=== PATIENT | female | born 1950 | race Caucasian/White ===

== ENCOUNTER 2023-01-21 13:47 | Outpatient (RCR) | payer MEDICARE, SELFPAY | END 2023-03-01 16:35 | disposition home or self-care (01) | LOC: PT 13:47 | PROVIDERS: PCP Family Medicine; Visit Provider Family Medicine | DX: M79.18 Myalgia, other site (principal); M25.611 Stiffness of right shoulder, not elsewhere classified | CPT/HCPCS: 97035; 97110; 97140; 97161; 97530 ==

== ENCOUNTER 2023-04-07 15:14 | Outpatient (OUT) | payer MEDICARE, SELFPAY ==
--- NOTE | 2023-04-07 15:29 | MR_ITS ---
The [address] [address] Patient Name: GUANACO HAGAN MRN: [facility]:[id number] date: 1950 Sex: F Assigned Patient Location: LAB Current Patient Location: LAB Accession/Order Number: [id number] Exam Date: 04/07/2023 15:42 Report Date: 04/07/2023 19:56 At the request of: NON-STAFF PHYSICIAN Procedure: MR head/brain wo/w con EXAM: MR head/brain wo/w con HISTORY: Multiple Sclerosis, chronic headache. COMPARISON: MRI brain 04/19/2022, 08/14/2020 TECHNIQUE: Multisequence MRI brain was performed with and without intravenous contrast. FINDINGS: There is no restricted diffusion to suggest acute infarct. There is no midline shift, mass effect, or abnormal extraaxial fluid collections. There are no abnormal parenchymal or leptomeningeal enhancement. The cortical sulci and ventricular system are within normal limits for age. There are a few nonspecific scattered foci of T2/FLAIR signal abnormality in the subcortical and periventricular white matter, some of which shows a perpendicular orientation to the ventricular surface, unchanged since 04/19/2022. The major intracranial flow voids are visualized. The cerebellar tonsils are normal in position. The orbits are unremarkable. The paranasal sinuses are essentially clear. The mastoid air cells are clear. MR/MR head/brain wo/w con IMPRESSION: No acute intracranial abnormality. A few small nonspecific T2/FLAIR bright foci in the supratentorial white matter, unchanged since 05/19/2022, consistent with demyelination and/or chronic microvascular ischemic changes. No associated restricted diffusion or enhancement to suggest acute demyelination. Electronically authenticated by: ANNE CASTRO Date: 04/07/2023 19:56
[2023-04-07 15:31] LABS: Estimated GFR (African America >60 (>=60); Estimated GFR (Non-African Ame 58 (>=60)
== END 2023-04-07 15:15 | disposition home or self-care (01) ==
LOC: LAB 15:14
PROVIDERS: PCP Family Medicine
DX: G35 Multiple sclerosis (principal)
CPT/HCPCS: 36415; 70553; 82565; 84520; A9575

== ENCOUNTER 2023-06-20 12:24 | Outpatient (OUT) | payer MEDICARE, SELFPAY ==
--- OUTSIDE RECORDS SUMMARY | 2023-06-20 12:29 | XMS_ITS | CCD ---
Author Name Unknown Address [address] [facility] [address] [place] [address] Organization [facility] Care Team Providers Care Children'S Librarian Name Role Phone OSCAR, ABDULAZIM Admitting Unavailable OSCAR ABDULAZIM Attending Unavailable DAMARIS MARINELLI Referring Unavailable DAMARIS MARINELLI Primary Care Unavailable NM Procedure Practitioner Unavailab le OSCAR, ABDULAZIM Surgeon Unavailable NM Procedure Practitioner Unavailab le ALTENHOF, MARVEL Surgeon Unavailable MD Damaris Marinelli Primary Care Provider DO Elder Simon Emergency Provider Unavai Damaris Gallego Unavailable Unavailable Unavailable Rey Taylor Unavailable Damaris Marinelli Primary Care Unavailable Elder Simon Attending Unavailable Elder Simon Admitting Unavailable Damaris Marinelli Unavailable DR DAMARIS MARINELLI Admitting Unavailable YVES, DR DAMARIS Encinas Attending Unavailable YVES, DR DAMARIS Encinas Primary Care Unavailable YVES, DR DAMARIS Encinas Consulting Unavailable MISC, DR SALTER Admitting Unavailable MISC, DR SALTER Attending Unavailable DR DAMARIS MARINELLI Primary Care Unavailable DALLAS, DR RAMAKRISHNA Sainz Consulting Unavailable MISC, DR SALTER Consulting Unavailable YVES, DR DAMARIS Encinas Admitting Unavailable YVES, DR DAMARIS Encinas Attending Unavailable YVES, DR DAMARIS Encinas Primary Care Unavailable YVES, DR DAMARIS Encinas Consulting Unavailable Yves, Dr. Damaris Macias Primary Care Unav ailable Iman, Dr. Marcia Monte Referring Mayela vailable Valerio, Dr. Marcia Monte Attending Mayela vailable Valerio, Dr. Marcia Monte Attending Mayela vailable Marinelli, Dr. Damaris Macias Primary Care Unav Dr. Marcia Morrow Referring Mayela Maikel Oswald Unavailable Allergies Allergy Classification Reported Allergen(s) Allergy Type Date of Onset Reaction(s) Facility (14 sources) Amoxicillin; Translations: [AMOXICILLIN] Drug Allergy rash [facility] Rep[facility] (9 sources) Ciprofloxacin; Translations: [CIPRO] Drug Allergy Myalgia [facility] (20 sources) Doxycycline; Translations: [DOXYCYCLINE] Drug Allergy Headache, Hives, Comment:heart burn [facility] (20 sources) Morphine; Translations: [MORPHINE] Drug Allergy Gastrointestinal Upset, Vomiting, stomach pain, Comment:stomach pains [facility] (2 sources) Sulfamethoxazole / Trimethoprim; Translations: [BACTRIM] Drug Allergy [facility] (17 sources) Ciprofloxacin; Translations: [ciprofloxacin] Drug Allergy Joint Pain, tendons/ache, Comment:tendons ache [facility] (12 sources) Sulfamethoxazole; Translations: [sulfamethoxazole] Drug Allergy Rash [facility] (12 sources) Trimethoprim; Translations: [trimethoprim] Drug Allergy [facility] (7 sources) Amoxicillin; Translations: [Amoxicillin TABS] Drug Allergy Hives [facility] 250 DO Work Phone: (17 sources) Sulfamethoxazole / Trimethoprim; Translations: [Bactrim TABS] Drug Allergy rash [facility] Other (10 sources) Amoxicillin Drug Allergy Rash [facility] Other (1 source) Glatiramer Drug Allergy [address] [facility]ository (5 sources) cefdinir Drug Allergy Unknown [facility] Other (5 sources) Clindamycin Drug Allergy Unknown [facility] Other (5 sources) House dust mite Drug allergy 019 Unknown [facility] Other (5 sources) Metoprolol Drug Allergy 014 Unknown [facility] Other (5 sources) Niacin Drug Allergy Unknown [facility] Other (5 sources) predniSONE Drug Allergy 015 Unknown [facility] Other (5 sources) Pseudoephedrine Drug Allergy Unknown [facility] Other (5 sources) Cat dander Drug allergy Unknown [facility] Other (5 sources) corticosteroid and/or corticosteroid derivative (FN) Drug allergy Unknown [facility] Other Medications Current Medications Medication Drug Class(es) Dates Sig (Normalized) Sig (Original) [id number] actuat albuterol 0.09 mg/actuat metered dose inhaler (9 sources) beta2-Adrenergic Agonist Start: 08-09-2022 take 2 puff(s) by inhalation every four hours as needed Albuterol Sulfate HFA 108 (90 Base) MCG/ACT 2 puff Inhalation every 4 hrs prn Aug, Active Start: 08-09-2022 take 2 puff(s) by in halation every four hours as needed Albuterol Sulfate HFA 108 (90 Base) MCG/ACT 2 puff Inhalation every 4 hrs prn Aug, Active Start: 08-09-2022 take 2 puff(s) by in halation every four hours as needed Albuterol Sulfate HFA 108 (90 Base) MCG/ACT 2 puff Inhalation every 4 hrs prn Aug, Active amLODIPine 10 mg oral tablet (18 sources) Dihydropyridine Calcium Channel Ananya Start: 08-04-2010 take 1 tablet by mouth once daily amLODIPine Besylate 10 MG take 1 tablet (5MG) by oral route every day Oral Aug, Active aspirin 81 mg chewable tablet (15 sources) Platelet Aggregation Inhibitor, Nonsteroidal Anti-inflammatory Drug Start: 07-28-2017 take 1 tablet by mouth once daily Aspirin Active 1 TAB PO Daily July 28, 2017 4:17pm Start: 06-03-2008 Baby Aspirin 8 1 MG take 1 by Oral route every day Oral *please review for potential _update for e-prescription and drug interaction check* May, Active take 6 tablets by mo [facility] every other day Aspirin EC 81 MG Oral Tablet Delayed Release once every other day Quantity: 0 Refills: 0 Ordered: 09-Sep-2021 DO Active azithromycin 250 mg oral tablet (10 sources) Macrolide Antimicrobial Start: 08-09-2022 Azithromycin 250 MG as directed Orally 2 tabs po today, then 1 tab daily x 4 more days for 5 May, Active carvedilol 6.25 mg oral tablet (18 sources) alpha-Adrenergic Ananya, beta-Adrenergic Ananya Start: 07-28-2017 take 1 tablet by mouth twice daily Carvedilol Active 1 TAB PO Twice daily July 28, 2017 4:12pm glipiZIDE 5 mg oral tablet (17 sources) Sulfonylurea take 1 tablet by mouth once daily 30 minutes before breakfast glipiZIDE 5 MG 1 tablet 30 minutes before breakfast Orally Once a day for 90 days Active take 1 tablet by mouth once bhakti y glipiZIDE ER 5 MG Oral Tablet Extended Release 24 Hour TAKE 1 TABLET DAILY. Quantity: 0 Refills: 0 Ordered: 09-Sep-2021 DO Active glipiZIDE Active methylPREDNISolone 4 mg oral tablet (9 sources) Corticosteroid Start: 08-09-2022 methylPREDNISolone 4 MG as directed Orally for 6 days Aug, Active omeprazole 10 mg delayed release oral capsule (5 sources) Proton Pump Inhibitor take 1 capsule by mouth once daily Omeprazole 10 MG 1 capsule 30 minutes before morning meal Orally Once a day Active take 1 capsule by [facility] every twenty-four hours Omeprazole 40 MG 1 capsule Orally Once a day Not-Taking pantoprazole 40 mg delayed release oral tablet (8 sources) Proton Pump Inhibitor take 1 tablet by mouth every twenty-four hours Pantoprazole Sodium 40 MG 1 tablet Orally Once a day Active take 1 tablet by dorene th every twelve hours Pantoprazole Sodium 40 MG 1 tablet Orall y twice a day Active microencapsulated potassium chloride 20 meq extended release oral tablet (16 sources) take 1 tablet by dorene th once daily Klor-Con M20 20 MEQ TAKE 1 TABLET BY MOUTH EVERY DAY Oral for 90 Active take 1 tablet by mouth once bhakti y Klor-Con M20 20 MEQ Oral Tablet Extended Release TAKE ONE TABLETS BY MOUTH EVERY DAY Quantity: 0 Refills: 0 Ordered: 09-Sep-2021 DO Active vitamin B12 (10 sources) Vitamin B12 Vitamin B12 Acti ve Vitamin D3 (10 sources) Vitamin D3 Activ e Completed/Discontinued Medications Medication Drug Class(es) Dates Sig (Normalized) Sig (Original) hyaluronate (20 sources) Start: 01-02-2019 Orthovisc 30 J ul2018 2 mL Start: 12-26-2018 Orthovisc 23 J ul2018 2 mL Start: 12-19-2018 Orthovisc 16 J ul2018 2 mL hydroCHLOROthiazide 25 mg oral tablet (17 sources) Thiazide Diuretic Start: 07-28-2017 take 1 tablet by mouth once daily hydroCHLOROthiazide 25 MG Oral Tablet take one tablet daily at noon Quantity: 45 Refills: 3 Ordered: 31-Jan-2023 Marcia Valerio MD Start : 31-Jan-2023 Active 120 actuat mometasone furoate 0.1 mg/actuat metered dose inhaler (11 sources) Corticosteroid Start: 07-28-2017 End: 08-26-2021 Mometasone (Asmanex Hfa) 100 mcg/actuation Hfa Aerosol Inhaler Discontinued July 28, 2017 4:17pm August 26, 2021 9:09pm take 2 puff(s) by mouth twice da cyndee Asmanex HFA 200 MCG/ACT INHALE 2 PUFFS BY MOUTH TWICE A DAY Inhalation for 30 Active valsartan 80 mg oral tablet (1 source) Angiotensin 2 Receptor Ananya Start: 11-11-2021 take 1 tablet by mouth once daily Valsartan 80 MG Oral Tablet TAKE 1 TABLET DAILY. Quantity: 90 Refills: 3 Ordered: 11-Nov-2021 Marcia Valerio MD Start : 11-Nov-2021 Active new start Vitamin B Complex CAPS (1 source) Vitamin B Comple x CAPS TAKE 1 CAPSULE EVERY OTHER DAY Quantity: 0 Refills: 0 Ordered: 19-May-2022 DO Active Vitamin B Complex Oral Capsule (1 source) take 1 capsule by mouth every other day Vitamin B Complex Oral Capsule TAKE 1 CAPSULE EVERY OTHER DAY Quantity: 0 Refills: 0 Ordered: 19-May-2022 DO Active Vitamin D3 CAPS (2 sources) Vitamin D3 CAPS TAKE 1 CAPSULE EVERY OTHER DAY Quantity: 0 Refills: 0 Ordered: 19-May-2022 DO Active Problems Active Problems Problem Classification Problem Date Documented Da te Episodic/Chronic Abdominal hernia (5 sources) Diaphragmatic hernia; Translations: [Diaphragmatic hernia without obstruction or gangrene] Episodic Abdominal pain (20 sources) Abdominal pain; Translations: [Unspecified abdominal pain] Onset: 5 Episodic Anxiety disorders (5 sources) Anxiety disorder; Translations: [Other specified anxiety disorders] Chronic Asthma (5 sources) Mild intermittent asthma; Translations: [Mild intermittent asthma, uncomplicated] Chronic Cardiac dysrhythmias (7 sources) Palpitations; Translations: [Palpitations] Episodic Chronic obstructive pulmonary disease and bronchiectasis (1 source) Bronchitis, not specified as acute or chronic Episodic Conduction disorders (12 sources) EKG: right bundle branch block; Translations: [Right bundle branch block] Chronic Diabetes mellitus without complication (7 sources) Diabetes mellitus; Translations: [Diabetes mellitus without mention of complication, type II or unspecified type, not stated as uncontrolled] Chronic Diabetes mellitus without complication (12 sources) Other abnormal glucose; Translations: [Hyperglycemia] Onset: 5 Episodic Disorders of lipid metabolism (11 sources) Hyperlipidemia; Translations: [Other and unspecified hyperlipidemia] Onset: 4 Chronic Diverticulosis and diverticulitis (10 sources) Diverticular disease; Translations: [Diverticulosis of intestine, part unspecified, without perforation or abscess without bleeding] Chronic Esophageal disorders (20 sources) Laryngopharyngeal reflux; Translations: [Gastro-esophageal reflux disease without esophagitis] Chronic Essential hypertension (20 sources) Essential hypertension; Translations: [Unspecified essential hypertension] Onset: 3 Chronic Genitourinary symptoms and ill-defined conditions (10 sources) Genitourinary symptoms; Translations: [Unspecified symptoms and signs involving the genitourinary system] Episodic Headache; including migraine (6 sources) Headache; Translations: [Headache] 08-26-2021 Episodic Headache; including migraine (1 source) Headache; including migraine; Translations: [HEADACHE UNSPECIFIED] Onset: 2 Immunizations and screening for infectious disease (11 sources) Patient encounter status; Translations: [Other specified vaccination] Onset: 2 Resolved: 2 Episodic Multiple sclerosis (9 sources) Multiple sclerosis; Translations: [Multiple sclerosis] Onset: 2 Chronic Nausea and vomiting (10 sources) Vomiting; Translations: [Vomiting, unspecified] Episodic Nephritis; nephrosis; renal sclerosis (5 sources) Nephrotic syndrome; Translations: [Nephrotic syndrome with unspecified morphologic changes] Onset: 6 Chronic Nonspecific chest pain (19 sources) Chest pain; Translations: [Chest pain, unspecified] Onset: 2 08-26-2021 Episodic Osteoarthritis (10 sources) Arthritis of first carpometacarpal joint of right hand; Translations: [Unilateral primary osteoarthritis of first carpometacarpal joint, right hand] Chronic Osteoporosis (10 sources) Senile osteoporosis; Translations: [Age-related osteoporosis without current pathological fracture] Chronic Other acquired deformities (10 sources) Lumbar spondylolisthesis; Translations: [Spondylolisthesis, lumbar region] Episodic Other circulatory disease (1 source) Elevated blood pressure; Translations: [Elevated blood-pressure reading, without diagnosis of hypertension] 08-26-2021 Episodic Other circulatory disease (5 sources) Elevated blood-pressure reading without diagnosis of hypertension; Translations: [Elevated blood-pressure reading, without diagnosis of hypertension] Episodic Other congenital anomalies (5 sources) Congenital anomaly of larynx; 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 Other connective tissue disease (1 source) Myalgia, other site Episodic Other diseases of kidney and ureters (7 sources) History of nephrotic syndrome; Translations: [Personal history, nephrotic syndrome] Episodic Other gastrointestinal disorders (1 source) Irritable bowel syndrome; Translations: [Irritable bowel syndrome] Chronic Other gastrointestinal disorders (15 sources) Diarrhea; Translations: [Diarrhea, unspecified] Onset: 6 Episodic Other gastrointestinal disorders (10 sources) Swollen abdomen; Translations: [Abdominal distension (gaseous)] Episodic Other injuries and conditions due to external causes (5 sources) History of fall; Translations: [History of falling] Episodic Other nervous system disorders (20 sources) Carpal tunnel syndrome; Translations: [Carpal tunnel syndrome, left upper limb] Chronic Other non-traumatic joint disorders (1 source) Stiffness of right shoulder, not elsewhere classified Episodic Other nutritional; endocrine; and metabolic disorders (7 sources) Overweight in adulthood with body mass index of 25 or more but less than 30; Translations: [Overweight] Episodic Other nutritional; endocrine; and metabolic disorders (10 sources) Body mass index 25-29 - overweight; Translations: [Body mass index (BMI) 28.0-28.9, adult] Onset: 6 Episodic Other screening for suspected conditions (not mental disorders or infectious disease) (7 sources) Electrocardiogram abnormal; Translations: [Nonspecific abnormal electrocardiogram [ECG] [EKG]] Episodic Other upper respiratory disease (5 sources) Vasomotor rhinitis; Translations: [Vasomotor rhinitis] Onset: 6 Chronic Other upper respiratory disease (5 sources) Allergic rhinitis due to animal hair and dander; Translations: [Allergic rhinitis due to animal (cat) (dog) hair and dander] Onset: 7 Chronic Other upper respiratory infections (7 sources) Postnasal drip; Translations: [Acute sinusitis] Onset: 5 Resolved: 2 Episodic Residual codes; unclassified (1 source) Swelling - edema - symptom; Translations: [Edema] Episodic Residual codes; unclassified (2 sources) Edema of lower extremity; Translations: [Edema] Episodic Screening and history of mental health and substance abuse codes (12 sources) Ex-smoker; Translations: [Personal history of tobacco use] Episodic Comment on above: Quit 06/1971; Spondylosis; intervertebral disc disorders; other back problems (20 sources) Solitary sacroiliitis; Translations: [Sacroiliitis, not elsewhere classified] Chronic Spondylosis; intervertebral disc disorders; other back problems (16 sources) Backache; Translations: [Dorsalgia, unspecified] 08-26-2021 Episodic Unclassified (1 source) R94.31 - Abnormal electrocardiogram [ECG] [EKG]; Translations: [R94.31 - Abnormal electrocardiogram [ECG] [EKG]] Onset: 2 Unclassified (5 sources) History of disease caused by Severe acute respiratory syndrome coronavirus 2 (situation); Translations: [Personal history of COVID-19] Urinary tract infections (5 sources) Urinary tract infectious disease; Translations: [Urinary tract infection, site not specified] Episodic Past or Other Problems Problem Classification Problem Date Documented Da te Episodic/Chronic Acute bronchitis (5 sources) Acute bronchitis; Translations: [Acute bronchitis, unspecified] Onset: 05-02-2015 Episodic Allergic reactions (5 sources) Urticaria, unspecified; Translations: [Urticaria] Onset: 01-23-2014 Episodic Fluid and electrolyte disorders (5 sources) Hypokalemia; Translations: [Hypokalemia] Onset: 09-22-2017 Episodic Other connective tissue disease (5 sources) Spasm; Translations: [Cramp and spasm] Onset: 08-04-2015 Episodic Other gastrointestinal disorders (6 sources) History of irritable bowel syndrome; Translations: [Personal history of other diseases of digestive system] Resolved: 09-10-2021 Episodic Other gastrointestinal disorders (5 sources) Flatulence, eructation and gas pain; Translations: [Abdominal distension (gaseous)] Onset: 12-25-2015 Episodic Other nutritional; endocrine; and metabolic disorders (6 sources) H/O: raised blood lipids; Translations: [Personal history of other endocrine, metabolic, and immunity disorders] Resolved: 09-10-2021 Episodic Other nutritional; endocrine; and metabolic disorders (5 sources) Overweight; Translations: [Overweight] Onset: 01-06-2016 Episodic Residual codes; unclassified (6 sources) History of clinical finding in subject; Translations: [Personal history of other specified diseases] Resolved: 09-10-2021 Episodic Residual codes; unclassified (3 sources) History of chest pain; Translations: [Personal history of other specified diseases] Resolved: 11-11-2021 Episodic Results Test Name Value Interpretation Reference Range Facility Office Visit (Cardiology)on 01-31-2023 Follow-up visit Diagnoses/Problems Assessed Essential hypertension (401.9) (I10) Right bundle branch block (RBBB) on electrocardiography (426.4) (I45.10) Diabetes mellitus (250.00) (E11.9) Overweight with body mass index (BMI) of 29 to 29.9 in adult (278.02,V85.25) (E66.3,Z68.29) Former smoker (V15.82) (Z87.891) Quit 06/1971 History of nephrotic syndrome (V13.03) (Z87.441) Orders Essential hypertension Start: hydroCHLOROthiazide 25 MG Oral Tablet; take one tablet daily at noon Overweight with body mass index (BMI) of 29 to 29.9 in adult Healthy Weight Tips; Status:Complete - Retrospective Authorization; Done: [id number] Some eating tips that can help you lose weight.; Status:Complete - Retrospective Authorization; Done: [id number] SocHx: Former smoker Tobacco Use Screening; Status:Complete; Done: [id number] Patient Instructions Please bring all medicines, vitamins, and herbal supplements with you when you come to the office. Prescriptions will not be filled unless you are compliant with your follow up appointments or have a follow up appointment scheduled as per instruction of your physician. Refills should be requested at the time of your visit. Retrieve lab work HCTZ 25 mg daily Follow up in 1 year. Chief Complaint GUANACO HAGAN is being seen for a 6 month follow-up of. Patient is in the office for follow-up for the problems noted below came with her . She is doing well without any major issues except for shoulder problem for which she is going through physical therapy. Recently she had episode of mild hypotension at home which was symptomatic with dizziness. She held the hydrochlorothiazide till today's office visit where she was found to have upper normal readings on her blood pressure. She is taking amlodipine and Coreg which have been well-tolerated. She has no palpitations orthopnea PND or chest pain. Apart from overweight her physical examination was unremarkable. Lab data from PCP done earlier this year were requested. She was reassured by her family physician about the results. Assessment/recommendat ions: 1?history of chest pain that is atypical in nature with normal nuclear stress test 2021,. No further cardiac work-up is needed reassurance is provided. She had normal cardiac catheterization 2009 2-Hypertension currently under control, she was advised to take the hydrochlorothiazide in the middle of the day to avoid sudden drop in blood pressure taken on medications at once 3-Diabetes currently under control managed by PCP, A1c below 7 4?history of nephrotic syndrome in remission, currently does not follow with nephrology 5?overweight, encouraged more weight loss with diet and exercise. 6? right bundle branch block. No clinical significance. Surgical History Problems History of Arthroscopy Knee History of Cataract surgery History of Cholecystectomy History of Complete colonoscopy Managed By: Josesito Cramer MD (Gastroenterology) History of Foot surgery Past Medical History Problems History of chest pain (V13.89) (Z87.898) Resolved Date: 11 Nov 2021 History of edema (V13.89) (Z87.898) Resolved Date: 10 Sep 2021 History of hyperlipidemia (V12.29) (Z86.39) Resolved Date: 10 Sep 2021 History of irritable bowel syndrome (V12.79) (Z87.19) Resolved Date: 10 Sep 2021 Current Meds Medication NameInstruction amLODIPine Besylate 10 MG Oral TabletTake 1 tablet daily Carvedilol 6.25 MG Oral TabletTake 1 tablet twice a day glipiZIDE ER 5 MG Oral Tablet Extended Release 24 HourTAKE 1 TABLET DAILY. Klor-Con M20 20 MEQ Oral Tablet Extended ReleaseTAKE 1 TABLET DAILY. Pantoprazole Sodium 40 MG Oral Tablet Delayed ReleaseTAKE 1 TABLET DAILY. Vitamin B Complex Oral CapsuleTAKE 1 CAPSULE EVERY OTHER DAY Vitamin D3 CAPSTAKE 1 CAPSULE EVERY OTHER DAY Allergies Medication Amoxicillin TABS Hives;; Recorded By: Uzma Solano; 09/08/2021 12:28:39 PM Bactrim TABS Hives;; Recorded By: Uzma Solano; 09/08/2021 12:28:39 PM doxycycline Hives;; Recorded By: Uzma Solano; 09/08/2021 12:28:39 PM Cipro Myalgia; Recorded By: Uzma Solano; 09/08/2021 12:28:39 PM morphine Vomiting; Recorded By: Uzma Solano; 09/08/2021 12:28:39 PM Social History Problems Caffeine use (V49.89) (Z78.9) 2 cups tea daily Consumes alcohol (V49.89) (Z78.9) rarely Former smoker (V15.82) (Z87.891) Quit 06/1971 No illicit drug use Review of Systems Constitutional: not feeling tired. Cardiovascular: no intermittent leg claudication and as noted in HPI. Respiratory: no cough and no shortness of breath. Gastrointestinal: no change in bowel habits and no blood in stools. Integumentary: no skin rashes. Neurological: dizziness, but no seizures and no frequent falls. All other systems have been reviewed and are negative for complaint. Vitals Vital Signs Printed in Appendix #1 below. Physical Exam Constitutional: alert and in no acute distress. Neck: neck is supple, (more content not included)... Normal [facility] Tobacco Screening.on 023 Adult depression screening assessment No [facility] 250 DO Work Phone: Fall risk assessment a) No falls within the last year [facility] 250 DO Work Phone: Tobacco use status [facility] b) No [facility] 250 DO Work Phone: CBC W MANUAL DIFFon 08-17-19 23 ATYPICAL LYMPH # Normal [facility] Comment on above: Performed By: #### C BCMAN #### [facility] [address] [place] [address] Dr. Kristen Jurado ATYPICAL LYMPH % Normal [facility] Comment on above: Performed By: #### C BCMAN #### [facility] [address] [place] [address] Dr. Kristen Jurado BAND # Normal 0.0-0.3 [facility] Comment on above: Performed By: #### C BCMAN #### [facility] [address] [place] [address] Dr. Kristen Jurado BAND % Normal 0-5 [facility] Comment on above: Performed By: #### C BCMAN #### [facility] [address] [place] [address] Dr. Kristen Jurado BASOM # 0.00 103/ul Normal 0.00-0.10 [facility] Comment on above: Performed By: #### C BCMAN #### [facility] [address] [place] [address] Dr. Kristen Jurado BASOM % 0.0 % Critically low 0.2-2.0 [facility] Comment on above: Performed By: #### C BCMAN #### [facility] [address] [place] [address] Dr. Kristen Jurado BLAST # Normal [facility] Comment on above: Performed By: #### C BCMAN #### [facility] [address] [place] [address] Dr. Kristen Jurado BLAST % Normal [facility] Comment on above: Performed By: #### C BCMAN #### [facility] [address] [place] [address] Dr. Kristen Jurado CORRECTED WBC Normal 4.0-11.0 [facility] Comment on above: Performed By: #### C BCUSMAN #### [facility] [address] [address] [address] Kristen Jurado EOS # 0.39 103/ul Normal 0.00-0.70 [facility] Comment on above: Performed By: #### C BCUSMAN #### [facility] [address] [address] [address] Kristen Jurado EOS% 3.0 % Normal 0.9-7.0 [facility] Comment on above: Performed By: #### C NILA #### [facility] [address] [place] [address] Dr. Kristen Jurado HCT 45.6 % Normal 36.0-48.0 [facility] Comment on above: Performed By: #### C NILA #### [facility] [address] [place] [address] Dr. Kristen Jurado HGB 15.0 g/dl Normal 12.0-16.0 [facility] Comment on above: Performed By: #### C NILA #### [facility] [address] [place] [address] Dr. Kristen Jurado LYMPHM # 6.55 103/ul Critically high 1.20-3.80 [facility] Comment on above: Performed By: #### C NILA #### [facility] [address] [place] [address] Dr. Kristen Jurado LYMPHM% 50.0 % Normal 20.5-60.0 [facility] Comment on above: Performed By: #### C BCUSMAN #### [facility] [address] [place] [address] Dr. Kristen Jurado MCH 29.1 pg Normal 26.7-34.0 [facility] Comment on above: Performed By: #### C NILA #### [facility] [address] [place] [address] Dr. Kristen Jurado MCHC 32.9 g/dl Normal 29.9-35.2 [facility] Comment on above: Performed By: #### C NILA #### [facility] [address] [place] [address] Dr. Kristen Jurado MCV 88.4 fL Normal 81.0-99.0 [facility] Comment on above: Performed By: #### C BCMAN #### [facility] [address] [place] [address] Dr. Kristen Jurado METAMYELOCYTE # Normal The [facility] Comment on above: Performed By: #### C BCMAN #### [facility] [address] [place] [address] Dr. Kristen Jurado METAMYELOCYTE % Normal [facility] Comment on above: Performed By: #### C BCMAN #### [facility] [address] [place] [address] Dr. Kristen Jurado MONOM# 0.92 103/ul Critically high 0.30-0.80 [facility] Comment on above: Performed By: #### C BCUSMAN #### [facility] [address] [place] [address] Dr. Kristen Jurado MONOM% 7.0 % Normal 1.7-12.0 [facility] Comment on above: Performed By: #### C NILA #### [facility] [address] [place] [address] Dr. Kristen Jurado MPV 11.1 fL Normal 9.5-13.5 [facility] Comment on above: Performed By: #### C NILA #### [facility] [address] [place] [address] Dr. Kristen Jurado MYELOCYTE # Normal [facility] Comment on above: Performed By: #### C BCUSMAN #### [facility] [address] [place] [address] Dr. Kristen Jurado MYELOCYTE % Normal [facility] Comment on above: Performed By: #### C BCMAN #### [facility] [address] [place] [address] Dr. Kristen Jurado NRBC Normal [facility] Comment on above: Performed By: #### C NILA #### [facility] [address] [place] [address] Dr. Kristen Jurado PLT 269 103/ul Normal 150-450 [facility] Comment on above: Performed By: #### C NILA #### [facility] [address] [address] [address] Kristen Jurado RBC 5.16 106/ul Normal 4.20-5.40 [facility] Comment on above: Performed By: #### C NILA #### [facility] [address] [address] [address] Kristen Jurado RDW 13.0 % Normal 11.0-15.0 [facility] Comment on above: Performed By: #### C NILA #### [facility] [address] [address] [address] Kristen Jurado SEG # 5.24 103/ul Normal 1.40-6.50 [facility] Comment on above: Performed By: #### C NILA #### [facility] [address] [place] [address] Dr. Kristen Jurado SEG % 40.0 % Critically low 43.0-75.0 [facility] Comment on above: Performed By: #### C NILA #### [facility] [address] [address] [address] Kristen Jurado WBC 13.1 103/ul Critically high 4.0-11.0 [facility] Comment on above: Performed By: #### C NILA #### [facility] [address] [address] [address] Kristen Jurado GLYCOHEMOGLOBIN A1Con 2022 ADA RECOMMENDATION SEE BELOW Normal [facility] [place] [facility] Comment on above: Result Comment: ADA RECOMMENDED LIMIT 4.0 - 6.0 ADA THERAPEUTIC TARGET < 7.0 ACTION SUGGESTED > 7.0 Performed By: #### A 1C #### [facility] [address] [address] [address] Kristen Jurado Glucose [Mass/Vol] 137 mg/dL Normal [facility] [place] [facility] Comment on above: Performed By: #### A 1C #### [facility] [address] [address] [address] Kristen Jurado HbA1c (Bld) [Mass fraction] 6.4 % Critically high 4.5-6.2 [facility] Comment on above: Performed By: #### A 1C #### [facility] [address] [address] [address] Kristen Jurado LIPID PROFILEon 08-16-2022 CHOL-HDL RATIO NORM SEE BELOW Normal [facility] Comment on above: Result Comment: 3.3 - 4.4 LOW RISK 4.4 - 7.1 AVERAGE RISK 7.1 - 11.0 MODERATE RISK >11.0 HIGH RISK Performed By: #### C MP, LIPID #### [facility] [address] [place], [place] [address] Dr. Kristen Jurado Cholesterol [Mass/Vol] 196 mg/dL Normal <=200 [facility] Comment on above: Performed By: #### C MP, LIPID #### [facility] [address] [address] [address] Kristen Jurado Cholesterol in HDL [Mass/Vol] 74 mg/dL Critically high 40-60 [facility] Comment on above: Performed By: #### C MP, LIPID #### [facility] [address] [address] [address] Kristen Jurado Cholesterol in LDL [Mass/Vol] 95.6 mg/dL Normal [facility] Comment on above: Performed By: #### C MP, LIPID #### [facility] [address] [place], [place] [address] Dr. Kristen Jurado Cholesterol.total/Cho lesterol in HDL [Mass ratio] 2.6 {ratio} Normal [facility] Comment on above: Performed By: #### C MP, LIPID #### [facility] [address] [address] Kristen Jurado HDL NORMAL > or = 60 mg/dl - LO W CARDIOVASCULAR RISK <40 mg/dl - HIGH CARDIOVASCULAR RISK Normal [facility] Comment on above: Performed By: #### C MP, LIPID #### [facility] [address] [address] [address] Kristen Jurado LDL CALC NORMAL SEE BELOW Normal The [facility] Comment on above: Result Comment: <100 mg/dl OPTIMAL 100 - 129 mg/dl NEAR OR ABOVE OPTIMAL 130 - 159 mg/dl BORDERLINE HIGH 160 - 189 mg/dl HIGH >190 mg/dl VERY HIGH Performed By: #### C MP, LIPID #### [facility] [address] [place] [address] Dr. Kristen Jurado Triglyceride [Mass/Vol] 132 mg/dL Normal <=150 [facility] Comment on above: Performed By: #### C MP, LIPID #### [facility] [address] [place] [address] Dr. Kristen Jurado VLDL CALC 26.4 mg/dL Normal [facility] Comment on above: Performed By: #### C MP, LIPID #### [facility] [address] [place] [address] Dr. Kristen Jurado MICROALBUMIN, RAND URon 08-04 mALB <1.3 Normal <=30.0 [facility] Comment on above: Performed By: #### M ALBR #### [facility] [address] [place] [address] Dr. Kristen Jurado PROF 14(COMP METB)on 023 Albumin [Mass/Vol] 3.7 g/dL Normal 3.4-5.0 [facility] [place] [facility] Comment on above: Performed By: #### C MP, LIPID #### [facility] [address] [place] [address] Dr. Kristen Jurado Albumin/Globulin [Mass ratio] 0.9 {ratio} Normal [facility] Comment on above: Performed By: #### C MP, LIPID #### [facility] [address] [place] [address] Dr. Kristen Jurado ALP [Catalytic activity/Vol] 85 U/L Normal 46-116 [facility] Comment on above: Performed By: #### C MP, LIPID #### [facility] [address] [place] [address] Dr. Kristen Jurado ALT [Catalytic activity/Vol] 21 U/L Normal 14-59 [facility] Comment on above: Performed By: #### C MP, LIPID #### [facility] [address] [place] [address] Dr. Kristen Jurado Anion gap [Moles/Vol] 11.3 mmol/L Normal [facility] Comment on above: Performed By: #### C MP, LIPID #### [facility] [address] [place] [address] Dr. Kristen Jurado AST [Catalytic activity/Vol] 23 U/L Normal 15-37 [facility] Comment on above: Performed By: #### C MP, LIPID #### [facility] [address] [place] [address] Dr. Kristen Jurado Bilirubin [Mass/Vol] 0.6 mg/dL Normal 0.2-1.0 [facility] Comment on above: Performed By: #### C MP, LIPID #### [facility] [address] [place] [address] Dr. Kristen Jurado Calcium [Mass/Vol] 9.6 mg/dL Normal 8.5-10.1 [facility] [place] [facility] Comment on above: Performed By: #### C MP, LIPID #### [facility] [address] [place] [address] Dr. Kristen Jurado Chloride [Moles/Vol] 101 mmol/L Normal 98-107 [facility] Comment on above: Performed By: #### C MP, LIPID #### [facility] [address] [place] [address] Dr. Kristen Jurado CO2 [Moles/Vol] 31.0 mmol/L Normal 21.0-32.0 [facility] Comment on above: Performed By: #### C MP, LIPID #### [facility] [address] [place] [address] Dr. Kristen Jurado Creatinine [Mass/Vol] 0.84 mg/dL Normal 0.55-1.02 [facility] Comment on above: Performed By: #### C MP, LIPID #### [facility] [address] [place] [address] Dr. Kristen Jurado EGFR-AF TURKISH >60 Normal >=60 [facility] Comment on above: Performed By: #### C MP, LIPID #### [facility] [address] [place] [address] Dr. Kristen Jurado EGFR-NON AF TURKISH >60 Normal >=60 [facility] Comment on above: Performed By: #### C MP, LIPID #### [facility] [address] [place] [address] Dr. Kristen Jurado Globulin (S) [Mass/Vol] 4.0 g/dL Normal [facility] Comment on above: Performed By: #### C MP, LIPID #### [facility] [address] [place] [address] Dr. Kristen Jurado Glucose [Mass/Vol] 129 mg/dL Critically high 74-106 [facility] Comment on above: Performed By: #### C MP, LIPID #### [facility] [address] [place] [address] Dr. Kristen Jurado Potassium [Moles/Vol] 3.3 mmol/L Critically low 3.5-5.1 [facility] Comment on above: Performed By: #### C MP, LIPID #### [facility] [address] [place] [address] Dr. Kristen Jurado Protein [Mass/Vol] 7.7 g/dL Normal 6.4-8.2 [facility] Comment on above: Performed By: #### C MP, LIPID #### [facility] [address] [place] [address] Dr. Kristen Jurado Sodium [Moles/Vol] 140 mmol/L Normal 136-145 [facility] [place] [facility] Comment on above: Performed By: #### C MP, LIPID #### [facility] [address] [place] [address] Dr. Kristen Jurado Urea nitrogen [Mass/Vol] 22.0 mg/dL Critically high 7.0-18.0 [facility] Comment on above: Performed By: #### C MP, LIPID #### [facility] [address] [place] [address] Dr. Kristen Jurado Urea nitrogen/Creatinine [Mass ratio] 26.2 mg/mg Normal [facility] Comment on above: Performed By: #### C MP, LIPID #### [facility] [address] [place] [address] Dr. Kristen Jurado Office Visit (Cardiology)on 05-19-2022 Follow-up visit Diagnoses/Problems Assessed Essential hypertension (401.9) (I10) Right bundle branch block (RBBB) on electrocardiography (426.4) (I45.10) Diabetes mellitus (250.00) (E11.9) Overweight with body mass index (BMI) of 29 to 29.9 in adult (278.02,V85.25) (E66.3,Z68.29) Former smoker (V15.82) (Z87.891) Quit 06/1971 Lower extremity edema (782.3) (R60.0) Palpitation (785.1) (R00.2) History of nephrotic syndrome (V13.03) (Z87.441) Orders Overweight with body mass index (BMI) of 29 to 29.9 in adult Healthy Weight Tips; Status:Complete - Retrospective Authorization; Done: [id number] Some eating tips that can help you lose weight.; Status:Complete - Retrospective Authorization; Done: [id number] SocHx: Former smoker Tobacco Use Screening; Status:Complete; Done: [id number] Patient Instructions Please bring all medicines, vitamins, and herbal supplements with you when you come to the office. Prescriptions will not be filled unless you are compliant with your follow up appointments or have a follow up appointment scheduled as per instruction of your physician. Refills should be requested at the time of your visit. Follow up in 6 months Chief Complaint GUANACO HAGAN is being seen for a 6 month follow-up of. Patient is in the office for follow-up for the problems noted below. She came with her . Last visit I suggested switching from hydrochlorothiazide to valsartan however she did not tolerate the medicine immediately and developed severe dizziness. She went back to the hydrochlorothiazide. In the interim she remained without any cardiac events. Physical examination is unremarkable for overweight. She does have 1+ edema related to amlodipine therapy located in her lower extremities. Cardiac and pulmonary examinations were normal Assessment/recommendat ions: 1?history of chest pain that is atypical in nature with normal nuclear stress test 2021,. No further cardiac work-up is needed reassurance is provided. She had normal cardiac catheterization 2009 2-Hypertension currently under control, follows with PCP as well 3-Diabetes currently under control managed by PCP 4?history of nephrotic syndrome in remission 5?overweight, encouraged more weight loss with diet and exercise. 6? right bundle branch block. No clinical significance. 7?lower extremity edema related to amlodipine therapy, benign and reassurance is provided, leg elevation was recommended Surgical History Problems History of Arthroscopy Knee History of Cataract surgery History of Cholecystectomy History of Complete colonoscopy Managed By: Josesito Cramer MD (Gastroenterology) History of Foot surgery Past Medical History Problems History of chest pain (V13.89) (Z87.898) Resolved Date: 11 Nov 2021 History of edema (V13.89) (Z87.898) Resolved Date: 10 Sep 2021 History of hyperlipidemia (V12.29) (Z86.39) Resolved Date: 10 Sep 2021 History of irritable bowel syndrome (V12.79) (Z87.19) Resolved Date: 10 Sep 2021 Current Meds Medication NameInstruction amLODIPine Besylate 10 MG Oral TabletTake 1 tablet daily Carvedilol 6.25 MG Oral TabletTake 1 tablet twice a day glipiZIDE ER 5 MG Oral Tablet Extended Release 24 HourTAKE 1 TABLET DAILY. hydroCHLOROthiazide 25 MG Oral TabletTAKE 1 TABLET DAILY. Klor-Con M20 20 MEQ Oral Tablet Extended ReleaseTAKE 1 TABLET DAILY. Vitamin B Complex CAPSTAKE 1 CAPSULE EVERY OTHER DAY Vitamin D3 CAPSTAKE 1 CAPSULE EVERY OTHER DAY Patient did not bring medication list or bottles. Updated verbally with patient Allergies Medication Amoxicillin TABS Hives;; Recorded By: Uzma Solano; 09/08/2021 12:28:39 PM Bactrim TABS Hives;; Recorded By: Uzma Solano; 09/08/2021 12:28:39 PM doxycycline Hives;; Recorded By: Uzma Solano; 09/08/2021 12:28:39 PM Cipro Myalgia; Recorded By: Uzma Solano; 09/08/2021 12:28:39 PM morphine Vomiting; Recorded By: Uzma Solano; 09/08/2021 12:28:39 PM Social History Problems Caffeine use (V49.89) (Z78.9) 2 cups tea daily Consumes alcohol (V49.89) (Z78.9) rarely Former smoker (V15.82) (Z87.891) Quit 06/1971 No illicit drug use Review of Systems Constitutional: not feeling tired. Cardiovascular: no intermittent leg claudication and as noted in HPI. Respiratory: no cough and no shortness of breath. Gastrointestinal: no change in bowel habits and no blood in stools. Integumentary: no skin rashes. Neurological: no seizures and no frequent falls. All other systems have been reviewed and are negative for complaint. Vitals Vital Signs Recorded: [id number] 10:34AM Heart Rate68, R Radial Evwqvdtc711, LUE, Sitting Fzkhoannx90, LUE, Sitting Height5 ft 5 in Hebvqz492 lb 4 oz BMI Zlkthvnfkf29.66 kg/m2 BSA Calculated1.88 Tobacco Useb) No Falls Screening (Age 18+)a) No falls within the last year Physical Exam Constitutional: alert and in no acute distress. Neck: neck is supple, symmetric, trachea midline, no mass (more content not included)... Normal [employer] Tobacco Screening.on Fall risk assessment a) No falls within the last year [facility] [place] 250 DO Work Phone: Tobacco use status CP b) No [facility] 250 DO Work Phone: [facility]ATION: [facility], 04[facility]19/2022 10:30 AM EST HISTORY: Multiple sclerosis COMPARISON: None. TECHNIQUE: MRI of the brain was performed without IV contrast. FINDINGS: CEREBRUM: Mild scattered white matter signal abnormality, nonspecific. No acute parenchymal hemorrhage or mass. No restricted diffusion to suggest an acute infarct. CEREBELLUM: No edema, hemorrhage, mass, acute infarction, or inappropriate atrophy. BRAINSTEM: No edema, hemorrhage, mass, acute infarction, or inappropriate atrophy. CSF SPACES: Ventricles, cisterns, and sulci are appropriate for age. No hydrocephalus, subarachnoid hemorrhage, or mass. SKULL: No mass or other significant visible lesion. SINUSES: Limited views demonstrate no significant mucosal thickening or fluid. ORBITS: Limited views are unremarkable. OTHER: No postcontrast enhancement. AICA extends into the right internal auditory canal approximately 50%. IMPRESSION: Mild white matter signal abnormality, nonspecific No restricted diffusion or postcontrast enhancement to suggest acute demyelination or infarct Electronically authenticated by: RAMAKRISHNA VILLALOBOS Date: 2022-04-20 08:12 Normal [facility] Tobacco Screening.on 022 Fall risk assessment a) No falls within the last year [facility] 250 DO Work Phone: Tobacco use status [facility] b) No [facility] 250 DO Work Phone: [facility] CARDIAC STRESS/REST INJE CTIONon 09-18-2021 [facility] CARDIAC STRESS/REST INJECTION Patient Name: GUANACO HAGAN STUDY: MYOCARDIAL PERFUSION STRESS TEST WITH LEXISCAN Performing facility: [facility], [address] [place] [address], [address], [address] Provider: Marcia Valerio MD, [facility] PCP: Dr. Sudhakar Marinelli Supervising provider: Danny Christopher MD INDICATION: Abnormal EKG; Chest Pain; DM HTN HISTORY: Gender: F; Age: 71 y/o ; Height: 0 cm; Weight: 78.0864852 kg. Abnormal EKG; Diabetes; Palpitations; HTN; Chest Pain; Denies smoking. Cardiac catheterization on 2009. COMPARISON: Previous nuclear testing completed [id number] at [place]. ACCESSION NUMBER(S): [id number]; [id number]; [id number] ORDERING CLINICIAN: MARCIA VALERIO TECHNIQUE: ONE DAY protocol. Stress injection: Date:09-18-21, 35.8 mCi of Myoview IV 20 seconds after rapid injection of Lexiscan. Rest injection: Date: 09-18-21, 11.3 mCi of Myoview IV at rest. The patient had a rapid injection of 0.4 mg of Lexiscan IV over 10 seconds. Imaging was performed by gated tomographic technique. Reason for Lexiscan: dizziness/unsteady/fal l risk STRESS TEST DATA: Resting heart rate was 58 BPM. Resting blood pressure was 166/74 mmHg. Peak blood pressure was 166/60 mmHg. Peak heart rate was 85 BPM. TEST TERMINATED DUE TO: Protocol completed FINDINGS: STRESS TEST RESULTS: Resting electrocardiogram revealed normal sinus rhythm without ST-T changes. There were no significant ischemic ECG changes or dysrhythmias. The patient did not have chest pains/symptoms during procedure. There was a normal recovery phase. IMAGING RESULTS: Image quality was good. Rest and stress tomographic images were reviewed and revealed normal perfusion without evidence of ischemia, myocardial infarction, or left ventricular dilatation with stress. Overall left ventricular systolic function appeared to be normal without regional wall motion abnormalities. Ejection fraction was 70%. TID is 1.1 and is normal. There were no evidence of attenuation artifact. IMPRESSION: Normal Lexiscan Myoview cardiac perfusion stress test. No evidence of ischemia or myocardial infarction by perfusion imaging. Normal left ventricular systolic function, ejection fraction 70%. No change when compared to prior study. Electronically signed by: DANNY CHRISTOPHER MD Normal [facility] No Panel Informationon 09-18 Normal [facility] 250 DO Work Phone: Tobacco Screening.on 022 Adult depression screening assessment No [facility] 250 DO Work Phone: Fall risk assessment a) No falls within the last year [facility] 250 DO Work Phone: Tobacco use status [facility] b) No [facility] 250 DO Work Phone: XR chest 1V portableon 08-27 XR chest 1V portable [facility] [place] [address] [place] [id number] XRay Report Signed Patient: Guanaco Hagan MR#: [id number] : 1950 Acct:[id number] Age/Sex: 71 / F ADM Date: 08/26/21 Loc: ER Room: Type: [facility] ER Attending Dr: Ordering Provider: Elder Simon DO Date of Service: 08/26/21 XR/XR chest 1V portable: Arrhythmia/Palpitation s Copies to: Elder Simon DO Plain film chestsingle view HISTORY:Intermittent headache for weeks COMPARISON:None FINDINGS: The cardiac, mediastinal and hilar silhouettes are within normal limits. No acute lung process, pleural effusion or pneumothorax identified. Bony structures are intact. XR/XR chest 1V portable IMPRESSION: No acute process. Impression dictated by: Harvey Bustillos M.D.08/27/2021 8:29 AM Dictation Location: [place] [address] Transcribed By: [facility] 08/27/21828 Dictated By: Harvey Bustillos DO 08/27/21828 Signed By: 08/27/21828 Normal [facility] Albumin [Mass/volume] in Ser um or PlasmaOrdered By: Elder Simon on 08-26-2021 Albumin [Mass/Vol] 4.0 g/dL 3.2-5.[address] [facility] Basophils Auto (Bld) [#/Vol] Ordered By: PROVIDER TEMP on 08-26-2021 Basophils (Bld) [#/Vol] 0.1 10*3/uL 0.0-0.2 [facility] Basophils/100 WBC Auto (Bld) Ordered By: PROVIDER TEMP on 08-26-2021 Basophils/100 WBC (Bld) 0.8 % [facility] Blood hemoglobin measurement (mass/volume)Ordered By: PROVIDER TEMP on 08-26-2021 Hemoglobin (Bld) [Mass/Vol] 14.6 g/dL 11.8-15.4 [facility] Blood leukocytes automated c ount (number/volume)Ordered By: PROVIDER TEMP on 08-26-2021 WBC (Bld) [#/Vol] 8.5 10*3/uL 4.5-11.[address] [facility] Complete Blood Count Auto Di ffon 08-26-2021 Basophils (Bld) [#/Vol] 0.1 10*3/uL Normal 0.0-0.2 [facility] Comment on above: Result Comment: PERF ORMED BY: [place] [address] PATHOLOGIST [employer] SERVICER SUPERVISOR ELOINA THURSTON M.D. Performed By: #### C BC, CMP, HS TROP #### [facility] [address] [place] [address] Basophils/100 WBC (Bld) 0.8 % Normal . [facility] Comment on above: Performed By: #### C BC, CMP, HS TROP #### [facility] [address] [place] [address] Eosinophils (Bld) [#/Vol] 0.2 10*3/uL Normal 0.0-0.45 [facility] Comment on above: Performed By: #### C BC, CMP, HS TROP #### [place] [address] [place] Eosinophils/100 WBC (Bld) 1.9 % Normal . [facility] Comment on above: Performed By: #### C BC, CMP, HS TROP #### [address] Erythrocyte distribution width (RBC) [Ratio] 13.1 % Normal 11.9-15.3 [facility] Comment on above: Performed By: #### C BC, CMP, HS TROP #### [address] Hematocrit (Bld) [Volume fraction] 43.4 % Normal 34.0-46.4 [facility] Comment on above: Performed By: #### C BC, CMP, HS TROP #### [address] Hemoglobin (Bld) [Mass/Vol] 14.6 g/dL Normal 11.8-15.4 [facility] Comment on above: Performed By: #### C BC, CMP, HS TROP #### [address] Lymphocytes (Bld) [#/Vol] 1.9 10*3/uL Normal 1.00-4.8 [facility] Comment on above: Performed By: #### C BC, CMP, HS TROP #### [place] [address] [place] Lymphocytes/100 WBC (Bld) 23.0 % Normal . [facility] Comment on above: Performed By: #### C BC, CMP, HS TROP #### [place] [address] [place] MCH (RBC) [Entitic mass] 30.2 pg Normal 24.7-34.3 [facility] Comment on above: Performed By: #### C BC, CMP, HS TROP #### [facility] [address] MCV (RBC) [Entitic vol] 90.1 fL Normal 80-100 [facility] Comment on above: Performed By: #### C BC, CMP, HS TROP #### [facility] [address] Mean Corpuscular HGB Conc 33.5 g/dL Normal 32.0-35.0 [facility] Comment on above: Performed By: #### C BC, CMP, HS TROP #### [facility] [address] [place] [address] [place] Monocytes (Bld) [#/Vol] 0.5 10*3/uL Normal 0.0-0.8 [facility] Comment on above: Performed By: #### C BC, CMP, HS TROP #### [facility] [address] [place] [address] [place] Monocytes/100 WBC (Bld) 6.3 % Normal . [facility] Comment on above: Performed By: #### C BC, CMP, HS TROP #### [facility] [address] [place] [address] [place] Neutrophils (Bld) [#/Vol] 5.8 10*3/uL Normal 1.8-7.7 [facility] Comment on above: Performed By: #### C BC, CMP, HS TROP #### [facility] [address] [place] [address] [place] Neutrophils/100 WBC (Bld) 68.0 % Normal . [facility] Comment on above: Performed By: #### C BC, CMP, HS TROP #### [facility] [address] [place] [address] [place] Nucleated RBC/100 WBC (Bld) [Ratio] 0.1 % Normal 0-0.5 [facility] Comment on above: Performed By: #### C BC, CMP, HS TROP #### [facility] [address] [place] [address] [place] Platelet mean volume (Bld) [Entitic vol] 10.0 fL Normal 6.3-10.7 [facility] Comment on above: Performed By: #### C BC, CMP, HS TROP #### [facility] [address] Platelets (Bld) [#/Vol] 247 10*3/uL Normal 150-450 [facility] Comment on above: Performed By: #### C BC, CMP, HS TROP #### [facility] [address] [place] [address] RBC (Bld) [#/Vol] 4.82 10*6/uL Normal 3.60-5.00 [facility] Comment on above: Performed By: #### C BC, CMP, HS TROP #### [facility] [address] [place] [address] WBC (Bld) [#/Vol] 8.5 10*3/uL Normal 4.5-11.[address] [facility] Comment on above: Performed By: #### C BC, CMP, HS TROP #### [address] Comprehensive Metabolic Pane romel 08-26-2021 Albumin [Mass/Vol] 4.0 g/dL Normal 3.2-5.[address] [facility] Comment on above: Performed By: #### C BC, CMP, HS TROP #### [address] Albumin/Globulin [Mass ratio] 1.2 {ratio} Normal [facility] Comment on above: Performed By: #### C BC, CMP, HS TROP #### [facility] [address] [place] [address] ALP [Catalytic activity/Vol] 68 U/L Normal 32-92 [facility] Comment on above: Performed By: #### C BC, CMP, HS TROP #### [address] ALT [Catalytic activity/Vol] 23 U/L Normal 10-60 [facility] Comment on above: Performed By: #### C BC, CMP, HS TROP #### [place] [address] [place] AST [Catalytic activity/Vol] 23 U/L Normal 10-42 [facility] Comment on above: Performed By: #### C BC, CMP, HS TROP #### [facility] [address] Bilirubin [Mass/Vol] 0.9 mg/dL Normal 0.3-1.2 [facility] Comment on above: Performed By: #### C BC, CMP, HS TROP #### [facility] [address] Calcium [Mass/Vol] 9.8 mg/dL Normal 8.2-10.[address] [facility] Comment on above: Performed By: #### C BC, CMP, HS TROP #### [facility] [address] Chloride [Moles/Vol] 101 mmol/L Normal 95-114 [facility] Comment on above: Performed By: #### C BC, CMP, HS TROP #### [facility] [address] CO2 [Moles/Vol] 22.7 mmol/L Normal 22.0-30.0 [facility] Comment on above: Performed By: #### C BC, CMP, HS TROP #### [facility] [address] [place] [address] [place] Creatinine [Mass/Vol] 1.02 mg/dL Normal 0.44-1.03 [facility] Comment on above: Performed By: #### C BC, CMP, HS TROP #### [facility] [address] [place] [address] [place] Creatinine Clr Calc Pharmacy 51.26 [facility] Comment on above: Result Comment: PERF ORMED BY: [place] [address] PATHOLOGIST INDUSTRIAL [employer] SERVICER SUPERVISOR ELOINA THURSTON M.D. Performed By: #### C BC, CMP, HS TROP #### [facility] [address] [place] [address] [place] Estimated GFR ( Clari > 60 Normal [facility] Comment on above: Result Comment: GFR estimated reference range: According to KDOQI guidelines, <60 ml/min/1.73m2 is sufficient to diagnose a patient with chronic kidney disease. Performed By: #### C BC, CMP, HS TROP #### [facility] [address] Estimated GFR (Non- Am 53 Normal [facility] Comment on above: Performed By: #### C BC, CMP, HS TROP #### [facility] [address] Globulin (S) [Mass/Vol] 3.4 g/dL [facility] Comment on above: Performed By: #### C BC, CMP, HS TROP #### [facility] [address] Glucose [Mass/Vol] 141 mg/dL High 70-[address] [facility] Comment on above: Result Comment: [place] Glucose Reference Range is dependent on time and content of last meal. Glucose of more than 200 mg/dL in a nonstressed, ambulatory subject supports the diagnosis of Diabetes Mellitus. ADA recommended reference range Performed By: #### C BC, CMP, HS TROP #### [facility] [address] Potassium [Moles/Vol] 3.6 mmol/L Normal 3.5-5.1 [facility] Comment on above: Performed By: #### C BC, CMP, HS TROP #### [facility] [address] Protein [Mass/Vol] 7.4 g/dL Normal 6.1-7.[address] [facility] Comment on above: Performed By: #### C BC, CMP, HS TROP #### [facility] [address] [place] [address] [place] Sodium [Moles/Vol] 137 mmol/L Normal 136-[address] [facility] Comment on above: Performed By: #### C BC, CMP, HS TROP #### [facility] [address] Urea nitrogen [Mass/Vol] 12 mg/dL Normal 9-23 [facility] Comment on above: Performed By: #### C BC, CMP, HS TROP #### [facility] [address] [place] [address] [place] Creatinine and Glomerular fi ltration rate.predicted panel (S/P/Bld)Ordered By: Elder Simon on 08-26-2021 Creatinine [Mass/Vol] 1.02 mg/dL 0.44-1.03 [facility] ECG 12 lead ECGon 08-26-2021 ECG 12 lead ECG [facility] [place] [address] [place] [address] Electrocardiograph Report Signed Patient: Guanaco Hagan MR#: [id number] 585 : 1950 Acct:[id number] Age/Sex: 71 / F ADM Date: 08/26/21 Loc: ER Room: Type: [facility] ER Attending Dr: Ordering Provider: Elder Simon DO Date of Service: 08/26/21 ECG/ECG 12 lead ECG: Arrhythmia/Palpitation s Copies to: Test Reason : Blood Pressure : 174/079 mmHG Vent. Rate : 082 BPM Atrial Rate : 082 BPM P-R Int : 148 ms QRS Dur : 094 ms QT Int : 386 ms P-R-T Axes : 062 045 050 degrees QTc Int : 450 ms Normal sinus rhythm Incomplete right bundle branch block Nonspecific ST abnormality Confirmed by Elder Simon DO ([id number]) on 08/27/2021 3:47:24 AM Referred By: Electronically Signed By:Elder Simon DO Transcribed By: MUS Signed By Elder Simon DO [id number] Normal [facility] Eosinophils Auto (Bld) [#/Vo l]Ordered By: PROVIDER TEMP on 08-26-2021 Eosinophils (Bld) [#/Vol] 0.2 10*3/uL 0.0-0.45 [facility] Eosinophils/100 WBC Auto (Bl d)Ordered By: PROVIDER TEMP on 08-26-2021 Eosinophils/100 WBC (Bld) 1.9 % [facility] Erythrocyte distribution wid th Auto (RBC) [Ratio]Ordered By: PROVIDER TEMP on 08-26-2021 Erythrocyte distribution width (RBC) [Ratio] 13.1 % 11.9-15.3 [facility] Estimated glomerular filtrat ion rate (GFR) non- AmericanOrdered By: Elder Simon on 08-26-2021 GFR/1.73 sq M.predicted among non-blacks MDRD (S/P/Bld) [Vol rate/Area] 53 mL/Min [facility] Globulin Calc (S) [Mass/Vol] Ordered By: Elder Simon on 08-26-2021 Globulin (S) [Mass/Vol] 3.4 g/dL [facility] Hematocrit Auto (Bld) [Volum e fraction]Ordered By: PROVIDER TEMP on 08-26-2021 Hematocrit (Bld) [Volume fraction] 43.4 % 34.0-46.4 [facility] Laboratory - Hematology and Cell countsOrdered By: PROVIDER TEMP on 08-26-2021 Nucleated RBC/100 WBC (Bld) [Ratio] 0.1 % 0-0.5 [facility] Lymphocytes Auto (Bld) [#/Vo l]Ordered By: PROVIDER TEMP on 08-26-2021 Lymphocytes (Bld) [#/Vol] 1.9 10*3/uL 1.00-4.8 [facility] Lymphocytes/100 WBC Auto (Bl d)Ordered By: PROVIDER TEMP on 08-26-2021 Lymphocytes/100 WBC (Bld) 23.0 % [facility] MCH Auto (RBC) [Entitic mass ]Ordered By: PROVIDER TEMP on 08-26-2021 MCH (RBC) [Entitic mass] 30.2 pg 24.7-34.3 [facility] MCHC Auto (RBC) [Mass/Vol]Or dered By: PROVIDER TEMP on 08-26-2021 MCHC (RBC) [Mass/Vol] 33.5 g/dL 32.0-35.0 [facility] MCV Auto (RBC) [Entitic vol] Ordered By: PROVIDER TEMP on 08-26-2021 MCV (RBC) [Entitic vol] 90.1 fL 80-100 [facility] Monocytes Auto (Bld) [#/Vol] Ordered By: PROVIDER TEMP on 08-26-2021 Monocytes (Bld) [#/Vol] 0.5 10*3/uL 0.0-0.8 [facility] Monocytes/100 WBC Auto (Bld) Ordered By: PROVIDER TEMP on 08-26-2021 Monocytes/100 WBC (Bld) 6.3 % [facility] Neutrophils Auto (Bld) [#/Vo l]Ordered By: PROVIDER TEMP on 08-26-2021 Neutrophils (Bld) [#/Vol] 5.8 10*3/uL 1.8-7.7 [facility] Neutrophils/100 WBC Auto (Bl d)Ordered By: PROVIDER TEMP on 08-26-2021 Neutrophils/100 WBC (Bld) 68.0 % [facility] No Panel InformationOrdered By: Elder Simon on 08-26-2021 Estimated GFR () > 60 mL/Min [facility] Comment on above: GFR estimated refere nce range: According to KDOQI guidelines, <60 ml/min/1.73m2 is sufficient to diagnose a patient with chronic kidney disease. Pharmacy Creatinine Clearance (Chem 51.26 [facility] Platelet mean volume Auto (B ld) [Entitic vol]Ordered By: PROVIDER TEMP on 08-26-2021 Platelet mean volume (Bld) [Entitic vol] 10.0 fL 6.3-10.7 [facility] Platelets Auto (Bld) [#/Vol] Ordered By: PROVIDER TEMP on 08-26-2021 Platelets (Bld) [#/Vol] 247 10*3/uL 150-450 [facility] Protein [Mass/volume] in Ser um or PlasmaOrdered By: Elder Simon on 08-26-2021 Protein [Mass/Vol] 7.4 g/dL 6.1-7.[address] [facility] RBC Auto (Bld) [#/Vol]Ordere d By: PROVIDER TEMP on 08-26-2021 RBC (Bld) [#/Vol] 4.82 10*6/uL 3.60-5.00 [facility] Serum or plasma alanine zamora otransferase measurement without P-5'-P (enzymatic activiOrdered By: Elder Simon on 08-26-2021 ALT No additional P-5'-P [Catalytic activity/Vol] 23 U/L 10-60 [facility] Serum or plasma albumin/glob ulin mass ratioOrdered By: Elder Simon on 08-26-2021 Albumin/Globulin [Mass ratio] 1.2 {ratio} [facility] Serum or plasma alkaline bandar sphatase measurement (enzymatic activity/volume)Ordered By: Elder Simon on 08-26-2021 ALP [Catalytic activity/Vol] 68 U/L 32-92 [facility] Serum or plasma aspartate am inotransferase measurement (enzymatic activity/volume)Ordered By: Elder Simon on 08-26-2021 AST [Catalytic activity/Vol] 23 U/L 10-42 [facility] Serum or plasma calcium enmanuel urement (mass/volume)Ordered By: Elder Simon on 08-26-2021 Calcium [Mass/Vol] 9.8 mg/dL 8.2-10.[address] [facility] Serum or plasma chloride nico surement (moles/volume)Ordered By: Elder Simon on 08-26-2021 Chloride [Moles/Vol] 101 mmol/L 95-114 [facility] Serum or plasma glucose enmanuel urement (mass/volume)Ordered By: Elder Simon on 08-26-2021 Glucose [Mass/Vol] 141 mg/dL 70-[address] [facility] Comment on above: ADA recommended refe rence rangeRandom Glucose Reference Range is dependent on time and content of last meal. Glucose of more than 200 mg/dL in a nonstressed, ambulatory subject supports the diagnosis of Diabetes Mellitus. Serum or plasma potassium me asurement (moles/volume)Ordered By: Elder Simon on 08-26-2021 Potassium [Moles/Vol] 3.6 mmol/L 3.5-5.1 [facility] Serum or plasma sodium measu rement (moles/volume)Ordered By: Elder Simon on 08-26-2021 Sodium [Moles/Vol] 137 mmol/L 136-[address] [facility] Serum or plasma total biliru bin measurement (mass/volume)Ordered By: Elder Simon on 03-23-2022 Bilirubin [Mass/Vol] 0.9 mg/dL 0.3-1.2 [facility] Serum or plasma total carbon dioxide measurement (moles/volume)Ordered By: Elder Simon on 08-26-2021 CO2 [Moles/Vol] 22.7 mmol/L 22.0-30.0 [facility] Serum or plasma urea nitroge n measurement (mass/volume)Ordered By: Elder Simon on 08-26-2021 Urea nitrogen [Mass/Vol] 12 mg/dL 02-26 [facility] Troponin I High Sensitivityo n 08-26-2021 Troponin I High Sensitivity 5 pg/mL Normal 0-15 [facility] Comment on above: Result Comment: PERF ORMED BY: [place] [address] PATHOLOGIST INDUSTRIAL G[employer] SERVICER SUPERVISOR ELOINA THURSTON M.D. Performed By: #### C BC, CMP, HS TROP #### [address] Troponin I.cardiac [Mass/vol ume] in Serum or Plasma by High sensitivity methodOrdered By: Elder Simon on 08-26-2021 Troponin I.cardiac High sensitivity method [Mass/Vol] 5 pg/mL 0- [facility] CBC AUTO DIFFon 08-25-2021 BASO # 0.1 103/ul Normal 0.0-0.1 [facility] Comment on above: Performed By: #### C BC #### [facility] [address] [address] [address] Kristen Jurado Basophils/100 WBC (Bld) 1.0 % Normal 0.2-2.0 [facility] Comment on above: Performed By: #### C BC #### [facility] [address] [address] [address] Kristen Jurado EO # 0.2 103/ul Normal 0.0-0.7 [facility] Comment on above: Performed By: #### C BC #### [facility] [address] [address] [address] Kristen Jurado Eosinophils/100 WBC (Bld) 2.1 % Normal 0.9-7.0 [facility] Comment on above: Performed By: #### C BC #### [facility] [address] [place] [address] Dr. Kristen Jurado Erythrocyte distribution width (RBC) [Ratio] 12.8 % Normal 11.0-15.0 [facility] Comment on above: Performed By: #### C BC #### [facility] [address] [place] [address] Dr. Kristen Jurado Hematocrit (Bld) [Volume fraction] 43.2 % Normal 36.0-48.0 [facility] Comment on above: Performed By: #### C BC #### [facility] [address] [place] [address] Dr. Kristen Jurado Hemoglobin (Bld) [Mass/Vol] 14.3 g/dL Normal 12.0-16.0 [facility] Comment on above: Performed By: #### C BC #### [facility] [address] [place] [address] Dr. Kristen Jurado IG # 0.02 10e3/ul Normal 0.00-0.03 [facility] Comment on above: Performed By: #### C BC #### [facility] [address] [place] [address] Dr. Kristen Jurado IG % 0.2 % Normal 0.0-0.5 [facility] Comment on above: Performed By: #### C BC #### [facility] [address] [place] [address] Dr. Kristen Jurado LYMPH # 1.7 103/ul Normal 1.2-3.8 [facility] Comment on above: Performed By: #### C BC #### [facility] [address] [place] [address] Dr. Kristen Jurado Lymphocytes/100 WBC (Bld) 20.5 % Normal 20.5-60.0 [facility] Comment on above: Performed By: #### C BC #### [facility] [address] [place] [address] Dr. Kristen Jurado MANUAL DIFF REQ NO Normal [facility] Comment on above: Performed By: #### C BC #### [facility] [address] [place] [address] Dr. Kristen Jurado MCH (RBC) [Entitic mass] 29.7 pg Normal 26.7-34.0 [facility] Comment on above: Performed By: #### C BC #### [facility] [address] [place] [address] Dr. Kristen Jurado MCHC (RBC) [Mass/Vol] 33.1 g/dL Normal 29.9-35.2 [facility] Comment on above: Performed By: #### C BC #### [facility] [address] [place] [address] Dr. Kristen Jurado MCV (RBC) [Entitic vol] 89.6 fL Normal 81.0-99.0 [facility] Comment on above: Performed By: #### C BC #### [facility] [address] [place] [address] Dr. Kristen Jurado MONO # 0.5 103/ul Normal 0.3-0.8 [facility] Comment on above: Performed By: #### C BC #### [facility] [address] [place] [address] Dr. Kristen Jurado Monocytes/100 WBC (Bld) 6.2 % Normal 1.7-12.0 [facility] Comment on above: Performed By: #### C BC #### [facility] [address] [place] [address] Dr. Kristen Jurado NEUT # 5.7 103/ul Normal 1.4-6.5 [facility] Comment on above: Performed By: #### C BC #### [facility] [address] [place] [address] Dr. Kristen Jurado Neutrophils/100 WBC (Bld) 70.0 % Normal 43.0-75.0 [facility] Comment on above: Performed By: #### C BC #### [facility] [address] [place] [address] Dr. Kristen Jurado Platelet mean volume (Bld) [Entitic vol] 11.0 fL Normal 9.5-13.5 [facility] Comment on above: Performed By: #### C BC #### [facility] [address] [address] [address] Kristen Jurado PLT 238 103/ul Normal 150-450 [facility] Comment on above: Performed By: #### C BC #### [facility] [address] [place] [address] Dr. Kristen Jurado RBC 4.82 106/ul Normal 4.20-5.40 [facility] Comment on above: Performed By: #### C BC #### [facility] [address] [place] [address] Dr. Kristen Jurado WBC 8.1 103/ul Normal 4.0-11.0 [facility] Comment on above: Performed By: #### C BC #### [facility] [address] [place] [address] Dr. Kristen Jurado PROF CHEM 8 (BAS METB)on Anion gap [Moles/Vol] 12.8 mmol/L Normal [facility] Comment on above: Performed By: #### B MP #### [facility] [address] [place] [address] Dr. Kristen Jurado Calcium [Mass/Vol] 9.6 mg/dL Normal 8.5-10.1 [facility] Comment on above: Performed By: #### B MP #### [facility] [address] [place] [address] Dr. Kristen Jurado Chloride [Moles/Vol] 103 mmol/L Normal 98-107 [facility] Comment on above: Performed By: #### B MP #### [facility] [address] [place] [address] Dr. Kristen Jurado CO2 [Moles/Vol] 30.0 mmol/L Normal 22.0-30.0 [facility] Comment on above: Performed By: #### B MP #### [facility] [address] [place] [address] Dr. Kristen Jurado Creatinine [Mass/Vol] 0.97 mg/dL Normal 0.52-1.04 [facility] Comment on above: Performed By: #### B MP #### [facility] [address] [address] [address] Kristen Jurado EGFR-AF TURKISH >60 Normal >=60 [facility] Comment on above: Performed By: #### B MP #### [facility] [address] [address] [address] Kristen Jurado EGFR-NON AF TURKISH 56 mL/min/1.73m2 Critically low >=60 [facility] Comment on above: Performed By: #### B MP #### [facility] [address] [address] [address] Kristen Jurado Glucose [Mass/Vol] 176 mg/dL Critically high 74-106 [facility] Comment on above: Performed By: #### B MP #### [facility] [address] [address] [address] Kristen Jruado Potassium [Moles/Vol] 3.8 mmol/L Normal 3.4-5.0 [facility] Comment on above: Performed By: #### B MP #### [facility] [address] [address] [address] Kristen Jurado Sodium [Moles/Vol] 142 mmol/L Normal 137-145 [facility] Comment on above: Performed By: #### B MP #### [facility] [address] [address] [address] Kristen Jurado Urea nitrogen [Mass/Vol] 16.0 mg/dL Normal 7.0-18.0 [facility] Comment on above: Performed By: #### B MP #### [facility] [address] [address] [address] Kristen Jurado Urea nitrogen/Creatinine [Mass ratio] 16.5 mg/mg Normal [facility] Comment on above: Performed By: #### B MP #### [facility] [address] [address] [address] Kristen Jurado [facility] SED [facility]ATE 7 mm/hr Normal <=30 [facility] Comment on above: Performed By: #### S EDR #### [facility] [address] [address] [address] Kristen MADRIGAL [employer] Testingon 2021 Result Negative [employer] Other Operative Reporton 0 Operative Report MR#: [id number] S [facility] Pt. Name: Guanaco Hagan Room #: 0C Discharge Date: Birthdate: 1950 OPERATIVE REPORT DATE OF SURGERY: 08/06/2019 SURGEON: Isma Fitzpatrick M.D. NIKE ATHLETE: Sarwat Mcqueen MD. PREAMBLE: A 69-year-old female, who has had a previous right carpal tunnel release performed at an outside institution. She had immediate increase in dense numbness to the median nerve distribution and has remained refractory to conservative treatment including a trial of a cortisone injections. Informed consent was obtained to proceed with revision right carpal tunnel decompression and possible vascularized fat pad graft. PREOPERATIVE DIAGNOSIS: Right carpal tunnel syndrome. POSTOPERATIVE DIAGNOSIS: Right carpal tunnel syndrome. OPERATIVE PROCEDURE: Revision right carpal tunnel release with vascularized fat pad graft application. Under [place] block regional anesthetic, the patient's right upper extremity was prepped and draped for the proposed procedure. The tourniquet had been inflated to 250 mmHg. The previous incision was made extending to the wrist crease and extended in a Jourdan like fashion proximally. Dissection performed under 3.5 times loupe magnification. Hemostasis was obtained with the use of bipolar cautery. The overlying scar tissue was incised sharply, thus entering the carpal tunnel. Intraoperative findings revealed that there was dense scar/fascia formation overlying the carpal tunnel. Further dissection revealed the presence of multiple adhesions to the median nerve to surrounding adventitia. There also appeared to be a slight superficial violation of the epineurium proximal to the wrist crease. The nerve grossly was intact and there were no signs of any neuroma formation. The nerve also did not appear to have any significant compression points. At this time, meticulous dissection was used to perform an external neurolysis. The overlying thickened fascial tissue was incised, thus releasing the overlying residual ligament. Because of the robust and inelasticity of the overlying fascia/scar, the radial and ulnar portions of it were excised. At the completion of the decompression, it was elected to proceed with a vascularized fat pad graft given the degree of adhesions that had formed. A sharp dissection was then used to dissect the fat pad from the hypothenar region. This allowed us to translate radially. At this time, the wound was then thoroughly irrigated with normal saline solution. The fat pad was then inserted deep to the residual radial limb of the ligament, secured with a 3-0 Vicryl. Overlying soft tissues were closed with a 4-0 Novafil in a simple suture fashion. A sterile bulky hand dressing was applied. There were no complications. The patient was sent to the recovery room in stable condition. Electronically Signed by: Isma Fitzpatrick M.D. 08/07/2019 07:57 A Isma Fitzpatrick M.D. Date Dict: 08/06/2019/02:07 P/Isma Fitzpatrick M.D. Date Trans: 08/07/2019 01:09 A/iram [id number] [facility] POC GLUCOSE LABon 08-06-2019 Glucose [Mass/Vol] 158 mg/dL High 70-100 [facility] Comment on above: Performed By: #### [id number] #### [address] Vital Signs Date Time Vital Sign Value Performing Clinician Facility 01-31-2023 14:54-0400 Diastolic blood pressure 80 mm[Hg] Damaris Marinelli Work Phone: [facility] 250 DO Work Phone: 01-31-2023 14:54-0400 Systolic blood pressure 138 mm[Hg] [facility] Work Phone: 01-31-2023 14:38-0400 Diastolic blood pressure 80 mm[Hg] Damaris Marinelli Work Phone: [facility] 250 DO Work Phone: 01-31-2023 14:38-0400 Diastolic blood pressure 78 mm[Hg] Damaris Marinelli Work Phone: [facility] 250 DO Work Phone: 01-31-2023 14:38-0400 Systolic blood pressure 152 mm[Hg] Damaris Marinelli Work Phone: [facility] 250 DO Work Phone: 01-31-2023 14:38-0400 Systolic blood pressure 138 mm[Hg] Damaris Marinelli Work Phone: [facility] 250 DO Work Phone: 01-31-2023 14:32-0400 Body height 165.1 cm Damaris Marinelli Work Phone: [facility] 250 DO Work Phone: 01-31-2023 14:32-0400 Body mass index (BMI) [Ratio] 29.62 kg/m2 Damaris Marinelli Work Phone: [facility] 250 DO Work Phone: 01-31-2023 14:32-0400 Body surface area Derived from formula 1.88 m2 Damaris Marinelli Work Phone: [facility] 250 DO Work Phone: 01-31-2023 14:32-0400 Body weight 80.74 kg Damaris Marinelli Work Phone: [facility] 250 DO Work Phone: 01-31-2023 14:32-0400 Diastolic blood pressure 80 mm[Hg] Damaris Marinelli Work Phone: [facility] 250 DO Work Phone: 01-31-2023 14:32-0400 Heart rate 72 /min Damaris Marinelli Work Phone: [facility] 250 DO Work Phone: 01-31-2023 14:32-0400 Systolic blood pressure 152 mm[Hg] Damaris Marinelli Work Phone: [facility] [place] 250 DO Work Phone: 01-20-2023 09:30-0400 Body height 165.1 cm Damaris Marinelli Other [facility] [employer] Other 01-20-2023 09:30-0400 Body mass index (BMI) [Ratio] 29.45 kg/m2 Damaris Marinelli Other [facility] Other 01-20-2023 09:30-0400 Body weight 80.29 kg Damaris Marinelli Other [facility] Other 01-20-2023 09:30-0400 Diastolic blood pressure 75 mm[Hg] Damaris Marinelli Other [employer] Other 01-20-2023 09:30-0400 Systolic blood pressure 126 mm[Hg] Damaris Marinelli Other [facility] Other 09-28-2022 12:30-0400 Body height 165.1 cm Damaris Marinelli Other [facility] Other 09-28-2022 12:30-0400 Body mass index (BMI) [Ratio] 30.28 kg/m2 Damaris Marinelli Other [facility] Other 09-28-2022 12:30-0400 Body weight 82.56 kg Damaris Marinelli Other [employer] Other 09-28-2022 12:30-0400 Diastolic blood pressure 90 mm[Hg] Damaris Marinelli Other [facility] Other 09-28-2022 12:30-0400 SaO2% (BldA) [Mass fraction] 93 % Damaris Marinelli Other [facility] Other 09-28-2022 12:30-0400 Systolic blood pressure 142 mm[Hg] Damaris Marinelli Other [facility] Other 08-09-2022 13:45-0500 Body height 165.1 cm Damaris Marinelli Other [facility] Other 08-09-2022 13:45-0500 Body mass index (BMI) [Ratio] 30.12 kg/m2 Damaris Marinelli Other [facility] Other 08-09-2022 13:45-0500 Body weight 82.1 kg Damaris Marinelli Other [facility] Other 08-09-2022 13:45-0500 Diastolic blood pressure 82 mm[Hg] Damaris Marinelli Other [facility] Other 08-09-2022 13:45-0500 SaO2% (BldA) [Mass fraction] 97 % Damaris Marinelli Other [facility] Other 08-09-2022 13:45-0500 Systolic blood pressure 138 mm[Hg] Damaris Marinelli Other [facility] Other 05-19-2022 10:34-0500 Body height 165.1 cm [facility] Work Phone: 05-19-2022 10:34-0500 Body mass index (BMI) [Ratio] 29.66 kg/m2 Damaris Marinelli Work Phone: [facility] 250 DO Work Phone: 05-19-2022 10:34-0500 Body surface area Derived from formula 1.88 m2 Damaris Marinelli Work Phone: [facility] 250 DO Work Phone: 05-19-2022 10:34-0500 Body weight 80.85 kg Damaris Marinelli Work Phone: [facility] 250 DO Work Phone: 05-19-2022 10:34-0500 Diastolic blood pressure 76 mm[Hg] Damaris Marinelli Work Phone: [facility] 250 DO Work Phone: 05-19-2022 10:34-0500 Heart rate 68 /min Damaris Marinelli Work Phone: [facility] 250 DO Work Phone: 05-19-2022 10:34-0500 Systolic blood pressure 128 mm[Hg] Damaris Marinelli Work Phone: [facility] 250 DO Work Phone: 11-11-2021 09:54-0400 Diastolic blood pressure 70 mm[Hg] Damaris Marinelli Work Phone: [facility] 250 DO Work Phone: 11-11-2021 09:54-0400 Systolic blood pressure 137 mm[Hg] Damaris Marinelli Work Phone: [facility] 250 DO Work Phone: 11-11-2021 09:28-0400 Body height 165.1 cm Damaris Marinelli Work Phone: [facility] 250 DO Work Phone: 11-11-2021 09:28-0400 Body mass index (BMI) [Ratio] 29.12 kg/m2 Damaris Marinelli Work Phone: [facility] 250 DO Work Phone: 11-11-2021 09:28-0400 Body surface area Derived from formula 1.87 m2 Damaris Marinelli Work Phone: [facility] 250 DO Work Phone: 11-11-2021 09:28-0400 Body weight 79.38 kg Damaris Marinelli Work Phone: [facility] 250 DO Work Phone: 11-11-2021 09:28-0400 Diastolic blood pressure 70 mm[Hg] Damaris Marinelli Work Phone: [facility] 250 DO Work Phone: 11-11-2021 09:28-0400 Heart rate 69 /min Damaris Marinelli Work Phone: [facility] 250 DO Work Phone: 11-11-2021 09:28-0400 Systolic blood pressure 168 mm[Hg] Damaris Marinelli Work Phone: [facility] 250 DO Work Phone: 09-18-2021 08:00-0400 70 1 Damaris Marinelli Work Phone: [facility] Work Phone: Comment on above: [id number] 09-09-2021 08:59-0400 Diastolic blood pressure 68 mm[Hg] Damaris Marinelli Work Phone: [facility] 250 DO Work Phone: 09-09-2021 08:59-0400 Systolic blood pressure 138 mm[Hg] Damaris Marinelli Work Phone: [facility] 250 DO Work Phone: 09-09-2021 08:55-0400 Body height 165.1 cm Damaris Marinelli Work Phone: [facility] 250 DO Work Phone: 09-09-2021 08:55-0400 Body mass index (BMI) [Ratio] 28.62 kg/m2 Damaris Marinelli Work Phone: [facility] 250 DO Work Phone: 09-09-2021 08:55-0400 Body surface area Derived from formula 1.86 m2 Damaris Marinelli Work Phone: [facility] 250 DO Work Phone: 09-09-2021 08:55-0400 Body weight 78.02 kg Damaris Marinelli Work Phone: [facility] 250 DO Work Phone: 09-09-2021 08:55-0400 Diastolic blood pressure 78 mm[Hg] Damaris Marinelli Work Phone: [facility] 250 DO Work Phone: 09-09-2021 08:55-0400 Heart rate 72 /min Damaris Marinelli Work Phone: [facility] 250 DO Work Phone: 09-09-2021 08:55-0400 Systolic blood pressure 148 mm[Hg] Damaris Marinelli Work Phone: [facility] 250 DO Work Phone: 08-26-2021 21:56-0400 Diastolic blood pressure 75 mm[Hg] MD Damaris Marinelli Work Phone: [facility] 08-26-2021 21:56-0400 Heart rate 74 /min MD Damaris Marinelli Work Phone: [facility] 08-26-2021 21:56-0400 Respiratory rate 20 /min MD Damaris Marinelli Work Phone: [facility] 08-26-2021 21:56-0400 SaO2% (BldA) [Mass fraction] 97 % MD Damaris Marinelli Work Phone: [facility] 08-26-2021 21:56-0400 Systolic blood pressure 166 mm[Hg] MD Damaris Marinelli Work Phone: [facility] 08-26-2021 18:37-0400 Body height 165.1 cm MD Damaris Marinelli Work Phone: [facility] 08-26-2021 18:37-0400 Body mass index (BMI) [Ratio] 29.2 kg/m2 MD Damaris Marinelli Work Phone: [facility] 08-26-2021 18:37-0400 Body temperature 98.1 [degF] MD Damaris Marinelli Work Phone: [facility] 08-26-2021 18:37-0400 Body weight 79.75 kg MD Damaris Marinelli Work Phone: [facility] 06-25-2021 11:15-0500 Body height 165.1 cm Rey Taylor Other [employer] Other 06-25-2021 11:15-0500 Body mass index (BMI) [Ratio] 29.12 kg/m2 Rey Taylor Other [employer] Other 06-25-2021 11:15-0500 Body temperature 97.9 [degF] Rey Taylor Other [employer] Other 06-25-2021 11:15-0500 Body weight 79.38 kg Rey Taylor Other [employer] Other 06-25-2021 11:15-0500 Respiratory rate 18 /min Rey Taylor Other [employer] Other 06-25-2021 11:[id number] SaO2% (BldA) [Mass fraction] 95 % Rey Taylor Other [employer] Other Encounters Encounter Date Encounter Type Care Provider Facility Start: 05-31-2023 End: 05-31-2023 ambulatory Damaris Marinelli Other [employer] Other Start: 05-31-2023 Office outpatient visit 15 minutes Damaris Marinelli [facility] Start: 05-03-2023 End: 05-03-2023 ambulatory Damaris Marinelli Other [employer] Other Start: 05-03-2023 Telephone encounter Damaris Marinelli [facility] Start: 03-22-2023 End: 03-22-2023 ambulatory Damaris Marinelli Other [employer] Other Start: 03-22-2023 Telephone encounter Damaris Marinelli [facility] Start: 03-09-2023 End: 03-09-2023 ambulatory Maikel Taylor Other [employer] Other Start: 03-09-2023 Nursing evaluation o f patient and report Maikel Taylor [facility] Start: 01-31-2023 Office outpatient visit 25 minutes Damaris Marinelli Work Phone: [facility] 250 DO Work Phone: Start: 01-31-[address] Marcia Valerio Facility: Start: 01-20-2023 End: 01-20-2023 ambulatory Damaris Marinelli Other [employer] Other Start: 01-20-2023 Office outpatient visit 15 minutes Damaris Marinelli [facility] Start: 10-01-2022 End: 10-01-2022 ambulatory Damaris Marinelli Other [employer] Other Start: 10-01-2022 Telephone encounter Damaris Marinelli [facility] Start: 09-28-2022 End: 09-28-2022 ambulatory Damaris Marinelli Other [employer] Other Start: 09-28-2022 Office outpatient visit 15 minutes Damaris Marinelli [facility] Start: 08-17-2022 End: 08-17-2022 ambulatory Damaris Marinelli Other [employer] Other Start: 08-17-2022 Telephone encounter Damaris Marinelli [facility] Start: 08-16-2022 End: 08-17-[address] DAMARIS MARINELLI Facility:[facility] Start: 08-09-2022 End: 08-09-2022 ambulatory Damaris Marinelli Other [employer] Other Start: 08-09-2022 Office outpatient visit 15 minutes Damaris Marinelli [facility] Start: 05-19-2022 Office outpatient visit 25 minutes Damaris Marinelli Work Phone: [facility] 250 DO Work Phone: Start: 05-19-[address] Damaris Marinelli Facility: Start: 04-19-2022 End: 04-20-[address] DOCTOR NOONAN Facility:[facility] Start: 11-11-2021 Office outpatient visit 25 minutes Damaris Marinelli Work Phone: [facility] 250 DO Work Phone: Start: 09-18-2021 Chart Update Damaris Marinelli Work Phone: [facility] 250 DO Work Phone: Start: 09-18-2021 Patient encounter procedure Damaris Marinelli Work Phone: [facility] Work Phone: Start: 09-10-2021 EVENT CAROLEE, Provider : EDGAR RODRIGUEZ FLAT BED KNITTER 1,[id number], Status: Pen, Time: 9:30 AM Damaris Marinelli Work Phone: [facility] 250 DO Work Phone: Start: 09-10-2021 Patient encounter procedure [facility] Work Phone: Start: 09-09-2021 Patient encounter procedure Damaris Marinelli Work Phone: [facility] 250 DO Work Phone: Start: 08-26-2021 End: 08-27-2021 Emergency department patient visit Damaris Marinelli Facility:[facility] Start: 08-26-2021 End: 08-26-2021 Emergency department patient visit MD Damaris Marinelli Work Phone: [facility] Start: 08-25-2021 End: 08-26-[address] DAMARIS MARINELLI Facility: Start: 06-25-2021 End: 06-25-2021 ambulatory Rey Taylor Other [facility] Other Start: 06-25-2021 Office outpatient visit 15 minutes Rey Taylor [facility] Start: 08-06-2019 End: 08-07-2019 Patient encounter procedure ABDULAZIM OSCAR Facility:[facility] Procedures Date Procedure Procedure Detail Performing Clinician Start: 08-06-2019 ANESTH LOWER ARM SURGERY MARVEL ALTENHOF Start: 08-06-2019 Neuroplasty &/transp os median nrv carpal tunne ABDULAZIM OSCAR Start: 06-06-2018 Total colonoscopy Kavita Marinelli Work Phone: Arthroscopy Damaris Marinelli Work Phone: Comment on above: Knee; Cataract surgery Damaris calderon Work Phone: Cholecystectomy Damaris villalpando Work Phone: Depression screening Damaris Marinelli Other Operative procedure on foot Damaris Marinelli Work Phone: Plan of Treatment Date Care Activity Detail Author Start: 01-31-2024 FUV, Provider: Marcia Valerio, Status: Pen, Time: 11:40 AM FUV, Provider: Marcia Valerio, Status: Pen, Time: 11:40 AM [facility] 250 DO Work Phone: Start: 11-24-2022 FUV, Provider: Marcia Valerio, Status: Pen, Time: 11:10 AM FUV, Provider: Marcia Valerio, Status: Pen, Time: 11:10 AM [facility] 250 DO Work Phone: Start: 05-19-2022 FUV, Provider: Marcia Valerio, Status: Pen, Time: 10:30 AM FUV, Provider: Marcia Valerio, Status: Pen, Time: 10:30 AM [facility] 250 DO Work Phone: Start: 11-11-2021 FUV, Provider: Marcia Valerio, Status: Pen, Time: 9:20 AM FUV, Provider: Marcia Valerio, Status: Pen, Time: 9:20 AM [facility] 250 DO Work Phone: Start: 09-18-2021 STRESS NUC, Provider : DERICK HHVI NUCLEAR 01,[id number], Status: Pen, Time: 8:00 AM STRESS NUC, Provider: DERICK HHVI NUCLEAR 01,[id number], Status: Pen, Time: 8:00 AM [facility] 250 DO Work Phone: Start: 08-26-2021 Plain chest X-ray XR chest 1V portab le [facility] Patient Education Chest Pain (DC) [facility] Work Phone: Patient referral [facility] Work Phone: Immunizations Immunization Date Immunization Notes Care Provider [place] 03-09-2023 influenza, high dose seasonal, preservative-free Maikel Taylor Other [employer] Other 03-17-2022 Fluad Quadrivalent 0 .5 ML Intramuscular Prefilled Syringe Damaris Ce Marinelli Work Phone: [facility] DO Work Phone: 03-17-2022 influenza virus vaccine, split virus (incl. purified surface antigen) Damaris Marinelli Other [employer] Other 03-12-2021 influenza virus vaccine, split virus (incl. purified surface antigen) Damaris Marinelli Other [employer] Other 02-04-2021 influenza, seasonal, injectable Damaris Marinelli Work Phone: [facility] DO Work Phone: Comment on above: Series: 08-11-2020 Jeny COVID-19 Vaccine 0.5 ML Intramuscular Suspension Damaris Marinelli Work Phone: [facility] DO Work Phone: 03-11-2020 influenza virus vaccine, split virus (incl. purified surface antigen) Damaris Marinelli Other [employer] Other 02-28-2019 influenza virus vaccine, split virus (incl. purified surface antigen) Damaris Marinelli Other [employer] Other 02-28-2019 influenza, injectabl e, quadrivalent, preservative free Damaris Marinelli Work Phone: [facility] DO Work Phone: 04-06-2014 pneumococcal polysaccharide vaccine, 23 valent Damaris Marinelli Work Phone: [facility] DO Work Phone: 03-28-2014 pneumococcal polysaccharide vaccine, 23 valent Damaris Marinelli Other [employer] Other influenza virus vaccine, unspecified formulation Damaris Encinas Yves Work Phone: [facility] [place] 250 DO Work Phone: Comment on above: 2011 Payers Date Payer Category Payer Self-pay [id number] 1961 Medicare [id number] 1961 Unknown [id number] 1950 Unknown [id number] 1948 Unknown [id number] [id number] [id number] 1948 Unknown [id number] [id number] [id number] 1948 Unknown [id number] 2.16.84 [id number] 1948 Unknown [id number] 2.16. [id number] 1948 Unknown [id number] 2.16. [id number] Unknown Unknown [id number] 2.16.8 [id number] Social History Date Type Detail Facility Start: 08-26-2021 Tobacco smoking status MNIS Never smoked tobacco (finding) [facility] Start: 1950 Sex Assigned At Female F [facility] Social alcohol use Social alcohol use [facility] 250 DO Work Phone: Comment on above: Rarely; 2 cups tea daily; Quit 06/1971; Sex Assigned At Sex Assigned At Bir th [facility] [employer] Other Evaluation note 05-31-2023 Note Date & Type Note Facility 05-31-2023 Evaluation note Encounter Date Diagnosis Assessment Notes May, Acute non-recurren t maxillary sinusitis (ICD-10 - J01.00) Sinus infections can be triggered by a secondary infection from a viral URI or even seasonal allergies. Take medications as directed. Use saline nasal spray prior to presciption nasal spray. Take medications as directed, and complete all doses of medication even if you start to feel better. Patient advised to follow up with PCP if symptoms persist or worsen. Patient verbalized understanding and agreement with treatment plan. [facility] Other Evaluation note 01-20-2023 Note Date & Type Note Facility 01-20-2023 Evaluation note Encounter Date Diagnosis Assessment Notes Jan, Rhomboid muscle pain (ICD-10 - M79.18) Order given to Pt for PT. Home exercises, tylenol and ice advised. Jan, Decreased right shoulder range of motion (ICD-10 - M25.611) as above. [facility] Other Evaluation note 09-28-2022 Note Date & Type Note Facility 09-28-2022 Evaluation note Encounter Date Diagnosis Assessment Notes Sep, Laryngopharyngeal reflux (LPR) (ICD-10 - K21.9) Sep, Other Pt requests referral to Dr. Martins as her daughter has seen in him in the past. [facility] Other Evaluation note 08-09-2022 Note Date & Type Note Facility 08-09-2022 Evaluation note Encounter Date Diagnosis Assessment Notes Aug, Bronchitis (ICD-10 - J40) Pt is to use inhaler as prescribed prn for cough and wheeze. Supportive care as directed. Push fluids and rest. Pt denied school or work note today. Pt is to take otc antipyretic prn for fever and aches. Pt is to take otc cough suppressant prn for cough. Pt is to be re-evaluated after tx if sx worsen or don't improve by pcp or UC. Discussed sx of resp distress - wheeze, sob, difficulty breathing and swallowing, chest tightness, or chest pain. Pt is to f/u immediately in ER if these sx present. Pt is to call the office with any questions or concerns regarding dx and tx. Pt understood and agreed to tx plan. 06 Mar, 2023 Elevated glucose (ICD-10 - R73.09) overdue for A1C to monitor. presently on glipizide Aug, Essential (primary) hypertension (ICD-10 - I10) due for labs harshad to recheck kidney function [facility] Other Evaluation note 06-25-2021 Note Date & Type Note Facility 06-25-2021 Evaluation note Encounter Date Diagnosis Assessment Notes Jun, Contact with and (suspected) exposure to other viral communicable diseases (ICD-10 - Z20.828) covid test neg, see above. Jun, Post-nasal drainage (ICD-10 - R09.82) Cont with daily flonase. Add daily claritin or zyrtec. cont with daily omeprazole otc. F/u with pcp or specialists for recurring or persistent sx. Pt understood and agreed to tx plan. Jun, Other Additional time spent conducting pre-visit phone call, screening for symptoms, instructions on social distancing, application and removal of PPE, and cleaning of examination room, equipment and supplies was preformed. Patient education given for testing methodology and results. Patient care instructions given in writting by [facility] Home document. [facility] Other Chief complaint Narrative - Reported Note Date & Type Note Facility Chief complaint Narrative - Reported GUANACO HAGAN is being seen for a consultation for an abnormal ECG, chest pain and hypertension. [facility] 250 DO Work Phone: Evaluation note Note Date & Type Note Facility Evaluation note No assessment information [facility] Work Phone: Evaluation note Note Date & Type Note Facility Evaluation note No Information [facility] [employer] Other History general Narrative - Reported Note Date & Type Note Facility History general Narrative - Reported Type Medical History Multiple Sclerosis Medical History Hypertension Surgical History gallbladder 2006 Surgical History Procedure:heart cath;Disease: Surgical History knee 2008 Surgical History Procedure:Cholecystectomy;Disea se: Surgical History LT FOOT Surgical History Procedure:Arthroscopy Knee;Dise ase: LT Surgical History plantar faciectomy Lt Surgical History SINUS Surgical History Bilat. MMA, r/o CB, ant. ethmoid, BITSMR, Septoplasty 09/2014 Surgical History CATARACT Surgical History LT cataract Surgical History gallbladder Surgical History RT [facility] Dr Pino 03/14/19 Hospitalization History [place] Hospitalization History See Sx Hx [facility] Other Hospital Discharge instructions Note Date & Type Note Facility Hospital Discharge instructions Additional Instructions Take your medications as prescribed. Return to the emergency department if you feel worse. Follow-up with [facility] listed below for outpatient stress test versus heart catheterization. [facility] Work Phone: Summary Purpose Family History Unknown Family Member Name Dates Details Family history of arterioscl erotic cardiovascular disease: Mother, Father(V17.49, Z82.49) Status:Active Unknown Family Member Name Dates Details Family history of arterioscl erotic cardiovascular disease: Mother, Father(V17.49, Z82.49) Status:Active Unknown Family Member Name Dates Details Family history of arterioscl erotic cardiovascular disease: Mother, Father(V17.49, Z82.49) Status:Active Unknown Family Member Name Dates Details Family history of arterioscl erotic cardiovascular disease: Mother, Father(V17.49, Z82.49) Status:Active Unknown Family Member Name Dates Details Family history of arterioscl erotic cardiovascular disease: Mother, Father(V17.49, Z82.49) Status:Active Unknown Family Member Name Dates Details Family history of arterioscl erotic cardiovascular disease: Mother, Father(V17.49, Z82.49) Status:Active Unknown Family Member Name Dates Details Family history of arterioscl erotic cardiovascular disease: Mother, Father(V17.49, Z82.49) Status:Active Advance Directives Advance Directive Response Recorded Date/ Time Advance Directives No July 5:33pm Chief Complaint and Reason for Visit Chief Complaint Abnormal EKG Chief Complaint * LOUISA / MPL results. * GUANACO HAGAN is being seen for a 2 month follow-up of. * Patient is in the office with her for follow-up. Recently had nuclear stress test which came back normal. Reassurances were provided. Patient was noted to be on aspirin which I do not find indication for and I advised her to stop taking it. Also for hypertension as she has been taking hydroc hlorothiazide and given her history of diabetes should be better off with something else like ARB. The rationale for that was explained to the patient. She is still concerned about right bundle branch block, reassurances were provided and the pathophysiology was discussed in detail with the patient * Assessment/recommendations: * 1 symptoms of chest pain that is atypical in nature with normal nuclear stress test. No further cardiac work-up is needed reassurance is provided. She had normal cardiac catheterization 2009 * 2-Hypertension currently under control, due to diabetes the patient will be taken off of the hydrochlorothiazide and start valsartan 80 mg daily. * 3-Diabetes currently under control * 4 history of nephrotic syndrome in remission * 5 overweight, encouraged more weight loss with diet and exercise. * 6 right bundle branch block. No clinical significance. * GUANACO HAGAN is being seen for a 6 month follow-up of. * Patient is in the office for follow-up for the problems noted below. She came with her . Last visit I suggested switching from hydrochlorothiazide to valsartan however she did not tolerate themedicine immediately and developed severe dizziness. She went back to the hydrochlorothiazide. In the interim she remained without any cardiac events. Physical examination is unremarkable for overweight. She does have 1+ edema related to amlodipine therapy located in her lower extremities. Cardiac and pulmonary examinations were normal * Assessment/recommendations: * 1 history of chest pain that is atypical in nature with normal nuclear stress test 2021,. No further cardiac work-up is needed reassurance is provided. She had normal cardiac catheterization 2009 * 2-Hypertension currently under control, follows with PCP as well * 3-Diabetes currently under control managed by PCP * 4 history of nephrotic syndrome in remission * 5 overweight, encouraged more weight loss with diet and exercise. * 6 right bundle branch block. No clinical significance. * 7 lower extremity edema related to amlodipine therapy, benign and reassurance is provided, leg elevation was recommended * GUANACO HAGAN is being seen for a 6 month follow-up of. * Patient is in the office for follow-up for the problems noted below came with her . She is doing well without any major issues except for shoulder problem for which she is going through physical therapy. Recently she had episode of mild hypotension at home which was symptomatic with dizziness. She held the hydrochlorothiazide till today's office visit where she was found to have upper normal readings on her blood pressure. She is taking amlodipine and Coreg which have been well-tolerated. She has no palpitations orthopnea PND or chest pain. Apart from overweight her physical examination was unremarkable. Lab data from PCP done earlier this year were requested. She was reassured by her family physician about the results. * Assessment/recommendations: * 1 history of chest pain that is atypical in nature with normal nuclear stress test 2021,. No further cardiac work-up is needed reassurance is provided. She had normal cardiac catheterization 2009 * 2-Hypertension currently under control, she was advised to take the hydrochlorothiazide in the middle of the day to avoid sudden drop in blood pressure taken on medications at once * 3-Diabetes currently under control managed by PCP, A1c below 7 * 4 history of nephrotic syndrome in remission, currently does not follow with nephrology * 5 overweight, encouraged more weight loss with diet and exercise. * 6 right bundle branch block. No clinical significance. Reason for Referral Reason *FU 10/07 CALL Diagnosis 1 Laryngopharyngeal re flux (K21.9) Referral Organization [facility] Referring Provider First Name Damaris Referring Provider Last Name Yves Referring Provider Specialty Family [facility] Referred Organization [facility] Referred Provider Jefry Martins Referred Address ,[place], [place],[address] Referred Provider Specialty Otolaryngolo gy Referral Priority Routine General Notes Trish Brower 11:10:34 AM >received today, attachments made, notes locked, referral faxed P2P Additional Source Comments INFORMATION SOURCE (unrecogn ized section and content) DATE CREATED AUTHOR 08/09/2019 [facility] DATE CREATED AUTHOR AUTHOR'S ORGANIZ ATION 09/28/2021 [facility] DATE CREATED AUTHOR AUTHOR'S ORGANIZ ATION 07/10/2022 [facility] DATE CREATED AUTHOR AUTHOR'S ORGANIZ ATION 08/23/2022 [facility] DATE CREATED AUTHOR AUTHOR'S ORGANIZ ATION 02/01/2023 [facility] DATE CREATED AUTHOR AUTHOR'S ORGANIZ ATION 02/01/2023 [facility] Care Teams (unrecognized sec tion and content) Team Status: Inactive Member Role Status Dates Damaris Marinelli MD Primary Care Provider Active Elder Simon DO Emergency Provider Active Team Status: Active Member Role Status Dates Damaris Marinelli MD Primary Care Provider Active Goals (unrecognized section and content) Goals may be documented in a n alternate sectionNo InformationNo InformationNo InformationNo InformationNo InformationNo InformationNo InformationNo InformationNo InformationNo Information Reason for Visit (unrecogniz ed section and content) Event Monitor:GUANACO is here for the application of a 30 day event monitor in office.Ordering Physician: Caron number [id number] applied.Holter monitor printed and placed on Dr. Marcia Valerio MD desk to dictate#6 CASTRO IMPALA, SORE THROAT, SINUS CONGESTIONwheezinglabsReferralreferralR SHOULDER PAINFLU SHOTrefillRefill-Mail OrderSORE THROAT, FEVER, CONGESTION, HEADACHE NO ENGERY FOR RECORDS PERTAINING TO PATIENTS WHO ARE OR HAVE BEEN ENROLLED IN A CHEMICAL DEPENDENCY/SUBSTANCEABUSE PROGRAM, SOME INFORMATION MAY BE OMITTED. This clinical summary was aggregated from multiple sources. Caution should be exercised in using it in the provision of clinical care. This summary normalizes information from multiple sources, and as a consequence, information in this document may materially change the coding, format and clinical context of patient data. In addition, data may be omitted in some cases. CLINICAL DECISIONS SHOULD BE BASED ON THE PRIMARY CLINICAL RECORDS. [facility]. provides no warranty or guarantee of the accuracy or completeness of information in this document.
--- NOTE | 2023-06-20 12:34 | XR_ITS ---
The [address] [address] Patient Name: GUANACO HAGAN MRN: [id number] date: 1950 Sex: F Assigned Patient Location: [facility] Current Patient Location: [facility] Accession/Order Number: [id number] Exam Date: 06/20/2023 12:40 Report Date: 06/20/2023 13:07 At the request of: STELLA MARINELLI Procedure: XR chest 2V EXAM: XR chest 2V HISTORY: other forms of dyspnea R06.09 COMPARISON: None. TECHNIQUE: PA and lateral views of the chest. FINDINGS: The cardiomediastinal silhouette is normal. No focal consolidation is identified. There is no pneumothorax. No pleural effusion is noted. The osseous structures are intact. XR/XR chest 2V IMPRESSION: No acute cardiopulmonary process. Electronically authenticated by: GABE GALEANA Date: 06/20/2023 13:07
== END 2023-06-20 12:25 | disposition home or self-care (01) ==
LOC: RAD 12:26
PROVIDERS: PCP Family Medicine; Visit Provider Family Medicine
DX: R06.09 Other forms of dyspnea (principal); N28.1 Cyst of kidney, acquired
CPT/HCPCS: 71046

== ENCOUNTER 2023-06-23 09:50 | Outpatient (OUT) | payer MEDICARE, SELFPAY ==
--- NOTE | 2023-06-23 09:52 | US_ITS ---
[address] [address] Patient Name: GUANACO HAGAN MRN: [id number] date: 1950 Sex: F Assigned Patient Location: Current Patient Location: Accession/Order Number: [id number] Exam Date: 06/23/2023 10:10 Report Date: 06/23/2023 11:21 At the request of: STELLA MARINELLI Procedure: US renal BI EXAMINATION: US renal BI HISTORY: Cyst Of Kidney N28.1 COMPARISON: 06/22/2021 TECHNIQUE: Ultrasound examination was performed of the bladder. FINDINGS: Right Kidney: Normal in size, contour and cortical echotexture. The cortex measures 1.0 cm. 8 mm anechoic area, upper pole cortex, simple cyst favored. No hydronephrosis, solid cortical mass or obstructing nephrolithiasis Height: 4.6 cm Length: 10.1 cm Width: 4.9 cm Left Kidney: Normal in size, contour and echotexture. The cortex measures 1.2 cm. No hydronephrosis, solid or obstructing nephrolithiasis Height: 4.9 cm Length: 9.6 cm Width: 4.5 cm Visualized urinary bladder is normal measuring 4.1 x 3.2 x 7.3 cm a volume of 67 mL US/US renal BI IMPRESSION: 8 mm right renal cortical cyst Electronically authenticated by: RAMAKRISHNA VILLALOBOS Date: 06/23/2023 11:21
--- OUTSIDE RECORDS SUMMARY | 2023-06-23 09:53 | XMS_ITS | CCD ---
Author Name Unknown Address [address] [place] [address] Organization [facility] Care Team Providers Care Lan/Wan Engineer Name Role Phone OSCAR ABDULAZIM Admitting Unavailable OSCAR ABDULAZIM Attending Unavailable DAMARIS MARINELLI Referring Unavailable DAMARIS MARINELLI Primary Care Unavailable [place] Procedure Practitioner Unavailab le OSCAR, ABDULAZIM Surgeon Unavailable IA Procedure Practitioner Unavailab le ALTENHOF, MARVEL Surgeon [...] Unavailable DR DAMARIS MARINELLI Primary Care Unavailable PATCHOGUE, DR RAMAKRISHNA Sain[employer] Consult[employer] Unavailable MISC, DR [...] Allergy Type Date of Onset Reaction(s) Facility (15 sources) Amoxicillin; Translations: [AMOXICILLIN] Drug Allergy rash [facility] (9 sources) Ciprofloxacin; Translations: [CIPRO] Drug Allergy Myalgia [facility] (20 sources) Doxycycline; Translations: [DOXYCYCLINE] Drug Allergy Headache, Hives, Comment:heart burn [facility] (20 sources) Morphine; Translations: [MORPHINE] Drug Allergy Gastrointestinal Upset, Vomiting, stomach pain, Comment:stomach pains [facility] (2 sources) Sulfamethoxazole / Trimethoprim; Translations: [BACTRIM] Drug Allergy [facility] (19 sources) Ciprofloxacin; Translations: [ciprofloxacin] Drug Allergy Joint Pain, tendons/ache, Comment:tendons ache [facility] (13 sources) Sulfamethoxazole; Translations: [sulfamethoxazole] Drug Allergy Rash [facility] (13 sources) Trimethoprim; Translations: [trimethoprim] Drug Allergy [facility] (7 sources) Amoxicillin; Translations: [Amoxicillin TABS] Drug Allergy Hives [facility] 250 DO Work Phone: (18 sources) Sulfamethoxazole / Trimethoprim; Translations: [Bactrim TABS] Drug Allergy rash [facility] Other (11 sources) Amoxicillin Drug Allergy Rash [place] [facility] Other (1 source) Glatiramer Drug Allergy 015 [facility] Repository (6 sources) cefdinir Drug Allergy Unknown [facility] Other (6 sources) Clindamycin Drug Allergy Unknown [place] [facility] Other (6 sources) House dust mite Drug allergy 019 Unknown [facility] Other (6 sources) Metoprolol Drug Allergy 014 Unknown [facility] Other (6 sources) Niacin Drug Allergy Unknown [facility] Other (6 sources) predniSONE Drug Allergy 015 Unknown [facility] Other (6 sources) Pseudoephedrine Drug Allergy Unknown [facility] Other (6 sources) Cat dander Drug allergy Unknown [facility] Other (6 sources) corticosteroid and/or corticosteroid derivative (FN) Drug allergy Unknown [facility] Other Medications Current Medications Medication Drug Class(es) Dates Sig (Normalized) Sig (Original) [id number] actuat albuterol 0.09 mg/actuat metered dose inhaler (10 sources) beta2-Adrenergic Agonist Start: 08-09-2022 take 2 [...] Aug, Active amLODIPine 10 mg oral tablet (19 sources) Dihydropyridine Calcium Channel Ananya Start: 08-04-2010 take 1 tablet by mouth once daily amLODIPine Besylate 10 MG take 1 tablet (5MG) by oral route every day Oral Aug, Active aspirin 81 mg chewable tablet (16 sources) Platelet Aggregation Inhibitor, Nonsteroidal Anti-inflammatory Drug Start: 07-28-2017 take 1 tablet by mouth once daily Aspirin Active 1 TAB PO Daily July 28, 2017 4:17pm Start: 06-03-2008 Baby Aspirin 8 1 MG take 1 by Oral route every day Oral *please review for potential _update for e-prescription and drug interaction check* May, Active take 6 tablets by mo [facility] every other day Aspirin EC 81 MG Oral Tablet Delayed Release once every other day Quantity: 0 Refills: 0 Ordered: 09-Sep-2021 DO Active azithromycin 250 mg oral tablet (10 sources) Macrolide Antimicrobial Start: 08-09-2022 Azithromycin 250 MG as directed Orally 2 tabs po today, then 1 tab daily x 4 more days for 5 May, Active carvedilol 6.25 mg oral tablet (19 sources) alpha-Adrenergic Ananya, beta-Adrenergic Ananya Start: 07-28-2017 take 1 tablet by mouth twice daily Carvedilol Active 1 TAB PO Twice daily July 28, 2017 4:12pm glipiZIDE 5 mg oral tablet (18 sources) Sulfonylurea take 1 tablet by mouth [...] a day Active take 1 capsule by [facility] every twenty-four hours Omeprazole 40 MG 1 capsule Orally Once a day Not-Taking pantoprazole 40 mg delayed release oral tablet (9 sources) Proton Pump Inhibitor take 1 tablet by mouth every twenty-four hours Pantoprazole Sodium 40 MG 1 tablet Orally Once a day Active take 1 tablet by dorene th every twelve hours Pantoprazole Sodium 40 MG 1 tablet Orall y twice a day Active microencapsulated potassium chloride 20 meq extended release oral tablet (17 sources) take 1 tablet by dorene th once daily Klor-Con M20 20 MEQ TAKE 1 TABLET BY MOUTH EVERY DAY Oral for 90 Active take 1 tablet by mouth once bhakti y Klor-Con M20 20 MEQ Oral Tablet Extended Release TAKE ONE TABLETS BY MOUTH EVERY DAY Quantity: 0 Refills: 0 Ordered: 09-Sep-2021 DO Active vitamin B12 (11 sources) Vitamin B12 Vitamin B12 Acti ve Vitamin D3 (11 sources) Vitamin D3 Activ e Completed/Discontinued Medications Medication Drug Class(es) Dates Sig (Normalized) Sig (Original) hyaluronate (20 sources) Start: 01-02-2019 Orthovisc 30 J ul2018 2 mL Start: 12-26-2018 Orthovisc 23 J ul2018 2 mL Start: 12-19-2018 Orthovisc 16 J ul2018 2 mL hydroCHLOROthiazide 25 mg oral tablet (18 sources) Thiazide Diuretic Start: 07-28-2017 take 1 tablet by mouth once daily hydroCHLOROthiazide 25 MG Oral Tablet take one tablet daily at noon Quantity: 45 Refills: 3 Ordered: 31-Jan-2023 Marcia Valerio MD Start : 31-Jan-2023 Active 120 actuat mometasone furoate 0.1 mg/actuat metered dose inhaler (12 sources) Corticosteroid Start: 07-28-2017 End: 08-26-2021 Mometasone [...] Date Documented Da te Episodic/Chronic Abdominal hernia (6 sources) Diaphragmatic hernia; Translations: [Diaphragmatic hernia without obstruction or gangrene] Episodic Abdominal pain (20 sources) Abdominal pain; Translations: [Unspecified abdominal pain] Onset: 5 Episodic Anxiety disorders (6 sources) Anxiety disorder; Translations: [Other specified anxiety disorders] Chronic Asthma (6 sources) Mild intermittent asthma; Translations: [Mild intermittent asthma, uncomplicated] Chronic Cardiac dysrhythmias (7 sources) Palpitations; Translations: [Palpitations] Episodic Chronic obstructive pulmonary disease and bronchiectasis (1 source) Bronchitis, not specified as acute or chronic Episodic Conduction disorders (13 sources) EKG: right bundle branch block; Translations: [Right bundle branch block] Chronic Diabetes mellitus without complication (7 sources) Diabetes mellitus; Translations: [Diabetes mellitus without mention of complication, type II or unspecified type, not stated as uncontrolled] Chronic Diabetes mellitus without complication (14 sources) Other abnormal glucose; Translations: [Hyperglycemia] Onset: 5 Episodic Disorders of lipid metabolism (13 sources) Hyperlipidemia; Translations: [Other and unspecified hyperlipidemia] Onset: 4 Chronic Diverticulosis and diverticulitis (11 sources) Diverticular disease; Translations: [Diverticulosis of intestine, part unspecified, without perforation or abscess without bleeding] Chronic Esophageal disorders (20 sources) Laryngopharyngeal reflux; Translations: [Gastro-esophageal reflux disease without esophagitis] Chronic Essential hypertension (20 sources) Essential hypertension; Translations: [Unspecified essential hypertension] Onset: 3 Chronic Genitourinary symptoms and ill-defined conditions (12 sources) Genitourinary symptoms; Translations: [Unspecified symptoms and signs involving the genitourinary system] Episodic Headache; including migraine (7 sources) Headache; Translations: [Headache] 08-26-2021 Episodic Headache; including migraine (1 source) Headache; including migraine; Translations: [HEADACHE UNSPECIFIED] Onset: 2 Immunizations and screening for infectious disease (12 sources) Patient encounter status; Translations: [Other specified vaccination] Onset: 2 Resolved: 2 Episodic Multiple sclerosis (10 sources) Multiple sclerosis; Translations: [Multiple sclerosis] Onset: 2 Chronic Nausea and vomiting (11 sources) Vomiting; Translations: [Vomiting, unspecified] Episodic Nephritis; nephrosis; renal sclerosis (6 sources) Nephrotic syndrome; Translations: [Nephrotic syndrome with unspecified morphologic changes] Onset: 6 Chronic Nonspecific chest pain (20 sources) Chest pain; Translations: [Chest pain, unspecified] Onset: 2 08-26-2021 Episodic Osteoarthritis (11 sources) Arthritis of first carpometacarpal joint of right hand; Translations: [Unilateral primary osteoarthritis of first carpometacarpal joint, right hand] Chronic Osteoporosis (11 sources) Senile osteoporosis; Translations: [Age-related osteoporosis without current pathological fracture] Chronic Other acquired deformities (11 sources) Lumbar spondylolisthesis; Translations: [Spondylolisthesis, lumbar region] Episodic Other circulatory disease (1 source) Elevated blood pressure; Translations: [Elevated blood-pressure reading, without diagnosis of hypertension] 08-26-2021 Episodic Other circulatory disease (6 sources) Elevated blood-pressure reading without diagnosis of hypertension; Translations: [Elevated blood-pressure reading, without diagnosis of hypertension] Episodic Other congenital anomalies (6 sources) Congenital anomaly of larynx; 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 Other connective tissue disease (1 source) Myalgia, other site Episodic Other diseases of kidney and ureters (7 sources) History of nephrotic syndrome; Translations: [Personal history, nephrotic syndrome] Episodic Other diseases of kidney and ureters (1 source) Cyst of kidney, acquired Episodic Other gastrointestinal disorders (1 source) Irritable bowel syndrome; Translations: [Irritable bowel syndrome] Chronic Other gastrointestinal disorders (17 sources) Diarrhea; Translations: [Diarrhea, unspecified] Onset: 6 Episodic Other gastrointestinal disorders (11 sources) Swollen abdomen; Translations: [Abdominal distension (gaseous)] Episodic Other injuries and conditions due to external causes (6 sources) History of fall; Translations: [History of falling] Episodic Other lower respiratory disease (1 source) Other forms of dyspnea Episodic Other nervous system disorders (20 sources) [...] Episodic Other nutritional; endocrine; and metabolic disorders (12 sources) Body mass index 25-29 - overweight; Translations: [Body mass index (BMI) 28.0-28.9, adult] Onset: 6 Episodic Other screening for suspected conditions (not mental disorders or infectious disease) (7 sources) Electrocardiogram abnormal; Translations: [Nonspecific abnormal electrocardiogram [ECG] [EKG]] Episodic Other upper respiratory disease (6 sources) Vasomotor rhinitis; Translations: [Vasomotor rhinitis] Onset: 6 Chronic Other upper respiratory disease (6 sources) Allergic rhinitis due to animal hair and dander; Translations: [Allergic rhinitis due to animal (cat) (dog) hair and dander] Onset: 7 Chronic Residual codes; unclassified (1 source) Swelling - edema - symptom; Translations: [Edema] Episodic Residual codes; unclassified (2 sources) Edema of lower extremity; Translations: [Edema] Episodic Screening and history of mental health and substance abuse codes (13 sources) Ex-smoker; Translations: [Personal history of tobacco use] Episodic Comment on above: Quit 06/1971; Spondylosis; intervertebral disc disorders; other back problems (20 sources) Solitary sacroiliitis; Translations: [Sacroiliitis, not elsewhere classified] Chronic Spondylosis; intervertebral disc disorders; other back problems (18 sources) Backache; Translations: [Dorsalgia, unspecified] 08-26-2021 Episodic Unclassified (1 source) R94.31 - Abnormal electrocardiogram [ECG] [EKG]; Translations: [R94.31 - Abnormal electrocardiogram [ECG] [EKG]] Onset: 2 Unclassified (6 sources) History of disease caused by Severe acute respiratory syndrome coronavirus 2 (situation); Translations: [Personal history of COVID-19] Urinary tract infections (6 sources) Urinary tract infectious disease; Translations: [Urinary tract infection, site not specified] Episodic Past or Other Problems Problem Classification Problem Date Documented Da te Episodic/Chronic Acute bronchitis (6 sources) Acute bronchitis; Translations: [Acute bronchitis, unspecified] Onset: 05-02-2015 Episodic Allergic reactions (6 sources) Urticaria, unspecified; Translations: [Urticaria] Onset: 01-23-2014 Episodic Fluid and electrolyte disorders (6 sources) Hypokalemia; Translations: [Hypokalemia] Onset: 09-22-2017 Episodic Other connective tissue disease (6 sources) Spasm; Translations: [Cramp and spasm] Onset: 08-04-2015 Episodic Other gastrointestinal disorders (6 sources) History of irritable bowel syndrome; Translations: [Personal history of other diseases of digestive system] Resolved: 09-10-2021 Episodic Other gastrointestinal disorders (6 sources) Flatulence, eructation and gas pain; Translations: [Abdominal distension (gaseous)] Onset: 12-25-2015 Episodic Other nutritional; endocrine; and metabolic disorders (6 sources) H/O: raised blood lipids; Translations: [Personal history of other endocrine, metabolic, and immunity disorders] Resolved: 09-10-2021 Episodic Other nutritional; endocrine; and metabolic disorders (6 sources) Overweight; Translations: [Overweight] Onset: 01-06-2016 Episodic Other upper respiratory infections (8 sources) Postnasal drip; Translations: [Acute sinusitis] Onset: 11-11-2014 Resolved: 06-25-2021 Episodic Residual codes; unclassified (6 sources) History [...] Weight Tips; Status:Complete - Retrospective Authorization; Done: [id number] Some eating tips that can help you lose weight.; Status:Complete - Retrospective Authorization; Done: [id number] SocHx: Former smoker Tobacco Use Screening; Status:Complete; Done: [id number] Patient Instructions Please bring all medicines, vitamins, [...] is supple, (more content not included)... Normal [employer] Tobacco Screening.on 023 Adult depression screening assessment No [facility] 250 DO Work Phone: Fall risk assessment a) No falls within the last year [facility] 250 DO Work Phone: Tobacco use status [facility] b) No [facility] 250 DO Work Phone: CBC W MANUAL DIFFon 08-17-19 23 ATYPICAL LYMPH # Normal [facility] Comment on above: Performed By: #### C BCMAN #### [facility] [address] [place] [address] Dr. Kristen Jurado ATYPICAL LYMPH % Normal [facility] Comment on above: Performed By: #### C BCMAN #### [facility] [address] [place] [address] Dr. Kristen Jurado BAND # Normal 0.0-0.3 [facility] Comment on above: Performed By: #### C BCUSMAN #### [facility] [address] [place] [address] Dr. Kristen Jurado BAND % Normal 0-5 [facility] Comment on above: Performed By: #### C BCUSMAN #### [facility] [address] [place] [address] Dr. Kristen Jurado BASOM # 0.00 103/ul Normal 0.00-0.10 [facility] Comment on above: Performed By: #### C NILA #### [facility] [address] [place] [address] Dr. Kristen Jurado BASOM % 0.0 % Critically low 0.2-2.0 [facility] Comment on above: Performed By: #### C BCUSMAN #### [facility] [address] [place] [address] Dr. Kristen Jurado BLAST # Normal [facility] Comment on above: Performed By: #### C BCUSMAN #### [facility] [address] [place] [address] Dr. Kristen Jurado BLAST % Normal [facility] Comment on above: Performed By: #### C BCMAN #### [facility] [address] [place] [address] Dr. Kristen uJrado CORRECTED WBC Normal 4.0-11.0 [facility] Comment on above: Performed By: #### C NILA #### [facility] [address] [place] [address] Dr. Kristen Jurado EOS # 0.39 103/ul Normal 0.00-0.70 [facility] Comment on above: Performed By: #### C NILA #### [facility] [address] [place] [address] Dr. Kristen Jurado EOS% 3.0 % Normal 0.9-7.0 [facility] Comment on above: Performed By: #### C NILA #### [facility] [address] [place] [address] Dr. Kristen Jurado HCT 45.6 % Normal 36.0-48.0 [facility] Comment on above: Performed By: #### C NILA #### [facility] [address] [place] [address] Dr. Kristen Jurado HGB 15.0 g/dl Normal 12.0-16.0 [facility] Comment on above: Performed By: #### C NILA #### [facility] [address] [place] [address] Dr. Kristen Jurado LYMPHM # 6.55 103/ul Critically high 1.20-3.80 [facility] Comment on above: Performed By: #### C NILA #### [facility] [address] [place] [address] Dr. Kristen Jurado LYMPHM% 50.0 % Normal 20.5-60.0 [facility] Comment on above: Performed By: #### C NILA #### [facility] [address] [place] [address] Dr. Kristen Jurado MCH 29.1 pg Normal 26.7-34.0 [facility] Comment on above: Performed By: #### C NILA #### [facility] [address] [place] [address] Dr. Kristen Jurado MCHC 32.9 g/dl Normal 29.9-35.2 [facility] Comment on above: Performed By: #### C NILA #### [facility] [address] [place] [address] Dr. Kristen Jurado MCV 88.4 fL Normal 81.0-99.0 [facility] Comment on above: Performed By: #### C NILA #### [facility] [address] [place] [address] Dr. Kristen Jurado METAMYELOCYTE # Normal [facility] Comment on above: Performed By: #### C NILA #### [facility] [address] [place] [address] Dr. Kristen Jurado METAMYELOCYTE % Normal [facility] Comment on above: Performed By: #### C NILA #### [facility] [address] [place] [address] Dr. Kristen Jurado MONOM# 0.92 103/ul Critically high 0.30-0.80 [facility] Comment on above: Performed By: #### C NILA #### [facility] [address] [place] [address] Dr. Kristen Jurado MONOM% 7.0 % Normal 1.7-12.0 [facility] Comment on above: Performed By: #### C NILA #### [facility] [address] [place] [address] Dr. Kristen Jurado MPV 11.1 fL Normal 9.5-13.5 [facility] Comment on above: Performed By: #### C NILA #### [facility] [address] [place] [address] Dr. Kristen Jurado MYELOCYTE # Normal [facility] Comment on above: Performed By: #### C NILA #### [facility] [address] [place] [address] Dr. Kristen Jurado MYELOCYTE % Normal [facility] Comment on above: Performed By: #### C NILA #### [facility] [address] [place] [address] Dr. Kristen Jurado NRBC Normal [facility] Comment on above: Performed By: #### C NILA #### [facility] [address] [address] [address] Kristen Jurado PLT 269 103/ul Normal 150-450 [facility] Comment on above: Performed By: #### C NILA #### [facility] [address] [address] [address] Kristen Jurado RBC 5.16 106/ul Normal 4.20-5.40 [facility] Comment on above: Performed By: #### C NILA #### [facility] [address] [address] [address] Kristne Jurado RDW 13.0 % Normal 11.0-15.0 [facility] Comment on above: Performed By: #### Alfredo DOTSON #### [facility] [address] [address] [address] Kristen Jurado SEG # 5.24 103/ul Normal 1.40-6.50 [facility] Comment on above: Performed By: #### Alfredo DOTSON #### [facility] [address] [address] [address] Kristen Jurado SEG % 40.0 % Critically low 43.0-75.0 [facility] Comment on above: Performed By: #### Alfredo DOTSON #### [facility] [address] [address] [address] Kristen Jurado WBC 13.1 103/ul Critically high 4.0-11.0 [facility] Comment on above: Performed By: #### Alfredo DOTSON #### [facility] [address] [address] [address] Kristen Jurado GLYCOHEMOGLOBIN A1Con 2022 ADA RECOMMENDATION SEE BELOW Normal [facility] Comment on above: Result Comment: ADA RECOMMENDED LIMIT 4.0 - 6.0 ADA THERAPEUTIC TARGET < 7.0 ACTION SUGGESTED > 7.0 Performed By: #### A 1C #### [facility] [address] [place] [address] Dr. Kristen Jurado Glucose [Mass/Vol] 137 mg/dL Normal [facility] Comment on above: Performed By: #### A 1C #### [facility] [address] [address] [address] Kristen Jurado HbA1c (Bld) [Mass fraction] 6.4 % Critically high 4.5-6.2 [facility] Comment on above: Performed By: #### A 1C #### [facility] [address] [address] [address] Kristen Jurado LIPID PROFILEon 08-16-2022 CHOL-HDL RATIO NORM SEE BELOW Normal [facility] Comment on above: Result Comment: 3.3 - 4.4 LOW RISK 4.4 - 7.1 AVERAGE RISK 7.1 - 11.0 MODERATE RISK >11.0 HIGH RISK Performed By: #### C MP, LIPID #### [facility] [address] [address] [address] Kristen Jurado Cholesterol [Mass/Vol] 196 mg/dL Normal <=200 [facility] Comment on above: Performed By: #### C MP, LIPID #### [facility] [address] [address] [address] Kristen Jurado Cholesterol in HDL [Mass/Vol] 74 mg/dL Critically high 40-60 [facility] Comment on above: Performed By: #### C MP, LIPID #### [facility] [address] [address] [address] Kristen Jurado Cholesterol in LDL [Mass/Vol] 95.6 mg/dL Normal [facility] Comment on above: Performed By: #### C MP, LIPID #### [facility] [address] [address] [address] Kristen Jurado Cholesterol.total/Cho lesterol in HDL [Mass ratio] 2.6 {ratio} Normal [facility] Comment on above: Performed By: #### C MP, LIPID #### [facility] [address] [address] [address] Kristen Jurado HDL NORMAL > or = 60 mg/dl - LO W CARDIOVASCULAR RISK <40 mg/dl - HIGH CARDIOVASCULAR RISK Normal [facility] Comment on above: Performed By: #### C MP, LIPID #### [facility] [facility] [address] [address] [address] Kristen Jurado LDL CALC NORMAL SEE BELOW Normal [facility] Comment on above: Result Comment: <100 mg/dl OPTIMAL 100 - 129 mg/dl NEAR OR ABOVE OPTIMAL 130 - 159 mg/dl BORDERLINE HIGH 160 - 189 mg/dl HIGH >190 mg/dl VERY HIGH Performed By: #### C MP, LIPID #### [facility] [address] [address] [address] Kristen Jurado Triglyceride [Mass/Vol] 132 mg/dL Normal <=150 [facility] Comment on above: Performed By: #### C MP, LIPID #### [facility] [address] [address] [address] Kristen Jurado VLDL CALC 26.4 mg/dL Normal [facility] Comment on above: Performed By: #### C MP, LIPID #### [facility] [address] [place] [address] Dr. Kristen Jurado MICROALBUMIN, RAND URon 08-04 mALB <1.3 Normal <=30.0 [facility] Comment on above: Performed By: #### M ALBR #### [facility] [address] [address] [address] Kristen Jurado PROF 14(COMP METB)on 023 Albumin [Mass/Vol] 3.7 g/dL Normal 3.4-5.0 [facility] Comment on above: Performed By: #### C MP, LIPID #### [facility] [address] [place] [address] Dr. Kristen Jurado Albumin/Globulin [Mass ratio] 0.9 {ratio} Normal [facility] Comment on above: Performed By: #### C MP, LIPID #### [facility] [address] [address] [address] Kristen Jurado ALP [Catalytic activity/Vol] 85 U/L Normal 46-116 [facility] Comment on above: Performed By: #### C MP, LIPID #### [facility] [address] [address] [address] Kristen Jurado ALT [Catalytic activity/Vol] 21 U/L Normal 14-59 [facility] Comment on above: Performed By: #### C MP, LIPID #### [facility] [address] [address] [address] Kristen Jurado Anion gap [Moles/Vol] 11.3 mmol/L Normal [facility] Comment on above: Performed By: #### C MP, LIPID #### [facility] [address] [address] [address] Kristen Jurado AST [Catalytic activity/Vol] 23 U/L Normal 15-37 [facility] Comment on above: Performed By: #### C MP, LIPID #### [facility] [address] [address] [address] Kristen Jurado Bilirubin [Mass/Vol] 0.6 mg/dL Normal 0.2-1.0 [facility] Comment on above: Performed By: #### C MP, LIPID #### [facility] [address] [place] [address] Dr. Kristen Jurado Calcium [Mass/Vol] 9.6 mg/dL Normal 8.5-10.1 [facility] Comment on above: Performed By: #### C MP, LIPID #### [facility] [address] [place] [address] Dr. Kristen Jurado Chloride [Moles/Vol] 101 mmol/L Normal 98-107 [facility] Comment on above: Performed By: #### C MP, LIPID #### [facility] [address] [place] [address] Dr. Kristen Jurado CO2 [Moles/Vol] 31.0 mmol/L Normal 21.0-32.0 [facility] Comment on above: Performed By: #### C MP, LIPID #### [facility] [address] [place] [address] Dr. Kristen Jurado Creatinine [Mass/Vol] 0.84 mg/dL Normal 0.55-1.02 [facility] Comment on above: Performed By: #### C MP, LIPID #### [facility] [address] [address] [address] Kristen Jurado EGFR-AF IVORIAN >60 Normal >=60 [facility] Comment on above: Performed By: #### C MP, LIPID #### [facility] [address] [address] [address] Kristen Jurado EGFR-NON AF IVORIAN >60 Normal >=60 [facility] Comment on above: Performed By: #### C MP, LIPID #### [facility] [address] [address] [address] Kristen Jurado Globulin (S) [Mass/Vol] 4.0 g/dL Normal [facility] Comment on above: Performed By: #### C MP, LIPID #### [facility] [address] [address] [address] Kristen Jurado Glucose [Mass/Vol] 129 mg/dL Critically high 74-106 [facility] Comment on above: Performed By: #### C MP, LIPID #### [facility] [address] [place] [address] Dr. Kristen Jurado Potassium [Moles/Vol] 3.3 mmol/L Critically low 3.5-5.1 [facility] Comment on above: Performed By: #### C MP, LIPID #### [facility] [address] [place] [address] Dr. Kristen Jurado Protein [Mass/Vol] 7.7 g/dL Normal 6.4-8.2 [facility] Comment on above: Performed By: #### C MP, LIPID #### [facility] [address] [place] [address] Dr. Kristen Jurado Sodium [Moles/Vol] 140 mmol/L Normal 136-145 [facility] Comment on above: Performed By: #### C MP, LIPID #### [facility] [address] [address] [address] Kristen Jurado Urea nitrogen [Mass/Vol] 22.0 mg/dL Critically high 7.0-18.0 [facility] Comment on above: Performed By: #### C MP, LIPID #### [facility] [address] [place] [address] Dr. Kristen Jurado Urea nitrogen/Creatinine [Mass ratio] 26.2 mg/mg Normal [facility] Comment on above: Performed By: #### C MP, LIPID #### [facility] [address] [address] [address] Kristen Jurado Office Visit (Cardiology)on 05-19-2022 [...] Weight Tips; Status:Complete - Retrospective Authorization; Done: [id number] Some eating tips that can help you lose weight.; Status:Complete - Retrospective Authorization; Done: [id number] SocHx: Former smoker Tobacco Use Screening; Status:Complete; Done: [id number] Patient Instructions Please bring all medicines, vitamins, [...] 12:28:39 PM Cipro Myalgia; Recorded By: Uzma oSlano; 09/08/2021 12:28:39 PM morphine Vomiting; Recorded By: [...] negative for complaint. Vitals Vital Signs Recorded: [id number] 10:34AM Heart Rate68, R Radial Niuobzrd846, LUE, Sitting Kqitxhqtj57, LUE, Sitting Height5 ft 5 in Dszdeb413 lb 4 oz BMI Qeraiercsg54.66 kg/m2 BSA Calculated1.88 Tobacco Useb) No Falls Screening (Age 18+)a) No falls within the last year Physical Exam Constitutional: alert and in no acute distress. Neck: neck is supple, symmetric, trachea midline, no mass (more content not included)... Normal [employer] Tobacco Screening.on 022 Fall risk assessment a) No falls within the last year [facility] 250 DO Work Phone: Tobacco use status CP b) No -[facility] [employer]LMN-1 250 DO Work Phone: [facility] EXAMINATION: [facility], 04/19/2022 10:30 AM EST HISTORY: Multiple [...] RAMAKRISHNA VILLALOBOS Date: 2022-04-20 08:12 Normal [facility] Tobacco Screening.on 022 Fall risk assessment a) No falls within the last year [facility] 250 DO Work Phone: Tobacco use status CPHS b) No -[facility] 250 DO Work Phone: [facility] CARDIAC STRESS/REST INJE CTIONon 09-18-2021 [facility] CARDIAC STRESS/REST INJECTION Patient Name: GUANACO HAGAN STUDY: MYOCARDIAL PERFUSION STRESS TEST WITH LEXISCAN Performing facility: [facility], [address] [place] [address], [id number] [facility] Provider: Marcia Valerio MD, FACC PCP: Dr. Sudhakar Marinelli Supervising provider: Danny Christopher MD INDICATION: Abnormal EKG; Chest Pain; DM HTN HISTORY: Gender: F; Age: 71 y/o ; Height: 0 cm; Weight: 78.1315997 kg. Abnormal EKG; Diabetes; Palpitations; HTN; Chest Pain; Denies smoking. Cardiac catheterization on 2009. COMPARISON: Previous nuclear testing completed 2008 at [place]. ACCESSION NUMBER(S): [id number]; [id number]; [id number] ORDERING CLINICIAN: MARCIA VALERIO TECHNIQUE: ONE DAY [...] signed by: DANNY CHRISTOPHER MD Normal [facility] No Panel Informationon 09-18 Normal [facility] 250 DO Work Phone: Tobacco Screening.on 022 Adult depression screening assessment No [facility] 250 DO Work Phone: Fall risk assessment a) No falls within the last year [facility] 250 DO Work Phone: Tobacco use status CPHS b) No [facility] 250 DO Work Phone: XR chest 1V portableon 08-27 XR chest 1V portable [facility] Main [address] [address] XRay Report Signed Patient: Guanaco Hagan MR#: [id number] 585 : 1950 Acct:[id number] Age/Sex: 71 / F ADM Date: 08/26/21 Loc: ER Room: Type: [facility] ER Attending Dr: Ordering Provider: Elder Simon [...] Harvey Bustillos M.D.08/27/2021 8:29 AM Dictation Location: [address] [address] Transcribed By: [facility] 08/27/21828 Dictated By: Harvey Bustillos DO 08/27/21828 Signed By: 08/27/21828 Normal [facility] Albumin [Mass/volume] in Ser um or PlasmaOrdered By: Elder Simon on 08-26-2021 Albumin [Mass/Vol] 4.0 g/dL 3.2-5.5 [facility] Basophils Auto (Bld) [#/Vol] Ordered By: PROVIDER TEMP on 08-26-2021 Basophils (Bld) [#/Vol] 0.1 10*3/uL 0.0-0.2 [facility] Basophils/100 WBC Auto (Bld) Ordered By: PROVIDER TEMP on 08-26-2021 Basophils/100 WBC (Bld) 0.8 % [facility] Blood hemoglobin measurement (mass/volume)Ordered By: PROVIDER TEMP on 08-26-2021 Hemoglobin (Bld) [Mass/Vol] 14.6 g/dL 11.8-15.4 [facility] Blood leukocytes automated c ount (number/volume)Ordered By: PROVIDER TEMP on 08-26-2021 WBC (Bld) [#/Vol] 8.5 10*3/uL 4.5-11.0 [facility] Complete Blood Count Auto Di ffon 08-26-2021 Basophils (Bld) [#/Vol] 0.1 10*3/uL Normal 0.0-0.2 [facility] Comment on above: Result Comment: PERF ORMED BY: [place] [address] PATHOLOGIST [employer]PL[employer] ELOINA THURSTON M.D. Performed By: #### C BC, CMP, HS TROP #### [address] Basophils/100 WBC (Bld) 0.8 % Normal . [facility] Comment on above: Performed By: #### C BC, CMP, HS TROP #### [facility] [address] Eosinophils (Bld) [#/Vol] 0.2 10*3/uL Normal 0.0-0.45 [facility] Comment on above: Performed By: #### C BC, CMP, HS TROP #### [facility] [address] Eosinophils/100 WBC (Bld) 1.9 % Normal . [facility] Comment on above: Performed By: #### C BC, CMP, HS TROP #### [address] Erythrocyte distribution width (RBC) [Ratio] 13.1 % Normal 11.9-15.3 [facility] Comment on above: Performed By: #### C BC, CMP, HS TROP #### [address] Hematocrit (Bld) [Volume fraction] 43.4 % Normal 34.0-46.4 [facility] Comment on above: Performed By: #### C BC, CMP, HS TROP #### [address] Hemoglobin (Bld) [Mass/Vol] 14.6 g/dL Normal 11.8-15.4 [facility] Comment on above: Performed By: #### C BC, CMP, HS TROP #### [place] [address] [place] Lymphocytes (Bld) [#/Vol] 1.9 10*3/uL Normal 1.00-4.8 [facility] Comment on above: Performed By: #### C BC, CMP, HS TROP #### [place] [address] [place] Lymphocytes/100 WBC (Bld) 23.0 % Normal . [facility] Comment on above: Performed By: #### C BC, CMP, HS TROP #### [address] MCH (RBC) [Entitic mass] 30.2 pg Normal 24.7-34.3 [facility] Comment on above: Performed By: #### C BC, CMP, HS TROP #### [facility] [address] [place] [address] MCV (RBC) [Entitic vol] 90.1 fL Normal 80-100 [facility] Comment on above: Performed By: #### C BC, CMP, HS TROP #### [facility] [address] [place] [address] Mean Corpuscular HGB Conc 33.5 g/dL Normal 32.0-35.0 [facility] Comment on above: Performed By: #### C BC, CMP, HS TROP #### [address] Monocytes (Bld) [#/Vol] 0.5 10*3/uL Normal 0.0-0.8 [facility] Comment on above: Performed By: #### C BC, CMP, HS TROP #### [address] Monocytes/100 WBC (Bld) 6.3 % Normal . [facility] Comment on above: Performed By: #### C BC, CMP, HS TROP #### [address] Neutrophils (Bld) [#/Vol] 5.8 10*3/uL Normal 1.8-7.7 [facility] Comment on above: Performed By: #### C BC, CMP, HS TROP #### [place] [address] [place] Neutrophils/100 WBC (Bld) 68.0 % Normal . [facility] Comment on above: Performed By: #### C BC, CMP, HS TROP #### [place] [address] [place] Nucleated RBC/100 WBC (Bld) [Ratio] 0.1 % Normal 0-0.5 [facility] Comment on above: Performed By: #### C BC, CMP, HS TROP #### [place] [address] [place] Platelet mean volume (Bld) [Entitic vol] 10.0 fL Normal 6.3-10.7 [facility] Comment on above: Performed By: #### C BC, CMP, HS TROP #### [facility] [address] Platelets (Bld) [#/Vol] 247 10*3/uL Normal 150-450 [facility] Comment on above: Performed By: #### C BC, CMP, HS TROP #### [facility] [address] RBC (Bld) [#/Vol] 4.82 10*6/uL Normal 3.60-5.00 [facility] Comment on above: Performed By: #### C BC, CMP, HS TROP #### [facility] [address] WBC (Bld) [#/Vol] 8.5 10*3/uL Normal 4.5-11.0 [facility] Comment on above: Performed By: #### C BC, CMP, HS TROP #### [facility] [address] Comprehensive Metabolic Pane romel 08-26-2021 Albumin [Mass/Vol] 4.0 g/dL Normal 3.2-5.5 [facility] Comment on above: Performed By: #### C BC, CMP, HS TROP #### [facility] [address] [place] [address] Albumin/Globulin [Mass ratio] 1.2 {ratio} Normal [facility] Comment on above: Performed By: #### C BC, CMP, HS TROP #### [facility] [address] ALP [Catalytic activity/Vol] 68 U/L Normal 32-92 [facility] Comment on above: Performed By: #### C BC, CMP, HS TROP #### [facility] [address] ALT [Catalytic activity/Vol] 23 U/L Normal 10-60 [facility] Comment on above: Performed By: #### C BC, CMP, HS TROP #### [facility] [address] [place] [address] [place] AST [Catalytic activity/Vol] 23 U/L Normal 10-42 [facility] Comment on above: Performed By: #### C BC, CMP, HS TROP #### [facility] [address] [id number] [place] Bilirubin [Mass/Vol] 0.9 mg/dL Normal 0.3-1.2 [facility] Comment on above: Performed By: #### C BC, CMP, HS TROP #### [facility] [address] [place] [address] [place] Calcium [Mass/Vol] 9.8 mg/dL Normal 8.2-10.2 [facility] Comment on above: Performed By: #### C BC, CMP, HS TROP #### [facility] [address] [place] [address] [place] Chloride [Moles/Vol] 101 mmol/L Normal 95-114 [facility] Comment on above: Performed By: #### C BC, CMP, HS TROP #### [facility] [address] [place] [address] [place] CO2 [Moles/Vol] 22.7 mmol/L Normal 22.0-30.0 [facility] Comment on above: Performed By: #### C BC, CMP, HS TROP #### [facility] [address] [place] [address] [place] Creatinine [Mass/Vol] 1.02 mg/dL Normal 0.44-1.03 [facility] Comment on above: Performed By: #### C BC, CMP, HS TROP #### [facility] [address] [place] [address] [place] Creatinine Clr Calc Pharmacy 51.26 Normal [facility] Comment on above: Result Comment: PERF ORMED BY: [place] [address] PATHOLOGIST [employer] ELOINA THURSTON M.D. Performed By: #### C BC, CMP, HS TROP #### [facility] [address] [place] [address] Estimated GFR ( Clari > 60 Normal [facility] Comment on above: Result Comment: GFR estimated reference range: According to KDOQI guidelines, <60 ml/min/1.73m2 is sufficient to diagnose a patient with chronic kidney disease. Performed By: #### C BC, CMP, HS TROP #### [address] Estimated GFR (Non- Am 53 Normal [facility] Comment on above: Performed By: #### C BC, CMP, HS TROP #### [address] Globulin (S) [Mass/Vol] 3.4 g/dL [facility] Comment on above: Performed By: #### C BC, CMP, HS TROP #### [address] Glucose [Mass/Vol] 141 mg/dL High 70-100 [facility] Comment on above: Result Comment: [place] Glucose Reference Range is dependent on time and content of last meal. Glucose of more than 200 mg/dL in a nonstressed, ambulatory subject supports the diagnosis of Diabetes Mellitus. ADA recommended reference range Performed By: #### C BC, CMP, HS TROP #### [address] Potassium [Moles/Vol] 3.6 mmol/L Normal 3.5-5.1 [facility] Comment on above: Performed By: #### C BC, CMP, HS TROP #### [address] Protein [Mass/Vol] 7.4 g/dL Normal 6.1-7.9 [facility] Comment on above: Performed By: #### C BC, CMP, HS TROP #### [address] Sodium [Moles/Vol] 137 mmol/L Normal 136-146 [facility] Comment on above: Performed By: #### C BC, CMP, HS TROP #### [address] [place] [address] [place] Urea nitrogen [Mass/Vol] 12 mg/dL Normal 02-26 [facility] Comment on above: Performed By: #### C BC, CMP, HS TROP #### [facility] [address] [place] [address] Creatinine and Glomerular fi ltration rate.predicted panel (S/P/Bld)Ordered By: Elder Simon on 08-26-2021 Creatinine [Mass/Vol] 1.02 mg/dL 0.44-1.03 [facility] ECG 12 lead ECGon 08-26-2021 ECG 12 lead ECG [facility] Main [place] [address] [place] [address] Electrocardiograph Report Signed Patient: Guanaco Hagan MR#: [id number] 585 : 1950 Acct:[id number] Age/Sex: 71 / F ADM Date: 08/26/21 Loc: ER Room: Type: [facility] ER Attending Dr: Ordering Provider: Elder Simon [...] ST abnormality Confirmed by Elder Simon DO ([id number]) on 08/27/2021 3:47:24 AM Referred By: Electronically Signed By:Elder Simon DO Transcribed By: MUS Signed By Elder Simon DO 0347 Normal [facility] Eosinophils Auto (Bld) [#/Vo l]Ordered By: PROVIDER TEMP on 08-26-2021 Eosinophils (Bld) [#/Vol] 0.2 10*3/uL 0.0-0.45 [facility] Eosinophils/100 WBC Auto (Bl d)Ordered By: PROVIDER TEMP on 08-26-2021 Eosinophils/100 WBC (Bld) 1.9 % [facility] Erythrocyte distribution wid th Auto (RBC) [Ratio]Ordered By: PROVIDER TEMP on 08-26-2021 Erythrocyte distribution width (RBC) [Ratio] 13.1 % 11.9-15.3 [facility] Estimated glomerular filtrat ion rate (GFR) non- AmericanOrdered By: Elder Simon on 08-26-2021 GFR/1.73 sq M.predicted among non-blacks MDRD (S/P/Bld) [Vol rate/Area] 53 mL/Min [facility] Globulin Calc (S) [Mass/Vol] Ordered By: Elder Simon on 08-26-2021 Globulin (S) [Mass/Vol] 3.4 g/dL [facility] Hematocrit Auto (Bld) [Volum e fraction]Ordered By: PROVIDER TEMP on 08-26-2021 Hematocrit (Bld) [Volume fraction] 43.4 % 34.0-46.4 [facility] - Hematology and Cell countsOrdered By: PROVIDER TEMP on 08-26-2021 Nucleated RBC/100 WBC (Bld) [Ratio] 0.1 % 0-0.5 [facility] Lymphocytes Auto (Bld) [#/Vo l]Ordered By: PROVIDER TEMP on 08-26-2021 Lymphocytes (Bld) [#/Vol] 1.9 10*3/uL 1.00-4.8 [facility] Lymphocytes/100 WBC Auto (Bl d)Ordered By: PROVIDER TEMP on 08-26-2021 Lymphocytes/100 WBC (Bld) 23.0 % [facility] MCH Auto (RBC) [Entitic mass ]Ordered By: PROVIDER TEMP on 08-26-2021 MCH (RBC) [Entitic mass] 30.2 pg 24.7-34.3 [facility] MCHC Auto (RBC) [Mass/Vol]Or dered By: PROVIDER TEMP on 08-26-2021 MCHC (RBC) [Mass/Vol] 33.5 g/dL 32.0-35.0 [facility] MCV Auto (RBC) [Entitic vol] Ordered By: PROVIDER TEMP on 08-26-2021 MCV (RBC) [Entitic vol] 90.1 fL 80-100 [facility] Monocytes Auto (Bld) [#/Vol] Ordered By: PROVIDER TEMP on 08-26-2021 Monocytes (Bld) [#/Vol] 0.5 10*3/uL 0.0-0.8 [facility] Monocytes/100 WBC Auto (Bld) Ordered By: PROVIDER TEMP on 08-26-2021 Monocytes/100 WBC (Bld) 6.3 % [facility] Neutrophils Auto (Bld) [#/Vo l]Ordered By: PROVIDER TEMP on 08-26-2021 Neutrophils (Bld) [#/Vol] 5.8 10*3/uL 1.8-7.7 [facility] Neutrophils/100 WBC Auto (Bl d)Ordered By: PROVIDER TEMP on 08-26-2021 Neutrophils/100 WBC (Bld) 68.0 % [facility] No Panel InformationOrdered By: Elder Simon on 08-26-2021 Estimated GFR () > 60 mL/Min [facility] Comment on above: GFR estimated refere nce range: According to KDOQI guidelines, <60 ml/min/1.73m2 is sufficient to diagnose a patient with chronic kidney disease. Pharmacy Creatinine Clearance (Chem 51.26 [facility] Platelet mean volume Auto (B ld) [Entitic vol]Ordered By: PROVIDER TEMP on 08-26-2021 Platelet mean volume (Bld) [Entitic vol] 10.0 fL 6.3-10.7 [facility] Platelets Auto (Bld) [#/Vol] Ordered By: PROVIDER TEMP on 08-26-2021 Platelets (Bld) [#/Vol] 247 10*3/uL 150-450 [facility] Protein [Mass/volume] in Ser um or PlasmaOrdered By: Elder Simon on 08-26-2021 Protein [Mass/Vol] 7.4 g/dL 6.1-7.9 [facility] RBC Auto (Bld) [#/Vol]Ordere d By: PROVIDER TEMP on 08-26-2021 RBC (Bld) [#/Vol] 4.82 10*6/uL 3.60-5.00 [facility] Serum or plasma alanine zamora otransferase measurement without P-5'-P (enzymatic activiOrdered By: Elder Simon on 08-26-2021 ALT No additional P-5'-P [Catalytic activity/Vol] 23 U/L 10-60 [facility] Serum or plasma albumin/glob ulin mass ratioOrdered By: Elder Simon on 08-26-2021 Albumin/Globulin [Mass ratio] 1.2 {ratio} [facility] Serum or plasma alkaline bandar sphatase measurement (enzymatic activity/volume)Ordered By: Elder Simon on 08-26-2021 ALP [Catalytic activity/Vol] 68 U/L 32-92 [facility] Serum or plasma aspartate am inotransferase measurement (enzymatic activity/volume)Ordered By: Elder Simon on 08-26-2021 AST [Catalytic activity/Vol] 23 U/L 10-42 [facility] Serum or plasma calcium enmanuel urement (mass/volume)Ordered By: Elder Simon on 08-26-2021 Calcium [Mass/Vol] 9.8 mg/dL 8.2-10.2 [facility] Serum or plasma chloride nico surement (moles/volume)Ordered By: Elder Simon on 08-26-2021 Chloride [Moles/Vol] 101 mmol/L 95-114 [facility] Serum or plasma glucose enmanuel urement (mass/volume)Ordered By: Elder Simon on 08-26-2021 Glucose [Mass/Vol] 141 mg/dL 70-100 [facility] Comment on above: ADA recommended refe rence rangeRandom Glucose Reference Range is dependent on time and content of last meal. Glucose of more than 200 mg/dL in a nonstressed, ambulatory subject supports the diagnosis of Diabetes Mellitus. Serum or plasma potassium me asurement (moles/volume)Ordered By: Elder Simon on 08-26-2021 Potassium [Moles/Vol] 3.6 mmol/L 3.5-5.1 [facility] Serum or plasma sodium measu rement (moles/volume)Ordered By: Elder Simon on 08-26-2021 Sodium [Moles/Vol] 137 mmol/L 136-146 [facility] Serum or plasma total biliru bin measurement (mass/volume)Ordered By: Elder Simon on 08-26-2021 Bilirubin [Mass/Vol] 0.9 mg/dL 0.3-1.2 [facility] Serum or plasma total carbon dioxide measurement (moles/volume)Ordered By: Elder Simon on 08-26-2021 CO2 [Moles/Vol] 22.7 mmol/L 22.0-30.0 [facility] Serum or plasma urea nitroge n measurement (mass/volume)Ordered By: Elder Simon on 08-26-2021 Urea nitrogen [Mass/Vol] 12 mg/dL 02-26 [facility] Troponin I High Sensitivityo n 08-26-2021 Troponin I High Sensitivity 5 pg/mL Normal 0- [facility] Comment on above: Result Comment: PERF ORMED BY: [place] [address] PATHOLOGIST [employer] ELOINA THURSTON M.D. Performed By: #### C BC, CMP, HS TROP #### [address] Troponin I.cardiac [Mass/vol ume] in Serum or Plasma by High sensitivity methodOrdered By: Elder Simon on 08-26-2021 Troponin I.cardiac High sensitivity method [Mass/Vol] 5 pg/mL 0- [facility] CBC AUTO DIFFon 08-25-2021 BASO # 0.1 103/ul Normal 0.0-0.1 [facility] Comment on above: Performed By: #### C BC #### [facility] [address] [place] [address] Dr. Kristen Jurado Basophils/100 WBC (Bld) 1.0 % Normal 0.2-2.0 [facility] Comment on above: Performed By: #### C BC #### [facility] [address] [address] [address] Kristen Jurado EO # 0.2 103/ul Normal 0.0-0.7 [facility] Comment on above: Performed By: #### C BC #### [facility] [address] [place] [address] Dr. Kristen Jurado Eosinophils/100 WBC (Bld) 2.1 % Normal 0.9-7.0 [facility] Comment on above: Performed By: #### C BC #### [facility] [address] [place] [address] Dr. Kristen Jurado Erythrocyte distribution width (RBC) [Ratio] 12.8 % Normal 11.0-15.0 [facility] Comment on above: Performed By: #### C BC #### [facility] [address] [place] [address] Dr. Kristen Jurado Hematocrit (Bld) [Volume fraction] 43.2 % Normal 36.0-48.0 [facility] Comment on above: Performed By: #### C BC #### [facility] [address] [place] [address] Dr. Kristen Jurado Hemoglobin (Bld) [Mass/Vol] 14.3 g/dL Normal 12.0-16.0 [facility] Comment on above: Performed By: #### C BC #### [facility] [address] [place] [address] Dr. Kristen Jurado IG # 0.02 10e3/ul Normal 0.00-0.03 [facility] Comment on above: Performed By: #### C BC #### [facility] [address] [place] [address] Dr. Krisetn Jurado IG % 0.2 % Normal 0.0-0.5 [facility] Comment on above: Performed By: #### C BC #### [facility] [address] [place] [address] Dr. Kristen Jurado LYMPH # 1.7 103/ul Normal 1.2-3.8 [facility] Comment on above: Performed By: #### C BC #### [facility] [address] [place] [address] Dr. Kristen Jurado Lymphocytes/100 WBC (Bld) 20.5 % Normal 20.5-60.0 [facility] Comment on above: Performed By: #### C BC #### [facility] [address] [place] [address] Dr. Kristen Jurado MANUAL DIFF REQ NO Normal [facility] Comment on above: Performed By: #### C BC #### [facility] [address] [place] [address] Dr. Kristen Jurado MCH (RBC) [Entitic mass] 29.7 pg Normal 26.7-34.0 [facility] Comment on above: Performed By: #### C BC #### [facility] [address] [place] [address] Dr. Kristen Jurado MCHC (RBC) [Mass/Vol] 33.1 g/dL Normal 29.9-35.2 [facility] Comment on above: Performed By: #### C BC #### [facility] [address] [place] [address] Dr. Kristen Jurado MCV (RBC) [Entitic vol] 89.6 fL Normal 81.0-99.0 [facility] Comment on above: Performed By: #### C BC #### [facility] [address] [place] [address] Dr. Kristen Jurado MONO # 0.5 103/ul Normal 0.3-0.8 [facility] Comment on above: Performed By: #### C BC #### [facility] [address] [place] [address] Dr. Kristen Jurado Monocytes/100 WBC (Bld) 6.2 % Normal 1.7-12.0 [facility] Comment on above: Performed By: #### C BC #### [facility] [address] [place] [address] Dr. Kristen Jurado NEUT # 5.7 103/ul Normal 1.4-6.5 [facility] Comment on above: Performed By: #### C BC #### [facility] [address] [place] [address] Dr. Kristen Jurado Neutrophils/100 WBC (Bld) 70.0 % Normal 43.0-75.0 [facility] Comment on above: Performed By: #### C BC #### [facility] [address] [place] [address] Dr. Kristen Jurado Platelet mean volume (Bld) [Entitic vol] 11.0 fL Normal 9.5-13.5 [facility] Comment on above: Performed By: #### C BC #### [facility] [address] [place] [address] Dr. Kristen Jurado PLT 238 103/ul Normal 150-450 [facility] Comment on above: Performed By: #### C BC #### [facility] [address] [place] [address] Dr. Kristen Jurado RBC 4.82 106/ul Normal 4.20-5.40 [facility] Comment on above: Performed By: #### C BC #### [facility] [address] [place] [address] Dr. Kristen Jurado WBC 8.1 103/ul Normal 4.0-11.0 [facility] Comment on above: Performed By: #### C BC #### [facility] [address] [place] [address] Dr. Kristen Jurado PROF CHEM 8 (BAS METB)on Anion gap [Moles/Vol] 12.8 mmol/L Normal [facility] Comment on above: Performed By: #### B MP #### [facility] [address] [place] [address] Dr. Kristen Jurado Calcium [Mass/Vol] 9.6 mg/dL Normal 8.5-10.1 [facility] Comment on above: Performed By: #### B MP #### [facility] [address] [place] [address] Dr. Kristen Jurado Chloride [Moles/Vol] 103 mmol/L Normal 98-107 [facility] Comment on above: Performed By: #### B MP #### [facility] [address] [place] [address] Dr. Kristen Jurado CO2 [Moles/Vol] 30.0 mmol/L Normal 22.0-30.0 [facility] Comment on above: Performed By: #### B MP #### [facility] [address] [place] [address] Dr. Kristen Jurado Creatinine [Mass/Vol] 0.97 mg/dL Normal 0.52-1.04 [facility] Comment on above: Performed By: #### B MP #### [facility] [address] [address] [address] Kristen Jurado EGFR-AF IVORIAN >60 Normal >=60 [facility] Comment on above: Performed By: #### B MP #### [facility] [address] [address] [address] Kristen Jurado EGFR-NON AF IVORIAN 56 mL/min/1.73m2 Critically low >=60 [facility] Comment on above: Performed By: #### B MP #### [facility] [address] [address] [address] Kristen Jurado Glucose [Mass/Vol] 176 mg/dL Critically high 74-106 T [facility] Comment on above: Performed By: #### B MP #### [facility] [address] [address] [address] Kristen Jurado Potassium [Moles/Vol] 3.8 mmol/L Normal 3.4-5.0 [facility] Comment on above: Performed By: #### B MP #### [facility] [address] [address] [address] Kristen Jurado Sodium [Moles/Vol] 142 mmol/L Normal 137-145 [facility] Comment on above: Performed By: #### B MP #### [facility] [address] [address] [address] Kristen Jurado Urea nitrogen [Mass/Vol] 16.0 mg/dL Normal 7.0-18.0 [facility] Comment on above: Performed By: #### B MP #### [facility] [address] [address] [address] Kristen Jurado Urea nitrogen/Creatinine [Mass ratio] 16.5 mg/mg Normal [facility] Comment on above: Performed By: #### B MP #### [facility] [address] [address] [address] Kristen Jurado SED RATE [facility] 2021 SED RATE 7 mm/hr Normal <=30 [facility] Comment on above: Performed By: #### S EDR #### [facility] [address] [address] [address] Kristen MADRIGAL [employer] 2021 Result Negative [facility] Other Operative Reporton 0 Operative Report MR#: [id number] S [facility] Pt. Name: Guanaco Hagan Room #: 0C Discharge Date: Birthdate: 1950 OPERATIVE REPORT DATE OF SURGERY: 08/06/2019 SURGEON: Isma Fitzpatrick M.D. GUN STOCKER: Sarwat Mcqueen MD. PREAMBLE: A 69-year-old female, [...] with vascularized fat pad graft application. Under [place] block regional anesthetic, the patient's right upper [...] A Isma Fitzpatrick M.D. Date Dict: 08/06/2019/02:07 Óscar Fitzpatrick M.D. Date Trans: 08/07/2019 01:09 A/iram [id number] Normal [facility] POC GLUCOSE LABon 08-06-2019 Glucose [Mass/Vol] 158 mg/dL High 70-100 [facility] Comment on above: Performed By: #### [id number] #### [address] Vital Signs Date Time Vital Sign Value Performing Clinician Facility 06-20-2023 10:45-0500 Body height 165.1 cm Damaris Marinelli Other [facility] Other 06-20-2023 10:45-0500 Body mass index (BMI) [Ratio] 29.25 kg/m2 Damaris Marinelli Other [facility] Other 06-20-2023 10:45-0500 Body weight 79.74 kg Damaris Marinelli Other [facility] [employer] Other 06-20-2023 10:45-0500 Diastolic blood pressure 78 mm[Hg] Damaris Marinelli Other [facility] [employer] Other 06-20-2023 10:45-0500 SaO2% (BldA) [Mass fraction] 95 % Damaris Marinelli Other [facility] [employer] Other 06-20-2023 10:45-0500 Systolic blood pressure 131 mm[Hg] Damaris Marinelli Other [facility] [employer] Other 01-31-2023 14:54-0400 Diastolic blood pressure 80 mm[Hg] Damaris Marinelli Work Phone: [facility] Work Phone: 01-31-2023 14:54-0400 Systolic blood pressure 138 mm[Hg] Damaris Marinelli Work Phone: [facility] DO Work Phone: 01-31-2023 14:38-0400 Diastolic blood pressure 80 mm[Hg] Damaris Marinelli Work Phone: [facility] [employer] 250 DO Work Phone: 01-31-2023 14:38-0400 Diastolic blood pressure 78 mm[Hg] Damaris Marinelli Work Phone: [facility] [employer] 250 DO Work Phone: 01-31-2023 14:38-0400 Systolic blood pressure 152 mm[Hg] Damaris Marinelli Work Phone: [facility] [employer] 250 DO Work Phone: 01-31-2023 14:38-0400 Systolic blood pressure 138 mm[Hg] Damaris Marinelli Work Phone: [facility] [employer] 250 DO Work Phone: 01-31-2023 14:32-0400 Body height 165.1 cm Damaris Marinelli Work Phone: [facility] 250 DO Work Phone: 01-31-2023 14:32-0400 Body mass index (BMI) [Ratio] 29.62 kg/m2 Damaris Marinelli Work Phone: [facility] 250 DO Work Phone: 01-31-2023 14:32-0400 Body surface area Derived from formula 1.88 m2 Damaris Marinelli Work Phone: [facility] 250 DO Work Phone: 01-31-2023 14:32-0400 Body weight 80.74 kg Damaris Marinelli Work Phone: [facility] 250 DO Work Phone: 01-31-2023 14:32-0400 Diastolic blood pressure 80 mm[Hg] Damaris Marinelli Work Phone: [facility] 250 DO Work Phone: 01-31-2023 14:32-0400 Heart rate 72 /min Damaris Marinelli Work Phone: [facility] 250 DO Work Phone: 01-31-2023 14:32-0400 Systolic blood pressure 152 mm[Hg] Damaris Marinelli Work Phone: [facility] 250 DO Work Phone: 01-20-2023 09:30-0400 Body height 165.1 cm Damaris Marinelli Other [facility] Other 01-20-2023 09:30-0400 Body mass index (BMI) [Ratio] 29.45 kg/m2 Damaris Marinelli Other [facility] Other 01-20-2023 09:30-0400 Body weight 80.29 kg Damaris Marinelli Other [facility] Other 01-20-2023 09:30-0400 Diastolic blood pressure 75 mm[Hg] Damaris Marinelli Other [facility] Other 01-20-2023 09:30-0400 Systolic blood pressure 126 mm[Hg] Damaris Marinelli Other [facility] Other 09-28-2022 12:30-0400 Body height 165.1 cm Damaris Marinelli Other [facility] Other 09-28-2022 12:30-0400 Body mass index (BMI) [Ratio] 30.28 kg/m2 Damaris Marinelli Other [facility] Other 09-28-2022 12:30-0400 Body weight 82.56 kg Damaris Marinelli Other [facility] Other 09-28-2022 12:30-0400 Diastolic blood pressure 90 mm[Hg] Damaris Marinelli Other [facility] Other 09-28-2022 12:30-0400 SaO2% (BldA) [Mass fraction] 93 % Damaris Marinelli Other [facility] Other 09-28-2022 12:30-0400 Systolic blood pressure 142 mm[Hg] Damaris Marinelli Other [facility] Other 08-09-2022 13:45-0500 Body height 165.1 cm Damaris Marinelli Other [facility] Other 08-09-2022 13:45-0500 Body mass index (BMI) [Ratio] 30.12 kg/m2 Damaris Marinelli Other [facility] Other 08-09-2022 13:45-0500 Body weight 82.1 kg Damaris Marinelli Other [facility] Other 08-09-2022 13:45-0500 Diastolic blood pressure 82 mm[Hg] Damaris Marinelli Other [facility] Other 08-09-2022 13:45-0500 SaO2% (BldA) [Mass fraction] 97 % Damaris Marinelli Other [facility] Other 08-09-2022 13:45-0500 Systolic blood pressure 138 mm[Hg] Damaris Marinelli Other [facility] Other 05-19-2022 10:34-0500 Body height 165.1 cm Damaris Marinelli Work Phone: [employer] 250 DO Work Phone: 05-19-2022 10:34-0500 Body mass index (BMI) [Ratio] 29.66 kg/m2 Damaris Marinelli Work Phone: [employer] 250 DO Work Phone: 05-19-2022 10:34-0500 Body surface area Derived from formula 1.88 m2 Damaris Marinelli Work Phone: [employer] 250 DO Work Phone: 05-19-2022 10:34-0500 Body weight 80.85 kg Damaris Marinelli Work Phone: [employer] 250 DO Work Phone: 05-19-2022 10:34-0500 Diastolic blood pressure 76 mm[Hg] Damaris Marinelli Work Phone: [facility] 250 DO Work Phone: 05-19-2022 10:34-0500 Heart rate 68 /min Damaris Marinelli Work Phone: [facility] 250 DO Work Phone: 05-19-2022 10:34-0500 Systolic blood pressure 128 mm[Hg] Damaris Marinelli Work Phone: [facility] 250 DO Work Phone: 11-11-2021 09:54-0400 Diastolic blood pressure 70 mm[Hg] Damaris Marinelli Work Phone: [facility] 250 DO Work Phone: 11-11-2021 09:54-0400 Systolic blood pressure 137 mm[Hg] Damaris Marinelli Work Phone: [facility] 250 DO Work Phone: 11-11-2021 09:28-0400 Body height 165.1 cm Damaris Marinelli Work Phone: [facility] 250 DO Work Phone: 11-11-2021 09:28-0400 Body mass index (BMI) [Ratio] 29.12 kg/m2 Damaris Marinelli Work Phone: [facility] 250 DO Work Phone: 11-11-2021 09:28-0400 Body surface area Derived from formula 1.87 m2 Damaris Marinelli Work Phone: [facility] 250 DO Work Phone: 11-11-2021 09:28-0400 Body weight 79.38 kg Damaris Marinelli Work Phone: [facility] 250 DO Work Phone: 11-11-2021 09:28-0400 Diastolic blood pressure 70 mm[Hg] Damaris Marinelli Work Phone: [facility] 250 DO Work Phone: 11-11-2021 09:28-0400 Heart rate 69 /min Damaris Marinelli Work Phone: [facility] 250 DO Work Phone: 11-11-2021 09:28-0400 Systolic blood pressure 168 mm[Hg] Damaris Marinelli Work Phone: [facility] 250 DO Work Phone: 09-18-2021 08:00-0400 70 1 Damaris Marinelli Work Phone: [facility] [place] Work Phone: Comment on above: [id number] 09-09-2021 08:59-0400 Diastolic blood pressure 68 mm[Hg] Damaris Marinelli Work Phone: [facility] 250 DO Work Phone: 09-09-2021 08:59-0400 Systolic blood pressure 138 mm[Hg] Damaris Marinelli Work Phone: [facility] 250 DO Work Phone: 09-09-2021 08:55-0400 Body height 165.1 cm Damaris Marinelli Work Phone: [facility] 250 DO Work Phone: 09-09-2021 08:55-0400 Body mass index (BMI) [Ratio] 28.62 kg/m2 Damaris Marinelli Work Phone: [facility] 250 DO Work Phone: 09-09-2021 08:55-0400 Body surface area Derived from formula 1.86 m2 Damaris Marinelli Work Phone: [facility] 250 DO Work Phone: 09-09-2021 08:55-0400 Body weight 78.02 kg Damaris Marinelli Work Phone: [facility] 250 DO Work Phone: 09-09-2021 08:55-0400 Diastolic blood pressure 78 mm[Hg] Damaris Marinelli Work Phone: [facility] 250 DO Work Phone: 09-09-2021 08:55-0400 Heart rate 72 /min Damaris Marinelli Work Phone: [facility] 250 DO Work Phone: 09-09-2021 08:55-0400 Systolic blood pressure 148 mm[Hg] Damaris Marinelli Work Phone: [facility] 250 DO Work Phone: 08-26-2021 21:56-0400 Diastolic blood pressure 75 mm[Hg] MD Damaris Marinelli Work Phone: [facility] 08-26-2021 21:56-0400 Heart rate 74 /min MD Damaris Marinelli Work Phone: [facility] 08-26-2021 21:56-0400 Respiratory rate 20 /min MD Damaris Marinelli Work Phone: [facility] 08-26-2021 21:56-0400 SaO2% (BldA) [Mass fraction] 97 % MD Damaris Marinelli Work Phone: [facility] 08-26-2021 21:56-0400 Systolic blood pressure 166 mm[Hg] MD Damaris Marinelli Work Phone: [facility] 08-26-2021 18:37-0400 Body height 165.1 cm MD Damaris Marinelli Work Phone: [facility] 08-26-2021 18:37-0400 Body mass index (BMI) [Ratio] 29.2 kg/m2 MD Damaris Marinelli Work Phone: [facility] 08-26-2021 18:37-0400 Body temperature 98.1 [degF] MD Damaris Marinelli Work Phone: [facility] 08-26-2021 18:37-0400 Body weight 79.75 kg MD Damaris Marinelli Work Phone: [facility] 06-25-2021 11:15-0500 Body height 165.1 cm Rey Taylor Other [facility] Other 06-25-2021 11:15-0500 Body mass index (BMI) [Ratio] 29.12 kg/m2 Rey Taylor Other [facility] Other 06-25-2021 11:15-0500 Body temperature 97.9 [degF] Rey Taylor Other [facility] Other 06-25-2021 11:15-0500 Body weight 79.38 kg Rey Taylor Other [facility] Other 06-25-2021 11:15-0500 Respiratory rate 18 /min Rey Taylor Other [facility] Other 06-25-2021 11:15-0500 SaO2% (BldA) [Mass fraction] 95 % Rey Taylor Other [facility] Other Encounters Encounter Date Encounter Type Care Provider Facility Start: 06-20-2023 End: 06-20-2023 ambulatory Damaris Marinelli Other [facility] Other Start: 06-20-2023 Office outpatient visit [address] [facility] Start: 05-31-2023 End: 05-31-2023 ambulatory Damaris Marinelli Other [facility] Other Start: 05-31-2023 Office outpatient visit [address] [facility] Start: 05-03-2023 End: 05-03-2023 ambulatory Damaris Marinelli Other [facility] Other Start: 05-03-2023 Telephone encounter Damaris Yves [facility] Start: 03-22-2023 End: 03-22-2023 ambulatory Damaris Marinelli Other [facility] Other Start: 03-22-2023 Telephone [address]maaris Yves [facility] Start: 03-09-2023 End: 03-09-2023 ambulatory Maikel Taylor Other [facility] Other Start: 03-09-2023 Nursing evaluation o f patient and report Maikel Taylor [facility] Start: 01-31-2023 Office outpatient visit 25 minutes Damaris Marinelli Work Phone: [facility] 250 DO Work Phone: Start: 01-31-[address] Marcia allen [facility] Facility: Start: 01-20-2023 End: 01-20-2023 ambulatory Damaris Marinelli Other [facility] Other Start: 01-20-2023 Office outpatient visit [address] [facility] Start: 10-01-2022 End: 10-01-2022 ambulatory Damaris Marinelli Other [facility] Other Start: 10-01-2022 Telephone encounter Damaris Marinelli [facility] Start: 09-28-2022 End: 09-28-2022 ambulatory Damaris Marinelli Other [facility] Other Start: 09-28-2022 Office outpatient visit [address] [facility] Start: 08-17-2022 End: 08-17-2022 ambulatory Damaris Marinelli Other [facility] Other Start: 08-17-2022 Telephone encounter Damaris Marinelli [facility] Start: 08-16-2022 End: 08-17-[address] DAMARIS MARINELLI Facility:[facility] Start: 08-09-2022 End: 08-09-2022 ambulatory Damaris Marinelli Other [facility] Other Start: 08-09-2022 Office outpatient visit [address] [facility] Start: 05-19-2022 Office outpatient visit 25 minutes Damaris Marinelli Work Phone: [facility] 250 DO Work Phone: Start: 05-19-[address] Damaris Marinelli Facility: Start: 04-19-2022 End: 04-20-[address] DOCTOR NOONAN Facility:[facility] Start: 11-11-2021 Office outpatient visit 25 minutes Damaris Marinelli Work Phone: [facility] 250 DO Work Phone: Start: 09-18-2021 Chart Update Damaris Marinelli Work Phone: [facility] 250 DO Work Phone: Start: 09-18-2021 Patient encounter procedure Damaris Marinelli Work Phone: [facility] [place] Work Phone: Start: 09-10-2021 EVENT CAROLEE, Provider : EDGAR RODRIGUEZ HAIRPIECE STYLIST 1,[id number], Status: Pen, Time: 9:30 AM Damaris Marinelli Work Phone: [facility] 250 DO Work Phone: Start: 09-10-2021 Patient encounter procedure Damaris Marinelli Work Phone: [facility] 250 DO Work Phone: Start: 09-09-2021 Patient encounter [facility] Work Phone: Start: 08-26-2021 End: 08-27-2021 Emergency department patient visit Damaris Marinelli Facility:[facility] Start: 08-26-2021 End: 08-26-2021 Emergency department patient visit MD Damaris Marinelli Work Phone: [facility] Start: 08-25-2021 End: 08-26-[address] DAMARIS MARINELLI Facility: Start: 06-25-2021 End: 06-25-2021 ambulatory Rey Taylor Other [facility] [employer] Other Start: 06-25-2021 Office outpatient visit 15 minutes Rey Taylor [facility] Start: 08-06-2019 End: 08-07-2019 Patient encounter procedure ABDULAZIM OSCAR Facility:[facility] Procedures Date Procedure Procedure Detail Performing Clinician [...] Marcia Valerio, Status: Pen, Time: 11:40 AM [facility]: Start: 11-24-2022 FUV, Provider: Marcia Valerio, Status: Pen, Time: 11:10 AM [facility], Provider: Marcia Valerio, Status: Pen, Time: 11:10 AM [facility] 250 DO Work Phone: Start: 05-19-2022 FUV, Provider: Marcia Valerio, Status: Pen, Time: 10:30 AM [facility], Provider: Marcia Valerio, Status: Pen, Time: 10:30 AM [facility] 250 DO Work Phone: Start: 11-11-2021 FUV, Provider: Marcia Valerio, Status: Pen, Time: 9:20 AM [facility], Provider: Marcia Valerio, Status: Pen, Time: 9:20 AM [facility] Work [facility]: Start: 09-18-2021 STRESS NUC, Provider : DERICK HHVI NUCLEAR 01,[id number], Status: Pen, Time: 8:00 AM STRESS NUC, Provider: DERICK HHVI NUCLEAR 01,[id number], Status: Pen, Time: 8:00 AM [facility] [facility] DO Work Phone: Start: 08-26-2021 Plain chest X-ray XR chest 1V portab [facility] Patient Education Chest Pain (DC) [facility] Work Phone: Patient referral [facility] Work Phone: Immunizations Immunization Date Immunization Notes Care Provider [place] 03-09-2023 influenza, high dose seasonal, preservative-free Maikel Taylor Other [facility] Other 03-17-2022 Fluad Quadrivalent 0 .5 ML Intramuscular Prefilled Syringe Damaris Marinelli Work Phone: [facility] [employer] DO Work Phone: 03-17-2022 influenza virus vaccine, split virus (incl. purified surface antigen) Damaris Marinelli Other [facility] Other 03-12-2021 influenza virus vaccine, split virus (incl. purified surface antigen) Damaris Yves Other [place] [employer] Other 02-04-2021 influenza, seasonal, injectable Damaris Encinas Yves Work Phone: [facility] [employer] [facility][note 3] DO Work Phone: Comment on above: Series: 08-11-2020 Jeny COVID-19 Vaccine 0.5 ML Intramuscular Suspension Damaris Encinas Yves Work Phone: [facility] [employer] [facility][note 3] DO Work Phone: 03-11-2020 influenza virus vaccine, split virus (incl. purified surface antigen) Damaris Yves Other [place] [employer] Other 02-28-2019 influenza virus vaccine, split virus (incl. purified surface antigen) Damaris Marinelli Other [facility] Other 02-28-2019 influenza, injectabl e, quadrivalent, preservative free Damaris Encinas Yves Work Phone: [facility] [place] [address] DO Work Phone: 04-06-2014 pneumococcal polysaccharide vaccine, 23 valent Damaris Marinelli Work Phone: [facility] [place] [address] DO Work Phone: 03-28-2014 pneumococcal polysaccharide vaccine, 23 valent Damaris Yves Other [place] [employer] Other influenza virus vaccine, unspecified formulation Damaris Ce Marinelli Work Phone: [facility] [place] [address] DO Work Phone: Comment on above: 2011 Payers Date Payer Category Payer Self-pay [id number] 1961 Medicare [id number] 1961 Unknown [id number] 1950 Unknown [id number] [id number] 1950 Unknown [id number] 2.16.84 [id number] 1950 Unknown [id number] 2.16.84 [id number] 1948 Unknown [id number] 2.16.84 [id number] 1948 Unknown [id number] 2.16. [id number] 1948 Unknown [id number] 2.16. [id number] Unknown Unknown [id number] 2.16.8 [id number] Social History Date Type Detail Facility Start: 08-26-2021 Tobacco smoking status NDIS Never smoked tobacco (finding) [facility] Start: 1950 Sex Assigned At Female F [facility] Social alcohol use Social alcohol use [place] [address] DO Work Phone: Comment on above: Rarely; 2 cups tea daily; Quit 06/1971; Sex Assigned At Sex Assigned At Bir th [facility] Other Clinical Notes 06-25-2021 to 06-20-2023 Note Date & Type Note Facility 06-20-2023 Evaluation note Encounter Date Diagnosis Assessment Notes Jun, Exertional dyspnea (ICD-10 - R06.09) Suggested CXR to start and echo +/- stress test. Will check w NO their preference location for these tests. Jun, Renal cyst (ICD-10 - N28.1) pt questions if her pain is due to renal cysts. Imaging in past reviewed. will recheck w US. [facility] Other 12-26-2023 Evaluation note* Encounter Date Diagnosis Assessment Notes Treatment Notes Treatment Clinical Notes May, Acute non-recurrent maxillary sinusitis (ICD-10 - J01.00) Sinus infections [...] verbalized understanding and agreement with treatment plan. [facility] Other 08-17-2023 Evaluation note* Encounter Date Diagnosis Assessment Notes Treatment Notes Treatment Clinical Notes Jan, Rhomboid muscle pain (ICD-10 - M79.18) Order given to Pt for PT. Home exercises, tylenol and ice advised. Jan, Decreased right shoulder range of motion (ICD-10 - M25.611) as above. [facility] Other 04-25-2023 Evaluation note* Encounter Date Diagnosis Assessment Notes Treatment Notes Treatment Clinical Notes Sep, Laryngopharyngeal reflux (LPR) (ICD-10 - K21.9) Sep, Other Pt requests referral to Dr. Martins as her daughter has seen in him in the past. [facility] Other 03-06-2023 Evaluation note* Encounter Date Diagnosis Assessment Notes Treatment Notes Treatment Clinical Notes Aug, Bronchitis (ICD-10 - J40) Pt [...] Pt understood and agreed to tx plan. Aug, Elevated glucose (ICD-10 - R73.09) overdue for A1C to monitor. presently on glipizide Aug, Essential (primary) hypertension (ICD-10 - I10) due for labs harshad to recheck kidney function [facility] Other 01-20-2022 Evaluation note* Encounter Date Diagnosis Assessment Notes Treatment Notes Treatment Clinical Notes Jun, Contact with and (suspected) exposure [...] Patient care instructions given in writting by [facility] Care At Home document. [facility] Other Chief complaint Narrative - ReportedGUANACO HAGAN is being seen for a consultation for an abnormal ECG, chest pain and hypertension. [facility] [address] DO Work Phone: Evaluation noteNo assessment information available [facility] Work Phone: Evaluation noteNo [employer] Other History general Narrative - Reported* Type Description Date Medical History Multiple Sclerosis Medical History Hypertension Surgical History gallbladder 2006 Surgical History Procedure:heart cath;Disease: Surgical History knee 2008 Surgical History Procedure:Cholecystectomy;Disea se: Surgical History LT FOOT Surgical History Procedure:Arthroscopy Knee;Dise ase: LT Surgical History plantar faciectomy Lt Surgical History SINUS Surgical History Bilat. MMA, r/o CB, ant. ethmoi d, BITSMR, Septoplasty 09/2014 Surgical History CATARACT Surgical History LT cataract Surgical History gallbladder Surgical History RT [facility] Dr Pino 03/14/19 Hospitalization History [place] Hospitalization History See Sx Hx [facility] Other Hospital Discharge instructions Additional Instructions Take your medications as prescribed. Return to the emergency department if you feel worse. Follow-up with welt cutter listed below for outpatient stress test versus heart catheterization.[facility] Work Phone: Summary Purpose Family History [...] Chief Complaint Abnormal EKG Chief Complaint * LOUSIA / MPL results. * GUANACO HAGAN is [...] 1 Laryngopharyngeal re flux (K21.9) Referral Organization [facility]ette Referring Provider First Name Damaris Referring Provider Last Name Yves Referring Provider Specialty Family [facility] Referred Organization [facility] Referred Provider Jefry Martins Referred Address ,[place], [place],[address] Referred Provider Specialty Otolaryngolo gy Referral Priority Routine General Notes Darrennick Trish 11:10:34 AM >received today, attachments made, notes locked, referral faxed P2P Additional Source Comments INFORMATION SOURCE (unrecogn ized section and content) DATE CREATED AUTHOR 08/09/2019 [facility] DATE CREATED AUTHOR AUTHOR'S ORGANIZ ATION 09/28/2021 [facility] DATE CREATED AUTHOR AUTHOR'S ORGANIZ ATION 07/10/2022 [facility] DATE CREATED AUTHOR AUTHOR'S ORGANIZ ATION 08/23/2022 [facility] DATE CREATED AUTHOR AUTHOR'S ORGANIZ ATION 02/01/2023 [facility] DATE CREATED AUTHOR AUTHOR'S ORGANIZ ATION 02/01/2023 [facility] Care Teams (unrecognized sec tion and [...] 30 day event monitor in office.Ordering Physician: [facility] number [id number] applied.Holter monitor printed and placed on Dr. Marcia Valerio MD desk to dictate#6 CASTRO IMPALA, SORE THROAT, SINUS CONGESTIONwheezinglabsReferralreferralR SHOULDER PAINFLU SHOTrefillRefill-Mail OrderSORE THROAT, FEVER, CONGESTION, HEADACHE NO ENGERYLower Rib Cage Pain FOR RECORDS PERTAINING TO PATIENTS WHO ARE [...] BE BASED ON THE PRIMARY CLINICAL RECORDS. [employer] [facility]. provides no warranty or guarantee of the accuracy or completeness of information in this document.
== END 2023-06-23 09:51 | disposition home or self-care (01) ==
LOC: US 09:50
PROVIDERS: PCP Family Medicine; Visit Provider Family Medicine
DX: R06.09 Other forms of dyspnea (principal); N28.1 Cyst of kidney, acquired
CPT/HCPCS: 76775

== ENCOUNTER 2023-10-26 08:24 | Outpatient (OUT) | payer MEDICARE, SELFPAY ==
--- OUTSIDE RECORDS SUMMARY | 2023-10-26 08:40 | XMS_ITS | CCD ---
Author Organization [facility] Care Team Providers Care 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 Name Role Phone OSCAR, ABDULAZIM Admitting Unavailable OSCAR, ABDULAZIM Attending Unavailable DAMARIS MARINELLI Referring Unavailable DAMARIS MARINELLI Primary Care Unavailable [place] Procedure Practitioner Unavailab le OSCAR, ABDULAZIM Surgeon Unavailable [place] Procedure Practitioner Unavailab MARVEL Buckley Surgeon Unavailable MD Damaris Marinelli Primary Care Provider [phone] DO Elder Simon Emergency Provider UnaDamaris Pena Unavailable Unavailable Unavailable Rey Taylor Unavailable Damaris Marinelli Primary Care Unavailable Elder Simon Attending Unavailable Elder Simon Admitting Unavailable Damaris Marinelli Unavailable DR DAMARIS MARINELLI Admitting Unavailable MARINELLI, DR DAMARIS Encinas Attending Unavailable MARINELLI, DR DAMARIS Encinas Primary Care Unavailable YVES, DR DAMARIS Encinas Consulting Unavailable MISC, DR SALTER Admitting Unavailable MISC, DR SALTER Attending Unavailable YVES, DR DAMARIS Encinas Primary Care Unavailable TROY, DR RAMAKRISHNA Sainz Consulting Unavailable MISC, DR SALTER Consulting Unavailable YVES, DR DAMARIS Encinas Admitting Unavailable MARINELLI, DR DAMARIS Encinas Attending Unavailable MARINELLI, DR DAMARIS Encinas Primary Care Unavailable MARINELLI, DR DAMARIS Encinas Consulting Unavailable Yves, Dr. Damaris Macias Primary Care Unav ailable Vaelrio, Dr. Marcia Monte Referring Mayela vailable Valerio, Dr. Marcia Monte Attending Mayela vailable Valerio, Dr. Marcia Monte Attending Mayela vailable Marinelli, Dr. Damaris Macias Primary Care Unav ailable Valerio, Dr. Marcia Monte Referring Mayela vailable Maikel Taylor Unavailable Damaris Marinelli MD Primary Care Provider MARCIA VALERIO Referring Unavailable DAMARIS MARINELLI Primary Care Unavailable HUGO FREEDMAN Attending Unavailable HUGO FREEDMAN Referring Unavailable DAMARIS MARINELLI Primary Care Unavailable Allergies Allergy Classification Reported Allergen(s) Allergy Type Date of Onset Reaction(s) Facility (17 sources) Amoxicillin; Translations: [AMOXICILLIN] Drug Allergy 015 rash [facility] Repository (9 sources) Ciprofloxacin; Translations: [CIPRO] Drug Allergy 015 Myalgia [facility] Repository (20 sources) Doxycycline; Translations: [DOXYCYCLINE] Drug Allergy 016 Headache, Hives, Comment:heart burn [facility] Repository (20 sources) Morphine; Translations: [MORPHINE] Drug Allergy 015 Gastrointestinal Upset, Vomiting, stomach pain, Comment:stomach pains [facility] Repository (2 sources) Sulfamethoxazole / Trimethoprim; Translations: [BACTRIM] Drug Allergy 015 [facility] (20 sources) Ciprofloxacin; Translations: [ciprofloxacin] Drug Allergy 017 Joint Pain, tendons/ache, Comment:tendons ache [facility] (15 sources) Sulfamethoxazole; Translations: [sulfamethoxazole] Drug Allergy 022 [facility] (15 sources) Trimethoprim; Translations: [trimethoprim] Drug Allergy 022 [facility] (7 sources) Amoxicillin; Translations: [Amoxicillin TABS] Drug Allergy Hives [facility] 250 DO Work Phone: (20 sources) Sulfamethoxazole / Trimethoprim; Translations: [Bactrim TABS] Drug Allergy rash [facility] [employer] Other (13 sources) Amoxicillin Drug Allergy Rash [facility] [employer] Other (1 source) Glatiramer Drug Allergy 015 [facility] Repository (8 sources) cefdinir Drug Allergy Unknown [facility] [employer] Other (8 sources) Clindamycin Drug Allergy Unknown [email or web address] Other (8 sources) House dust mite Drug allergy 019 Unknown [email or web address] Other (8 sources) Metoprolol Drug Allergy 014 Unknown [email or web address] Other (8 sources) Niacin Drug Allergy Unknown [email or web address] Other (8 sources) predniSONE Drug Allergy 015 Unknown [email or web address] Other (8 sources) Pseudoephedrine Drug Allergy Unknown [email or web address] Other (8 sources) Cat dander Drug allergy Unknown [email or web address] Other (8 sources) corticosteroid and/or corticosteroid derivative (FN) Drug allergy Unknown [email or web address] Other (1 source) ALLERGIES NOT ON FILE; Translations: [ALLERGIES NOT ON FILE] Propensity to adverse reactions (disorder) [facility] Repository (1 source) Penicillins; Translations: [PENICILLINS] Propensity to adverse reactions to drug (disorder) [facility] Repository (1 source) Sulfamethoxazole / Trimethoprim; Translations: [SULFAMETHOXAZOLE- TRIMETHOPRIM] Drug Allergy 017 [facility] Repository Medications Current Medications Medication Drug Class(es) Dates Sig (Normalized) Sig (Original) [id number] actuat albuterol 0.09 mg/actuat metered dose inhaler (12 sources) beta2-Adrenergic Agonist Start: 08-09-2022 take 2 [...] Aug, Active amLODIPine 10 mg oral tablet (20 sources) Dihydropyridine Calcium Channel Ananya Start: 08-04-2010 take 1 tablet by mouth once daily amLODIPine Besylate 10 MG take 1 tablet (5MG) by oral route every day Oral Aug, Active aspirin 81 mg chewable tablet (18 sources) Platelet Aggregation Inhibitor, Nonsteroidal Anti-inflammatory Drug Start: 07-28-2017 take 1 tablet by mouth once daily Aspirin Active 1 TAB PO Daily July 28, 2017 4:17pm Start: 06-03-2008 Baby Aspirin 8 1 MG take 1 by Oral route every day Oral *please review for potential _update for e-prescription and drug interaction check* May, Active take 6 tablets by [facility] every other day Aspirin EC 81 MG Oral Tablet Delayed Release once every other day Quantity: 0 Refills: 0 Ordered: 09-Sep-2021 DO Active azithromycin 250 mg oral tablet (10 sources) Macrolide Antimicrobial Start: 08-09-2022 Azithromycin 250 MG as directed Orally 2 tabs po today, then 1 tab daily x 4 more days for 5 May, Active carvedilol 6.25 mg oral tablet (20 sources) alpha-Adrenergic Ananya, beta-Adrenergic Ananya Start: 07-28-2017 take 1 tablet by mouth twice daily Carvedilol Active 1 TAB PO Twice daily July 28, 2017 4:12pm glipiZIDE 5 mg oral tablet (20 sources) Sulfonylurea take 1 tablet by mouth [...] a day Active take 1 capsule by [facility] every twenty-four hours Omeprazole 40 MG 1 capsule Orally Once a day Not-Taking pantoprazole 40 mg delayed release oral tablet (11 sources) Proton Pump Inhibitor take 1 tablet by mouth every twenty-four hours Pantoprazole Sodium 40 MG 1 tablet Orally Once a day Active take 1 tablet by dorene th every twelve hours Pantoprazole Sodium 40 MG 1 tablet Orall y twice a day Active microencapsulated potassium chloride 20 meq extended release oral tablet (19 sources) take 1 tablet by dorene th once daily Klor-Con M20 20 MEQ TAKE 1 TABLET BY MOUTH EVERY DAY Oral for 90 Active take 1 tablet by mouth once bhakti y Klor-Con M20 20 MEQ Oral Tablet Extended Release TAKE ONE TABLETS BY MOUTH EVERY DAY Quantity: 0 Refills: 0 Ordered: 09-Sep-2021 DO Active vitamin B12 (13 sources) Vitamin B12 Vitamin B12 Acti ve Vitamin D3 (13 sources) Vitamin D3 Activ e Completed/Discontinued Medications Medication Drug Class(es) Dates Sig (Normalized) Sig (Original) hyaluronate (20 sources) Start: 01-02-2019 Orthovisc 30 J ul2018 2 mL Start: 12-26-2018 Orthovisc 23 J ul2018 2 mL Start: 12-19-2018 Orthovisc 16 J ul2018 2 mL hydroCHLOROthiazide 25 mg oral tablet (20 sources) Thiazide Diuretic Start: 07-28-2017 take 1 tablet by mouth once daily hydroCHLOROthiazide 25 MG Oral Tablet take one tablet daily at noon Quantity: 45 Refills: 3 Ordered: 31-Jan-2023 Marcia Valerio MD Start : 31-Jan-2023 Active 120 actuat mometasone furoate 0.1 mg/actuat metered dose inhaler (14 sources) Corticosteroid Start: 07-28-2017 End: 08-26-2021 Mometasone [...] Date Documented Da te Episodic/Chronic Abdominal hernia (8 sources) Diaphragmatic hernia; Translations: [Diaphragmatic hernia without obstruction or gangrene] Episodic Abdominal pain (20 sources) Abdominal pain; Translations: [Unspecified abdominal pain] Onset: 5 Episodic Anxiety disorders (8 sources) Anxiety disorder; Translations: [Other specified anxiety disorders] Chronic Asthma (8 sources) Mild intermittent asthma; Translations: [Mild intermittent asthma, uncomplicated] Chronic Cardiac dysrhythmias (7 sources) Palpitations; Translations: [Palpitations] Episodic Chronic obstructive pulmonary disease and bronchiectasis (1 source) Bronchitis, not specified as acute or chronic Episodic Conduction disorders (15 sources) EKG: right bundle branch block; Translations: [Right bundle branch block] Chronic Diabetes mellitus without complication (7 sources) Diabetes mellitus; Translations: [Diabetes mellitus without mention of complication, type II or unspecified type, not stated as uncontrolled] Chronic Diabetes mellitus without complication (18 sources) Other abnormal glucose; Translations: [Hyperglycemia] Onset: 5 Episodic Disorders of lipid metabolism (17 sources) Hyperlipidemia; Translations: [Other and unspecified hyperlipidemia] Onset: 4 Chronic Diverticulosis and diverticulitis (13 sources) Diverticular disease; Translations: [Diverticulosis of intestine, part unspecified, without perforation or abscess without bleeding] Chronic Esophageal disorders (20 sources) Laryngopharyngeal reflux; Translations: [Gastro-esophageal reflux disease without esophagitis] Chronic Essential hypertension (20 sources) Essential hypertension; Translations: [Unspecified essential hypertension] Onset: 3 Chronic Genitourinary symptoms and ill-defined conditions (16 sources) Genitourinary symptoms; Translations: [Unspecified symptoms and signs involving the genitourinary system] Episodic Headache; including migraine (9 sources) Headache; Translations: [Headache] 08-26-2021 Episodic Headache; including migraine (1 source) Headache; including migraine; Translations: [HEADACHE UNSPECIFIED] Onset: 2 Immunizations and screening for infectious disease (14 sources) Patient encounter status; Translations: [Other specified vaccination] Onset: 2 Resolved: 2 Episodic Multiple sclerosis (12 sources) Multiple sclerosis; Translations: [Multiple sclerosis] Onset: 2 Chronic Nausea and vomiting (13 sources) Vomiting; Translations: [Vomiting, unspecified] Episodic Nephritis; nephrosis; renal sclerosis (8 sources) Nephrotic syndrome; Translations: [Nephrotic syndrome with unspecified morphologic changes] Onset: 6 Chronic Nonspecific chest pain (20 sources) Chest pain; Translations: [Chest pain, unspecified] Onset: 2 08-26-2021 Episodic Osteoarthritis (13 sources) Arthritis of first carpometacarpal joint of right hand; Translations: [Unilateral primary osteoarthritis of first carpometacarpal joint, right hand] Chronic Osteoporosis (13 sources) Senile osteoporosis; Translations: [Age-related osteoporosis without current pathological fracture] Chronic Other acquired deformities (13 sources) Lumbar spondylolisthesis; Translations: [Spondylolisthesis, lumbar region] Episodic Other circulatory disease (1 source) Elevated blood pressure; Translations: [Elevated blood-pressure reading, without diagnosis of hypertension] 08-26-2021 Episodic Other circulatory disease (8 sources) Elevated blood-pressure reading without diagnosis of hypertension; Translations: [Elevated blood-pressure reading, without diagnosis of hypertension] Episodic Other congenital anomalies (7 sources) Congenital anomaly of larynx; 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 Other congenital anomalies (1 source) Other congenital malformations of larynx; Translations: [Other congenital malformations of [...] [Irritable bowel syndrome] Chronic Other gastrointestinal disorders (20 sources) Diarrhea; Translations: [Diarrhea, unspecified] Onset: 6 Episodic Other gastrointestinal disorders (13 sources) Swollen abdomen; Translations: [Abdominal distension (gaseous)] Episodic Other injuries and conditions due to external causes (8 sources) History of fall; Translations: [History of falling] Episodic Other lower respiratory disease (2 sources) Other forms of dyspnea Episodic Other lower respiratory disease (3 sources) Dyspnea; Translations: [Shortness of breath] Onset: 4 07-02-2023 Episodic Other lower respiratory disease (1 source) Shortness of breath; Translations: [Shortness of breath] Onset: 4 Episodic Other nervous system disorders (20 sources) [...] Episodic Other nutritional; endocrine; and metabolic disorders (15 sources) Body mass index 25-29 - overweight; Translations: [Body mass index (BMI) 28.0-28.9, adult] Onset: 6 Episodic Other nutritional; endocrine; and metabolic disorders (1 source) Body mass index (BMI) 29.0-29.9, adult; Translations: [Body mass index (BMI) 29.0-29.9, adult] Episodic Other screening for suspected conditions (not mental disorders or infectious disease) (8 sources) Electrocardiogram abnormal; Translations: [Nonspecific abnormal electrocardiogram [ECG] [EKG]] Onset: 4 Episodic Other upper respiratory disease (7 sources) Vasomotor rhinitis; Translations: [Vasomotor rhinitis] Onset: 6 Chronic Other upper respiratory disease (7 sources) Allergic rhinitis due to animal hair and dander; Translations: [Allergic rhinitis due to animal (cat) (dog) hair and dander] Onset: 7 Chronic Other upper respiratory disease (1 source) Vasomotor rhinitis; Translations: [Vasomotor rhinitis] Onset: 6 Chronic Other upper respiratory disease (1 source) Allergic rhinitis due to animal (cat) (dog) hair and dander; Translations: [Allergic rhinitis due to animal (cat) (dog) hair and dander] Onset: 7 Chronic Residual codes; unclassified (1 source) Swelling - edema - symptom; Translations: [Edema] Episodic Residual codes; unclassified (2 sources) Edema of lower extremity; Translations: [Edema] Episodic Screening and history of mental health and substance abuse codes (15 sources) Ex-smoker; Translations: [Personal history of tobacco use] Episodic Comment on above: Quit 06/1971; Spondylosis; intervertebral disc disorders; other back problems (20 sources) Solitary sacroiliitis; Translations: [Sacroiliitis, not elsewhere classified] Chronic Spondylosis; intervertebral disc disorders; other back problems (20 sources) Backache; Translations: [Dorsalgia, unspecified] 08-26-2021 Episodic Unclassified (1 source) R94.31 - Abnormal electrocardiogram [ECG] [EKG]; Translations: [R94.31 - Abnormal electrocardiogram [ECG] [EKG]] Onset: Unclassified (8 sources) History of disease caused by Severe acute respiratory syndrome coronavirus 2 (situation); Translations: [Personal history of COVID-19] Urinary tract infections (8 sources) Urinary tract infectious disease; Translations: [Urinary tract infection, site not specified] Episodic Past or Other Problems Problem Classification Problem Date Documented Da te Episodic/Chronic Acute bronchitis (8 sources) Acute bronchitis; Translations: [Acute bronchitis, unspecified] Onset: 05-02-2015 Episodic Allergic reactions (8 sources) Urticaria, unspecified; Translations: [Urticaria] Onset: 01-23-2014 Episodic Fluid and electrolyte disorders (8 sources) Hypokalemia; Translations: [Hypokalemia] Onset: 09-22-2017 Episodic Other connective tissue disease (7 sources) Spasm; Translations: [Cramp and spasm] Onset: 08-04-2015 Episodic Other connective tissue disease (1 source) Cramp and spasm; Translations: [Cramp and spasm] Onset: 08-04-2015 Episodic Other gastrointestinal disorders (6 sources) History of irritable bowel syndrome; Translations: [Personal history of other diseases of digestive system] Resolved: 09-10-2021 Episodic Other gastrointestinal disorders (8 sources) Flatulence, eructation and gas pain; Translations: [Abdominal distension (gaseous)] Onset: 12-25-2015 Episodic Other nutritional; endocrine; and metabolic disorders (6 sources) H/O: raised blood lipids; Translations: [Personal history of other endocrine, metabolic, and immunity disorders] Resolved: 09-10-2021 Episodic Other nutritional; endocrine; and metabolic disorders (7 sources) Overweight; Translations: [Overweight] Onset: 01-06-2016 Episodic Other nutritional; endocrine; and metabolic disorders (1 source) Overweight; Translations: [Overweight] Onset: 01-06-2016 Episodic Other upper respiratory infections (10 sources) Postnasal drip; Translations: [Acute sinusitis] Onset: 11-11-2014 Resolved: 06-25-2021 Episodic Residual codes; unclassified (6 sources) History of clinical finding in subject; Translations: [Personal history of other specified diseases] Resolved: 09-10-2021 Episodic Residual codes; unclassified (3 sources) History of chest pain; Translations: [Personal history of other specified diseases] Resolved: 11-11-2021 Episodic Results Test Name Value Interpretation Reference Range Facility MAMM SCREENING BILATERAL W C computer trainer 08-09-2023 MAMM SCREENING BILATERAL W CAD MAMM SCREENING BILATERAL W CAD EXAM: MAMM SCREENING BILATERAL W CAD, 08/08/2023 2:25 PM CLINICAL INDICATIONS: Screening, Screening mammogram for breast cancer. COMPARISON: Mammograms dating back to 05/23/2019. TECHNIQUE: Bilateral digital tomosynthesis MLO and CC views of the breasts were obtained, with creation of synthetic 2D views. Computer aided detection was utilized. FINDINGS: There are scattered areas of fibroglandular density. There are no suspicious masses, calcifications, or areas of architectural distortions. IMPRESSION: No mammographic evidence of malignancy. BI-RADS: BI-RADS 1 - Negative Recommendation: Routine screening mammogram in 1 year. Finalized by Kiana Esquivel MD on 08/09/2023 12:06 PM 1 b MAMM 1 YR Normal [facility] TRANSTHORACIC ECHO (TTE) COM PLETEon 07-02-2023 TRANSTHORACIC ECHO (TTE) COMPLETE [address], [address] [facility], [place] [address] TRANSTHORACIC ECHOCARDIOGRAM REPORT Patient Name: GUANACO DANYA Reading Physician: [id number] Marcia Valerio MD, [facility] Study Date: 07/02/2023 Ordering Provider: [id number] MARCIA VALERIO MRN/PID: [id number] Fellow: Nurse: Date of /Age: 1 1950 / 73 years Inventory Analyst: Rosey Prince RDCS, RDMS, RVT Gender: F Additional Staff: Height: 165.10 cm Admit Date: Weight: 80.74 kg Admission Status: Outpatient BSA: 1.88 m2 Department Location: [facility] Blood Pressure: 150 /74 mmHg Study Type: TRANSTHORACIC ECHO (TTE) COMPLETE Diagnosis/ICD: Shortness of breath-R06.02 Indication: SOB, HTN, DM CPT Codes: Echo Complete w Full [id number] Study Detail: The following Echo studies were performed: 2D, M-Mode, Doppler and color flow. PHYSICIAN INTERPRETATION: Left Ventricle: Left ventricular systolic function is normal, with an estimated ejection fraction of 60%. There are no regional wall motion abnormalities. The left ventricular cavity size is normal. Spectral Doppler shows a normal pattern of left ventricular diastolic filling. Left Atrium: The left atrium is normal in size. Right Ventricle: The right ventricle is normal in size. There is normal right ventricular global systolic function. Right Atrium: The right atrium is normal in size. Aortic Valve: The aortic valve is trileaflet. There is trivial aortic valve regurgitation. The peak instantaneous gradient of the aortic valve is 10.2 mmHg. The mean gradient of the aortic valve is 6.0 mmHg. Mitral Valve: The mitral valve is normal in structure. There is no evidence of mitral valve regurgitation. Tricuspid Valve: The tricuspid valve is structurally normal. There is trace tricuspid regurgitation. Pulmonic Valve: The pulmonic valve is structurally normal. There is no indication of pulmonic valve regurgitation. Pericardium: There is no pericardial effusion noted. Aorta: The aortic root is normal. Systemic Veins: The inferior vena cava appears to be of normal size. CONCLUSIONS: 1. Left ventricular systolic function is normal with a 60% estimated ejection fraction. QUANTITATIVE DATA SUMMARY: 2D MEASUREMENTS: Normal Ranges: Ao Root d: 2.80 cm (2.0-3.7cm) LAs: 3.90 cm (2.7-4.0cm) RVIDd: 2.40 cm (0.9-3.6cm) IVSd: 1.10 cm (0.6-1.1cm) LVPWd: 1.30 cm (0.6-1.1cm) LVIDd: 4.80 cm (3.9-5.9cm) LVIDs: 2.40 cm LV Mass Index: 116.4 g/m2 LV % FS 50.0 % AORTA MEASUREMENTS: Normal Ranges: Asc Ao, d: 3.30 cm (2.1-3.4cm) LV SYSTOLIC FUNCTION BY 2D PLANIMETRY (MOD): Normal Ranges: EF-A4C View: 73.6 % (>=55%) LV DIASTOLIC FUNCTION: Normal Ranges: MV Peak E: 0.99 m/s (0.7-1.2 m/s) MV Peak A: 1.16 m/s (0.42-0.7 m/s) E/A Ratio: 0.86 (1.0-2.2) MV lateral e' 0.06 m/s MV medial e' 0.08 m/s E/e' Ratio: 15.60 (<8.0) MITRAL VALVE: Normal Ranges: MV Vmax: 1.11 m/s (<=1.3m/s) MV peak P.9 mmHg (<5mmHg) MV mean P.0 mmHg (<48mmHg) MV DT: 218 msec (150-240msec) AORTIC VALVE: Normal Ranges: AoV Vmax: 1.60 m/s (<=1.7m/s) AoV Peak P.2 mmHg (<20mmHg) AoV Mean P.0 mmHg (1.7-11.5mmHg) LVOT Max Butch: 0.87 m/s (<=1.1m/s) AoV VTI: 39.40 cm (18-25cm) LVOT VTI: 22.20 cm LVOT Diameter: 2.00 cm (1.8-2.4cm) AoV Area, VTI: 1.77 cm2 (2.5-5.5cm2) AoV Area,Vmax: 1.71 cm2 (2.5-4.5cm2) AoV Dimensionless Index: 0.56 TRICUSPID VALVE/RVSP: Normal Ranges: Peak TR Velocity: 2.29 m/s RV Syst Pressure: 24.0 mmHg (< 30mmHg) PULMONIC VALVE: Normal Ranges: PV Max Butch: 1.0 m/s (0.6-0.9m/s) PV Max P.0 mmHg [id number] Marcia Valerio MD, [facility] Electronically signed on 07/05/2023 at 5:58:05 PM Final [facility] Office Visit (Cardiology)on 01-31-2023 Follow-up visit Diagnoses/Problems [...] Weight Tips; Status:Complete - Retrospective Authorization; Done: [id number] Some eating tips that can help you lose weight.; Status:Complete - Retrospective Authorization; Done: [id number] SocHx: Former smoker Tobacco Use Screening; Status:Complete; Done: [id number] Patient Instructions Please bring all medicines, vitamins, [...] Cholecystectomy History of Complete colonoscopy Managed By: Bela MARS, Josesito Rojas (Gastroenterology) History of Foot surgery Past Medical [...] is supple, (more content not included)... Normal momondo Tobacco Screening.on 023 Adult depression screening assessment No [facility] [employer] 250 DO Work Phone: Fall risk assessment a) No falls within the last year [facility] [employer] 250 DO Work Phone: Tobacco use status CP b) No [facility] [employer] 250 DO Work Phone: CBC W MANUAL DIFFon 08-17-19 23 ATYPICAL LYMPH # Normal [facility] Comment on above: Performed By: #### C BCMAN #### [facility] [address] [place] [address] [address] Kristen Jurado ATYPICAL LYMPH % Normal [facility] Comment on above: Performed By: #### C BCMAN #### [facility] [address] [place] [address] [address] Kristen Jurado BAND # Normal 0.0-0.3 [facility] Comment on above: Performed By: #### C BCMAN #### [facility] [address] [place] [address] [address] Kristen Jurado BAND % Normal 0-5 [facility] Comment on above: Performed By: #### C BCUSMAN #### [facility] [address] [place] [address] Dr. Kristen Jurado BASOM # 0.00 103/ul Normal 0.00-0.10 [facility] Comment on above: Performed By: #### C BCUSMAN #### [facility] [address] [place] [address] Dr. Kristen Jurado BASOM % 0.0 % Critically low 0.2-2.0 [facility] Comment on above: Performed By: #### C NILA #### [facility] [address] [place] [address] Dr. Kristen Jurado BLAST # Normal [facility] Comment on above: Performed By: #### C NILA #### [facility] [address] [place] [address] Dr. Kristen Jurado BLAST % Normal [facility] Comment on above: Performed By: #### C NILA #### [facility] [address] [place] [address] Dr. Kristen Jurado CORRECTED WBC Normal 4.0-11.0 [facility] Comment on above: Performed By: #### C NILA #### [facility] [address] [place] [address] Dr. Kristen Jurado EOS # 0.39 103/ul Normal 0.00-0.70 [facility] Comment on above: Performed By: #### C NILA #### [facility] [address] [place] [address] Dr. Kristen Jurado EOS% 3.0 % Normal 0.9-7.0 [facility] Comment on above: Performed By: #### C NILA #### [facility] [address] [place] [address] Dr. Kristen Jurado HCT 45.6 % Normal 36.0-48.0 [facility] Comment on above: Performed By: #### C NILA #### [facility] [address] [address] [address] Kristen Jurado HGB 15.0 g/dl Normal 12.0-16.0 [facility] Comment on above: Performed By: #### C NILA #### [facility] [address] [address] [address] Kristen Jurado LYMPHM # 6.55 103/ul Critically high 1.20-3.80 [facility] Comment on above: Performed By: #### C NILA #### [facility] [address] [place] [address] Dr. Kristen Jurado LYMPHM% 50.0 % Normal 20.5-60.0 [facility] Comment on above: Performed By: #### C NILA #### [facility] [address] [place] [address] Dr. Kristen Jurado MCH 29.1 pg Normal 26.7-34.0 [facility] Comment on above: Performed By: #### C NILA #### [facility] [address] [place] [address] Dr. Kristen Jurado MCHC 32.9 g/dl Normal 29.9-35.2 [facility] Comment on above: Performed By: #### C NILA #### [facility] [address] [place] [address] Dr. Kristen Jurado MCV 88.4 fL Normal 81.0-99.0 [facility] Comment on above: Performed By: #### C NILA #### [facility] [address] [place] [address] Dr. Kristen Jurado METAMYELOCYTE # Normal [facility] Comment on above: Performed By: #### C NILA #### [facility] [address] [place] [address] Dr. Kristen Jurado METAMYELOCYTE % Normal [facility] Comment on above: Performed By: #### C NILA #### [facility] [address] [place] [address] Dr. Kristen Jurado MONOM# 0.92 103/ul Critically high 0.30-0.80 [facility] Comment on above: Performed By: #### C NILA #### [facility] [address] [address] [address] Kristen Jurado MONOM% 7.0 % Normal 1.7-12.0 [facility] Comment on above: Performed By: #### Alfredo DOTSON #### [facility] [address] [place] [address] Dr. Kristen Jurado MPV 11.1 fL Normal 9.5-13.5 [facility] Comment on above: Performed By: #### C NILA #### [facility] [address] [place] [address] Dr. Kristen Jurado MYELOCYTE # Normal [facility] Comment on above: Performed By: #### Alfredo DOTSON #### [facility] [address] [place] [address] Dr. Kristen Jurado MYELOCYTE % Normal [facility] Comment on above: Performed By: #### Alfredo DOTSON #### [facility] [address] [place] [address] Dr. Kristen Jurado NRBC Normal [facility] Comment on above: Performed By: #### Alfredo DOTSON #### [facility] [address] [place] [address] Dr. Kristen Jurado PLT 269 103/ul Normal 150-450 [facility] Comment on above: Performed By: #### Alfredo DOTSON #### [facility] [address] [place] [address] Dr. Kristen Jurado RBC 5.16 106/ul Normal 4.20-5.40 [facility] Comment on above: Performed By: #### Alfredo DOTSON #### [facility] [address] [place] [address] Dr. Kristen Jurado RDW 13.0 % Normal 11.0-15.0 [facility] Comment on above: Performed By: #### C NILA #### [facility] [address] [place] [address] Dr. Kristen Jurado SEG # 5.24 103/ul Normal 1.40-6.50 [facility] Comment on above: Performed By: #### C NILA #### [facility] [address] [address] [address] Kristen Jurado SEG % 40.0 % Critically low 43.0-75.[address] [facility] Comment on above: Performed By: #### C NILA #### [facility] [address] [address] [address] Kristen Jurado WBC 13.1 103/ul Critically high 4.0-11.0 [facility] Comment on above: Performed By: #### C NILA #### [facility] [address] [address] [address] Kristen Jurado GLYCOHEMOGLOBIN A1Con 2022 ADA RECOMMENDATION SEE BELOW Normal [facility] Comment on above: Result Comment: ADA RECOMMENDED LIMIT 4.0 - 6.0 ADA THERAPEUTIC TARGET < 7.0 ACTION SUGGESTED > 7.0 Performed By: #### A 1C #### [facility] [address] [place] [address] Dr. Kristen Jurado Glucose [Mass/Vol] 137 mg/dL Normal [facility] Comment on above: Performed By: #### A 1C #### [facility] [address] [place] [address] Dr. Kristen Jurado HbA1c (Bld) [Mass fraction] 6.4 % Critically high 4.5-6.2 [facility] Comment on above: Performed By: #### A 1C #### [facility] [address] [place] [address] Dr. Kristen Jurado LIPID PROFILEon 08-16-2022 CHOL-HDL RATIO NORM SEE BELOW Normal [facility] Comment on above: Result Comment: 3.3 - 4.4 LOW RISK 4.4 - 7.1 AVERAGE RISK 7.1 - 11.0 MODERATE RISK >11.0 HIGH RISK Performed By: #### C MP, LIPID #### [facility] [address] [place] [address] Dr. Kristen Jurado Cholesterol [Mass/Vol] 196 mg/dL Normal <=200 [facility] Comment on above: Performed By: #### C MP, LIPID #### [facility] [address] [address] [address] Kristen Jurado Cholesterol in HDL [Mass/Vol] 74 mg/dL Critically high 40-60 [facility] Comment on above: Performed By: #### C MP, LIPID #### [facility] [address] [address] [address] Kristen Jurado Cholesterol in LDL [Mass/Vol] 95.6 mg/dL Normal [facility] Comment on above: Performed By: #### C MP, LIPID #### [facility] [address] [address] [address] Kristen Jurado Cholesterol.total/Cho lesterol in HDL [Mass ratio] 2.6 {ratio} Normal [facility] Comment on above: Performed By: #### C MP, LIPID #### [facility] [address] [place] [address] Dr. Kristen Jurado HDL NORMAL > or = 60 mg/dl - LO W CARDIOVASCULAR RISK <40 mg/dl - HIGH CARDIOVASCULAR RISK Normal [facility] Comment on above: Performed By: #### C MP, LIPID #### [facility] [address] [place] [address] Dr. Kristen Jurado LDL CALC NORMAL SEE BELOW Normal [facility] Comment on above: Result Comment: <100 mg/dl OPTIMAL 100 - 129 mg/dl NEAR OR ABOVE OPTIMAL 130 - 159 mg/dl BORDERLINE HIGH 160 - 189 mg/dl HIGH >190 mg/dl VERY HIGH Performed By: #### C MP, LIPID #### [facility] [address] [address] [address] Kristen Jurado Triglyceride [Mass/Vol] 132 mg/dL Normal <=150 [facility] Comment on above: Performed By: #### C MP, LIPID #### [facility] [address] [address] [address] Kristen Jurado VLDL CALC 26.4 mg/dL Normal [facility] Comment on above: Performed By: #### C MP, LIPID #### [facility] [address] [place] [address] Dr. Kristen Jurado MICROALBUMIN, RAND URon 03- mALB <1.3 Normal <=30.0 [facility] Comment on above: Performed By: #### M ALBR #### [facility] [address] [address] [address] Kristen Jurado PROF 14(COMP METB)on 023 Albumin [Mass/Vol] 3.7 g/dL Normal 3.4-5.0 [facility] Comment on above: Performed By: #### C MP, LIPID #### [facility] [address] [place] [address] Dr. Kristen Jurado Albumin/Globulin [Mass ratio] 0.9 {ratio} Normal [facility] Comment on above: Performed By: #### C MP, LIPID #### [facility] [address] [place] [address] Dr. Kristen Jurado ALP [Catalytic activity/Vol] 85 U/L Normal 46-116 [facility] Comment on above: Performed By: #### C MP, LIPID #### [facility] [address] [place] [address] Dr. Kristen Jurado ALT [Catalytic activity/Vol] 21 U/L Normal 14-59 [facility] Comment on above: Performed By: #### C MP, LIPID #### [facility] [address] [place] [address] Dr. Kristen Jurado Anion gap [Moles/Vol] 11.3 mmol/L Normal [facility] Comment on above: Performed By: #### C MP, LIPID #### [facility] [address] [place] [address] Dr. Kristen Jurado AST [Catalytic activity/Vol] 23 U/L Normal 15-37 [facility] Comment on above: Performed By: #### C MP, LIPID #### [facility] [address] [place] [address] Dr. Kristen Jurado Bilirubin [Mass/Vol] 0.6 mg/dL Normal 0.2-1.0 [facility] Comment on above: Performed By: #### C MP, LIPID #### [facility] [address] [place] [address] Dr. Kristen Jurado Calcium [Mass/Vol] 9.6 mg/dL Normal 8.5-10.1 [facility] Comment on above: Performed By: #### C MP, LIPID #### [facility] [address] [place] [address] Dr. Kristen Jurado Chloride [Moles/Vol] 101 mmol/L Normal 98-107 [facility] Comment on above: Performed By: #### C MP, LIPID #### [facility] [address] [place] [address] Dr. Kristen Jurado CO2 [Moles/Vol] 31.0 mmol/L Normal 21.0-32.0 [facility] Comment on above: Performed By: #### C MP, LIPID #### [facility] [address] [place] [address] Dr. Kristen Jurado Creatinine [Mass/Vol] 0.84 mg/dL Normal 0.55-1.02 [facility] Comment on above: Performed By: #### C MP, LIPID #### [facility] [address] [place] [address] Dr. Kristen Jurado EGFR-AF BELIZEAN >60 Normal >=60 [facility] Comment on above: Performed By: #### C MP, LIPID #### [facility] [address] [place] [address] Dr. Kristen Jurado EGFR-NON AF BELIZEAN >60 Normal >=60 [facility] Comment on above: Performed By: #### C MP, LIPID #### [facility] [address] [place] [address] Dr. Kristen Jurado Globulin (S) [Mass/Vol] 4.0 g/dL Normal [facility] Comment on above: Performed By: #### C MP, LIPID #### [facility] [address] [address] [address] Kristen Jurado Glucose [Mass/Vol] 129 mg/dL Critically high 74-106 [facility] Comment on above: Performed By: #### C MP, LIPID #### [facility] [address] [place] [address] Dr. Kristen Jurado Potassium [Moles/Vol] 3.3 mmol/L Critically low 3.5-5.1 [facility] Comment on above: Performed By: #### C MP, LIPID #### [facility] [address] [address] [address] Kristen Jurado Protein [Mass/Vol] 7.7 g/dL Normal 6.4-8.2 [facility] Comment on above: Performed By: #### C MP, LIPID #### [facility] [address] [address] [address] Kristen Jurado Sodium [Moles/Vol] 140 mmol/L Normal 136-145 [facility] Comment on above: Performed By: #### C MP, LIPID #### [facility] [address] [place] [address] Dr. Kristen Jurado Urea nitrogen [Mass/Vol] 22.0 mg/dL Critically high 7.0-18.0 [facility] Comment on above: Performed By: #### C MP, LIPID #### [facility] [address] [place] [address] Dr. Kristen Jurado Urea nitrogen/Creatinine [Mass ratio] 26.2 mg/mg Normal [facility] Comment on above: Performed By: #### C MP, LIPID #### [facility] [address] [place] [address] Dr. Kristen Jurado Office Visit (Cardiology)on 05-19-2022 [...] Weight Tips; Status:Complete - Retrospective Authorization; Done: [id number] Some eating tips that can help you lose weight.; Status:Complete - Retrospective Authorization; Done: [id number] SocHx: Former smoker Tobacco Use Screening; Status:Complete; Done: [id number] Patient Instructions Please bring all medicines, vitamins, [...] negative for complaint. Vitals Vital Signs Recorded: [id number] 10:34AM Heart Rate68, R Radial Jusipmon154, LUE, Sitting Fpgowuvpf22, LUE, Sitting Height5 ft 5 in Sjohrj551 lb 4 oz BMI Kjlqxvmqnn48.66 kg/m2 BSA Calculated1.88 Tobacco Useb) No Falls Screening (Age 18+)a) No falls within the last year Physical Exam Constitutional: alert and in no acute distress. Neck: neck is supple, symmetric, trachea midline, no mass (more content not included)... Normal [facility] Tobacco Screening.on Fall risk assessment a) No falls within the last year [facility] 250 DO Work Phone: Tobacco use status [facility] b) No [facility] 250 DO Work Phone: MRI BRAIN WO CONon MRI BRAIN WO CON EXAMINATION: MRI BRA IN WO CON, 04/19/2022 10:30 AM EST HISTORY: Multiple sclerosis [...] by: RAMAKRISHNA VILLALOBOS Date: 2022-04-20 08:12 Normal [facility] Tobacco Screening.on Fall risk assessment a) No falls within the last year [facility] 250 DO Work Phone: Tobacco use status [facility] b) No [facility] 250 DO Work Phone: [facility] CARDIAC STRESS/REST INJE CTIONon 09-18-2021 [facility] CARDIAC STRESS/REST INJECTION Patient Name: GUANACO HAGAN STUDY: MYOCARDIAL PERFUSION STRESS TEST WITH LEXISCAN Performing facility: [facility], [address] [place] [address], [address], [place] [address] [facility] Provider: Marcia Valerio MD, FACC PCP: Dr. Sudhakar Marinelli Supervising provider: Danny Christopher MD INDICATION: Abnormal EKG; Chest Pain; DM HTN HISTORY: Gender: F; Age: 71 y/o ; Height: 0 cm; Weight: 78.8837852 kg. Abnormal EKG; Diabetes; Palpitations; HTN; Chest Pain; Denies smoking. Cardiac catheterization on 2009. COMPARISON: Previous nuclear testing completed 2008 at [place]. ACCESSION NUMBER(S): [id number]; [id number]; [id number] ORDERING CLINICIAN: MARCIA VALERIO TECHNIQUE: ONE DAY [...] Electronically signed by: DANNY CHRISTOPHER MD Normal [facility] No Panel Informationon 09-18 Normal [facility] 250 DO Work Phone: Tobacco Screening.on 022 Adult depression screening assessment No [facility] 250 DO Work Phone: Fall risk assessment a) No falls within the last year [facility] 250 DO Work Phone: Tobacco use status [facility] b) No [facility] 250 DO Work Phone: XR chest 1V portableon 08-27 XR chest 1V portable [facility] [place] [address] [place] [address] XRay Report Signed Patient: Guanaco Hagan MR#: [id number] : 1950 Acct:[id number] Age/Sex: 71 / F ADM Date: 08/26/21 Loc: ER Room: Type: [facility] ER Attending Dr: Ordering Provider: Elder Simon [...] Harvey Bustillos M.D.08/27/2021 8:29 AM Dictation Location: [address] [place] [address] Transcribed By: [facility] 08/27/21828 Dictated By: Harvey Bustillos DO 08/27/21828 Signed By: 08/27/21 0829 Normal [facility] Albumin [Mass/volume] in Ser um or PlasmaOrdered By: Elder Simon on 08-26-2021 Albumin [Mass/Vol] 4.0 g/dL 3.2-5.5 [facility] Basophils Auto (Bld) [#/Vol] Ordered By: PROVIDER TEMP on 08-26-2021 Basophils (Bld) [#/Vol] 0.1 10*3/uL 0.0-0.2 [facility] Basophils/100 WBC Auto (Bld) Ordered By: PROVIDER TEMP on 08-26-2021 Basophils/100 WBC (Bld) 0.8 % [facility] Blood hemoglobin measurement (mass/volume)Ordered By: PROVIDER TEMP on 08-26-2021 Hemoglobin (Bld) [Mass/Vol] 14.6 g/dL 11.8-15.4 [facility] Blood leukocytes automated c ount (number/volume)Ordered By: PROVIDER TEMP on 08-26-2021 WBC (Bld) [#/Vol] 8.5 10*3/uL 4.5-11.0 [facility] Complete Blood Count Auto Di ffon 08-26-2021 Basophils (Bld) [#/Vol] 0.1 10*3/uL Normal 0.0-0.2 [facility] Comment on above: Result Comment: PERF ORMED BY: [place] [address] PATHOLOGIST NEGATIVE DEVELOPER ELOINA THURSTON M.D. Performed By: #### C BC, CMP, HS TROP #### [address] Basophils/100 WBC (Bld) 0.8 % Normal . [facility] Comment on above: Performed By: #### C BC, CMP, HS TROP #### [facility] [address] [place] [address] Eosinophils (Bld) [#/Vol] 0.2 10*3/uL Normal 0.0-0.45 [facility] Comment on above: Performed By: #### C BC, CMP, HS TROP #### [place] [address] [place] Eosinophils/100 WBC (Bld) 1.9 % Normal . [facility] Comment on above: Performed By: #### C BC, CMP, HS TROP #### [facility] [address] [place] [address] Erythrocyte distribution width (RBC) [Ratio] 13.1 % Normal 11.9-15.3 [facility] Comment on above: Performed By: #### C BC, CMP, HS TROP #### [facility] [address] [place] [address] [place] Hematocrit (Bld) [Volume fraction] 43.4 % Normal 34.0-46.4 [facility] Comment on above: Performed By: #### C BC, CMP, HS TROP #### [facility] [address] Hemoglobin (Bld) [Mass/Vol] 14.6 g/dL Normal 11.8-15.4 [facility] Comment on above: Performed By: #### C BC, CMP, HS TROP #### [facility] [address] Lymphocytes (Bld) [#/Vol] 1.9 10*3/uL Normal 1.00-4.8 [facility] Comment on above: Performed By: #### C BC, CMP, HS TROP #### [address] Lymphocytes/100 WBC (Bld) 23.0 % Normal . [facility] Comment on above: Performed By: #### C BC, CMP, HS TROP #### [address] MCH (RBC) [Entitic mass] 30.2 pg Normal 24.7-34.3 [facility] Comment on above: Performed By: #### C BC, CMP, HS TROP #### [address] MCV (RBC) [Entitic vol] 90.1 fL Normal 80-100 [facility] Comment on above: Performed By: #### C BC, CMP, HS TROP #### [address] Mean Corpuscular HGB Conc 33.5 g/dL Normal 32.0-35.0 [facility] Comment on above: Performed By: #### C BC, CMP, HS TROP #### [place] [address] [place] Monocytes (Bld) [#/Vol] 0.5 10*3/uL Normal 0.0-0.8 [facility] Comment on above: Performed By: #### C BC, CMP, HS TROP #### [facility] [address] [place] [address] [place] Monocytes/100 WBC (Bld) 6.3 % Normal . [facility] Comment on above: Performed By: #### C BC, CMP, HS TROP #### [facility] [address] [place] [address] [place] Neutrophils (Bld) [#/Vol] 5.8 10*3/uL Normal 1.8-7.7 [facility] Comment on above: Performed By: #### C BC, CMP, HS TROP #### [facility] [address] [id number] [place] Neutrophils/100 WBC (Bld) 68.0 % Normal . [facility] Comment on above: Performed By: #### C BC, CMP, HS TROP #### [facility] [address] [id number] [place] Nucleated RBC/100 WBC (Bld) [Ratio] 0.1 % Normal 0-0.5 [facility] Comment on above: Performed By: #### C BC, CMP, HS TROP #### [facility] [address] [place] [address] [place] Platelet mean volume (Bld) [Entitic vol] 10.0 fL Normal 6.3-10.7 [facility] Comment on above: Performed By: #### C BC, CMP, HS TROP #### [facility] [address] [phone] [place] Platelets (Bld) [#/Vol] 247 10*3/uL Normal 150-450 [facility] Comment on above: Performed By: #### C BC, CMP, HS TROP #### [facility] [address] [phone] [place] RBC (Bld) [#/Vol] 4.82 10*6/uL Normal 3.60-5.00 [facility] Comment on above: Performed By: #### C BC, CMP, HS TROP #### [facility] [address] [phone] [place] WBC (Bld) [#/Vol] 8.5 10*3/uL Normal 4.5-11.0 [facility] Comment on above: Performed By: #### C BC, CMP, HS TROP #### [facility] [address] Comprehensive Metabolic Pane romel 08-26-2021 Albumin [Mass/Vol] 4.0 g/dL Normal 3.2-5.5 [facility] Comment on above: Performed By: #### C BC, CMP, HS TROP #### [facility] [address] [place] [address] Albumin/Globulin [Mass ratio] 1.2 {ratio} Normal [facility] Comment on above: Performed By: #### C BC, CMP, HS TROP #### [address] ALP [Catalytic activity/Vol] 68 U/L Normal 32-92 [facility] Comment on above: Performed By: #### C BC, CMP, HS TROP #### [facility] [address] [place] [address] ALT [Catalytic activity/Vol] 23 U/L Normal 10-60 [facility] Comment on above: Performed By: #### C BC, CMP, HS TROP #### [facility] [address] [place] [address] AST [Catalytic activity/Vol] 23 U/L Normal 10-42 [facility] Comment on above: Performed By: #### C BC, CMP, HS TROP #### [facility] [address] [place] [address] [place] Bilirubin [Mass/Vol] 0.9 mg/dL Normal 0.3-1.2 [facility] Comment on above: Performed By: #### C BC, CMP, HS TROP #### [facility] [address] [place] [address] [place] Calcium [Mass/Vol] 9.8 mg/dL Normal 8.2-10.2 [facility] Comment on above: Performed By: #### C BC, CMP, HS TROP #### [facility] [address] [place] [address] [place] Chloride [Moles/Vol] 101 mmol/L Normal 95-114 [facility] Comment on above: Performed By: #### C BC, CMP, HS TROP #### [facility] [address] [place] [address] CO2 [Moles/Vol] 22.7 mmol/L Normal 22.0-30.[address] [facility] Comment on above: Performed By: #### C BC, CMP, HS TROP #### [facility] [address] [place] [address] Creatinine [Mass/Vol] 1.02 mg/dL Normal 0.44-1.03 [facility] Comment on above: Performed By: #### C BC, CMP, HS TROP #### [address] Creatinine Clr Calc Pharmacy 51.26 [facility] Comment on above: Result Comment: PERF ORMED BY: [place] [address] PATHOLOGIST NEGATIVE DEVELOPER ELOINA THURSTON M.D. Performed By: #### C BC, CMP, HS TROP #### [address] Estimated GFR ( Clari > 60 [facility] Comment on above: Result Comment: GFR estimated reference range: According to KDOQI guidelines, <60 ml/min/1.73m2 is sufficient to diagnose a patient with chronic kidney disease. Performed By: #### C BC, CMP, HS TROP #### [facility] [address] [place] [address] Estimated GFR (Non- Am 53 [facility] Comment on above: Performed By: #### C BC, CMP, HS TROP #### [facility] [address] [place] [address] Globulin (S) [Mass/Vol] 3.4 g/dL [facility] Comment on above: Performed By: #### C BC, CMP, HS TROP #### [facility] [address] [place] [address] Glucose [Mass/Vol] 141 mg/dL High 70-100 [facility] Comment on above: Result Comment: [place] Glucose Reference Range is dependent on time and content of last meal. Glucose of more than 200 mg/dL in a nonstressed, ambulatory subject supports the diagnosis of Diabetes Mellitus. ADA recommended reference range Performed By: #### C BC, CMP, HS TROP #### [facility] [address] [place] [address] [place] Potassium [Moles/Vol] 3.6 mmol/L Normal 3.5-5.1 [facility] Comment on above: Performed By: #### C BC, CMP, HS TROP #### [facility] [address] [place] [address] [place] Protein [Mass/Vol] 7.4 g/dL Normal 6.1-7.9 [facility] Comment on above: Performed By: #### C BC, CMP, HS TROP #### [facility] [address] [place] [address] [place] Sodium [Moles/Vol] 137 mmol/L Normal 136-146 [facility] Comment on above: Performed By: #### C BC, CMP, HS TROP #### [facility] [address] [place] [address] [place] Urea nitrogen [Mass/Vol] 12 mg/dL Normal 9-23 [facility] Comment on above: Performed By: #### C BC, CMP, HS TROP #### [facility] [address] [place] [address] [place] Creatinine and Glomerular fi ltration rate.predicted panel (S/P/Bld)Ordered By: Elder Simon on 08-26-2021 Creatinine [Mass/Vol] 1.02 mg/dL 0.44-1.03 [facility] ECG 12 lead ECGon 08-26-2021 ECG 12 lead ECG [facility] [place] [address] [place] [id number] Electrocardiograph Report Signed Patient: Guanaco Hagan MR#: [id number] : 1950 Acct:[id number] Age/Sex: 71 / F ADM Date: 08/26/21 Loc: ER Room: Type: DEP ER Attending Dr: Ordering Provider: Elder Simon [...] ST abnormality Confirmed by Elder Simon DO ([id number]) on 08/27/2021 3:47:24 AM Referred By: Electronically Signed By:Elder Simon DO Transcribed By: MUS Signed By Elder Simon DO [id number] Normal [facility] Eosinophils Auto (Bld) [#/Vo l]Ordered By: PROVIDER TEMP on 08-26-2021 Eosinophils (Bld) [#/Vol] 0.2 10*3/uL 0.0-0.45 [facility] Eosinophils/100 WBC Auto (Bl d)Ordered By: PROVIDER TEMP on 08-26-2021 Eosinophils/100 WBC (Bld) 1.9 % [facility] Erythrocyte distribution wid th Auto (RBC) [Ratio]Ordered By: PROVIDER TEMP on 08-26-2021 Erythrocyte distribution width (RBC) [Ratio] 13.1 % 11.9-15.3 [facility] Estimated glomerular filtrat ion rate (GFR) non- AmericanOrdered By: Elder Simon on 08-26-2021 GFR/1.73 sq M.predicted among non-blacks MDRD (S/P/Bld) [Vol rate/Area] 53 mL/Min [facility] Globulin Calc (S) [Mass/Vol] Ordered By: Elder Simon on 08-26-2021 Globulin (S) [Mass/Vol] 3.4 g/dL [facility] Hematocrit Auto (Bld) [Volum e fraction]Ordered By: PROVIDER TEMP on 08-26-2021 Hematocrit (Bld) [Volume fraction] 43.4 % 34.0-46.4 [facility] Laboratory - Hematology and Cell countsOrdered By: PROVIDER TEMP on 08-26-2021 Nucleated RBC/100 WBC (Bld) [Ratio] 0.1 % 0-0.5 [facility] Lymphocytes Auto (Bld) [#/Vo l]Ordered By: PROVIDER TEMP on 08-26-2021 Lymphocytes (Bld) [#/Vol] 1.9 10*3/uL 1.00-4.8 [facility] Lymphocytes/100 WBC Auto (Bl d)Ordered By: PROVIDER TEMP on 08-26-2021 Lymphocytes/100 WBC (Bld) 23.0 % [facility] MCH Auto (RBC) [Entitic mass ]Ordered By: PROVIDER TEMP on 08-26-2021 MCH (RBC) [Entitic mass] 30.2 pg 24.7-34.3 [facility] MCHC Auto (RBC) [Mass/Vol]Or dered By: PROVIDER TEMP on 08-26-2021 MCHC (RBC) [Mass/Vol] 33.5 g/dL 32.0-35.0 [facility] MCV Auto (RBC) [Entitic vol] Ordered By: PROVIDER TEMP on 08-26-2021 MCV (RBC) [Entitic vol] 90.1 fL 80-100 [facility] Monocytes Auto (Bld) [#/Vol] Ordered By: PROVIDER TEMP on 08-26-2021 Monocytes (Bld) [#/Vol] 0.5 10*3/uL 0.0-0.8 [facility] Monocytes/100 WBC Auto (Bld) Ordered By: PROVIDER TEMP on 08-26-2021 Monocytes/100 WBC (Bld) 6.3 % [facility] Neutrophils Auto (Bld) [#/Vo l]Ordered By: PROVIDER TEMP on 08-26-2021 Neutrophils (Bld) [#/Vol] 5.8 10*3/uL 1.8-7.7 [facility] Neutrophils/100 WBC Auto (Bl d)Ordered By: PROVIDER TEMP on 08-26-2021 Neutrophils/100 WBC (Bld) 68.0 % [facility] No Panel InformationOrdered By: Elder Simon on 08-26-2021 Estimated GFR () > 60 mL/Min [facility] Comment on above: GFR estimated refere nce range: According to KDOQI guidelines, <60 ml/min/1.73m2 is sufficient to diagnose a patient with chronic kidney disease. Pharmacy Creatinine Clearance (Chem 51.26 [facility] Platelet mean volume Auto (B ld) [Entitic vol]Ordered By: PROVIDER TEMP on 08-26-2021 Platelet mean volume (Bld) [Entitic vol] 10.0 fL 6.3-10.7 [facility] Platelets Auto (Bld) [#/Vol] Ordered By: PROVIDER TEMP on 08-26-2021 Platelets (Bld) [#/Vol] 247 10*3/uL 150-450 [facility] Protein [Mass/volume] in Ser um or PlasmaOrdered By: Elder Simon on 08-26-2021 Protein [Mass/Vol] 7.4 g/dL 6.1-7.9 [facility] RBC Auto (Bld) [#/Vol]Ordere d By: PROVIDER TEMP on 08-26-2021 RBC (Bld) [#/Vol] 4.82 10*6/uL 3.60-5.00 [facility] Serum or plasma alanine zamora otransferase measurement without P-5'-P (enzymatic activiOrdered By: Elder Simon on 08-26-2021 ALT No additional P-5'-P [Catalytic activity/Vol] 23 U/L 10-60 [facility] Serum or plasma albumin/glob ulin mass ratioOrdered By: Elder Simon on 08-26-2021 Albumin/Globulin [Mass ratio] 1.2 {ratio} [facility] Serum or plasma alkaline bandar sphatase measurement (enzymatic activity/volume)Ordered By: Elder Simon on 08-26-2021 ALP [Catalytic activity/Vol] 68 U/L 32-92 [facility] Serum or plasma aspartate am inotransferase measurement (enzymatic activity/volume)Ordered By: Elder Simon on 08-26-2021 AST [Catalytic activity/Vol] 23 U/L 10-42 [facility] Serum or plasma calcium enmanuel urement (mass/volume)Ordered By: Elder Simon on 03-23-2022 Calcium [Mass/Vol] 9.8 mg/dL 8.2-10.2 [facility] Serum or plasma chloride nico surement (moles/volume)Ordered By: Elder Simon on 08-26-2021 Chloride [Moles/Vol] 101 mmol/L 95-114 [facility] Serum or plasma glucose enmanuel urement (mass/volume)Ordered By: Elder Simon on 08-26-2021 Glucose [Mass/Vol] 141 mg/dL 70-100 [facility] Comment on above: ADA recommended refe rence rangeRandom Glucose Reference Range is dependent on time and content of last meal. Glucose of more than 200 mg/dL in a nonstressed, ambulatory subject supports the diagnosis of Diabetes Mellitus. Serum or plasma potassium me asurement (moles/volume)Ordered By: Elder Simon on 08-26-2021 Potassium [Moles/Vol] 3.6 mmol/L 3.5-5.1 [facility] Serum or plasma sodium measu rement (moles/volume)Ordered By: Elder Simon on 08-26-2021 Sodium [Moles/Vol] 137 mmol/L 136-146 [facility] Serum or plasma total biliru bin measurement (mass/volume)Ordered By: Elder Simon on 08-26-2021 Bilirubin [Mass/Vol] 0.9 mg/dL 0.3-1.2 [facility] Serum or plasma total carbon dioxide measurement (moles/volume)Ordered By: Elder Simon on 08-26-2021 CO2 [Moles/Vol] 22.7 mmol/L 22.0-30.[address] [facility] Serum or plasma urea nitroge n measurement (mass/volume)Ordered By: Elder Simon on 08-26-2021 Urea nitrogen [Mass/Vol] 12 mg/dL 9-23 [facility] Troponin I High Sensitivityo n 08-26-2021 Troponin I High Sensitivity 5 pg/mL Normal 0-15 [facility] Comment on above: Result Comment: PERF ORMED BY: [place] [address] [place] [address] PATHOLOGIST NEGATIVE DEVELOPER ELOINA THURSTON M.D. Performed By: #### C BC, CMP, HS TROP #### [facility] [address] Troponin I.cardiac [Mass/vol ume] in Serum or Plasma by High sensitivity methodOrdered By: Elder Simon on 08-26-2021 Troponin I.cardiac High sensitivity method [Mass/Vol] 5 pg/mL 0-15 [facility] CBC AUTO DIFFon 08-25-2021 BASO # 0.1 103/ul Normal 0.0-0.1 [facility] Comment on above: Performed By: #### C BC #### [facility] [address] [address] [address] Kristen Jurado Basophils/100 WBC (Bld) 1.0 % Normal 0.2-2.0 [facility] Comment on above: Performed By: #### C BC #### [facility] [address] [address] [address] Kristen Jurado EO # 0.2 103/ul Normal 0.0-0.7 [facility] Comment on above: Performed By: #### C BC #### [facility] [address] [address] [address] Kristen Jurado Eosinophils/100 WBC (Bld) 2.1 % Normal 0.9-7.0 [facility] Comment on above: Performed By: #### C BC #### [facility] [address] [address] [address] Kristen Jurado Erythrocyte distribution width (RBC) [Ratio] 12.8 % Normal 11.0-15.0 [facility] Comment on above: Performed By: #### C BC #### [facility] [address] [address] [address] Kristen Jurado Hematocrit (Bld) [Volume fraction] 43.2 % Normal 36.0-48.0 [facility] Comment on above: Performed By: #### C BC #### [facility] [address] [address] [address] Kristen Jurado Hemoglobin (Bld) [Mass/Vol] 14.3 g/dL Normal 12.0-16.0 [facility] Comment on above: Performed By: #### C BC #### [facility] [address] [place] [address] Dr. Kristen Jurado IG # 0.02 10e3/ul Normal 0.00-0.03 [facility] Comment on above: Performed By: #### C BC #### [facility] [address] [place] [address] Dr. Kristen Jurado IG % 0.2 % Normal 0.0-0.5 [facility] Comment on above: Performed By: #### C BC #### [facility] [address] [place] [address] Dr. Kristen Jurado LYMPH # 1.7 103/ul Normal 1.2-3.8 [facility] Comment on above: Performed By: #### C BC #### [facility] [address] [place] [address] Dr. Kristen Jurado Lymphocytes/100 WBC (Bld) 20.5 % Normal 20.5-60.0 [facility] Comment on above: Performed By: #### C BC #### [facility] [address] [place] [address] Dr. Kristen Jurado MANUAL DIFF REQ NO Normal [facility] Comment on above: Performed By: #### C BC #### [facility] [address] [place] [address] Dr. Kristen Jurado MCH (RBC) [Entitic mass] 29.7 pg Normal 26.7-34.0 [facility] Comment on above: Performed By: #### C BC #### [facility] [address] [place] [address] Dr. Kristen Jurado MCHC (RBC) [Mass/Vol] 33.1 g/dL Normal 29.9-35.2 [facility] Comment on above: Performed By: #### C BC #### [facility] [address] [place] [address] Dr. Kristen Jurado MCV (RBC) [Entitic vol] 89.6 fL Normal 81.0-99.0 [facility] Comment on above: Performed By: #### C BC #### [facility] [address] [place] [address] Dr. Kristen Jurado MONO # 0.5 103/ul Normal 0.3-0.8 [facility] Comment on above: Performed By: #### C BC #### [facility] [address] [place] [address] Dr. Kristen Jurado Monocytes/100 WBC (Bld) 6.2 % Normal 1.7-12.0 [facility] Comment on above: Performed By: #### C BC #### [facility] [address] [place] [address] Dr. Kristen Jurado NEUT # 5.7 103/ul Normal 1.4-6.5 [facility] Comment on above: Performed By: #### C BC #### [facility] [address] [place] [address] Dr. Kristen Jurado Neutrophils/100 WBC (Bld) 70.0 % Normal 43.0-75.0 [facility] Comment on above: Performed By: #### C BC #### [facility] [address] [place] [address] Dr. Kristen Jurado Platelet mean volume (Bld) [Entitic vol] 11.0 fL Normal 9.5-13.5 [facility] Comment on above: Performed By: #### C BC #### [facility] [address] [place] [address] Dr. Kristen Jurado PLT 238 103/ul Normal 150-450 [facility] Comment on above: Performed By: #### C BC #### [facility] [address] [place] [address] Dr. Kristen Jurado RBC 4.82 106/ul Normal 4.20-5.40 [facility] Comment on above: Performed By: #### C BC #### [facility] [address] [place] [address] Dr. Kristen Jurado WBC 8.1 103/ul Normal 4.0-11.0 [facility] Comment on above: Performed By: #### C BC #### [facility] [address] [place] [address] Dr. Kristen Jurado PROF CHEM 8 (BAS METB)on Anion gap [Moles/Vol] 12.8 mmol/L Normal [facility] Comment on above: Performed By: #### B MP #### [facility] [address] [address] [address] Kristen Jurado Calcium [Mass/Vol] 9.6 mg/dL Normal 8.5-10.1 [facility] Comment on above: Performed By: #### B MP #### [facility] [address] [address] [address] Kristen Jurado Chloride [Moles/Vol] 103 mmol/L Normal 98-107 [facility] Comment on above: Performed By: #### B MP #### [facility] [address] [place] [address] Dr. Kristen Jurado CO2 [Moles/Vol] 30.0 mmol/L Normal 22.0-30.0 [facility] Comment on above: Performed By: #### B MP #### [facility] [address] [address] [address] Kristen Jurado Creatinine [Mass/Vol] 0.97 mg/dL Normal 0.52-1.04 [facility] Comment on above: Performed By: #### B MP #### [facility] [address] [place] [address] Dr. Kristen Jurado EGFR-AF BELIZEAN >60 Normal >=60 [facility] Comment on above: Performed By: #### B MP #### [facility] [address] [address] [address] Kristen Jurado EGFR-NON AF BELIZEAN 56 mL/min/1.73m2 Critically low >=60 [facility] Comment on above: Performed By: #### B MP #### [facility] [address] [address] [address] Kristen Jurado Glucose [Mass/Vol] 176 mg/dL Critically high 74-106 [facility] Comment on above: Performed By: #### B MP #### [facility] [address] [address] [address] Kristen Jurado Potassium [Moles/Vol] 3.8 mmol/L Normal 3.4-5.0 [facility] Comment on above: Performed By: #### B MP #### [facility] [address] [address] [address] Kristen Jurado Sodium [Moles/Vol] 142 mmol/L Normal 137-145 [facility] Comment on above: Performed By: #### B MP #### [facility] [address] [address] [address] Kristen Jurado Urea nitrogen [Mass/Vol] 16.0 mg/dL Normal 7.0-18.0 [facility] Comment on above: Performed By: #### B MP #### [facility] [address] [address] [address] Kristen Jurado Urea nitrogen/Creatinine [Mass ratio] 16.5 mg/mg Normal [facility] Comment on above: Performed By: #### B MP #### [facility] [address] [place] [address] Dr. Kristen Jurado SED [facility] 2021 SED RATE 7 mm/hr Normal <=30 [facility] Comment on above: Performed By: #### S EDR #### [facility] [address] [place] [address] Dr. Kristen Jurado COVID Quick Testingon 2021 Result [email or web address] Other Operative Reporton 0 Operative Report MR#: [id number] [facility] Pt. Name: Guanaco Hagan Room #: 0C Discharge Date: Birthdate: 1950 OPERATIVE REPORT DATE OF SURGERY: 08/06/2019 SURGEON: Isma Fitzpatrick M.D. AUTOMOTIVE GLASS MECHANIC: Sarwat Mcqueen MD. PREAMBLE: A 69-year-old female, [...] with vascularized fat pad graft application. Under Roland block regional anesthetic, the patient's right upper [...] Fitzpatrick M.D. Date Trans: 08/07/2019 01:09 A/iram [id number] Normal [facility] POC GLUCOSE LABon 08-06-2019 Glucose [Mass/Vol] 158 mg/dL High 70-100 [facility] Comment on above: Performed By: #### 8 [id number] #### [facility] [address] Vital Signs Date Time Vital Sign Value Performing Clinician Facility 06-20-2023 10:45-0500 Body height 165.1 cm Damaris Marinelli Other [email or web address] Other 06-20-2023 10:45-0500 Body mass index (BMI) [Ratio] 29.25 kg/m2 Damaris [email or web address] Other [email or web address] Other 06-20-2023 10:45-0500 Body weight 79.74 kg Damaris Marinelli [email or web address] Other 06-20-2023 10:45-0500 Diastolic blood pressure 78 mm[Hg] Damaris Marinelli Other [email or web address] Other 06-20-2023 10:45-0500 SaO2% (BldA) [Mass fraction] 95 % Damaris Marinelli [email or web address] Other 06-20-2023 10:45-0500 Systolic blood pressure 131 mm[Hg] Damaris Marinelli Other [email or web address] Other 01-31-2023 14:54-0400 Diastolic blood pressure 80 mm[Hg] Damaris Marinelli Work Phone: [facility] 250 DO Work Phone: 01-31-2023 14:54-0400 Systolic blood pressure 138 mm[Hg] Damaris Marinelli Work Phone: [facility] 250 DO Work Phone: 01-31-2023 14:38-0400 Diastolic blood pressure 80 mm[Hg] Damaris Marinelli Work Phone: [facility] 250 DO Work Phone: 01-31-2023 14:38-0400 Diastolic blood pressure 78 mm[Hg] Damaris Marinelli Work Phone: [facility] 250 DO Work Phone: 01-31-2023 14:38-0400 Systolic blood pressure 152 mm[Hg] Damaris Marinelli Work Phone: [facility] 250 DO Work Phone: 01-31-2023 14:38-0400 Systolic blood pressure 138 mm[Hg] Damaris Marinelli Work Phone: [facility] 250 DO Work Phone: 01-31-2023 14:32-0400 Body height 165.1 cm Damaris Marinelli Work Phone: [facility] 250 DO Work Phone: 01-31-2023 14:32-0400 Body mass index (BMI) [Ratio] 29.62 kg/m2 Damaris Marinelli Work Phone: [facility] 250 DO Work Phone: 01-31-2023 14:32-0400 Body surface area Derived from formula 1.88 m2 Damaris Marinelli Work Phone: [facility] 250 DO Work Phone: 01-31-2023 14:32-0400 Body weight 80.74 kg Damaris Marinelli Work Phone: [facility] 250 DO Work Phone: 01-31-2023 14:32-0400 Diastolic blood pressure 80 mm[Hg] Damaris Marinelli Work Phone: [facility] [employer] 250 DO Work Phone: 01-31-2023 14:32-0400 Heart rate 72 /min Damaris Marinelli Work Phone: [facility] [employer] 250 DO Work Phone: 01-31-2023 14:32-0400 Systolic blood pressure 152 mm[Hg] Damaris Marinelli Work Phone: [facility] [employer] 250 DO Work Phone: 01-20-2023 09:30-0400 Body height 165.1 cm Damaris Marinelli Other [facility] [employer] Other 01-20-2023 09:30-0400 Body mass index (BMI) [Ratio] 29.45 kg/m2 Damaris Marinelli Other [facility] [employer] Other 01-20-2023 09:30-0400 Body weight 80.29 kg Damaris Marinelli Other [email or web address] Other 01-20-2023 09:30-0400 Diastolic blood pressure 75 mm[Hg] Damaris Marinelli Other [place] [employer] Other 01-20-2023 09:30-0400 Systolic blood pressure 126 mm[Hg] Damaris Marinelli Other [email or web address] Other 09-28-2022 12:30-0400 Body height 165.1 cm Damaris Marinelli Other [email or web address] Other 09-28-2022 12:30-0400 Body mass index (BMI) [Ratio] 30.28 kg/m2 Damaris Marinelli [email or web address] Other 09-28-2022 12:30-0400 Body weight 82.56 kg Damaris Marinelli [email or web address] Other 09-28-2022 12:30-0400 Diastolic blood pressure 90 mm[Hg] Damaris Marinelli Other [email or web address] Other 09-28-2022 12:30-0400 SaO2% (BldA) [Mass fraction] 93 % Damaris Marinelli Other [email or web address] Other 09-28-2022 12:30-0400 Systolic blood pressure 142 mm[Hg] Damaris Marinelli Other [email or web address] Other 08-09-2022 13:45-0500 Body height 165.1 cm Damaris Marinelli Other [email or web address] Other 08-09-2022 13:45-0500 Body mass index (BMI) [Ratio] 30.12 kg/m2 Damaris Marinelli Other [email or web address] Other 08-09-2022 13:45-0500 Body weight 82.1 kg Damaris Marinelli Other [email or web address] Other 08-09-2022 13:45-0500 Diastolic blood pressure 82 mm[Hg] Damaris Marinelli Other [email or web address] Other 08-09-2022 13:45-0500 SaO2% (BldA) [Mass fraction] 97 % Damaris Marinelli Other [email or web address] Other 08-09-2022 13:45-0500 Systolic blood pressure 138 mm[Hg] Damaris Marinelli Other [email or web address] Other 05-19-2022 10:34-0500 Body height 165.1 cm Damaris Marinelli Work Phone: [facility] 250 DO Work Phone: 05-19-2022 10:34-0500 Body mass index (BMI) [Ratio] 29.66 kg/m2 Damaris Marinelli Work Phone: [facility] 250 DO Work Phone: 05-19-2022 10:34-0500 Body surface area Derived from formula 1.88 m2 Damaris Marinelli Work Phone: [facility] 250 DO Work Phone: 05-19-2022 10:34-0500 Body weight 80.85 kg Damaris Marinelli Work Phone: [facility] 250 DO Work Phone: 05-19-2022 10:34-0500 Diastolic blood pressure 76 mm[Hg] Damaris Marinelli Work Phone: [facility] 250 DO Work Phone: 05-19-2022 10:34-0500 Heart rate 68 /min Damaris Marinelli Work Phone: [facility] 250 DO Work Phone: 05-19-2022 10:34-0500 Systolic blood pressure 128 mm[Hg] Damaris Marinelli Work Phone: [facility] 250 DO Work Phone: 11-11-2021 09:54-0400 Diastolic blood pressure 70 mm[Hg] Damaris Marinelli Work Phone: [facility] 250 DO Work Phone: 11-11-2021 09:54-0400 Systolic blood pressure 137 mm[Hg] Damaris Marinelli Work Phone: [facility] 250 DO Work Phone: 11-11-2021 09:28-0400 Body height 165.1 cm Damaris Marinelli Work Phone: [facility] 250 DO Work Phone: 11-11-2021 09:28-0400 Body mass index (BMI) [Ratio] 29.12 kg/m2 Damaris Marinelli Work Phone: [facility] 250 DO Work Phone: 11-11-2021 09:28-0400 Body surface area Derived from formula 1.87 m2 Damaris Marinelli Work Phone: [facility] 250 DO Work Phone: 11-11-2021 09:28-0400 Body weight 79.38 kg Damaris Marinelli Work Phone: [facility] 250 DO Work Phone: 11-11-2021 09:28-0400 Diastolic blood pressure 70 mm[Hg] Damaris Marinelli Work Phone: [facility] 250 DO Work Phone: 11-11-2021 09:28-0400 Heart rate 69 /min Damaris Marinelli Work Phone: [facility] 250 DO Work Phone: 11-11-2021 09:28-0400 Systolic blood pressure 168 mm[Hg] Damaris Marinelli Work Phone: [facility] 250 DO Work Phone: 09-18-2021 08:00-0400 70 1 Damaris Marinelli Work Phone: [facility] Work Phone: Comment on above: [id number] 09-09-2021 08:59-0400 Diastolic blood pressure 68 mm[Hg] Damaris Marinelli Work Phone: [facility] 250 DO Work Phone: 09-09-2021 08:59-0400 Systolic blood pressure 138 mm[Hg] Damaris Marinelli Work Phone: [facility] 250 DO Work Phone: 09-09-2021 08:55-0400 Body height 165.1 cm Damaris Marinelli Work Phone: [facility] 250 DO Work Phone: 09-09-2021 08:55-0400 Body mass index (BMI) [Ratio] 28.62 kg/m2 Damaris Marinelli Work Phone: [facility] 250 DO Work Phone: 09-09-2021 08:55-0400 Body surface area Derived from formula 1.86 m2 Damaris Marinelli Work Phone: [facility] 250 DO Work Phone: 09-09-2021 08:55-0400 Body weight 78.02 kg Damaris Marinelli Work Phone: [facility] 250 DO Work Phone: 09-09-2021 08:55-0400 Diastolic blood pressure 78 mm[Hg] Damaris Marinelli Work Phone: [facility] 250 DO Work Phone: 09-09-2021 08:55-0400 Heart rate 72 /min Damaris Marinelli Work Phone: [facility] 250 DO Work Phone: 09-09-2021 08:55-0400 Systolic blood pressure 148 mm[Hg] Damaris Marinelli Work Phone: [facility] [facility] DO Work Phone: 08-26-2021 21:56-0400 Diastolic blood pressure 75 mm[Hg] MD Damaris Marinelli Work Phone: [facility] 08-26-2021 21:56-0400 Heart rate 74 /min MD Damaris Marinelli Work Phone: [facility] 08-26-2021 21:56-0400 Respiratory rate 20 /min MD Damaris Marinelli Work Phone: [facility] 08-26-2021 21:56-0400 SaO2% (BldA) [Mass fraction] 97 % MD Damaris Marinelli Work Phone: [facility] 08-26-2021 21:56-0400 Systolic blood pressure 166 mm[Hg] MD Damaris Marinelli Work Phone: [facility] 08-26-2021 18:37-0400 Body height 165.1 cm MD Damaris Marinelli Work Phone: [facility] 08-26-2021 18:37-0400 Body mass index (BMI) [Ratio] 29.2 kg/m2 MD Damaris Marinelli Work Phone: [facility] 08-26-2021 18:37-0400 Body temperature 98.1 [degF] MD Damaris Marinelli Work Phone: [facility] 08-26-2021 18:37-0400 Body weight 79.75 kg MD Damaris Marinelli Work Phone: [facility] 06-25-2021 11:15-0500 Body height 165.1 cm Rey Taylor Other [facility] [employer] Other 06-25-2021 11:15-0500 Body mass index (BMI) [Ratio] 29.12 kg/m2 Rey Taylor Other [email or web address] Other 06-25-2021 11:15-0500 Body temperature 97.9 [degF] Rey Taylor Other [email or web address] Other 06-25-2021 11:15-0500 Body weight 79.38 kg Rey Taylor Other [email or web address] Other 06-25-2021 11:15-0500 Respiratory rate 18 /min Rey Taylor Other [email or web address] Other 06-25-2021 11:15-0500 SaO2% (BldA) [Mass fraction] 95 % Rey Taylor Other [email or web address] Other Encounters Encounter Date Encounter Type Care Provider Facility Start: 08-08-2023 End: 08-09-2023 ambulatory [facility] Start: 07-06-2023 End: 07-06-2023 ambulatory Damaris Marinelli Other [email or web address] Other Start: 07-06-2023 Telephone encounter Damaris Marinelli [facility] Start: 07-02-2023 End: 07-03-2023 ambulatory [facility] Start: 07-02-2023 End: 07-02-2023 Subsequent hospital visit by physician Jessie Sepulveda [facility] Room 2 [facility] Comment on above: Shortness of breath Start: 06-20-2023 End: 06-20-2023 ambulatory Damaris Marinelli Other [email or web address] Other Start: 06-20-2023 Office outpatient visit 25 minutes Damaris Marinelli [facility] Start: 06-20-2023 Telephone encounter Damaris Marinelli [facility] Start: 05-31-2023 End: 05-31-2023 ambulatory Damaris Marinelli Other [email or web address] Other Start: 05-31-2023 Office outpatient visit 15 minutes Damaris Marinelli [facility] Start: 05-03-2023 End: 05-03-2023 ambulatory Damaris Marinelli Other [email or web address] Other Start: 05-03-2023 Telephone encounter Damaris Marinelli [facility] Start: 03-22-2023 End: 03-22-2023 ambulatory Damaris Marinelli Other [email or web address] Other Start: 03-22-2023 Telephone encounter Damaris Marinelli [facility] Start: 03-09-2023 End: 03-09-2023 ambulatory Maikel Taylor Other [email or web address] Other Start: 03-09-2023 Nursing evaluation o f patient and report Maikel Taylor [facility] Start: 01-31-2023 Office outpatient visit 25 minutes Damaris Marinelli Work Phone: [facility] 250 DO Work Phone: Start: 01-31-[address] Camacho [facility] Facility: Start: 01-20-2023 End: 01-20-2023 ambulatory Damaris Marinelli Other [email or web address] Other Start: 01-20-2023 Office outpatient visit 15 minutes Damaris Marinelli [facility] Start: 10-01-2022 End: 10-01-2022 ambulatory Damaris Marinelli Other [email or web address] Other Start: 10-01-2022 Telephone encounter Damaris Marinelli [facility] Start: 09-28-2022 End: 09-28-2022 ambulatory Damaris Marinelli Other [email or web address] Other Start: 09-28-2022 Office outpatient visit 15 minutes Damaris Marinelli [facility] Start: 08-17-2022 End: 08-17-2022 ambulatory Damaris Marinelli Other [email or web address] Other Start: 08-17-2022 Telephone encounter Damaris Marinelli [facility] Start: 08-16-2022 End: 08-17-[address] DAMARIS MARINELLI Facility:[facility] Start: 08-09-2022 End: 08-09-2022 ambulatory Damaris Marinelli Other [facility] [employer] Other Start: 08-09-2022 Office outpatient visit 15 minutes Damaris Marinelli [facility] Start: 05-19-2022 Office outpatient visit 25 minutes Damaris Marinelli Work Phone: [facility] 250 DO Work Phone: Start: 05-19-[address] Damaris Marinelli Facility: Start: 04-19-2022 End: 04-20-[address] DOCTOR NOONAN Facility:[facility] Start: 11-11-2021 Office outpatient visit 25 minutes Damaris Marinelli Work Phone: [facility] 250 DO Work Phone: Start: 09-18-2021 Chart Update Damaris Marinelli Work Phone: [facility] 250 DO Work Phone: Start: 09-18-2021 Patient encounter procedure Damaris Marinelli Work Phone: [facility] Work Phone: Start: 09-10-2021 EVENT CAROLEE, Provider : EDGAR RODRIGUEZ GRANT OFFICER 1,[id number], Status: Pen, Time: 9:30 AM Damaris Marinelli Work Phone: [facility] 250 DO Work Phone: Start: 09-10-2021 Patient encounter procedure Damaris Marinelli Work Phone: [facility] 250 DO Work Phone: Start: 09-09-2021 Patient encounter procedure Damaris Marinelli Work Phone: [facility] 250 DO Work Phone: Start: 08-26-2021 End: 08-27-2021 Emergency department patient visit Damaris Marinelli Facility:[facility] Start: 08-26-2021 End: 08-26-2021 Emergency department patient visit MD Damaris Marinelli Work Phone: [facility] Start: 08-25-2021 End: 08-26-[address] DAMARIS MARINELLI Facility: Start: 06-25-2021 End: 06-25-2021 ambulatory Rey Taylor Other [facility] [employer] Other Start: 06-25-2021 Office outpatient visit 15 minutes Rey Taylor [facility] Start: 08-06-2019 End: 08-07-2019 Patient encounter procedure ABDULAZIM OSCAR Facility:[facility] Procedures Date Procedure Procedure Detail Performing Clinician Start: 07-02-2023 TRANSTHORACIC ECHO ( TTE) COMPLETE MARCIA VALERIO Start: 08-06-2019 ANESTH LOWER ARM SURGERY MARVEL ALTMARY Start: 08-06-2019 Neuroplasty &/transp os median nrv [...] Marcia Valerio, Status: Pen, Time: 11:40 AM [facility] 250 DO Work Phone: Start: 01-31-2024 End: 01-31-2024 Patient encounter procedure 01/31/2024 11:40 AM EDT Office Visit [address] [id number] Marcia Valerio MD [address] [facility] [address] [place] [address] [facility] Start: 02-04-2023 COVID-19 Vaccine ( season) COVID-19 Vaccine ( season) [facility] Start: 11-24-2022 FUV, Provider: Marcia Valerio, Status: Pen, Time: 11:10 AM FUV, Provider: Marcia Valerio, Status: Pen, Time: 11:[address] [facility] Work Phone: Start: 05-19-2022 FUV, Provider: Marcia Valerio, Status: Pen, Time: 10:30 AM FUV, Provider: Marcia Valerio, Status: Pen, Time: 10:30 AM [facility] Work Phone: Start: 11-11-2021 FUV, Provider: Marcia Valerio, Status: Pen, Time: 9:20 AM FUV, Provider: Marcia Valerio, Status: Pen, Time: 9:20 AM [facility] 250 DO Work Phone: Start: 09-18-2021 STRESS NUC, Provider : DERICK HHVI NUCLEAR 01,[id number], Status: Pen, Time: 8:00 AM STRESS NUC, Provider: DERICK HHVI NUCLEAR 01,[id number], Status: Pen, Time: 8:00 AM [facility] DO Work Phone: Start: 08-26-2021 Plain chest X-ray XR chest 1V [facility] Start: 04-06-2015 Pneumococcal Vaccine : 65+ Years (3 - PCV) Pneumococcal Vaccine: 65+ Years (3 - PCV) [facility] Start: 1998 Zoster Vaccines (1 of 2) Zoste r Vaccines (1 of 2) [facility] Start: 1970 DTaP/Tdap/Td Vaccine s (1 - Tdap) DTaP/Tdap/Td Vaccines (1 - Tdap) [facility] Start: 1966 Hepatitis C screening Hepatitis C Sc isabelle [facility] Start: 1950 Lipid panel Lipid Panel [facility] Start: 1950 Medicare Annual Well ness Visit Medicare Annual Wellness Visit (AWV) [facility] Start: 1950 Screening for malign ant neoplasm of colon [facility] Start: 1950 Screening for osteoporosis Bone Density Scan [facility] Patient Education Chest Pain (DC) [facility] Work Phone: Patient referral [facility] Work Phone: End: 07-02-2023 [facility] Work Phone: Comment on above: Once for 1 Occurrenc es starting 07/02/2023 until 07/02/2023 Immunizations Immunization Date Immunization Notes Care Provider [place] 03-09-2023 influenza, high dose seasonal, preservative-free Maikel Taylor Other [email or web address] Other 03-17-2022 Fluad Quadrivalent 0 .5 ML Intramuscular Prefilled Syringe Damaris Marinelli Work Phone: [facility] 250 DO Work Phone: 03-17-2022 influenza virus vaccine, split virus (incl. purified surface antigen) Damaris Marinelli Other [email or web address] Other 03-12-2021 influenza virus vaccine, split virus (incl. purified surface antigen) Damaris Marinelli Other [email or web address] Other 02-04-2021 influenza, seasonal, injectable Damaris Marinelli Work Phone: [facility] 250 DO Work Phone: Comment on above: Series: 08-11-2020 Jeny COVID-19 Vaccine 0.5 ML Intramuscular Suspension Damaris Ce Marinelli Work Phone: [facility] [employer] DO Work Phone: 03-11-2020 influenza virus vaccine, split virus (incl. purified surface antigen) Damaris Yves Other [email or web address] Other 02-28-2019 influenza virus vaccine, split virus (incl. purified surface antigen) Damarisedwin Marinelli Other [email or web address] Other 02-28-2019 influenza, injectabl e, quadrivalent, preservative free Damaris Marinelli Work Phone: [facility] [employer] [facility] DO Work Phone: 04-06-2014 pneumococcal polysaccharide vaccine, 23 valent Damaris Marinelli Work Phone: [facility] [employer] DO Work Phone: 03-28-2014 pneumococcal polysaccharide vaccine, 23 valent Damaris Yves Other [email or web address] Other influenza virus vaccine, unspecified formulation Damaris Encinas Yves Work Phone: [facility] [employer] DO Work Phone: Comment on above: 2009 Payers Payer Category Payer Unknown 08-26-2021 Self-pay [id number] 06-06-2013 Medicare MEDICARE MEDICAR E RAILROAD [id number] 06/06/2013-Present [address] [place] [address] [id number] 06-06-1959 Medicare [id number] 06-06-1961 Unknown [id number] 1950 Unknown [id number] 1950 Unknown [id number] 1948 Unknown [id number] 1948 Unknown [id number] 1948 Unknown [id number] 1948 Unknown [id number] 1948 Unknown [id number] 1948 Unknown [id number] Unknown [id number] Social History Date Type Detail Facility Start: 08-26-2021 Tobacco smoking status [facility] Never smoked tobacco (finding) [facility] Start: 1950 Sex Assigned At Female [facility] Social alcohol use Social alcohol use - [facility] 250 DO Work Phone: Comment on above: Rarely; 2 cups tea daily; Quit 06/1971; Sex Assigned At [facility] [employer] Other Tobacco smoking status [facility] Tobacco smoking consumption unknown [facility] Work Phone: Start: 1950 Sex Assigned At Not on file [facility] Work Phone: Start: 06-22-2023 End: 07-02-2023 Exposure to SARS-CoV-2 (event) Not sure [facility] Clinical Notes 06-25-2021 to 06-20-2023 Note Date & Type Note Facility 06-20-2023 Evaluation note Encounter Date Diagnosis Assessment Notes Jun, Exertional dyspnea (ICD-10 - R06.09) Suggested CXR to start and echo +/- stress test. Will check w [facility] their preference location for these tests. Jun, Renal cyst (ICD-10 - N28.1) pt questions if her pain is due to renal cysts. Imaging in past reviewed. will recheck w US. [email or web address] Other 01-15-2024 Evaluation note* Encounter Date Diagnosis Assessment Notes Treatment Notes Treatment Clinical Notes Jun, Exertional dyspnea (ICD-10 - R06.09) [email or web address] Other 12-26-2023 Evaluation note* Encounter Date Diagnosis [...] verbalized understanding and agreement with treatment plan. [email or web address] Other 08-17-2023 Evaluation note* Encounter Date Diagnosis Assessment Notes Treatment Notes Treatment Clinical Notes Jan, Rhomboid muscle pain (ICD-10 - M79.18) Order given to Pt for PT. Home exercises, tylenol and ice advised. Jan, Decreased right shoulder range of motion (ICD-10 - M25.611) as above. [email or web address] Other 04-25-2023 Evaluation note* Encounter Date Diagnosis Assessment Notes Treatment Notes Treatment Clinical Notes Sep, Laryngopharyngeal reflux (LPR) (ICD-10 - K21.9) Sep, Other Pt requests referral to Dr. Martins as her daughter has seen in him in the past. [email or web address] Other 03-06-2023 Evaluation note* Encounter Date Diagnosis [...] for labs harshad to recheck kidney function [email or web address] Other 01-20-2022 Evaluation note* Encounter Date Diagnosis [...] writting by [facility] document. [email or web address] Other Chify complaint Narrative - ReportedJOSHASHI HAGAN is being seen for a consultation for an abnormal ECG, chest pain and hypertension. -[facility] 250 DO Work Phone: Evaluation noteNo assessment information available [facility] Work Phone: Evaluation noteNo InformationNort [employer] Other Evaluation note* Diagnosis Shortness of breath documented in this encounter [facility] Work Phone: History general Narrative - Reported* Type Description [...] History [place] Hospitalization History See Sx Hx [email or web address] Other Hospital Discharge instructions Additional Instructions Take your medications as prescribed. Return to the emergency department if you feel worse. 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 No clinical significance. Reason for Referral Specialty Diagnoses / Procedures Referred By Cahno mendoza Referred To Contact Cardiology Diagnoses Shortness of breath Procedures Transthoracic Echo (TTE) Complete [place] ECHO TTHRC R-T 2D W/WOM-MODE COMPL SPEC&COLR D Marcia Valerio MD [address] [facility] [address] [place] [address] Referral ID Status Reason Start Date Expiration Date Visits Requested Visits Authorized Authorized Perform Procedure 06/27/2023 06/26/2024 1 1 Reason *FU 10/07 CALL Diagnosis 1 Laryngopharyngeal re flux (K21.9) Referral Organization [facility] Referring Provider First Name Damaris Referring Provider Last Name Yves Referring Provider Specialty Family [facility] Referred Organization [facility] Referred Provider Jefry Martins Referred Address ,[place], [place],[address] Referred Provider Specialty Otolaryngolo gy Referral Priority Routine General Notes Trish Brower 11:10:34 AM >received today, attachments made, notes locked, referral faxed P2P Additional Source Comments INFORMATION SOURCE (unrecogn ized section and content) DATE CREATED AUTHOR 08/09/2019 [facility] DATE CREATED AUTHOR AUTHOR'S ORGANIZ ATION 09/28/2021 [facility] DATE CREATED AUTHOR AUTHOR'S ORGANIZ ATION 07/10/2022 [facility] DATE CREATED AUTHOR AUTHOR'S ORGANIZ ATION 08/23/2022 [facility] DATE CREATED AUTHOR AUTHOR'S ORGANIZ ATION 02/01/2023 [facility] DATE CREATED AUTHOR AUTHOR'S ORGANIZ ATION 02/01/2023 [employer] DATE CREATED AUTHOR AUTHOR'S ORGANIZ ATION 07/07/2023 [facility] DATE CREATED AUTHOR AUTHOR'S ORGANIZ ATION 08/10/2023 [facility] Care Teams (unrecognized sec tion and content) Team Status: Inactive Member Role Status Dates Damaris Marinelli MD Primary Care Provider Active Elder Simon DO Emergency Provider Active Team Status: Active Member Role Status Dates Damaris Marinelli MD Primary Care Provider Active 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 Relationship Specialty Start Date End Date Damaris Marinelli MD [address] [place] [address] [address] [place] [address] PCP - General Family Medicine 06/27/23 Goals (unrecognized section and content) Goals may be documented in a n alternate sectionNo InformationNo InformationNo InformationNo InformationNo InformationNo InformationNo InformationNo InformationNo InformationNo InformationNo InformationNo InformationNo Information Reason for Visit (unrecogniz ed section and content) Specialty Diagnoses / Procedures Referred By Contjuan francisco t Referred To Contact Cardiology Diagnoses Shortness of breath Procedures Transthoracic Echo (TTE) Complete [place] ECHO TTHRC R-T 2D W/WOM-MODE COMPL SPEC&COLR D Marcia Valerio MD [address] [place] [address] [address], [address] [address] Referral ID Status Reason Start Date Expiration Date Visits Requested Visits Authorized [id number] Authorized Perform Procedure 06/27/2023 06/26/2024 1 1 FOR RECORDS PERTAINING TO PATIENTS WHO ARE [...] BE BASED ON THE PRIMARY CLINICAL RECORDS. [facility] [facility]. provides no warranty or guarantee of the accuracy or completeness of information in this document.
[2023-10-26 08:59] LABS: Basophils Absolute Auto 0.1 10^3/uL (0.0-0.1); Basophils Percent Auto 1.3 % (0.2-2.0); Eosinophils Absolute Auto 0.5 10^3/uL (0.0-0.7); Hematocrit 43.8 % (36.0-48.0); Hemoglobin 14.4 g/dL (12.0-16.0); Immature Granulocytes Abs Auto 0.01 10^3/uL (0.00-0.03); Immature Granulocytes Pct Auto 0.1 % (0.0-0.5); Lymphocytes Absolute Auto 3.2 10^3/uL (1.2-3.8); Lymphocytes Percent Auto 37.3 % (20.5-60.0); Mean Corpuscular HGB Conc 32.9 g/dL (29.9-35.2); Mean Corpuscular Hemoglobin 29.3 pg (26.7-34.0); Mean Platelet Volume 11.6 fL (9.5-13.5); Monocytes Absolute Auto 0.8 10^3/uL (0.3-0.8); Monocytes Percent Auto 8.9 % (1.7-12.0); Neutrophils Percent Auto 46.4 % (43.0-75.0); Platelet Count 256 10^3/uL (150-450); Red Blood Count 4.92 10^6/uL (4.20-5.40); Red Cell Distribution Width 12.6 % (11.0-15.0); White Blood Count 8.6 10^3/uL (4.0-11.0)
[2023-10-26 09:11] LABS: Estimated Average Glucose 140 mg/dL; Glycohemoglobin A1C 6.5 % (4.5-6.2)
[2023-10-26 09:27] LABS: Microalbumin Urine Random <1.3 mg/dL (<=30.0)
[2023-10-26 09:51] LABS: Potassium 3.4 mmol/L (3.5-5.1); Sodium 142 mmol/L (136-145)
[2023-10-26 09:52] LABS: Alanine Aminotransferase 27 U/L (14-59); Albumin Globulin Ratio 0.7; Albumin Level 3.4 g/dL (3.4-5.0); Alkaline Phosphatase 84 U/L (46-116); Anion Gap 11.7; Aspartate Amino Transferase 19 U/L (15-37); BUN Creatinine Ratio 20.9; Bilirubin Total 0.8 mg/dL (0.2-1.0); Calcium 9.9 mg/dL (8.5-10.1); Carbon Dioxide 31.7 mmol/L (21.0-32.0); Chloride 102 mmol/L (98-107); Estimated GFR (African America >60 (>=60); Estimated GFR (Non-African Ame >60 (>=60); Globulin 4.7 g/dL; Glucose 121 mg/dL (74-106); Total Protein 8.1 g/dL (6.4-8.2)
[2023-10-26 09:53] LABS: Chol HDL Ratio 2.9; Cholesterol 188 mg/dL (<=200); HDL Cholesterol 65 mg/dL (40-60); Thyroid Stimulating Hormone 4.026 uIU/mL (0.358-3.740); Triglycerides 113 mg/dL (<=150); VLDL CHOLESTEROL 22.6 mg/dL
== END 2023-10-26 08:25 | disposition home or self-care (01) ==
LOC: LAB 08:25
PROVIDERS: PCP Family Medicine; Visit Provider Family Medicine
DX: R73.9 Hyperglycemia, unspecified (principal); I10 Essential (primary) hypertension; E78.5 Hyperlipidemia, unspecified
CPT/HCPCS: 36415; 80053; 80061; 82043; 83036; 84443; 85025

== ENCOUNTER 2023-12-14 14:48 | Outpatient (OUT) | payer MEDICARE, SELFPAY ==
[2023-12-14 15:51] LABS: Thyroid Stimulating Hormone 1.042 uIU/mL (0.358-3.740)
== END 2023-12-14 14:49 | disposition home or self-care (01) ==
LOC: LAB 14:54
PROVIDERS: PCP Family Medicine; Visit Provider Family Medicine
DX: R79.89 Other specified abnormal findings of blood chemistry (principal)
CPT/HCPCS: 36415; 84443

== ENCOUNTER 2024-05-26 23:25 | Emergency (ER) | payer MEDICARE, SELFPAY ==
[2024-05-26 23:30] VITALS: BP 167/88; PULSE 77; TEMP 36.8; O2SAT 96; BMI 27.5
--- NOTE | 2024-05-26 23:30 | ECG_ITS ---
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
--- OUTSIDE RECORDS SUMMARY | 2024-05-26 23:30 | XMS_ITS | CCD ---
Author Organization [facility] Care Team Providers Care Production Planner Name Role Phone OSCAR, ABDULAZIM Admitting Unavailable OSCAR, ABDULAZIM Attending Unavailable DAMARIS MARINELLI Referring Unavailable DAMARIS MARINELLI Primary Care Unavailable [place] Procedure Practitioner Unavailab le OSCAR, ABDULAZIM Surgeon Unavailable [place] Procedure Practitioner Unavailab MARVEL Buckley Surgeon Unavailable MD Damaris Marinelli Primary Care Provider [phone] DO Elder Simon Emergency Provider [facility] Damaris Gallego Unavailable Unavailable Unavailable Rey Taylor [...] YVES, DR DAMARIS Encinas Primary Care Unavailable PERRY, DR RAMAKRISHNA Sainz Consulting Unavailable MISC, DR SALTER Consulting Unavailable YVES, DR DAMARIS Encinas Admitting Unavailable MARINELLI, DR DAMARIS Encinas Attending Unavailable MARINELLI, DR DAMARIS Encinas Primary Care Unavailable YVES, DR DAMARIS Encinas Consulting Unavailable Yves, Dr. Damaris Macias Primary Care Unav ailable Valerio, Dr. Marcia Monte Referring Mayela vailable Valerio, Dr. Marcia Monte Attending Mayela vailable Valerio, Dr. Marcia Monte Attending Mayela vailable Marinelli, Dr. Damaris Macias Primary Care Unav ailable Valerio, Dr. Marcia Monte Referring Mayela vailable Maikel Taylor Unavailable Damaris Marinelli MD Primary Care Provider HUGO FREEDMAN Attending Unavailable HUGO FREEDMAN Referring Unavailable DAMARIS MARINELLI Primary Care Unavailable MARCIA VALERIO Attending Unavailable DAMARIS MARINELLI Primary Care Unavailable MARCIA VALERIO Referring Unavailable DAMARIS MARINELLI Primary Care Unavailable Damaris Marinelli MD Primary Care Provider [phone] Allergies Allergy Classification Reported Allergen(s) Allergy Type Date of Onset Reaction(s) Facility (20 sources) Amoxicillin; Translations: [AMOXICILLIN] Drug Allergy 09-04-19 15 rash [facility] Repository (9 sources) Ciprofloxacin; Translations: [CIPRO] Drug Allergy 09-04-19 15 Myalgia [facility] Repository (20 sources) Doxycycline; Translations: [DOXYCYCLINE] Drug Allergy 09-05-19 16 Hives, Rash, Headache [facility] Repository (20 sources) Morphine; Translations: [MORPHINE] Drug Allergy 09-04-19 15 Nausea/vomitin g [facility] Repository (2 sources) Sulfamethoxazole / Trimethoprim; Translations: [BACTRIM] Drug Allergy 09-04-19 15 [facility] (20 sources) Ciprofloxacin; Translations: [ciprofloxacin] Drug Allergy 12-01-19 17 Myalgia [facility] (20 sources) Sulfamethoxazole; Translations: [sulfamethoxazole] Drug Allergy 08-27-19 22 [facility] (20 sources) Trimethoprim; Translations: [trimethoprim] Drug Allergy 08-27-19 22 [facility] (7 sources) Amoxicillin; Translations: [Amoxicillin TABS] Drug Allergy H[place] [id number] DO Work Phone: (20 sources) Sulfamethoxazole / Trimethoprim; Translations: [Bactrim TABS] Drug Allergy rash [facility] [employer] Other (13 sources) Amoxicillin Drug Allergy Rash [facility] [employer] Other (1 source) Glatiramer Drug Allergy 09-04-19 15 [facility] Repository (13 sources) cefdinir Drug Allergy 10-25-19 24 Unknown, [facility] (13 sources) Clindamycin Drug Allergy 10-25-19 24 Unknown, [facility] (8 sources) House dust mite Drug allergy 09-05-19 19 Unknown [employer] Other (13 sources) Metoprolol Drug Allergy 01-24-20 14 Unknown, [facility] (13 sources) Niacin Drug Allergy 10-25-19 24 Unknown, [facility] (8 sources) predniSONE Drug Allergy 01-22-20 15 Unknown [employer] Other (8 sources) Pseudoephedrine Drug Allergy Unknown [employer] Other (8 sources) Cat dander Drug allergy Unknown [employer] Other (8 sources) corticosteroid and/or corticosteroid derivative (FN) Drug allergy Unknown [facility] [employer] Other (4 sources) Penicillins; Translations: [PENICILLINS] Propensity to adverse reactions to drug (disorder) 12-01-19 17 Hives, Rash [facility] Repository (1 source) Sulfamethoxazole / Trimethoprim; Translations: [SULFAMETHOXAZOLE-T RIMETHOPRIM] Drug Allergy 12-01-19 17 [facility] Repository (5 sources) Corticosteroids Allergy to substance 10-25-19 24 [facility] (5 sources) 12 Hour Decongestant Allergy to substance 10-25-19 24 [facility] Medications Current Medications Medication Drug Class(es) Dates Sig (Normalized) Sig (Original) Albuterol (20 sources) beta2-Adrenergic Agonist Start: 12-05-2023 take 1 puff(s) by inhalation every four hours Albuterol Sulfate Active 2 PUFF INHALATION Every 4 hours 6.7 December 05, 2023 2:00pm Start: 12-05-2023 take 1 puff(s) by in halation every four hours Albuterol Sulfate Active 2 PUFF INHALATION Every 4 hours 6.7 December 05, 2023 3:00pm Start: 10-24-2023 End: 12-05-2023 take 1 puff(s) by inhalation every four hours Albuterol Sulfate Discontinued 2 PUFF INHALATION Every 4 hours October 23, 2023 11:00pm December 05, 2023 2:01pm Start: 08-09-2022 take 2 puff(s) by in [...] 1 tablet by mouth once daily amLODIPine (Norvasc) 10 mg tablet Take 1 tablet (10 mg) by mouth once daily. 11/25/2016 Active B complex-vitamin C tablet (1 source) take 1 tablet by mouth every other day B complex-vitamin C tablet Take 1 tablet by mouth every other day. Active carvedilol 6.25 mg oral tablet (20 sources) alpha-Adrenergic Ananya, beta-Adrenergic Ananya Start: 11-25-2016 take 1 tablet by mouth twice daily Carvedilol Active 1 TAB PO Twice daily July 28, 2017 12:00am cholecalciferol 0.01 mg oral tablet (1 source) Vitamin D take 1 tablet by mouth every other day cholecalciferol (Vitamin D-3) 10 MCG (400 UNIT) tablet Take 1 tablet (10 mcg) by mouth every other day. Active 14 actuat fluticasone furoate 0.1 mg/actuat / umeclidinium 0.0625 mg/actuat / vilanterol 0.025 mg/actuat dry powder inhaler (1 source) Anticholinergic, Corticosteroid, beta2-Adrenergic Agonist Start: 04-10-2024 Fluticasone-Umeclid in-Vilanter (Trelegy Ellipta) 100-62.5-25 mcg blister with device Active 1 INH INHALATION Daily April 10, 2024 12:00am 2 samples given glipiZIDE 5 mg oral tablet (20 sources) Sulfonylurea Start: 10-24-2023 take 5 mg by mouth once daily Glipizide Active 5 MG PO Daily October 23, 2023 11:00pm take 1 tablet by mouth once bhakti y glipiZIDE XL (Glucotrol XL) 5 mg 24 hr tablet Take 1 tablet (5 mg) by mouth once daily. Active take 1 tablet by dorene once daily 30 minutes before breakfast glipiZIDE 5 MG 1 tablet 30 minutes befor e breakfast Orally Once a day for 90 days Active glipiZIDE Active hydroCHLOROthiazide 25 mg oral tablet (20 sources) Thiazide Diuretic Start: 01-24-2024 Hydrochlorothiazide Active 0 .ROUTE .COMPLEX January 24, 2024 10:11am TAKE 1 TABLET DAILY Start: 07-28-2017 End: 01-24-2024 take 1 tablet by mouth once daily Hydrochlorothiazide Discontinued 1 TAB PO Daily July 28, 2017 12:00am January 24, 2024 10:11am levothyroxine sodium 0.075 mg oral tablet (11 sources) l-Thyroxine Start: 11-02-2023 End: 12-26-2023 levothyroxine (Synthroid, Levoxyl) 75 mcg tablet 1 tablet (75 mcg) once daily in the morning. Take before meals. 11/02/2023 Active methylPREDNISolone 4 mg oral tablet (13 sources) Corticosteroid Start: 03-09-2024 End: 04-10-2024 take 1 tablet by mouth once Methylprednisolone (Medrol (Lv)) 4 mg tablets,dose pack Active 0 PO per package directions April 10, 2024 11:34am PO PER PKG DIR Start: 08-09-2022 methylPREDNISo lone 4 MG as directed Orally for 6 days Aug, Active omeprazole 10 mg delayed release oral capsule (5 sources) Proton Pump Inhibitor take 1 capsule by mouth once daily Omeprazole 10 MG 1 capsule 30 minutes before morning meal Orally Once a day Active take 1 capsule by [facility] every twenty-four hours Omeprazole 40 MG 1 capsule Orally Once a day Not-Taking microencapsulated potassium chloride 20 meq extended release oral tablet (20 sources) Start: 08-12-2020 End: 01-24-2024 take 20 mEq by mouth once daily Potassium Chloride Active 20 MEQ PO Daily January 24, 2024 9:07am take 1 tablet by mouth once bhakti y Rojas-Con M20 20 MEQ Oral Tablet Extended Release TAKE ONE TABLETS BY MOUTH EVERY DAY Quantity: 0 Refills: 0 Ordered: 09-Sep-2021 DO Active vitamin B12 (13 sources) Vitamin B12 Vitamin B12 Acti ve Vitamin D3 (13 sources) Vitamin D3 Activ e Completed/Discontinued Medications Medication Drug Class(es) Dates Sig (Normalized) Sig (Original) aspirin 81 mg chewable tablet (20 sources) Platelet Aggregation Inhibitor, Nonsteroidal Anti-inflammatory Drug Start: 07-28-2017 End: 10-25-2023 take 1 tablet by mouth once daily Aspirin Discontinued 1 TAB PO Daily July 28, 2017 12:00am October 25, 2023 12:29pm Start: 06-03-2008 Baby Aspirin 8 1 MG take 1 by Oral route every day Oral *please review for potential _update for e-prescription and drug interaction check* May, Active take 6 tablets by mo uth every other day Aspirin EC 81 MG Oral Tablet Delayed Release once every other day Quantity: 0 Refills: 0 Ordered: 09-Sep-2021 DO Active Azithromycin (17 sources) Macrolide Antimicrobial Start: 03-09-2024 End: 04-10-2024 Azithromycin Discontinued 0 PO daily 6 March 08, 2024 11:00pm April 10, 2024 11:22am Take 2 on day 1 and then take 1 for the next 4 days (days 2-5) Start: 03-09-2024 Azithromycin A ctive 0 PO daily 6 March 09, 2024 12:00am Take 2 on day 1 and then take 1 for the next 4 days (days 2-5) Start: 12-05-2023 End: 03-09-2024 Azithromycin Discontinued 0 PO .COMPLEX December 04, 2023 11:00pm March 09, 2024 9:51am For 250 mg dose pack: take 500 mg today (day 1), then 250 mg for 4 days (days 2-5) PO Start: 12-05-2023 End: 03-09-2024 Azithromycin Discontinued 0 PO .COMPLEX December 05, 2023 12:00am March 09, 2024 10:51am For 250 mg dose pack: take 500 mg today (day 1), then 250 mg for 4 days (days 2-5) PO Start: 12-05-2023 Azithromycin A ctive 0 PO .COMPLEX 6 December 05, 2023 12:00am For 250 mg dose pack: take 500 mg today (day 1), then 250 mg for 4 days (days 2-5) PO Start: 08-09-2022 Azithromycin 2 50 MG as directed Orally 2 tabs po today, then 1 tab daily x 4 more days for 5 May, Active hyaluronate (20 sources) Start: 01-02-2019 Orthovisc 30 J ul, 2018 2 mL Start: 12-26-2018 Orthovisc 23 J ul, 2018 2 mL Start: 12-19-2018 Orthovisc 16 J ul2018 2 mL 120 actuat mometasone furoate 0.1 mg/actuat metered dose inhaler (19 sources) Corticosteroid Start: 07-28-2017 End: 08-26-2021 Mometasone (Asmanex Hfa) 100 mcg/actuation Hfa Aerosol Inhaler Discontinued July 28, 2017 12:00am August 26, 2021 8:09pm take 2 puff(s) by mouth twice da cyndee Asmanex HFA 200 MCG/ACT INHALE 2 PUFFS BY MOUTH TWICE A DAY Inhalation for 30 Active Mometasone (Asmanex Hfa) 200 mcg/actuation HFA aerosol inhaler (5 sources) Start: 10-24-2023 End: 10-25-2023 take 1 puff(s) by inhalation twice daily Mometasone (Asmanex Hfa) 200 mcg/actuation HFA aerosol inhaler Discontinued 2 PUFF INHALATION Twice daily October 23, 2023 11:00pm October 25, 2023 12:30pm Start: 10-24-2023 End: 10-25-2023 take 1 puff(s) by inhalation twice daily Mometasone (Asmanex Hfa) 200 mcg/actuation HFA aerosol inhaler Discontinued 2 PUFF INHALATION Twice daily October 24, 2023 12:00am October 25, 2023 1:30pm pantoprazole 40 mg delayed release oral tablet (17 sources) Proton Pump Inhibitor Start: 09-08-2022 End: 01-31-2024 take 40 mg by mouth once daily Pantoprazole Discontinued 40 MG PO Daily October 23, 2023 11:00pm October 25, 2023 12:30pm take 1 tablet by dorene th every twelve hours Pantoprazole Sodium 40 MG 1 tablet Orall y twice a day Active predniSONE 20 mg oral tablet (4 sources) Start: 12-05-2023 End: 03-09-2024 take 20 mg by mouth twice daily Prednisone Discontinued 20 MG PO Twice daily December 04, 2023 11:00pm March 09, 2024 9:52am valsartan 80 mg oral tablet (1 source) [...] asthma; Translations: [Mild intermittent asthma, uncomplicated] Chronic Chronic obstructive pulmonary disease and bronchiectasis (7 sources) Bronchitis, not specified as acute or chronic; Translations: [Bronchitis] Episodic Conduction disorders (19 sources) EKG: right bundle branch block; Translations: [Right bundle branch block] Onset: 4 Chronic Diabetes mellitus with complications (2 sources) Other specified diabetes mellitus with other specified complication; Translations: [Other specified diabetes mellitus with other specified complication (Multi)] Onset: 4 Chronic Diabetes mellitus without complication (9 sources) Diabetes mellitus; Translations: [Diabetes mellitus without mention of complication, type II or unspecified type, not stated as uncontrolled] Onset: 4 08-19-2023 Chronic Disorders of lipid metabolism (20 sources) Hyperlipidemia; Translations: [Other and unspecified hyperlipidemia] Onset: 4 10-25-2023 Chronic Diverticulosis and diverticulitis (13 sources) Diverticular [...] the genitourinary system] Episodic Headache; including migraine (14 sources) Headache; Translations: [Headache] 08-26-2021 Episodic Headache; including migraine (1 source) Headache; including migraine; Translations: [HEADACHE UNSPECIFIED] Onset: 2 Immunizations and screening for infectious disease (16 sources) Patient encounter status; Translations: [Other specified [...] [Spondylolisthesis, lumbar region] Episodic Other circulatory disease (6 sources) Elevated blood pressure; Translations: [Elevated blood-pressure reading, [...] source) Cyst of kidney, acquired Episodic Other diseases of kidney and ureters (2 sources) Personal history of nephrotic syndrome; Translations: [Personal history of nephrotic syndrome] Onset: 4 Episodic Other gastrointestinal disorders (1 source) Irritable [...] sources) Other forms of dyspnea Episodic Other nervous [...] mass index (BMI) 29.0-29.9, adult] Episodic Other nutritional; endocrine; and metabolic disorders (2 sources) Body mass index (BMI) 27.0-27.9, adult; Translations: [Body mass index (BMI) 27.0-27.9, adult] Onset: 4 Episodic Other upper respiratory disease [...] [Edema] Episodic Residual codes; unclassified (2 sources) Localized edema; Translations: [Localized edema] Onset: 4 Episodic Screening and history of mental health and substance abuse codes (19 sources) Ex-smoker; Translations: [Personal history of tobacco use] Onset: 4 Episodic Comment on above: Quit 06/1971; Spondylosis; intervertebral disc disorders; other back problems (20 sources) Solitary sacroiliitis; Translations: [Sacroiliitis, not elsewhere classified] Chronic Spondylosis; intervertebral disc disorders; other back problems (20 sources) Backache; Translations: [Dorsalgia, unspecified] 08-26-2021 Episodic Thyroid disorders (1 source) Hypothyroidism; Translations: [Hypothyroidism, unspecified] 01-31-2024 Chronic Unclassified (1 source) R94.31 - Abnormal electrocardiogram [ECG] [EKG]; Translations: [R94.31 - Abnormal electrocardiogram [ECG] [EKG]] Onset: 2 Unclassified (8 sources) History of disease caused by Severe acute respiratory syndrome coronavirus 2 (situation); Translations: [Personal history of COVID-19] Urinary tract infections (8 sources) Urinary tract infectious disease; Translations: [Urinary tract infection, site not specified] Episodic Past or Other Problems Problem Classification Problem Date Documented Da te Episodic/Chronic Acute bronchitis (8 sources) Acute bronchitis; Translations: [Acute bronchitis, unspecified] Onset: 5 Episodic Allergic reactions (8 sources) Urticaria, unspecified; Translations: [Urticaria] Onset: 4 Episodic Cardiac dysrhythmias (8 sources) Palpitations; Translations: [Palpitations] Onset: 4 08-19-2023 Episodic Diabetes mellitus without complication (20 sources) Other abnormal glucose; Translations: [Hyperglycemia] Onset: 5 Episodic Fluid and electrolyte disorders (8 sources) Hypokalemia; Translations: [Hypokalemia] Onset: 8 Episodic Other connective tissue disease (7 sources) Spasm; Translations: [Cramp and spasm] Onset: 6 Episodic Other connective tissue disease (1 source) Cramp and spasm; Translations: [Cramp and spasm] Onset: 6 Episodic Other diseases of kidney and ureters (9 sources) History of nephrotic syndrome; Translations: [Personal history, nephrotic syndrome] Onset: 4 01-31-2024 Episodic Other gastrointestinal disorders (6 sources) History of irritable bowel syndrome; Translations: [Personal history of other diseases of digestive system] Resolved: 2 Episodic Other gastrointestinal disorders (8 sources) Flatulence, eructation and gas pain; Translations: [Abdominal distension (gaseous)] Onset: 6 Episodic Other lower respiratory disease (3 sources) Dyspnea; Translations: [Shortness of breath] Onset: 4 07-02-2023 Episodic Other lower respiratory disease (1 source) Shortness of breath; Translations: [Shortness of breath] Onset: 4 Episodic Other nutritional; endocrine; and metabolic disorders (9 sources) Overweight in adulthood with body mass index of 25 or more but less than 30; Translations: [Overweight] Onset: 4 01-31-2024 Episodic Other nutritional; endocrine; and metabolic disorders (6 sources) H/O: raised blood lipids; Translations: [Personal history of other endocrine, metabolic, and immunity disorders] Resolved: 2 Episodic Other nutritional; endocrine; and metabolic disorders (8 sources) Overweight; Translations: [Overweight] Onset: 6 01-31-2024 Episodic Other nutritional; endocrine; and metabolic disorders (1 source) Overweight; Translations: [Overweight] Onset: 6 Episodic Other screening for suspected conditions (not mental disorders or infectious disease) (9 sources) Electrocardiogram abnormal; Translations: [Nonspecific abnormal electrocardiogram [ECG] [EKG]] Onset: 4 08-19-2023 Episodic Other upper respiratory infections (10 sources) Postnasal drip; Translations: [Acute sinusitis] Onset: 5 Resolved: 2 Episodic Residual codes; unclassified (6 sources) History of clinical finding in subject; Translations: [Personal history of other specified diseases] Resolved: 2 Episodic Residual codes; unclassified (3 sources) History of chest pain; Translations: [Personal history of other specified diseases] Resolved: 2 Episodic Residual codes; unclassified (4 sources) Edema of lower extremity; Translations: [Edema] Onset: 4 01-31-2024 Episodic Unclassified (1 source) Onset: 4 01-31-2024 Results Test Name Value Interpretation Reference Range Facility Laboratory - Chemistry and C hemistry - challengeon 12-14-2023 TSH Qn 1.042 m[IU]/L 0.358-3.740 [facility] Basophils Auto (Bld) [#/Vol] on 10-26-2023 Basophils (Bld) [#/Vol] 0.1 10 3/uL 0.0-0.1 [facility] Basophils/100 WBC Auto (Bld) on 10-26-2023 Basophils/100 WBC (Bld) 1.3 % 0.2-2.0 [facility] Cholesterol in LDL Calc [Mas s/Vol]on 10-26-2023 Cholesterol in LDL [Mass/Vol] 101.0 mg/dL [facility] Comment on above: <100 mg/dl [id number] 0-129 mg/dl NEAR OR ABOVE [id number] mg/dl BORDERLINE [id number] mg/dl HIGH>190 mg/dl VERY HIGH Cholesterol in VLDL Calc [Ma ss/Vol]on 10-26-2023 Cholesterol in VLDL [Mass/Vol] 22.6 mg/dL [facility] Eosinophils/100 WBC Auto (Bl d)on 10-26-2023 Eosinophils/100 WBC (Bld) 6.0 % 0.9-7.0 [facility] Erythrocyte distribution wid th Auto (RBC) [Ratio]on 10-26-2023 Erythrocyte distribution width (RBC) [Ratio] 12.6 % 11.0-15.0 [facility] Estimated glomerular filtrat ion rate (GFR) non- Americanon 10-26-2023 GFR/1.73 sq M.predicted among non-blacks MDRD (S/P/Bld) [Vol rate/Area] mL/min/{1.73_m2} >=60 [facility] Globulin Calc (S) [Mass/Vol] on 10-26-2023 Globulin (S) [Mass/Vol] 4.7 g/dL [facility] Glucose mean value [Mass/vol ume] in Blood Estimated from glycated hemoglobinon 10-26-2023 Average glucose Estimated from glycated hemoglobin (Bld) [Mass/Vol] 140 mg/dL [facility] Hematocrit Auto (Bld) [Volum e fraction]on 10-26-2023 Hematocrit (Bld) [Volume fraction] 43.8 % 36.0-48.0 [facility] Hemoglobin [Mass/volume] in Bloodon 10-26-2023 Hemoglobin (Bld) [Mass/Vol] 14.4 g/dL 12.0-16.0 [facility] Laboratory - Chemistry and C hemistry - challengeon 10-26-2023 Albumin [Mass/Vol] 3.4 g/dL 3.4-5.0 [facility] ALP [Catalytic activity/Vol] 84 U/L 46-116 [facility] ALT [Catalytic activity/Vol] 27 U/L 14-59 [facility] AST [Catalytic activity/Vol] 19 U/L 15-37 [facility] Bilirubin [Mass/Vol] 0.8 mg/dL 0.2-1.0 [facility] Calcium [Mass/Vol] 9.9 mg/dL 8.5-10.1 [facility] Chloride [Moles/Vol] 102 mmol/L 98-107 [facility] Cholesterol [Mass/Vol] 188 mg/dL <=200 [facility] Cholesterol in HDL [Mass/Vol] 65 mg/dL High 40-60 [facility] Comment on above: > or =60 mg/dl - LOW CARDIOVASCULAR RISK<40 mg/dl - HIGH CARDIOVASCULAR RISK CO2 [Moles/Vol] 31.7 mmol/L 21.0-32.0 [facility] Creatinine [Mass/Vol] 0.86 mg/dL 0.55-1.02 [facility] GFR/1.73 sq M.predicted MDRD (S/P/Bld) [Vol rate/Area] mL/min/{1.73_m2} >=60 [facility] Glucose [Mass/Vol] 121 mg/dL High 74-106 [facility] Potassium [Moles/Vol] 3.4 mmol/L Low 3.5-5.1 [facility] Protein [Mass/Vol] 8.1 g/dL 6.4-8.2 [facility] Sodium [Moles/Vol] 142 mmol/L 136-145 [facility] Triglyceride [Mass/Vol] 113 mg/dL <=150 [facility] TSH Qn 4.026 m[IU]/L High 0.358-3.740 [facility] Urea nitrogen [Mass/Vol] 18.0 mg/dL 7.0-18.0 [facility] Urea nitrogen/Creatinine [Mass ratio] 20.9 mg/mg [facility] Laboratory - Hematology and Cell countson 10-26-2023 HbA1c (Bld) [Mass fraction] 6.5 % High 4.5-6.2 [facility] Comment on above: ADA RECOMMENDED LIMI T 4.0 - 6.0ADA THERAPEUTIC TARGET < 7.0ACTION SUGGESTED> 7.0 Immature granulocytes/100 WBC (Bld) 0.1 % 0.0-0.5 [facility] Leukocytes [#/volume] correc jaime for nucleated erythrocytes in Blood by Automated counon 10-26-2023 WBC corrected for nucl RBC Auto (Bld) [#/Vol] 8.6 10 3/uL 4.0-11.0 [facility] Lymphocytes Auto (Bld) [#/Vo l]on 10-26-2023 Lymphocytes (Bld) [#/Vol] 3.2 10 3/uL 1.2-3.8 [facility] Lymphocytes/100 WBC Auto (Bl d)on 10-26-2023 Lymphocytes/100 WBC (Bld) 37.3 % 20.5-60.0 [facility] MCH Auto (RBC) [Entitic mass ]on 10-26-2023 MCH (RBC) [Entitic mass] 29.3 pg 26.7-34.0 [facility] MCHC Auto (RBC) [Mass/Vol]on 10-26-2023 MCHC (RBC) [Mass/Vol] 32.9 g/dL 29.9-35.2 [facility] MCV Auto (RBC) [Entitic vol] on 10-26-2023 MCV (RBC) [Entitic vol] 89.0 fL 81.0-99.0 [facility] Microalbumin [Mass/volume] i n Urineon 10-26-2023 Albumin DL <= 20 mg/L (U) [Mass/Vol] mg/dL <=30.0 [facility] Monocytes Auto (Bld) [#/Vol] on 10-26-2023 Monocytes (Bld) [#/Vol] 0.8 10 3/uL 0.3-0.8 [facility] Monocytes/100 WBC Auto (Bld) on 10-26-2023 Monocytes/100 WBC (Bld) 8.9 % 1.7-12.0 [facility] Neutrophils Auto (Bld) [#/Vo l]on 10-26-2023 Neutrophils (Bld) [#/Vol] 4.0 10 3/uL 1.4-6.5 [facility] Neutrophils/100 WBC Auto (Bl d)on 10-26-2023 Neutrophils/100 WBC (Bld) 46.4 % 43.0-75.0 [facility] No Panel Informationon 10-25 Eosinophils # (Auto) 0.5 10 3/uL 0.0-0.7 [facility] Immature Granulocyte # (Auto) 0.01 10 3/uL 0.00-0.03 [facility] Platelet mean volume Auto (B ld) [Entitic vol]on 10-26-2023 Platelet mean volume (Bld) [Entitic vol] 11.6 fL 9.5-13.5 [facility] Platelets Auto (Bld) [#/Vol] on 10-26-2023 Platelets (Bld) [#/Vol] 256 10 3/uL 150-450 [facility] RBC Auto (Bld) [#/Vol]on RBC (Bld) [#/Vol] 4.92 10 6/uL 4.20-5.40 [facility] Serum or plasma albumin/glob ulin mass ratioon 10-26-2023 Albumin/Globulin [Mass ratio] 0.7 {ratio} [facility] Serum or plasma anion gap de terminationon 10-26-2023 Anion gap [Moles/Vol] 11.7 mmol/L [facility] Serum or plasma total choles terol/high density lipoprotein (HDL) cholesterol mass mauricio 10-26-2023 Cholesterol.total/Cho lesterol in HDL [Mass ratio] 2.9 {ratio} [facility] Comment on above: 3.3 - 4.4 LOW RISK4. 4 - 7.1 AVERAGE RISK7.1 - 11.0 MODERATE RISK>11.0 HIGH RISK MAMM SCREENING BILATERAL W C eye care professional 08-09-2023 MAMM SCREENING BILATERAL W CAD MAMM [...] PM 1 b MAMM 1 YR Normal [facility] TRANSTHORACIC ECHO (TTE) COM PLETEon 07-02-2023 TRANSTHORACIC ECHO (TTE) COMPLETE [address], [address], [place] [address] TRANSTHORACIC ECHOCARDIOGRAM REPORT Patient Name: GUANACO DANYA Reading Physician: [id number] Marcia Valerio MD, [facility] Study Date: 07/02/2023 Ordering Provider: [id number] MARCIA العليIM MRN/PID: [id number] Fellow: Nurse: Date of /Age: 1 1950 / 73 years Expanded Function Dental Assistant: Rosey Prince RDCS, RDMS, RVT Gender: F Additional Staff: Height: 165.10 cm Admit Date: Weight: 80.74 kg Admission Status: Outpatient BSA: 1.88 m2 Department Location: [facility] Blood Pressure: 150 /74 mmHg Study Type: TRANSTHORACIC ECHO (TTE) COMPLETE Diagnosis/ICD: Shortness of breath-R06.02 Indication: SOB, HTN, DM CPT Codes: Echo Complete w Full Doppler-83305 Study Detail: The following Echo studies were [...] 1.0 m/s (0.6-0.9m/s) PV Max P.0 mmHg [id number] Marcia Valerio MD, [facility] Electronically signed on 07/05/2023 at 5:58:05 PM Final [facility] Office Visit (Cardiology)on 01-31-2023 Follow-up visit [...] Weight Tips; Status:Complete - Retrospective Authorization; Done: [id number] Some eating tips that can help you lose weight.; Status:Complete - Retrospective Authorization; Done: [id number] SocHx: Former smoker Tobacco Use Screening; Status:Complete; Done: [id number] Patient Instructions Please bring all medicines, vitamins, [...] Cholecystectomy History of Complete colonoscopy Managed By: Joseisto Cramer MD (Gastroenterology) History of Foot surgery [...] is supple, (more content not included)... Normal [employer] Tobacco Screening.on 023 Adult depression screening assessment No [facility] [employer] [facility] 250 DO Work Phone: Fall risk assessment a) No falls within the last year [facility] 250 DO Work Phone: Tobacco use status [facility] b) No [facility] [employer] 250 DO Work Phone: CBC W MANUAL DIFFon 08-17-19 23 ATYPICAL LYMPH # Normal [facility] Comment on above: Performed By: #### C NILA #### [facility] [address] [place] [address] [address] Kristen Jurado ATYPICAL LYMPH % Normal [facility] Comment on above: Performed By: #### C NILA #### [facility] [address] [place] [address] [address] Kristen Jurado BAND # Normal 0.0-0.3 [facility] Comment on above: Performed By: #### C NILA #### [facility] [address] [place] [address] [address] Kristen Jurado BAND % Normal 0-5 [facility] Comment on above: Performed By: #### C BCUSMAN #### [facility] [address] [place] [address] Dr. Kristen Jurado BASOM # 0.00 103/ul Normal 0.00-0.10 [facility] Comment on above: Performed By: #### C BCUSMAN #### [facility] [address] [place] [address] Dr. Kristen Jurado BASOM % 0.0 % Critically low 0.2-2.0 [facility] Comment on above: Performed By: #### C BCUSMAN #### [facility] [address] [place] [address] Dr. Kristen Jurado BLAST # Normal [facility] Comment on above: Performed By: #### C NILA #### [facility] [address] [place] [address] Dr. Kristen Jurado BLAST % Normal [facility] Comment on above: Performed By: #### C NILA #### [facility] [address] [place] [address] Dr. Kristen Jurado CORRECTED WBC Normal 4.0-11.0 [facility] Comment on above: Performed By: #### C BCUSMAN #### [facility] [address] [place] [address] Dr. Kristen Jurado EOS # 0.39 103/ul Normal 0.00-0.70 [facility] Comment on above: Performed By: #### C BCUSMAN #### [facility] [address] [place] [address] Dr. Kristen Jurado EOS% 3.0 % Normal 0.9-7.0 [facility] Comment on above: Performed By: #### C BCUSMAN #### [facility] [address] [place] [address] Dr. Kristen Jurado HCT 45.6 % Normal 36.0-48.0 [facility] Comment on above: Performed By: #### C NILA #### [facility] [address] [place] [address] Dr. Kristen Jurado HGB 15.0 g/dl Normal 12.0-16.0 [facility] Comment on above: Performed By: #### C NILA #### [facility] [address] [place] [address] Dr. Kristen Jurado LYMPHM # 6.55 103/ul Critically high 1.20-3.80 [facility] Comment on above: Performed By: #### C NILA #### [facility] [address] [place] [address] Dr. Kristen Jurado LYMPHM% 50.0 % Normal 20.5-60.0 [facility] Comment on above: Performed By: #### C NILA #### [facility] [address] [place] [address] Dr. Kristen Jurado MCH 29.1 pg Normal 26.7-34.0 [facility] Comment on above: Performed By: #### Alfredo DOTSON #### [facility] [address] [place] [address] Dr. Kristen Jurado MCHC 32.9 g/dl Normal 29.9-35.2 [facility] Comment on above: Performed By: #### C NILA #### [facility] [address] [place] [address] Dr. Kristen Jurado MCV 88.4 fL Normal 81.0-99.0 [facility] Comment on above: Performed By: #### Alfredo DOTSON #### [facility] [address] [place] [address] Dr. Kristen Jurado METAMYELOCYTE # Normal [facility] Comment on above: Performed By: #### C NILA #### [facility] [address] [place] [address] Dr. Kristen Jurado METAMYELOCYTE % Normal [facility] Comment on above: Performed By: #### C NILA #### [facility] [address] [place] [address] Dr. Kristen Jurado MONOM# 0.92 103/ul Critically high 0.30-0.80 [facility] Comment on above: Performed By: #### C NILA #### [facility] [address] [place] [address] Dr. Kristen Jurado MONOM% 7.0 % Normal 1.7-12.0 [facility] Comment on above: Performed By: #### C NILA #### [facility] [address] [place] [address] Dr. Kristen Jurado MPV 11.1 fL Normal 9.5-13.5 [facility] Comment on above: Performed By: #### C NILA #### [facility] [address] [place] [address] Dr. Kristen Jurado MYELOCYTE # Normal [facility] Comment on above: Performed By: #### C NILA #### [facility] [address] [place] [address] Dr. Kristen Jurado MYELOCYTE % Normal [facility] Comment on above: Performed By: #### Alfredo DOTSON #### [facility] [address] [place] [address] Dr. Kristen Jurado NRBC Normal [facility] Comment on above: Performed By: #### Alfredo DOTSON #### [facility] [address] [place] [address] Dr. Kristen Jurado PLT 269 103/ul Normal 150-450 [facility] Comment on above: Performed By: #### C NILA #### [facility] [address] [place] [address] Dr. Kristen Jurado RBC 5.16 106/ul Normal 4.20-5.40 [facility] Comment on above: Performed By: #### C NILA #### [facility] [address] [place] [address] Dr. Kristen Jurado RDW 13.0 % Normal 11.0-15.0 [facility] Comment on above: Performed By: #### C NILA #### [facility] [address] [place] [address] Dr. Kristen Jurado SEG # 5.24 103/ul Normal 1.40-6.50 [facility] Comment on above: Performed By: #### C NILA #### [facility] [address] [place] [address] [address] Kristen Jurado SEG % 40.0 % Critically low 43.0-75.0 [facility] Comment on above: Performed By: #### C NILA #### [facility] [address] [place] [address] Dr. Kristen Jurado WBC 13.1 103/ul Critically high 4.0-11.0 [facility] Comment on above: Performed By: #### C NILA #### [facility] [address] [place] [address] Dr. Kristen Jurado GLYCOHEMOGLOBIN A1Con 2022 ADA RECOMMENDATION SEE BELOW Normal [facility] Comment on above: Result Comment: ADA RECOMMENDED LIMIT 4.0 - 6.0 ADA THERAPEUTIC TARGET < 7.0 ACTION SUGGESTED > 7.0 Performed By: #### A 1C #### [facility] [address] [place] [address] Dr. Kristen Jurado Glucose [Mass/Vol] 137 mg/dL Normal [facility] Comment on above: Performed By: #### A 1C #### [facility] [address] [place] [address] Dr. Kristen Jurado HbA1c (Bld) [Mass fraction] 6.4 % Critically high 4.5-6.2 [facility] Comment on above: Performed By: #### A 1C #### [facility] [address] [place] [address] Dr. Kristen Jurado LIPID PROFILEon 08-16-2022 CHOL-HDL RATIO NORM SEE BELOW Normal [facility] Comment on above: Result Comment: 3.3 - 4.4 LOW RISK 4.4 - 7.1 AVERAGE RISK 7.1 - 11.0 MODERATE RISK >11.0 HIGH RISK Performed By: #### C MP, LIPID #### [facility] [address] [place] [address] Dr. Kristen Jurado Cholesterol [Mass/Vol] 196 mg/dL Normal <=200 [facility] Comment on above: Performed By: #### C MP, LIPID #### [facility] [address] [place] [address] Dr. Kristen Jurado Cholesterol in HDL [Mass/Vol] 74 mg/dL Critically high 40-60 [facility] Comment on above: Performed By: #### C MP, LIPID #### [facility] [address] [place] [address] [address] Kristen Jurado Cholesterol in LDL [Mass/Vol] 95.6 mg/dL Normal [facility] Comment on above: Performed By: #### C MP, LIPID #### [facility] [address] [place] [address] [address] Kristen Jurado Cholesterol.total/Cho lesterol in HDL [Mass ratio] 2.6 {ratio} Normal [facility] Comment on above: Performed By: #### C MP, LIPID #### [facility] [address] [place] [address] Dr. Kristen Jurado HDL NORMAL > or = 60 mg/dl - LO W CARDIOVASCULAR RISK <40 mg/dl - HIGH CARDIOVASCULAR RISK Normal [facility] Comment on above: Performed By: #### C MP, LIPID #### [facility] [address] [place] [address] Dr. Kristen Jurado LDL CALC NORMAL SEE BELOW Normal [facility] Comment on above: Result Comment: <100 mg/dl OPTIMAL 100 - 129 mg/dl NEAR OR ABOVE OPTIMAL 130 - 159 mg/dl BORDERLINE HIGH 160 - 189 mg/dl HIGH >190 mg/dl VERY HIGH Performed By: #### C MP, LIPID #### [facility] [address] [place] [address] [address] Kristen Jurado Triglyceride [Mass/Vol] 132 mg/dL Normal <=150 [facility] Comment on above: Performed By: #### C MP, LIPID #### [facility] [address] [place] [address] [address] Kristen Jurado VLDL CALC 26.4 mg/dL Normal [facility] Comment on above: Performed By: #### C MP, LIPID #### [facility] [address] [place] [address] Dr. Kristen Jurado MICROALBUMIN, RAND URon 03- mALB <1.3 Normal <=30.0 [facility] Comment on above: Performed By: #### M ALBR #### [facility] [address] [place] [address] [address] Kristen Jurado PROF 14(COMP METB)on 023 Albumin [Mass/Vol] 3.7 g/dL Normal 3.4-5.0 [facility] Comment on above: Performed By: #### C MP, LIPID #### [facility] [address] [place] [address] [address] Kristen Jurado Albumin/Globulin [Mass ratio] 0.9 {ratio} Normal [facility] Comment on above: Performed By: #### C MP, LIPID #### [facility] [address] [place] [address] Dr. Kristen Jurado ALP [Catalytic activity/Vol] 85 U/L Normal 46-116 [facility] Comment on above: Performed By: #### C MP, LIPID #### [facility] [address] [place] [address] Dr. Kristen Jurado ALT [Catalytic activity/Vol] 21 U/L Normal 14-59 [facility] Comment on above: Performed By: #### C MP, LIPID #### [facility] [address] [place] [address] Dr. Kristen Jurado Anion gap [Moles/Vol] 11.3 mmol/L Normal [facility] Comment on above: Performed By: #### C MP, LIPID #### [facility] [address] [place] [address] [address] Kristen Jurado AST [Catalytic activity/Vol] 23 U/L Normal 15-37 [facility] Comment on above: Performed By: #### C MP, LIPID #### [facility] [address] [place] [address] Dr. Kristen Jurado Bilirubin [Mass/Vol] 0.6 mg/dL Normal 0.2-1.0 [facility] Comment on above: Performed By: #### C MP, LIPID #### [facility] [address] [place] [address] Dr. Kristen Jurado Calcium [Mass/Vol] 9.6 mg/dL Normal 8.5-10.1 [facility] Comment on above: Performed By: #### C MP, LIPID #### [facility] [address] [place] [address] [address] Kristen Jurado Chloride [Moles/Vol] 101 mmol/L Normal 98-107 [facility] Comment on above: Performed By: #### C MP, LIPID #### [facility] [address] [place] [address] [address] Kristen Jurado CO2 [Moles/Vol] 31.0 mmol/L Normal 21.0-32.0 [facility] Comment on above: Performed By: #### C MP, LIPID #### [facility] [address] [place] [address] [address] Kristen Jurado Creatinine [Mass/Vol] 0.84 mg/dL Normal 0.55-1.02 [facility] Comment on above: Performed By: #### C MP, LIPID #### [facility] [address] [place] [address] [address] Kristen Jurado EGFR-AF NEW ZEALANDER >60 Normal >=60 [facility] Comment on above: Performed By: #### C MP, LIPID #### [facility] [address] [place] [address] [address] Kristen Jurado EGFR-NON AF NEW ZEALANDER >60 Normal >=60 [facility] Comment on above: Performed By: #### C MP, LIPID #### [facility] [address] [place] [address] [address] Kristen Jurado Globulin (S) [Mass/Vol] 4.0 g/dL Normal [facility] Comment on above: Performed By: #### C MP, LIPID #### [facility] [address] [place] [address] [address] Kristen Jurado Glucose [Mass/Vol] 129 mg/dL Critically high 74-106 [facility] Comment on above: Performed By: #### C MP, LIPID #### [facility] [address] [place] [address] [address] Kristen Jurado Potassium [Moles/Vol] 3.3 mmol/L Critically low 3.5-5.1 [facility] Comment on above: Performed By: #### C MP, LIPID #### [facility] [address] [place], [place] [address] Dr. Kristen Jurado Protein [Mass/Vol] 7.7 g/dL Normal 6.4-8.2 [facility] Comment on above: Performed By: #### C MP, LIPID #### [facility] [address] [place], [place] [address] Dr. Kristen Jurado Sodium [Moles/Vol] 140 mmol/L Normal 136-145 [facility] Comment on above: Performed By: #### C MP, LIPID #### [facility] [address] [place], [place] [address] Dr. Kristen Jurado Urea nitrogen [Mass/Vol] 22.0 mg/dL Critically high 7.0-18.0 [facility] Comment on above: Performed By: #### C MP, LIPID #### [facility] [address] [place] [address] [address] Kristen Jurado Urea nitrogen/Creatinine [Mass ratio] 26.2 mg/mg Normal [facility] Comment on above: Performed By: #### C MP, LIPID #### [facility] [address] [place], [place] [address] Dr. Kristen Jurado Office Visit (Cardiology)on 05-19-2022 [...] Weight Tips; Status:Complete - Retrospective Authorization; Done: [id number] Some eating tips that can help you lose weight.; Status:Complete - Retrospective Authorization; Done: [id number] SocHx: Former smoker Tobacco Use Screening; Status:Complete; Done: [id number] Patient Instructions Please bring all medicines, vitamins, [...] negative for complaint. Vitals Vital Signs Recorded: 19May2022 10:34AM Heart Rate68, R Radial Rpcmvbwc784, LUE, Sitting Pymvczywi94, LUE, Sitting Height5 ft 5 in Mlyzms727 lb 4 oz BMI Ztmjhllhio98.66 kg/m2 BSA Calculated1.88 Tobacco Useb) No Falls Screening (Age 18+)a) No falls within the last year Physical Exam Constitutional: alert and in no acute distress. Neck: neck is supple, symmetric, trachea midline, no mass (more content not included)... Normal [facility] Tobacco Screening.on 12-14-2 022 Fall risk assessment a) No falls within the last year [facility] 250 DO Work Phone: Tobacco use status [facility] b) No [facility] 250 DO Work Phone: MRI BRAIN WO CONon 2 MRI BRAIN CON EXAMINATION: MRI BRA IN WO CON, [...] by: RAMAKRISHNA VILLALOBOS Date: 2022-04-20 08:12 Normal [facility] Tobacco Screening.on 022 Fall risk assessment a) No falls within the last year [facility] 250 DO Work Phone: Tobacco use status [facility] b) No [facility] 250 DO Work Phone: [facility] CARDIAC STRESS/REST INJE CTIONon 09-18-2021 [facility] CARDIAC STRESS/REST INJECTION Patient Name: GUANACO HAGAN STUDY: MYOCARDIAL PERFUSION STRESS TEST WITH LEXISCAN Performing facility: [facility], [address] [place] [address], [address], [place] [address] [facility] Provider: Marcia Valerio MD, FACC PCP: Dr. Sudhakar Marinelli Supervising provider: Danny Christopher MD INDICATION: Abnormal EKG; Chest Pain; DM HTN HISTORY: Gender: F; Age: 71 y/o ; Height: 0 cm; Weight: 78.7910392 kg. Abnormal EKG; Diabetes; Palpitations; HTN; Chest Pain; Denies smoking. Cardiac catheterization on 2009. COMPARISON: Previous nuclear testing completed 2008 at [employer] ACCESSION NUMBER(S): [id number]; [id number]; [id number] ORDERING CLINICIAN: MARCIA VALERIO TECHNIQUE: ONE DAY [...] signed by: DANNY CHRISTOPHER MD Normal [facility] No Panel Informationon 09-18 Normal [facility] 250 DO Work Phone: Tobacco Screening.on 022 Adult depression screening assessment No [facility] 250 DO Work Phone: Fall risk assessment a) No falls within the last year [facility] 250 DO Work Phone: Tobacco use status [facility] b) No -[facility] 250 DO Work Phone: XR chest 1V portableon 08-27 XR chest 1V portable [facility] Main [address] [address] XRay Report Signed Patient: Guanaco Hagan MR#: [id number] : [id number] Acct:[id number] Age/Sex: 71 / F ADM Date: 08/26/21 Loc: ER Room: Type: [facility] ER Attending Dr: Ordering Provider: [...] Harvey Bustillos M.D.08/27/2021 8:29 AM Dictation Location: [place] [address] Transcribed By: [facility] 08/27/21828 Dictated By: Harvey Bustillos DO 08/27/2129 Signed By: 08/27/2129 Normal [facility] Albumin [Mass/volume] in Ser um or PlasmaOrdered By: Elder Simon on 08-26-2021 Albumin [Mass/Vol] 4.0 g/dL 3.2-5.5 [facility] Basophils Auto (Bld) [#/Vol] Ordered By: PROVIDER TEMP on 08-26-2021 Basophils (Bld) [#/Vol] 0.1 10*3/uL 0.0-0.2 [facility] Basophils/100 WBC Auto (Bld) Ordered By: PROVIDER TEMP on 08-26-2021 Basophils/100 WBC (Bld) 0.8 % [facility] Blood hemoglobin measurement (mass/volume)Ordered By: PROVIDER TEMP on 08-26-2021 Hemoglobin (Bld) [Mass/Vol] 14.6 g/dL 11.8-15.4 [facility] Blood leukocytes automated c ount (number/volume)Ordered By: PROVIDER TEMP on 08-26-2021 WBC (Bld) [#/Vol] 8.5 10*3/uL 4.5-11.0 [facility] Complete Blood Count Auto Di ffon 08-26-2021 Basophils (Bld) [#/Vol] 0.1 10*3/uL Normal 0.0-0.2 [facility] Comment on above: Result Comment: PERF ORMED BY: [place] [address] PATHOLOGIST TOWN CLERK ELOINA THURSTON M.D. Performed By: #### C BC, CMP, HS TROP #### [facility] [address] [place] [address] Basophils/100 WBC (Bld) 0.8 % Normal . [facility] Comment on above: Performed By: #### C BC, CMP, HS TROP #### [facility] [address] [place] [address] [place] Eosinophils (Bld) [#/Vol] 0.2 10*3/uL Normal 0.0-0.45 [facility] Comment on above: Performed By: #### C BC, CMP, HS TROP #### [facility] [address] [place] [address] [place] Eosinophils/100 WBC (Bld) 1.9 % Normal . [facility] Comment on above: Performed By: #### C BC, CMP, HS TROP #### [facility] [address] Erythrocyte distribution width (RBC) [Ratio] 13.1 % Normal 11.9-15.3 [facility] Comment on above: Performed By: #### C BC, CMP, HS TROP #### [facility] [address] [place] [address] Hematocrit (Bld) [Volume fraction] 43.4 % Normal 34.0-46.4 [facility] Comment on above: Performed By: #### C BC, CMP, HS TROP #### [address] Hemoglobin (Bld) [Mass/Vol] 14.6 g/dL Normal 11.8-15.4 [facility] Comment on above: Performed By: #### C BC, CMP, HS TROP #### [address] Lymphocytes (Bld) [#/Vol] 1.9 10*3/uL Normal 1.00-4.8 [facility] Comment on above: Performed By: #### C BC, CMP, HS TROP #### [address] Lymphocytes/100 WBC (Bld) 23.0 % Normal . [facility] Comment on above: Performed By: #### C BC, CMP, HS TROP #### [address] MCH (RBC) [Entitic mass] 30.2 pg Normal 24.7-34.3 [facility] Comment on above: Performed By: #### C BC, CMP, HS TROP #### [address] MCV (RBC) [Entitic vol] 90.1 fL Normal 80-100 [facility] Comment on above: Performed By: #### C BC, CMP, HS TROP #### [address] Mean Corpuscular HGB Conc 33.5 g/dL Normal 32.0-35.0 [facility] Comment on above: Performed By: #### C BC, CMP, HS TROP #### [address] Monocytes (Bld) [#/Vol] 0.5 10*3/uL Normal 0.0-0.8 [facility] Comment on above: Performed By: #### C BC, CMP, HS TROP #### [address] [place] [address] [place] Monocytes/100 WBC (Bld) 6.3 % Normal . [facility] Comment on above: Performed By: #### C BC, CMP, HS TROP #### [facility] [address] [place] [id number] [place] Neutrophils (Bld) [#/Vol] 5.8 10*3/uL Normal 1.8-7.7 [facility] Comment on above: Performed By: #### C BC, CMP, HS TROP #### [facility] [address] [place] [address] [place] Neutrophils/100 WBC (Bld) 68.0 % Normal . [facility] Comment on above: Performed By: #### C BC, CMP, HS TROP #### [facility] [address] [place] [address] [place] Nucleated RBC/100 WBC (Bld) [Ratio] 0.1 % Normal 0-0.5 [facility] Comment on above: Performed By: #### C BC, CMP, HS TROP #### [facility] [address] [place] [address] [place] Platelet mean volume (Bld) [Entitic vol] 10.0 fL Normal 6.3-10.7 [facility] Comment on above: Performed By: #### C BC, CMP, HS TROP #### [facility] [address] [place] [id number] [place] Platelets (Bld) [#/Vol] 247 10*3/uL Normal 150-450 [facility] Comment on above: Performed By: #### C BC, CMP, HS TROP #### [facility] [address] [place] [address] [place] RBC (Bld) [#/Vol] 4.82 10*6/uL Normal 3.60-5.00 [facility] Comment on above: Performed By: #### C BC, CMP, HS TROP #### [facility] [address] [place] [id number] [place] WBC (Bld) [#/Vol] 8.5 10*3/uL Normal 4.5-11.0 [facility] Comment on above: Performed By: #### C BC, CMP, HS TROP #### [facility] [address] Comprehensive Metabolic Pane romel 08-26-2021 Albumin [Mass/Vol] 4.0 g/dL Normal 3.2-5.5 [facility] Comment on above: Performed By: #### C BC, CMP, HS TROP #### [facility] [address] Albumin/Globulin [Mass ratio] 1.2 {ratio} Normal [facility] Comment on above: Performed By: #### C BC, CMP, HS TROP #### [facility] [address] ALP [Catalytic activity/Vol] 68 U/L Normal 32-92 [facility] Comment on above: Performed By: #### C BC, CMP, HS TROP #### [facility] [address] ALT [Catalytic activity/Vol] 23 U/L Normal 10-60 [facility] Comment on above: Performed By: #### C BC, CMP, HS TROP #### [facility] [address] [place] [id number] [place] AST [Catalytic activity/Vol] 23 U/L Normal 10-42 [facility] Comment on above: Performed By: #### C BC, CMP, HS TROP #### [facility] [address] [place] [id number] [place] Bilirubin [Mass/Vol] 0.9 mg/dL Normal 0.3-1.2 [facility] Comment on above: Performed By: #### C BC, CMP, HS TROP #### [facility] [address] [place] [phone] [place] Calcium [Mass/Vol] 9.8 mg/dL Normal 8.2-10.2 [facility] Comment on above: Performed By: #### C BC, CMP, HS TROP #### [facility] [address] [place] [phone] [place] Chloride [Moles/Vol] 101 mmol/L Normal 95-114 [facility] Comment on above: Performed By: #### C BC, CMP, HS TROP #### [facility] [address] CO2 [Moles/Vol] 22.7 mmol/L Normal 22.0-30.0 [facility] Comment on above: Performed By: #### C BC, CMP, HS TROP #### [facility] [address] Creatinine [Mass/Vol] 1.02 mg/dL Normal 0.44-1.03 [facility] Comment on above: Performed By: #### C BC, CMP, HS TROP #### [facility] [address] [place] [address] [place] Creatinine Clr Calc Pharmacy 51.26 [facility] Comment on above: Result Comment: PERF ORMED BY: [place] [address] PATHOLOGIST TOWN CLERK ELOINA THURSTON M.D. Performed By: #### C BC, CMP, HS TROP #### [facility] [address] Estimated GFR ( Clari > 60 [facility] Comment on above: Result Comment: GFR estimated reference range: According to KDOQI guidelines, <60 ml/min/1.73m2 is sufficient to diagnose a patient with chronic kidney disease. Performed By: #### C BC, CMP, HS TROP #### [facility] [address] Estimated GFR (Non- Am 53 [facility] Comment on above: Performed By: #### C BC, CMP, HS TROP #### [facility] [address] [place] [address] [place] Globulin (S) [Mass/Vol] 3.4 g/dL [facility] Comment on above: Performed By: #### C BC, CMP, HS TROP #### [facility] [address] [place] [address] [place] Glucose [Mass/Vol] 141 mg/dL High 70-100 [facility] Comment on above: Result Comment: [place] Glucose Reference Range is dependent on time and content of last meal. Glucose of more than 200 mg/dL in a nonstressed, ambulatory subject supports the diagnosis of Diabetes Mellitus. ADA recommended reference range Performed By: #### C BC, CMP, HS TROP #### [facility] [address] [place] [phone] [place] Potassium [Moles/Vol] 3.6 mmol/L Normal 3.5-5.1 [facility] Comment on above: Performed By: #### C BC, CMP, HS TROP #### [facility] [address] [place] [address] [place] Protein [Mass/Vol] 7.4 g/dL Normal 6.1-7.9 [facility] Comment on above: Performed By: #### C BC, CMP, HS TROP #### [facility] [address] [place] [phone] [place] Sodium [Moles/Vol] 137 mmol/L Normal 136-146 [facility] Comment on above: Performed By: #### C BC, CMP, HS TROP #### [facility] [address] [place] [phone] [place] Urea nitrogen [Mass/Vol] 12 mg/dL Normal 9-23 [facility] Comment on above: Performed By: #### C BC, CMP, HS TROP #### [facility] [address] [place] [phone] [place] Creatinine and Glomerular fi ltration rate.predicted panel (S/P/Bld)Ordered By: Elder Simon on 08-26-2021 Creatinine [Mass/Vol] 1.02 mg/dL 0.44-1.03 [facility] ECG 12 lead ECGon 08-26-2021 ECG 12 lead ECG [facility] [address] [place] [address] [place] [address] Electrocardiograph Report Signed Patient: Guanaco Hagan MR#: [id number] : 1950 Acct:[id number] Age/Sex: 71 / F ADM Date: 08/26/21 Loc: ER Room: Type: [facility] ER Attending Dr: Ordering Provider: Elder Simon, Date of Service: 08/26/21 ECG/ECG 12 lead [...] ST abnormality Confirmed by Elder Simon DO ([id number]) on 08/27/2021 3:47:24 AM Referred By: Electronically Signed By:Elder Simon DO Transcribed By: MUS Signed By Elder Simon DO [id number] Normal [facility] Eosinophils Auto (Bld) [#/Vo l]Ordered By: PROVIDER TEMP on 08-26-2021 Eosinophils (Bld) [#/Vol] 0.2 10*3/uL 0.0-0.45 [facility] Eosinophils/100 WBC Auto (Bl d)Ordered By: PROVIDER TEMP on 08-26-2021 Eosinophils/100 WBC (Bld) 1.9 % [facility] Erythrocyte distribution wid th Auto (RBC) [Ratio]Ordered By: PROVIDER TEMP on 08-26-2021 Erythrocyte distribution width (RBC) [Ratio] 13.1 % 11.9-15.3 [facility] Estimated glomerular filtrat ion rate (GFR) non- AmericanOrdered By: Elder Simon on 08-26-2021 GFR/1.73 sq M.predicted among non-blacks MDRD (S/P/Bld) [Vol rate/Area] 53 mL/Min [facility] Globulin Calc (S) [Mass/Vol] Ordered By: Elder Simon on 08-26-2021 Globulin (S) [Mass/Vol] 3.4 g/dL [facility] Hematocrit Auto (Bld) [Volum e fraction]Ordered By: PROVIDER TEMP on 08-26-2021 Hematocrit (Bld) [Volume fraction] 43.4 % 34.0-46.4 [facility] Laboratory - Hematology and Cell countsOrdered By: PROVIDER TEMP on 08-26-2021 Nucleated RBC/100 WBC (Bld) [Ratio] 0.1 % 0-0.5 [facility] Lymphocytes Auto (Bld) [#/Vo l]Ordered By: PROVIDER TEMP on 08-26-2021 Lymphocytes (Bld) [#/Vol] 1.9 10*3/uL 1.00-4.8 [facility] Lymphocytes/100 WBC Auto (Bl d)Ordered By: PROVIDER TEMP on 08-26-2021 Lymphocytes/100 WBC (Bld) 23.0 % [facility] MCH Auto (RBC) [Entitic mass ]Ordered By: PROVIDER TEMP on 08-26-2021 MCH (RBC) [Entitic mass] 30.2 pg 24.7-34.3 [facility] MCHC Auto (RBC) [Mass/Vol]Or dered By: PROVIDER TEMP on 08-26-2021 MCHC (RBC) [Mass/Vol] 33.5 g/dL 32.0-35.0 [facility] MCV Auto (RBC) [Entitic vol] Ordered By: PROVIDER TEMP on 08-26-2021 MCV (RBC) [Entitic vol] 90.1 fL 80-100 [facility] Monocytes Auto (Bld) [#/Vol] Ordered By: PROVIDER TEMP on 08-26-2021 Monocytes (Bld) [#/Vol] 0.5 10*3/uL 0.0-0.8 [facility] Monocytes/100 WBC Auto (Bld) Ordered By: PROVIDER TEMP on 08-26-2021 Monocytes/100 WBC (Bld) 6.3 % [facility] Neutrophils Auto (Bld) [#/Vo l]Ordered By: PROVIDER TEMP on 08-26-2021 Neutrophils (Bld) [#/Vol] 5.8 10*3/uL 1.8-7.7 [facility] Neutrophils/100 WBC Auto (Bl d)Ordered By: PROVIDER TEMP on 08-26-2021 Neutrophils/100 WBC (Bld) 68.0 % [facility] No Panel InformationOrdered By: Elder Simon on 08-26-2021 Estimated GFR () > 60 mL/Min [facility] Comment on above: GFR estimated refere nce range: According to KDOQI guidelines, <60 ml/min/1.73m2 is sufficient to diagnose a patient with chronic kidney disease. Pharmacy Creatinine Clearance (Chem 51.26 [facility] Platelet mean volume Auto (B ld) [Entitic vol]Ordered By: PROVIDER TEMP on 08-26-2021 Platelet mean volume (Bld) [Entitic vol] 10.0 fL 6.3-10.7 [facility] Platelets Auto (Bld) [#/Vol] Ordered By: PROVIDER TEMP on 08-26-2021 Platelets (Bld) [#/Vol] 247 10*3/uL 150-450 [facility] Protein [Mass/volume] in Ser um or PlasmaOrdered By: Elder Simon on 08-26-2021 Protein [Mass/Vol] 7.4 g/dL 6.1-7.9 [facility] RBC Auto (Bld) [#/Vol]Ordere d By: PROVIDER TEMP on 08-26-2021 RBC (Bld) [#/Vol] 4.82 10*6/uL 3.60-5.00 [facility] Serum or plasma alanine zamora otransferase measurement without P-5'-P (enzymatic activiOrdered By: Elder Simon on 08-26-2021 ALT No additional P-5'-P [Catalytic activity/Vol] 23 U/L 10-60 [facility] Serum or plasma albumin/glob ulin mass ratioOrdered By: Elder Simon on 08-26-2021 Albumin/Globulin [Mass ratio] 1.2 {ratio} [facility] Serum or plasma alkaline bandar sphatase measurement (enzymatic activity/volume)Ordered By: Elder Simon on 08-26-2021 ALP [Catalytic activity/Vol] 68 U/L 32-92 [facility] Serum or plasma aspartate am inotransferase measurement (enzymatic activity/volume)Ordered By: Elder Simon on 08-26-2021 AST [Catalytic activity/Vol] 23 U/L 10-42 [facility] Serum or plasma calcium enmanuel urement (mass/volume)Ordered By: Elder Simon on 08-26-2021 Calcium [Mass/Vol] 9.8 mg/dL 8.2-10.2 [facility] Serum or plasma chloride nico surement (moles/volume)Ordered By: Elder Simon on 08-26-2021 Chloride [Moles/Vol] 101 mmol/L 95-114 [facility] Serum or plasma glucose enmanuel urement (mass/volume)Ordered By: Elder Simon on 08-26-2021 Glucose [Mass/Vol] 141 mg/dL 70-100 [facility] Comment on above: ADA recommended refe rence rangeRandom Glucose Reference Range is dependent on time and content of last meal. Glucose of more than 200 mg/dL in a nonstressed, ambulatory subject supports the diagnosis of Diabetes Mellitus. Serum or plasma potassium me asurement (moles/volume)Ordered By: Elder Simon on 08-26-2021 Potassium [Moles/Vol] 3.6 mmol/L 3.5-5.1 [facility] Serum or plasma sodium measu rement (moles/volume)Ordered By: Elder Simon on 08-26-2021 Sodium [Moles/Vol] 137 mmol/L 136-146 [facility] Serum or plasma total biliru bin measurement (mass/volume)Ordered By: Elder Simon on 08-26-2021 Bilirubin [Mass/Vol] 0.9 mg/dL 0.3-1.2 [facility] Serum or plasma total carbon dioxide measurement (moles/volume)Ordered By: Elder Simon on 08-26-2021 CO2 [Moles/Vol] 22.7 mmol/L 22.0-30.0 [facility] Serum or plasma urea nitroge n measurement (mass/volume)Ordered By: Elder Simon on 08-26-2021 Urea nitrogen [Mass/Vol] 12 mg/dL 9-23 [facility] Troponin I High Sensitivityo n 08-26-2021 Troponin I High Sensitivity 5 pg/mL Normal 0-15 [facility] Comment on above: Result Comment: PERF ORMED BY: [facility] [address] [place] [address] PATHOLOGIST TOWN CLERK ELOINA THURSTON M.D. Performed By: #### C BC, CMP, HS TROP #### [facility] [address] Troponin I.cardiac [Mass/vol ume] in Serum or Plasma by High sensitivity methodOrdered By: Elder Simon on 08-26-2021 Troponin I.cardiac High sensitivity method [Mass/Vol] 5 pg/mL 0-15 [facility] CBC AUTO DIFFon 08-25-2021 BASO # 0.1 103/ul Normal 0.0-0.1 [facility] Comment on above: Performed By: #### C BC #### [facility] [address] [place] [address] [address] Kristen Jurado Basophils/100 WBC (Bld) 1.0 % Normal 0.2-2.0 [facility] Comment on above: Performed By: #### C BC #### [facility] [address] [place] [address] Dr. Kristen Jurado EO # 0.2 103/ul Normal 0.0-0.7 [facility] Comment on above: Performed By: #### C BC #### [facility] [address] [place] [address] [address] Kristen Jurado Eosinophils/100 WBC (Bld) 2.1 % Normal 0.9-7.0 [facility] Comment on above: Performed By: #### C BC #### [facility] [address] [place] [address] Dr. Kristen Jurado Erythrocyte distribution width (RBC) [Ratio] 12.8 % Normal 11.0-15.0 [facility] Comment on above: Performed By: #### C BC #### [facility] [address] [address] [address] Kristen Jurado Hematocrit (Bld) [Volume fraction] 43.2 % Normal 36.0-48.0 [facility] Comment on above: Performed By: #### C BC #### [facility] [address] [place] [address] Dr. Kristen Jurado Hemoglobin (Bld) [Mass/Vol] 14.3 g/dL Normal 12.0-16.0 [facility] Comment on above: Performed By: #### C BC #### [facility] [address] [place] [address] Dr. Kristen Jurado IG # 0.02 10e3/ul Normal 0.00-0.03 [facility] Comment on above: Performed By: #### C BC #### [facility] [address] [place] [address] Dr. Kristen Jurado IG % 0.2 % Normal 0.0-0.5 [facility] Comment on above: Performed By: #### C BC #### [facility] [address] [place] [address] Dr. Kristen Jurado LYMPH # 1.7 103/ul Normal 1.2-3.8 [facility] Comment on above: Performed By: #### C BC #### [facility] [address] [place] [address] Dr. Kristen Jurado Lymphocytes/100 WBC (Bld) 20.5 % Normal 20.5-60.0 [facility] Comment on above: Performed By: #### C BC #### [facility] [address] [place] [address] Dr. Kristen Jurado MANUAL DIFF REQ NO Normal [facility] Comment on above: Performed By: #### C BC #### [facility] [address] [place] [address] Dr. Kristen Jurado MCH (RBC) [Entitic mass] 29.7 pg Normal 26.7-34.0 [facility] Comment on above: Performed By: #### C BC #### [facility] [address] [place] [address] Dr. Kristen Jurado MCHC (RBC) [Mass/Vol] 33.1 g/dL Normal 29.9-35.2 [facility] Comment on above: Performed By: #### C BC #### [facility] [address] [place] [address] Dr. Kristen Jurado MCV (RBC) [Entitic vol] 89.6 fL Normal 81.0-99.0 [facility] Comment on above: Performed By: #### C BC #### [facility] [address] [place] [address] Dr. Kristen Jurado MONO # 0.5 103/ul Normal 0.3-0.8 [facility] Comment on above: Performed By: #### C BC #### [facility] [address] [place] [address] Dr. Kristen Jurado Monocytes/100 WBC (Bld) 6.2 % Normal 1.7-12.0 [facility] Comment on above: Performed By: #### C BC #### [facility] [address] [place] [address] Dr. Kristen Jurado NEUT # 5.7 103/ul Normal 1.4-6.5 [facility] Comment on above: Performed By: #### C BC #### [facility] [address] [place] [address] Dr. Kristen Jurado Neutrophils/100 WBC (Bld) 70.0 % Normal 43.0-75.0 [facility] Comment on above: Performed By: #### C BC #### [facility] [address] [place] [address] Dr. Kristen Jurado Platelet mean volume (Bld) [Entitic vol] 11.0 fL Normal 9.5-13.5 [facility] Comment on above: Performed By: #### C BC #### [facility] [address] [place] [address] Dr. Kristen Jurado PLT 238 103/ul Normal 150-450 [facility] Comment on above: Performed By: #### C BC #### [facility] [address] [place] [address] Dr. Kristen Jurado RBC 4.82 106/ul Normal 4.20-5.40 [facility] Comment on above: Performed By: #### C BC #### [facility] [address] [place] [address] Dr. Kristen Jurado WBC 8.1 103/ul Normal 4.0-11.0 [facility] Comment on above: Performed By: #### C BC #### [facility] [address] [place] [address] Dr. Kristen Jurado PROF CHEM 8 (BAS METB)on Anion gap [Moles/Vol] 12.8 mmol/L Normal [facility] Comment on above: Performed By: #### B MP #### [facility] [address] [address] [address] Kristen Jurado Calcium [Mass/Vol] 9.6 mg/dL Normal 8.5-10.1 [facility] Comment on above: Performed By: #### B MP #### [facility] [address] [place] [address] [address] Kristen Jurado Chloride [Moles/Vol] 103 mmol/L Normal 98-107 [facility] Comment on above: Performed By: #### B MP #### [facility] [address] [place] [address] Dr. Kristen Jurado CO2 [Moles/Vol] 30.0 mmol/L Normal 22.0-30.0 [facility] Comment on above: Performed By: #### B MP #### [facility] [address] [place] [address] Dr. Kristen Jurado Creatinine [Mass/Vol] 0.97 mg/dL Normal 0.52-1.04 [facility] Comment on above: Performed By: #### B MP #### [facility] [address] [place] [address] Dr. Kristen Jurado EGFR-AF NEW ZEALANDER >60 Normal >=60 [facility] Comment on above: Performed By: #### B MP #### [facility] [address] [address] [address] Kristen Jurado EGFR-NON AF NEW ZEALANDER 56 mL/min/1.73m2 Critically low >=60 [facility] Comment on above: Performed By: #### B MP #### [facility] [address] [place] [address] Dr. Kristen Jurado Glucose [Mass/Vol] 176 mg/dL Critically high 74-106 [facility] Comment on above: Performed By: #### B MP #### [facility] [address] [address] [address] Kristen Jurado Potassium [Moles/Vol] 3.8 mmol/L Normal 3.4-5.0 [facility] Comment on above: Performed By: #### B MP #### [facility] [address] [place] [address] Dr. Kristen Jurado Sodium [Moles/Vol] 142 mmol/L Normal 137-145 [facility] Comment on above: Performed By: #### B MP #### [facility] [address] [address] [address] Kristen Jurado Urea nitrogen [Mass/Vol] 16.0 mg/dL Normal 7.0-18.0 [facility] Comment on above: Performed By: #### B MP #### [facility] [address] [place] [address] Dr. Kristen Jurado Urea nitrogen/Creatinine [Mass ratio] 16.5 mg/mg Normal [facility] Comment on above: Performed By: #### B MP #### [facility] [address] [place] [address] Dr. Kristen Jurado [facility] 7 mm/hr Normal <=30 [facility] Comment on above: Performed By: #### S EDR #### [facility] [address] [place] [address] Dr. Kristen Jurado COVID Quick Testingon 2021 Result Negative [employer] Other Operative Reporton 0 Operative Report MR#: [id number] [facility] Pt. Name: Guanaco Hagan Room #: 0C Discharge Date: Birthdate: 1950 OPERATIVE REPORT DATE OF SURGERY: 08/06/2019 SURGEON: Isma Fitzpatrick M.D. BARBECUE COOK: Sarwat Mcqueen MD. PREAMBLE: A 69-year-old female, [...] Fitzpatrick M.D. Date Trans: 08/07/2019 01:09 A/iram [id number] Normal [facility] POC GLUCOSE LABon 08-06-2019 Glucose [Mass/Vol] 158 mg/dL High 70-100 [facility] Comment on above: Performed By: #### [id number] #### [facility] [address] Vital Signs Date Time Vital Sign Value Performing Clinician Facility 04-10-2024 11:07-0500 Body height 165.1 cm [facility] 04-10-2024 11:07-0500 Body mass index (BMI) [Ratio] 27.3 kg/m2 [facility] 04-10-2024 11:07-0500 Body weight 74.38 kg [facility] 04-10-2024 11:07-0500 Diastolic blood pressure 76 mm[Hg] [facility] [facility] 04-10-2024 11:07-0500 Heart rate 66 /min [facility] 04-10-2024 11:07-0500 SaO2% (BldA) [Mass fraction] 95 % [facility] 04-10-2024 11:07-0500 Systolic blood pressure 132 mm[Hg] [facility] 03-09-2024 10:36-0400 Body height 165.1 cm [facility] 03-09-2024 10:36-0400 Body mass index (BMI) [Ratio] 27.3 kg/m2 [facility] 03-09-2024 10:36-0400 Body temperature 96.6 [degF] [facility] 03-09-2024 10:36-0400 Body weight 74.44 kg [facility] 03-09-2024 10:36-0400 Diastolic blood pressure 80 mm[Hg] [facility] 03-09-2024 10:36-0400 Heart rate 72 /min [facility] 03-09-2024 10:36-0400 SaO2% (BldA) [Mass fraction] 96 % [facility] 03-09-2024 10:36-0400 Systolic blood pressure 124 mm[Hg] [facility] 01-31-2024 10:51-0400 Body height 165.1 cm Marcia Valerio MD Work Phone: [facility] 01-31-2024 10:51-0400 Body mass index (BMI) [Ratio] 27.29 kg/m2 Marcia Valerio MD Work Phone: [facility] 01-31-2024 10:51-0400 Body weight 74.39 kg Marcia Valerio MD Work Phone: [facility] 01-31-2024 10:51-0400 Diastolic blood pressure 68 mm[Hg] Marcia Valerio MD Work Phone: [facility] 01-31-2024 10:51-0400 Heart rate 68 /min Marcia Valerio MD Work Phone: [facility] 01-31-2024 10:51-0400 Systolic blood pressure 114 mm[Hg] Marcia Valerio MD Work Phone: [facility] 12-05-2023 14:42-0400 Body height 165.1 cm [facility] 12-05-2023 14:42-0400 Body mass index (BMI) [Ratio] 27.9 kg/m2 [facility] 12-05-2023 14:42-0400 Body weight 76.2 kg [facility] 12-05-2023 14:42-0400 Diastolic blood pressure 77 mm[Hg] [facility] 12-05-2023 14:42-0400 Heart rate 78 /min [facility] 12-05-2023 14:42-0400 SaO2% (BldA) [Mass fraction] 95 % [facility] 12-05-2023 14:42-0400 Systolic blood pressure 136 mm[Hg] [facility] 10-25-2023 13:20-0400 Body height 165.1 cm [facility] 10-25-2023 13:20-0400 Body mass index (BMI) [Ratio] 28.1 kg/m2 [facility] 10-25-2023 13:20-0400 Body weight 76.65 kg [facility] 10-25-2023 13:20-0400 Diastolic blood pressure 75 mm[Hg] [facility] 10-25-2023 13:20-0400 Heart rate 76 /min [facility] 10-25-2023 13:20-0400 Systolic blood pressure 137 mm[Hg] [facility] 06-20-2023 10:45-0500 Body height 165.1 cm Damaris Marinelli Other [facility] [employer] Other 06-20-2023 10:45-0500 Body mass index (BMI) [Ratio] 29.25 kg/m2 Damaris Marinelli Other [facility] [employer] Other 06-20-2023 10:45-0500 Body weight 79.74 kg Damaris Marinelli Other [employer] [facility] [employer] Other 06-20-2023 10:45-0500 Diastolic blood pressure 78 mm[Hg] Damaris Marinelli Other [employer] Other 06-20-2023 10:45-0500 SaO2% (BldA) [Mass fraction] 95 % Damaris Marinelli Other [facility] [employer] Other 06-20-2023 10:45-0500 Systolic blood pressure 131 mm[Hg] Damaris Marinelli Other [facility] [employer] Other 01-31-2023 14:54-0400 Diastolic blood pressure 80 mm[Hg] Damaris Marinelli Work Phone: [facility] 250 DO Work Phone: 01-31-2023 14:54-0400 Systolic blood pressure 138 mm[Hg] Damaris Marinelli Work Phone: [facility] DO Work Phone: 01-31-2023 14:38-0400 Diastolic blood pressure 80 mm[Hg] Damaris Marinelli Work Phone: [facility] DO Work Phone: 01-31-2023 14:38-0400 Diastolic blood pressure 78 mm[Hg] Damaris Marinelli Work Phone: [facility] 250 DO Work Phone: 01-31-2023 14:38-0400 Systolic blood pressure 152 mm[Hg] Damaris Marinelli Work Phone: [facility] 250 DO Work Phone: 01-31-2023 14:38-0400 Systolic blood pressure 138 mm[Hg] Damaris Marinelli Work Phone: [facility] 250 DO Work Phone: 01-31-2023 14:32-0400 Body height 165.1 cm Damaris Marinelli Work Phone: [facility] DO Work Phone: 01-31-2023 14:32-0400 Body mass index (BMI) [Ratio] 29.62 kg/m2 Damaris Marinelli Work Phone: [facility] 250 DO Work Phone: 01-31-2023 14:32-0400 Body surface area Derived from formula 1.88 m2 Damaris Marinelli Work Phone: [facility] DO Work Phone: 01-31-2023 14:32-0400 Body weight 80.74 kg Damaris Marinelli Work Phone: [facility] DO Work Phone: 01-31-2023 14:32-0400 Diastolic blood pressure 80 mm[Hg] Damaris Marinelli Work Phone: [facility] [employer] 250 DO Work Phone: 01-31-2023 14:32-0400 Heart rate 72 /min Damaris Marinelli Work Phone: [facility] [employer] 250 DO Work Phone: 01-31-2023 14:32-0400 Systolic blood pressure 152 mm[Hg] Damaris Marinelli Work Phone: [facility] 250 DO Work Phone: 01-20-2023 09:30-0400 Body height 165.1 cm Damaris Marinelli Other [employer] Other 01-20-2023 09:30-0400 Body mass index (BMI) [Ratio] 29.45 kg/m2 Damaris Marinelli Other [employer] Other 01-20-2023 09:30-0400 Body weight 80.29 kg Damaris Marinelli Other [employer] Other 01-20-2023 09:30-0400 Diastolic blood pressure 75 mm[Hg] Damaris Marinelli Other [employer] Other 01-20-2023 09:30-0400 Systolic blood pressure 126 mm[Hg] Damaris Marinelli Other [employer] Other 09-28-2022 12:30-0400 Body height 165.1 cm Damaris Marinelli Other [employer] Other 09-28-2022 12:30-0400 Body mass index (BMI) [Ratio] 30.28 kg/m2 Damaris Marinelli Other [employer] Other 09-28-2022 12:30-0400 Body weight 82.56 kg Damaris Marinelli Other [employer] Other 09-28-2022 12:30-0400 Diastolic blood pressure 90 mm[Hg] Damaris Marinelli Other [employer] Other 09-28-2022 12:30-0400 SaO2% (BldA) [Mass fraction] 93 % Damaris Marinelli Other [employer] Other 09-28-2022 12:30-0400 Systolic blood pressure 142 mm[Hg] Damaris Marinelli Other [employer] Other 08-09-2022 13:45-0500 Body height 165.1 cm Damaris Marinelli Other [employer] Other 08-09-2022 13:45-0500 Body mass index (BMI) [Ratio] 30.12 kg/m2 Damaris Marinelli Other [employer] Other 08-09-2022 13:45-0500 Body weight 82.1 kg Damaris Marinelli Other [employer] Other 08-09-2022 13:45-0500 Diastolic blood pressure 82 mm[Hg] Damaris Marinelli Other [employer] Other 08-09-2022 13:45-0500 SaO2% (BldA) [Mass fraction] 97 % Damaris Marinelli Other [employer] Other 08-09-2022 13:45-0500 Systolic blood pressure 138 mm[Hg] Damaris Marinelli Other [employer] Other 05-19-2022 10:34-0500 Body height 165.1 cm Damaris Marinelli Work Phone: [facility] DO Work Phone: 05-19-2022 10:34-0500 Body mass index (BMI) [Ratio] 29.66 kg/m2 Damaris Marinelli Work Phone: [facility] DO Work Phone: 05-19-2022 10:34-0500 Body surface area Derived from formula 1.88 m2 Damaris Marinelli Work Phone: [facility] DO Work Phone: 05-19-2022 10:34-0500 Body weight 80.85 kg Damaris Marinelli Work Phone: [facility] DO Work Phone: 05-19-2022 10:34-0500 Diastolic blood pressure 76 mm[Hg] Damaris Marinelli Work Phone: [facility] DO Work Phone: 05-19-2022 10:34-0500 Heart rate 68 /min Damaris Marinelli Work Phone: [facility] DO Work Phone: 05-19-2022 10:34-0500 Systolic blood pressure 128 mm[Hg] Damaris Marinelli Work Phone: [facility] DO Work Phone: 11-11-2021 09:54-0400 Diastolic blood pressure 70 mm[Hg] Damaris Marinelli Work Phone: [facility] DO Work Phone: 11-11-2021 09:54-0400 Systolic blood pressure 137 mm[Hg] Damaris Marinelli Work Phone: [facility] DO Work Phone: 11-11-2021 09:28-0400 Body height 165.1 cm Damaris Marinelli Work Phone: [facility] DO Work Phone: 11-11-2021 09:28-0400 Body mass index (BMI) [Ratio] 29.12 kg/m2 Damaris Marinelli Work Phone: [facility] DO Work Phone: 11-11-2021 09:28-0400 Body surface area Derived from formula 1.87 m2 Damaris Marinelli Work Phone: [facility] DO Work Phone: 11-11-2021 09:28-0400 Body weight 79.38 kg Damaris Marinelli Work Phone: [facility] DO Work Phone: 11-11-2021 09:28-0400 Diastolic blood pressure 70 mm[Hg] Damaris Marinelli Work Phone: [facility] DO Work Phone: 11-11-2021 09:28-0400 Heart rate 69 /min Damaris Marinelli Work Phone: [facility] DO Work Phone: 11-11-2021 09:28-0400 Systolic blood pressure 168 mm[Hg] Damaris Marinelli Work Phone: [facility] DO Work Phone: 09-18-2021 08:00-0400 70 1 Damaris Marinelli Work Phone: [facility] [place] Work Phone: Comment on above: [id number] 09-09-2021 08:59-0400 Diastolic blood pressure 68 mm[Hg] Damaris Marinelli Work Phone: [facility] DO Work Phone: 09-09-2021 08:59-0400 Systolic blood pressure 138 mm[Hg] Damaris Marinelli Work Phone: [facility] DO Work Phone: 09-09-2021 08:55-0400 Body height 165.1 cm Damaris Marinelli Work Phone: [facility] DO Work Phone: 09-09-2021 08:55-0400 Body mass index (BMI) [Ratio] 28.62 kg/m2 Damaris Marinelli Work Phone: [facility] DO Work Phone: 09-09-2021 08:55-0400 Body surface area Derived from formula 1.86 m2 Damaris Marinelli Work Phone: [facility] DO Work Phone: 09-09-2021 08:55-0400 Body weight 78.02 kg Damaris Marinelli Work Phone: [facility] DO Work Phone: 09-09-2021 08:55-0400 Diastolic blood pressure 78 mm[Hg] Damaris Marinelli Work Phone: [facility] DO Work Phone: 09-09-2021 08:55-0400 Heart rate 72 /min Damaris Marinelli Work Phone: [facility] DO Work Phone: 09-09-2021 08:55-0400 Systolic blood pressure 148 mm[Hg] Damaris Marinelli Work Phone: [facility] DO Work Phone: 08-26-2021 21:56-0400 Diastolic blood pressure 75 mm[Hg] MD Damaris Marinelli Work Phone: [facility] 08-26-2021 21:56-0400 Heart rate 74 /min MD Damaris Marinelli Work Phone: [facility] 08-26-2021 21:56-0400 Respiratory rate 20 /min MD Damaris Marinelli Work Phone: [facility] 08-26-2021 21:56-0400 SaO2% (BldA) [Mass fraction] 97 % MD Damaris Marinelli Work Phone: [facility] 08-26-2021 21:56-0400 Systolic blood pressure 166 mm[Hg] MD Damaris Marinelli Work Phone: [facility] 08-26-2021 18:37-0400 Body height 165.1 cm MD Damaris Marinelli Work Phone: [facility] 08-26-2021 18:37-0400 Body mass index (BMI) [Ratio] 29.2 kg/m2 MD Damaris Marinelli Work Phone: [facility] 08-26-2021 18:37-0400 Body temperature 98.1 [degF] MD Damaris Marinelli Work Phone: [facility] 08-26-2021 18:37-0400 Body weight 79.75 kg MD Damaris Marinelli Work Phone: [facility] 06-25-2021 11:15-0500 Body height 165.1 cm Rey Taylor Other [employer] [facility] [employer] Other 06-25-2021 11:15-0500 Body mass index (BMI) [Ratio] 29.12 kg/m2 Rey Taylor Other [employer] Other 06-25-2021 11:15-0500 Body temperature 97.9 [degF] Rey Taylor Other [employer] Other 06-25-2021 11:15-0500 Body weight 79.38 kg Rey Taylor Other [employer] Other 06-25-2021 11:15-0500 Respiratory rate 18 /min Rey Taylor Other [employer] Other 06-25-2021 11:15-0500 SaO2% (BldA) [Mass fraction] 95 % Rey Taylor Other [employer] Other Encounters Encounter Date Encounter Type Care Provider Facility Start: 04-10-2024 End: 04-10-2024 [facility] Work Phone: Start: 04-10-2024 End: 04-10-2024 Patient encounter procedure [facility] Work Phone: Start: 03-19-2024 End: 03-19-2024 [facility] Work Phone: Start: 03-19-2024 End: 03-19-2024 Patient encounter procedure [facility] Work Phone: Start: 03-09-2024 End: 03-09-2024 [facility] Work Phone: Start: 03-09-2024 End: 03-09-2024 Patient encounter procedure [facility] Work Phone: Start: 01-31-2024 End: 01-31-2024 Office outpatient visit 25 minutes Marcia Valerio MD Work Phone: [facility] Comment on above: Essential hypertensi on (Primary Dx); Other specified diabetes mellitus with other specified complication, without long-term current use of insulin (Multi); History of nephrotic syndrome; Lower extremity edema; Former smoker; Right bundle branch block (RBBB) on electrocardiography; BMI 27.0-27.9,adult; Hypothyroidism, unspecified type; Overweight Start: 01-31-2024 End: 01-31-2024 ambulatory MARCIA [facility] Start: 12-14-2023 Non-patient / Non-visit [facility] Work Phone: Start: 12-05-2023 End: 12-05-2023 ambulatory [facility] Work Phone: Start: 12-05-2023 End: 12-05-2023 Patient encounter procedure [facility] Work Phone: Start: 10-26-2023 Non-patient / Non-visit [facility] Work Phone: Start: 10-25-2023 End: 10-25-2023 ambulatory [facility] Work Phone: Start: 10-25-2023 End: 10-25-2023 Patient encounter procedure [facility] Work Phone: Start: 08-08-2023 End: 08-09-2023 ambulatory [facility] Start: 07-06-2023 End: 07-06-2023 ambulatory Damaris Marinelli Other [employer] Other Start: 07-06-2023 Telephone encounter Damaris Marinelli [facility] Start: 07-02-2023 End: 07-02-2023 Subsequent hospital visit by physician Jessie Sepulveda Echo/Vas Room 2 [facility] Comment on above: Shortness of breath Start: 07-02-2023 End: 07-02-2023 ambulatory MARCIA [facility] Start: 06-20-2023 End: 06-20-2023 ambulatory Damaris Marinelli Other [employer] Other Start: 06-20-2023 Office outpatient vi sit 25 minutes Damaris Marinelli [facility] Start: 06-20-2023 Telephone encounter Damaris Marinelli [facility] Start: 05-31-2023 End: 05-31-2023 ambulatory Damaris Marinelli Other [employer] Other Start: 05-31-2023 Office outpatient vi sit 15 minutes Damaris Marinelli [facility] Start: 05-03-2023 End: 05-03-2023 ambulatory Damaris Marinelli Other [employer] Other Start: 05-03-2023 Telephone encounter Damaris Marinelli [facility] Start: 03-22-2023 End: 03-22-2023 ambulatory Damaris Marinelli Other [employer] Other Start: 03-22-2023 Telephone encounter Damaris Marinelli [facility] Start: 03-09-2023 End: 03-09-2023 ambulatory Maikel Taylor Other [employer] Other Start: 03-09-2023 Nursing evaluation o f patient and report Maikel [facility] Start: 01-31-2023 Office outpatient vi sit 25 minutes Damaris Marinelli Work Phone: [facility] DO Work Phone: Start: 01-31-[address] Marcia Valerio Facility: Start: 01-20-2023 End: 01-20-2023 ambulatory Damaris Marinelli Other [employer] Other Start: 01-20-2023 Office outpatient vi sit 15 minutes Damaris Marinelli [facility] Start: 10-01-2022 End: 10-01-2022 ambulatory Damaris Marinelli Other [employer] Other Start: 10-01-2022 Telephone encounter Damaris Marinelli [facility] Start: 09-28-2022 End: 09-28-2022 ambulatory Damaris Marinelli Other [employer] Other Start: 09-28-2022 Office outpatient vi sit 15 minutes Damaris Marinelli [facility] Start: 08-17-2022 End: 08-17-2022 ambulatory Damaris Marinelli Other [facility] [employer] Other Start: 08-17-2022 Telephone encounter Damaris Marinelli [facility] Start: 08-16-2022 End: 08-17-[address] ADMARIS MARINELLI Facility:[facility] Start: 08-09-2022 End: 08-09-2022 ambulatory Damaris Marinelli Other [facility] [employer] Other Start: 08-09-2022 Office outpatient vi sit 15 minutes Damaris Marinelli [facility] Start: 05-19-2022 Office outpatient vi sit 25 minutes Damaris Marinelli Work Phone: [facility] DO Work Phone: Start: 05-19-[address] Damaris Marinelli Facility: Start: 04-19-2022 End: 04-20-[address] DOCTOR NOONAN Facility:[facility] Start: 11-11-2021 Office outpatient vi sit 25 minutes Damaris Marinelli Work Phone: [facility] DO Work Phone: Start: 09-18-2021 Chart Update Damaris Marinelli Work Phone: [facility] DO Work Phone: Start: 09-18-2021 Patient encounter procedure Damaris Marinelli Work Phone: [facility] [place] Work Phone: Start: 09-10-2021 EVENT CAROLEE, Provider : EDGAR RODRIGUEZ [employer] OPERATOR [id number], Status: Pen, Time: 9:30 AM Damaris Marinelli Work Phone: [facility] 250 DO Work Phone: Start: 09-10-2021 Patient encounter procedure Damaris Marinelli Work Phone: [facility] DO Work Phone: Start: 09-09-2021 Patient encounter procedure Damaris Marinelli Work Phone: [facility] DO Work Phone: Start: 08-26-2021 End: 08-27-2021 Emergency department patient visit Damaris Marinelli Facility:[facility] Start: 08-26-2021 End: 08-26-2021 Emergency department patient visit MD Damaris Marinelli Work Phone: [facility] Start: 08-25-2021 End: 08-26-[address] DAMARIS MARINELLI Facility: Start: 06-25-2021 End: 06-25-2021 ambulatory Rey Taylor Other [facility] [employer] Other Start: 06-25-2021 Office outpatient vi sit 15 minutes Rey Taylor [facility] Start: 08-06-2019 End: 08-07-2019 Patient encounter procedure ABDULAZIM OSCAR Facility:[facility] Procedures Date Procedure Procedure Detail [...] Treatment Date Care Activity Detail Author Start: 02-01-2025 End: 02-01-2025 Patient encounter procedure 02/01/2025 1:00 PM EDT Office Visit [place] [id number] [facility] [address] [place] [address] Marcia Valerio MD [address] [facility] [address], [address] [address] [facility] Start: 02-05-2024 Influenza vaccination Influenza Vacc ine (#1) [facility] Start: 01-31-2024 FUV, Provider: Marcia Valerio, Status: Pen, Time: 11:40 AM FUV, Provider: Marcia Valerio, Status: Pen, Time: 11:40 AM [facility] 250 DO Work Phone: Start: 01-31-2024 End: 01-31-2024 Patient encounter procedure 01/31/2024 11:40 AM EDT Office Visit [facility] [address] [id number] Marcia Valerio MD [address] [facility] [address], [address] [address] [facility] Start: 02-04-2023 COVID-19 Vaccine ( season) COVID-19 Vaccine ( season) [facility] Start: 11-24-2022 FUV, Provider: Marcia Valerio, Status: Pen, Time: 11:10 AM FUV, Provider: Marcia Valerio, Status: Pen, Time: 11:10 AM [facility] 250 DO Work Phone: Start: 09-11-2022 Glaucoma screening Diabetes: R etinopathy Screening [facility] Start: 05-19-2022 FUV, Provider: Marcia Valerio, Status: Pen, Time: 10:30 AM FUV, Provider: Marcia Valerio, Status: Pen, Time: 10:30 AM [facility] 250 DO Work Phone: Start: 11-11-2021 FUV, Provider: Marcia Valerio, Status: Pen, Time: 9:20 AM FUV, Provider: Marcia Valerio, Status: Pen, Time: 9:20 AM [facility] DO Work Phone: Start: 09-18-2021 STRESS NUC, Provider : DERICK TAYLORI NUCLEAR [id number], Status: Pen, Time: 8:00 AM STRESS NUC, Provider: DERICK HHVI NUCLEAR [id number], Status: Pen, Time: 8:00 AM [facility] DO Work Phone: Start: 08-26-2021 Plain chest X-ray XR chest 1V [facility] Start: 04-06-2015 Pneumococcal Vaccine : 65+ Years (2 of 2 - PCV) Pneumococcal Vaccine: 65+ Years (2 of 2 - PCV) [facility] Start: 04-06-2015 Pneumococcal Vaccine : 65+ Years (3 - PCV) Pneumococcal Vaccine: 65+ Years (3 - PCV) [facility] Start: 2008 RSV patient s and/or patients aged 60+ years (1 - 1-dose 60+ series) RSV patients and/or patients aged 60+ years (1 - 1-dose 60+ series) [facility] Start: 1998 Zoster Vaccines (1 of 2) Zoste r Vaccines (1 of 2) [facility] Start: 1970 DTaP/Tdap/Td Vaccine s (1 - Tdap) DTaP/Tdap/Td Vaccines (1 - Tdap) [facility] Start: 1967 Urine screening for protein Diabetes: Urine Protein Screening [facility] Start: 1966 Hepatitis C screening Hepatitis C Sc reening [facility] Start: 1948 Hemoglobin A1c measurement Diabetes: Hemoglobin A1C [facility] Start: 1948 Lipid panel Lipid Panel [facility] Start: 1948 Medicare Annual Well ness Visit Medicare Annual Wellness Visit (AWV) [facility] Start: 1948 Screening for malign ant neoplasm of colon [facility] Start: 1948 Screening for osteoporosis Bone Density Scan [facility] Start: 1948 Thyroid stimulating hormone measurement TSH Level [facility] Comprehensive metabo lic 1999 panel - Serum or Plasma [facility] Microalbumin [Mass/volume] in Urine [facility] Patient Education Chest Pain (DC) [facility] Work Phone: Patient referral [facility] Work Phone: End: 07-02-2023 [facility] Heart [facility] Service Area Work Phone: Comment on above: Once for 1 Occurrenc es starting 07/02/2023 until 07/02/2023 [facility] Immunizations Immunization Date Immunization Notes Care Provider Fa vivian 03-19-2024 influenza, high dose seasonal, preservative-free [facility] 03-09-2023 influenza, high dose seasonal, preservative-free Maikel Taylor Other [employer] Other 03-09-2023 influenza virus vaccine, unspecified formulation [facility] 03-17-2022 Fluad Quadrivalent 0 .5 ML Intramuscular Prefilled Syringe Damaris Marinelli Work Phone: [facility] DO Work Phone: 03-17-2022 influenza virus vaccine, split virus (incl. purified surface antigen) Damaris Marinelli Other [employer] [employer] Other 03-17-2022 influenza virus vaccine, unspecified formulation [facility] 03-12-2021 influenza virus vaccine, split virus (incl. purified surface antigen) Damaris Marinelli Other [employer] Other 03-12-2021 influenza virus vaccine, unspecified formulation [facility] 02-04-2021 influenza, seasonal, injectable Damaris Marinelli Work Phone: [employer] DO Work Phone: Comment on above: Series: 08-11-2020 Jeny COVID-19 Vaccine 0.5 ML Intramuscular Suspension Damaris Marinelli Work Phone: [facility] [employer] DO Work Phone: 03-11-2020 influenza virus vaccine, split virus (incl. purified surface antigen) Damaris Marinelli Other [facility] [employer] Other 03-11-2020 influenza virus vaccine, unspecified formulation [facility] 02-28-2019 influenza virus vaccine, split virus (incl. purified surface antigen) Damaris Marinelli Other [facility] [employer] Other 02-28-2019 influenza virus vaccine, unspecified formulation [facility] 02-28-2019 influenza, injectabl e, quadrivalent, preservative free Damaris Marinelli Work Phone: [facility] [employer] [facility] DO Work Phone: 04-06-2014 pneumococcal polysaccharide vaccine, 23 valent Damaris Marinelli Work Phone: [facility] [employer] DO Work Phone: 03-28-2014 pneumococcal polysaccharide vaccine, 23 valent Damaris Marinelli Other [facility] influenza virus vaccine, unspecified formulation Damaris Marinelli Work Phone: [facility] [employer] DO Work Phone: Comment on above: 2009 Payers Date Payer Category Payer Unknown 2021 Self-pay [id number] 2013 Medicare MEDICARE MEDICAR E RAILROAD [id number] 2013-Present [address] [place] [address] [id number] 1959 Medicare [id number] 1959 Unknown [id number] 1948 Unknown [id number] 1948 Unknown [id number] 1948 Unknown [id number] 1948 Unknown [id number] 1948 Unknown [id number] 1948 Unknown [id number] 1948 Unknown [id number] 1948 Unknown [id number] 1948 Unknown [id number] Unknown [id number] Social History Date Type Detail Facility Start: 08-26-2021 End: 08-26-2021 Tobacco smoking status NHIS Never smoked tobacco (finding) [facility] Start: 1950 Sex Assigned At Female F [facility] Start: 01-31-2024 Social alcohol use Social alcohol us e -[facility] DO Work Phone: Comment on above: Rarely; 2 cups tea daily; Quit 06/1971; Start: 01-31-2024 Sex Assigned At N [facility] [employer] Other Tobacco smoking status NYIS Tobacco smoking consumption unknown [facility] Work Phone: Start: 1950 Sex Assigned At Not on file U [facility] Work Phone: Start: 06-22-2023 End: 01-31-2024 Exposure to SARS-CoV-2 (event) Not sure [facility] Start: 01-31-2024 Tobacco smoking status NHIS Ex-smoker [facility] History of tobacco use Current smoker [facility] Work Phone: History of tobacco use Cigarette Smoker [facility] Work Phone: Start: 01-31-2024 Tobacco use and exposure Smokeless tobacco non-user [facility] Work Phone: Start: 01-31-2024 Alcoholic beverage intake Current drinker of alcohol (finding) [facility] Work Phone: Start: 01-31-2024 Alcohol Comment [facility] Work Phone: Clinical Notes 11-11-2014 to 01-31-2024 Marcia Valerio MD - 01/31/2024 11:10 AM EDTPatient Instructions Note Date & Type Note Facility 01-31-2024 History of Present illness Narrative Subjective Guanaco Hagan is a 73 y.o. female Chief Complaint Annual Exam HPI Patient is in the office for follow-up for the problems noted below accompanied by her . She has made lifestyle changes that led to weight loss, this has actually also led to better blood pressure control and better diabetes control. Lab data from recent testing were reviewed and shared with the patient and has been noticed recently hide hypothyroidism for which supplemental therapy was provided by PCP. Examination was unremarkable for overweight. Assessment/recommendations: 1-history of chest pain that is atypical in nature with normal nuclear stress test 2021,. She had normal cardiac catheterization 2009, currently asymptomatic 2-essential hypertension currently under control 3-type II diabetes currently under control managed by PCP, A1c below 7 4-history of nephrotic syndrome in remission, currently does not follow with nephrology 5-overweight, encouraged more weight loss with diet and exercise. 6-right bundle branch block. No clinical significance. 7-hypothyroidism on replacement therapy managed by PCP Review of Systems All other systems reviewed and are negative. Vitals: 01/31/24 1051 BP: 114/68 BP Location: Left arm Patient Position: Sitting Pulse: 68 Weight: 74.4 kg (164 lb) Height: 1.651 m (5' 5 ) Objective Physical Exam Constitutional: Appearance: Normal appearance. HENT: Nose: Nose normal. Neck: Vascular: No carotid bruit. Cardiovascular: Rate and Rhythm: Normal rate. Pulses: Normal pulses. Heart sounds: Normal heart sounds. Pulmonary: Effort: Pulmonary effort is normal. Abdominal: General: Bowel sounds are normal. Palpations: Abdomen is soft. Musculoskeletal: General: Normal range of motion. Cervical back: Normal range of motion. Right lower leg: No edema. Left lower leg: No edema. Skin: General: Skin is warm and dry. Neurological: General: No focal deficit present. Mental Status: She is alert. Psychiatric: Mood and Affect: Mood normal. Behavior: Behavior normal. Thought Content: Thought content normal. Judgment: Judgment normal. Allergies Penicillins, Ciprofloxacin, Doxycycline, Morphine, and Sulfamethoxazole Current Medications Current Outpatient Medications: amLODIPine (Norvasc) 10 mg tablet, Take 1 tablet (10 mg) by mouth once daily., Disp: , Rfl: B complex-vitamin C tablet, Take 1 tablet by mouth every other day., Disp: , Rfl: carvedilol (Coreg) 6.25 mg tablet, Take 1 tablet (6.25 mg) by mouth 2 times daily (morning and late afternoon)., Disp: , Rfl: cholecalciferol (Vitamin D-3) 10 MCG (400 UNIT) tablet, Take 1 tablet (10 mcg) by mouth every other day., Disp: , Rfl: glipiZIDE XL (Glucotrol XL) 5 mg 24 hr tablet, Take 1 tablet (5 mg) by mouth once daily., Disp: , Rfl: hydroCHLOROthiazide (HYDRODiuril) 25 mg tablet, Take 1 tablet (25 mg) by mouth once daily. At noon., Disp: , Rfl: Klor-Con M20 20 mEq ER tablet, Take 1 tablet (20 mEq) by mouth once daily., Disp: , Rfl: levothyroxine (Synthroid, Levoxyl) 75 mcg tablet, 1 tablet (75 mcg) once daily in the morning. Take before meals., Disp: , Rfl: Assessment/Plan 1. Essential hypertension 2. Right bundle branch block (RBBB) on electrocardiography 3. Other specified diabetes mellitus with other specified complication, without long-term current use of insulin (Multi) 4. History of nephrotic syndrome 5. Lower extremity edema 6. Former smoker 7. BMI 27.0-27.9,adult Scribe Attestation By signing my name below, I, Phoebe Ding RN , Scribe attest that this documentation has been prepared under the direction and in the presence of Marcia Valerio MD. Provider Attestation - Scribe documentation All medical record entries made by the Scribe were at my direction and personally dictated by me. I have reviewed the chart and agree that the record accurately reflects my personal performance of the history, physical exam, discussion and plan. documented in this encounter [facility] Work Phone: 01-31-2024 Instructions Phoebe Bolivar RN - 01/31/2024 11:10 AM EDT Please bring all medicines, vitamins, and herbal supplements with you when you come to the office. Prescriptions will not be filled unless you are compliant with your follow up appointments or have a follow up appointment scheduled as per instruction of your physician. Refills should be requested at the time of your visit. BMI was above normal measurement. Current weight: 74.4 kg (164 lb) Weight change since last visit (-) denotes wt loss -14 lbs Weight loss needed to achieve BMI 25: 14.1 Lbs Weight loss needed to achieve BMI 30: -15.9 Lbs Provided instructions on dietary changes Provided instructions on exercise. documented in this encounter [facility] Work Phone: 06-20-2023 Evaluation note Encounter Date Diagnosis Assessment Notes Jun, Exertional dyspnea (ICD-10 - R06.09) Suggested CXR to start and echo +/- stress test. Will check w NO their preference location for these tests. Jun, Renal cyst (ICD-10 - N28.1) pt questions if her pain is due to renal cysts. Imaging in past reviewed. will recheck w US. [employer] Other 01-15-2024 Evaluation note* Encounter Date Diagnosis Assessment Notes Treatment Notes Treatment Clinical Notes Jun, Exertional dyspnea (ICD-10 - R06.09) [employer] Other 12-26-2023 Evaluation note* Encounter Date Diagnosis [...] verbalized understanding and agreement with treatment plan. [employer] Other 08-17-2023 Evaluation note* Encounter Date Diagnosis Assessment Notes Treatment Notes Treatment Clinical Notes Jan, Rhomboid muscle pain (ICD-10 - M79.18) Order given to Pt for PT. Home exercises, tylenol and ice advised. Jan, Decreased right shoulder range of motion (ICD-10 - M25.611) as above. [employer] Other 04-25-2023 Evaluation note* Encounter Date Diagnosis Assessment Notes Treatment Notes Treatment Clinical Notes Sep, Laryngopharyngeal reflux (LPR) (ICD-10 - K21.9) Sep, Other Pt requests referral to Dr. Martins as her daughter has seen in him in the past. [employer] Other 03-06-2023 Evaluation note* Encounter Date Diagnosis [...] for labs harshad to recheck kidney function [facility] [employer] Other 01-20-2022 Evaluation note* Encounter Date Diagnosis [...] Patient care instructions given in writting by CDC Care At Home document. [employer] Other 06-08-2015 Evaluation note* Diagnosis Onset Date Resolution Status HTN (hypertension) acute Hyperglycemia, unspecified November 11, 2014 acute Hyperlipidemia, unspecified January 23, [address] [facility] Work Phone: [phone]) 213-771006-08-2015 Evaluation note* Diagnosis Onset Date Resolution Status HTN (hypertension) acute Hyperglycemia, unspecified November 11, 2014 acute Hyperlipidemia, unspecified January 23, 2014 acute Spasm of thoracolumbar muscle acute [facility] Work Phone: Chief complaint Narrative - ReportedJOSHASHI HAGAN is being seen for a consultation for an abnormal ECG, chest pain and hypertension. -[facility] [address] DO Work Phone: Evaluation noteNo assessment information available [facility] Work Phone: Evaluation noteNo [facility] [employer] Other Evaluation note* Diagnosis Shortness of breath documented in this encounter [facility] Work Phone: Evaluation note* Diagnosis Onset Date Resolution Status Bronchitis acute [facility] Work Phone: Evaluation note* Diagnosis Onset Date Resolution Status Bronchitis acute Encounter for immunization a cute [facility] Work Phone: Evaluation note* Diagnosis Essential hypertension- Primary Unspecified essential hypertension Other specified diabetes mellitus with other specified complication, without long-term current use of insulin (Multi) History of nephrotic syndrome Personal history of nephrotic syndrome Lower extremity edema Edema Former smoker Personal history of tobacco use, presenting hazards to health Right bundle branch block (RBBB) on electrocardiography BMI 27.0-27.9,adult Hypothyroidism, unspecified type Overweight documented in this encounter [facility] Work Phone: History general Narrative - [...] History MS Hospitalization History See Sx Hx [facility] [employer] Other Hospital Discharge instructions Additional Instructions Take your medications as prescribed. Return to the emergency department if you feel worse. Follow-up with play writer listed below for outpatient stress test versus heart catheterization.[facility] Work Phone: Reason for referral (narrative)* Consultation (Routine) - Authorized Specialty Diagnoses / Procedures Referred By Contac t Referred To Contact Cardiology Diagnoses Right bundle branch block (RBBB) on electrocardiography Procedures Follow Up In Cardiology Marcia Valerio MD [address] [facility] [address], [address] [place] [address] Marcia Valerio MD [address] [facility] 2, [address] [address] Referral ID Status Reason Start Date Expiration Date V isits Requested Visits Authorized [id number] Authorized 01/31/2024 01/30/2025 1 1 [facility] Work Phone: Summary Purpose Family History Unknown [...] erotic cardiovascular disease: Mother, Father(V17.49, Z82.49) Status:Active Relationship Condition Age at Onset Recorded Date/T bill father Hypertension Unknown Unknown grandparent Unknown Malignant neoplasm Unknown grandparent Heart disease Unknown Heart disease Unknown Not Specified Heart disease Unknown Relationship Condition Age at Onset Recorded Date/T bill father Hypertension Unknown Unknown grandparent Unknown Malignant neoplasm Unknown grandparent Heart disease Unknown Heart disease Unknown mother Heart disease Unknown Advance Directives Advance Directive Response Recorded Date/ Time Advance Directives No July 5:33pm Advance Directive Response Recorded Date/ Time Advance Directives No July 4:33pm Chief Complaint and Reason for Visit Chief Complaint Abnormal EKG Chief Complaint shoulder/back pain Reason for Visit HTN (hypertension) Hyperglycemia, unspecified Hyperlipidemia, unspecified Chief Complaint shoulder/back pain Cough Reason for Visit HTN (hypertension) Hyperglycemia, unspecified Hyperlipidemia, unspecified Spasm of thoracolumbar muscle Chief Complaint Coughing/Can't Breat he Reason for Visit Bronchitis Chief Complaint Coughing/Can't Breat he flu shot Reason for Visit Bronchitis Chief Complaint Coughing/Can't Breat he flu shot still has cough, and wheezing Reason for Visit Bronchitis Encounter for immunization Chief Complaint * LOUISA / MPL results. [...] branch block. No clinical significance. * GUANACO HGAAN is being seen for a 6 month [...] Referral Specialty Diagnoses / Procedures Referred By Contac t Referred To Contact Cardiology Diagnoses Shortness of breath Procedures Transthoracic Echo (TTE) Complete [place] ECHO TTHRC R-T 2D W/WOM-MODE COMPL SPEC&COLR D Marcia Valerio MD [address] [facility] [address], [address] [address] Referral ID Status Reason Start Date Expiration Date Visits Requested Visits Authorized [id number] Authorized Perform Procedure 06/27/2023 06/26/2024 1 1 Reason *FU 10/07 CALL Diagnosis 1 Laryngopharyngeal re flux (K21.9) Referral Organization [facility] annette Referring Provider First Name Damaris Referring Provider Last Name Yves Referring Provider Specialty Family [facility] Referred Organization [facility] Referred Provider EliezerJefry Referred Address ,[place], [place],[address] Referred Provider Specialty Otolaryngolo gy Referral Priority Routine General Notes Trish Brower 11:10:34 AM >received today, attachments made, notes locked, referral faxed P2P Additional Source Comments INFORMATION SOURCE (unrecogn ized section and content) DATE CREATED AUTHOR 08/09/2019 [facility] DATE CREATED AUTHOR AUTHOR'S ORGANIZ ATION 09/28/2021 [facility] DATE CREATED AUTHOR AUTHOR'S ORGANIZ ATION 07/10/2022 [facility] DATE CREATED AUTHOR AUTHOR'S ORGANIZ ATION 08/23/2022 [facility] DATE CREATED AUTHOR AUTHOR'S ORGANIZ ATION 02/01/2023 [facility] DATE CREATED AUTHOR AUTHOR'S ORGANIZ ATION 02/01/2023 [employer] DATE CREATED AUTHOR AUTHOR'S ORGANIZ ATION 08/10/2023 [facility] DATE CREATED AUTHOR AUTHOR'S ORGANIZ ATION 02/02/2024 [facility] DATE CREATED AUTHOR AUTHOR'S ORGANIZ ATION 03/30/2024 [facility] (unrecognized sec tion and content) Team Status: Active Member Role Status Dates Damaris Marinelli MD Primary Care Provider Active Team Status: Inactive Member Role Status Dates Damaris Marinelli MD Primary Care Provider Active Start: March 09, 2024 End: March 09, 2024 SHAHEED Molina Attending Provider Act derrell Start: March 09, 2024 End: March 09, 2024 Team Status: Inactive Member Role Status Dates Damaris Marinelli MD Primary Care Provide r, Attending Provider Active Start: March 19, 2024 End: March 19, 2024 Team Status: Active Member Role Status Dates Damaris Marinelli MD Primary Care Provide r, Attending Provider Active Start: December 14, 2023 Team Status: Inactive Member Role Status Dates Damaris Marinelli MD Primary Care Provide r, Attending Provider Active Start: October 25, 2023 End: October 25, 2023 Team Status: Inactive Member Role Status Dates Damaris Marinelli MD Primary Care Provider Active Elder Simon DO Emergency Provider Active Production Planner Relationship Specialty Start Date End Date Damaris Marinelli MD [address] [place] [id number] PCP - General Family Medicine 06/27/23 Team Status: Active Member Role Status Dates Damaris Marinelli MD Primary Care Provide r, Attending Provider Active Start: October 26, 2023 Team Status: Inactive Member Role Status Dates Damaris Marinelli MD Primary Care Provide r, Attending Provider Active Start: December 05, 2023 End: December 05, 2023 Team Status: Inactive Member Role Status Dates Damaris Marinelli MD Primary Care Provide r, Attending Provider Active Start: April 10, 2024 End: April 10, 2024 Production Planner Relationship Specialty Start Date End Date Damaris Marinelli MD [address] [place] [id number] PCP - General Family Medicine 01/31/24 Goals (unrecognized section and content) Goals may be documented in a n alternate sectionNo InformationNo InformationNo InformationNo InformationNo InformationNo InformationNo InformationNo InformationNo InformationNo InformationNo InformationNo InformationNo InformationGoals may be documented in an alternate sectionGoals may be documented in an alternate sectionGoals may be documented in an alternate sectionGoals may be documented in an alternate sectionGoals may be documented in an alternate section Reason for Visit (unrecogniz ed section and content) Specialty Diagnoses / Procedures Referred By Contac t Referred To Contact Cardiology Diagnoses Shortness of breath Procedures Transthoracic Echo (TTE) Complete [place] ECHO TTHRC R-T 2D W/WOM-MODE COMPL SPEC&COLR D Marcia Valerio MD [address] [place] [address] 2, [facility] [address] [place] [address] Referral ID Status Reason Start Date Expiration Date Visits Requested Visits Authorized [id number] Authorized Perform Procedure 06/27/2023 06/26/2024 1 1 Reason Comments Annual Exam FOR RECORDS PERTAINING TO PATIENTS WHO ARE [...] BE BASED ON THE PRIMARY CLINICAL RECORDS. [facility] [employer] [facility]. provides no warranty or guarantee of the accuracy or completeness of information in this document.
[2024-05-26 23:31] VITALS: BP 167/88; O2SAT 90
[2024-05-26 23:36] VITALS: PULSE 74
[2024-05-26 23:40] VITALS: PULSE 75; O2SAT 97
[2024-05-26 23:50] VITALS: PULSE 74; O2SAT 97
[2024-05-26 23:54] LABS: Basophils Absolute Auto 0.1 10^3/uL (0.0-0.1); Basophils Percent Auto 0.8 % (0.2-2.0); Eosinophils Absolute Auto 0.5 10^3/uL (0.0-0.7); Eosinophils Percent Auto 4.1 % (0.9-7.0); Hematocrit 42.5 % (36.0-48.0); Hemoglobin 14.2 g/dL (12.0-16.0); Immature Granulocytes Abs Auto 0.03 10^3/uL (0.00-0.03); Immature Granulocytes Pct Auto 0.3 % (0.0-0.5); Lymphocytes Percent Auto 33.3 % (20.5-60.0); Mean Corpuscular HGB Conc 33.4 g/dL (29.9-35.2); Mean Corpuscular Hemoglobin 29.6 pg (26.7-34.0); Mean Corpuscular Volume 88.7 fL (81.0-99.0); Mean Platelet Volume 11.3 fL (9.5-13.5); Monocytes Percent Auto 8.7 % (1.7-12.0); Neutrophils Absolute Auto 6.3 10^3/uL (1.4-6.5); Neutrophils Percent Auto 52.8 % (43.0-75.0); Platelet Count 221 10^3/uL (150-450); Red Blood Count 4.79 10^6/uL (4.20-5.40); Red Cell Distribution Width 12.5 % (11.0-15.0); White Blood Count 11.9 10^3/uL (4.0-11.0)
--- NOTE | 2024-05-26 23:55 | PC.NURSE ---
States a discomfort across chest. Can't describe it
[2024-05-26 23:56] VITALS: O2SAT 97
[2024-05-27] VITALS (17 sets, daily range): BP systolic 125–157; BP diastolic 76–85; PULSE 62–89; O2SAT 71–96
--- NOTE | 2024-05-27 00:02 | CT_ITS ---
The [address] [address] Patient Name: GUANACO HAGAN MRN: [id number] date: 1950 Sex: F Assigned Patient Location: ER Current Patient Location: Accession/Order Number: [id number] Exam Date: 05/27/2024 12:30 Report Date: 05/27/2024 01:45 At the request of: JAMI BANGURA Procedure: CT chest w con EXAM: CT chest w con HISTORY: chest pain, cough, shortness of breath COMPARISON: CT chest examination dated 06/02/2020. TECHNIQUE: Axial CT images through the chest were obtained after the intravenous administration of contrast. Coronal and sagittal reformats were obtained. Dose reduction techniques were achieved by using automated exposure control and/or adjustment of mA and/or kV according to patient size and/or use of iterative reconstruction technique. FINDINGS: There is a 0.5 cm nodule in the right lower lobe (series 4, image 55). There is a 0.3 cm nodule in the right lower lobe (series 4, image 41). There is a 0.4 cm pleural-based nodule in the right lower lobe (series 4, image 59). The central airways are patent. No pleural effusion or pneumothorax is seen. The cardiac chambers appear normal in size. The thoracic aorta and pulmonary arteries are normal in caliber. There is coronary artery disease. There is mild atherosclerotic disease. There is no mediastinal, hilar, or axillary lymphadenopathy by CT size criteria. The thyroid and esophagus appear unremarkable. Images through the upper abdomen reveal a subcentimeter hypodensity in the liver that is too small to characterize by CT size criteria. There is colonic diverticulosis without evidence of diverticulitis. No suspicious or aggressive bone lesions are seen. No acute fractures are seen. There is a right glenohumeral joint effusion. CT/CT chest w con IMPRESSION: 1. No acute cardiopulmonary abnormality. 2. There are a few pulmonary nodules measuring up to 0.5 cm. Recommend follow-up according to Fleischner Society guidelines: An optional CT of the chest in one year if the patient is high risk. 3. Right glenohumeral joint effusion. Electronically authenticated by: Toña DUPONT Date: 05/27/2024 01:45
--- NOTE | 2024-05-27 00:02 | CT_ITS ---
The [address] [address] Patient Name: GUANACO HAGAN MRN: [id number] date: 1950 Sex: F Assigned Patient Location: ER Current Patient Location: Accession/Order Number: [id number] Exam Date: 05/27/2024 12:30 Report Date: 05/27/2024 01:51 At the request of: JAMI BANGURA Procedure: CT abdomen pelvis w con EXAM: CT abdomen pelvis w con HISTORY: upper abd pain, shortness of breath. hx of hiatal COMPARISON: CT abdomen and pelvis examination dated 12/26/2015. TECHNIQUE: Axial CT images through the abdomen and pelvis were obtained with coronal and sagittal reformats. Dose reduction techniques were achieved by using automated exposure control and/or adjustment of mA and/or kV according to patient size and/or use of iterative reconstruction technique. FINDINGS: The visualized portions of the lung bases are clear. There is a small hiatal hernia. Abdomen: The liver and spleen enhance homogeneously without focal lesion. The patient is status post cholecystectomy. There is biliary prominence which can be seen status post cholecystectomy. A pancreatic head calcification is suggestive of prior pancreatitis. There is a subcentimeter hypodensity in the right kidney that is too small to characterize by CT size criteria. There is colonic diverticulosis without evidence of acute inflammation. Otherwise, the adrenal glands, kidneys, and bowel loops, including the appendix, are unremarkable. There is no mesenteric or retroperitoneal lymphadenopathy. Pelvis: The bladder and rectum are unremarkable. There is no iliac or inguinal lymphadenopathy. The uterus is present. There are calcified uterine fibroids. The ovaries appear within normal limits by CT. There is advanced atherosclerotic disease. Bone windows show no aggressive osseous lesions. CT/CT abdomen pelvis w con IMPRESSION: 1. No specific etiology identified to explain the patient's abdominal pain. 2. Status post cholecystectomy. 3. Colonic diverticulosis without evidence of acute inflammation. 4. Normal appendix. 5. Small calcified uterine fibroids. Electronically authenticated by: Toña DUPONT Date: 05/27/2024 01:51
[2024-05-27 00:11] LABS: INR 0.99; Partial Thromboplastin Time 24.2 sec (22.3-36.2); Prothrombin Time 10.5 sec (9.0-11.6)
[2024-05-27 00:12] LABS: Alanine Aminotransferase 18 U/L (14-59); Albumin Globulin Ratio 0.8; Albumin Level 3.4 g/dL (3.4-5.0); Alkaline Phosphatase 86 U/L (46-116); Aspartate Amino Transferase 14 U/L (15-37); BUN Creatinine Ratio 17.3; Bilirubin Total 0.4 mg/dL (0.2-1.0); Calcium 9.7 mg/dL (8.5-10.1); Carbon Dioxide 29.5 mmol/L (21.0-32.0); Chloride 103 mmol/L (98-107); Estimated GFR (African America >60 (>=60 mL/min/1.73m^2); Estimated GFR (Non-African Ame 52 (>=60 mL/min/1.73m^2); Globulin 4.2 g/dL; Glucose 88 mg/dL (74-106); Sodium 141 mmol/L (136-145); Total Protein 7.6 g/dL (6.4-8.2)
[2024-05-27 00:22] LABS: Anion Gap 11.5
--- NOTE | 2024-05-27 00:59 | ED_ITS ---
HPI HPI - General Adult General Chief complaint: Chest Pain Stated complaint: chest pain Time Seen by Provider: 05/26/24 23:25 Source: patient Mode of arrival: walk-in Limitations: no limitations History of Present Illness HPI narrative: 73-year-old female to the emergency department with chief complaint of cough, patient reports symptoms have been ongoing since February. She reports that they became worse overnight tonight. Currently she had some discomfort across her upper chest which she had not experienced this strongly. She denies any fever, sweats, chills. The cough is dry. She denies any leg swelling. No history of DVT or PE. She reports that history of mild asthma. She denies COPD or tobacco use. She reports she has a history of a hiatal hernia. Her primary care doctor had ordered a CT scan of her chest abdomen pelvis to be done on Tuesday out of concern that her hiatal hernia may be worse and causing her symptoms. Related Data Home Medications ?Medication ?Instructions ?Recorded ?Confirmed amlodipine 10 mg tablet 10 mg PO DAILY 05/26/24 05/26/24 carvedilol 6.25 mg tablet 6.25 mg PO BID 05/26/24 05/26/24 glipizide 5 mg tablet 5 mg PO DAILY 05/26/24 05/26/24 hydrochlorothiazide 25 mg tablet 25 mg PO DAILY 05/26/24 05/26/24 levothyroxine 75 mcg tablet 75 mcg PO DAILY 05/26/24 05/26/24 (Synthroid) pantoprazole 40 mg tablet,delayed 40 mg PO DAILY 05/26/24 05/26/24 release potassium chloride 20 mEq 20 meq PO DAILY 05/26/24 05/26/24 tablet,extended release(part/cryst) (Klor-Con M) Previous Rx's ?Medication ?Instructions ?Recorded prednisone 20 mg tablet 60 mg (3 x 20 mg) PO DAILY 5 days 05/27/24 #15 tabs Allergies Allergy/AdvReac Type Severity Reaction Status Date / Time ciprofloxacin (From Cipro) Allergy Intermediate Joint Pain Verified 05/26/24 23:30 morphine Allergy Intermediate Vomiting Verified 05/26/24 23:30 amoxicillin Allergy Mild Rash Verified 05/26/24 23:30 sulfamethoxazole (From Allergy Mild Rash Verified 05/26/24 23:30 Bactrim) trimethoprim (From Bactrim) Allergy Mild Rash Verified 05/26/24 23:30 Opioid HPI Opioid Management Most Recent Opioid Data: Last Pain Scale 8 05/26/24 23:54 05/26/24 Review of Systems ROS Status of ROS 10 or more systems reviewed and unremark able except as noted in history and below PFSH PFSH Social History Little interest or pleasure in doing things: not at all Feeling down, depressed, or hopeless: not at all Exam Narrative Exam Narrative: VITALS: I have reviewed the triage vital signs. GENERAL: Well developed, well appearing adult in no acute distress. NEURO: Alert and oriented. Moves all extremities. Face is symmetric and expressive. EYES: PERRL. No scleral icterus or conjunctival injection. No discharge. HENT: Normocephalic, atraumatic. Hearing is grossly intact. Nares grossly patent and without discharge. Mucous membranes moist. NECK: No JVD. Patient moves neck without restriction. CARDIO: Rhythm regular. Normal rate. No murmur, rub, or gallop. Pulses equal bilaterally in the upper and lower extremity. No lower extremity edema. PULM: Trace wheezing. No conversational dyspnea. No splinting, stridor, or accessory muscle use. GI/: Abdomen is soft and non-tender. Normoactive bowel sounds. EXTREMITIES: Symmetric muscle bulk. No joint swelling. No clubbing, cyanosis, or deformity. SKIN: Warm and dry. Normal turgor. No rash or lesions appreciated. PSYCH: Mood, affect, and interaction is appropriate to the setting. Constitutional Vital Signs, click to edit/add: Last Vital Signs Temp 98.2 F 05/26/24 23:30 Pulse 71 05/27/24 02:40 Resp 15 05/27/24 02:40 BP 125/76 05/27/24 01:30 Pulse Ox 95 05/27/24 02:40 O2 Del Method Room Air 05/26/24 23:56 Course Vital Signs Vital signs: Vital Signs Temperature 98.2 F 05/26/24 23:30 Pulse Rate 77 05/26/24 23:30 Respiratory Rate 16 05/26/24 23:30 Blood Pressure 167/88 H 05/26/24 23:30 Pulse Oximetry 96 05/26/24 23:30 Oxygen Delivery Method Room Air 05/26/24 23:30 Temperature 98.2 F 05/26/24 23:30 Pulse Rate 71 05/27/24 02:40 Respiratory Rate 15 05/27/24 02:40 Blood Pressure 125/76 05/27/24 01:30 Pulse Oximetry 95 05/27/24 02:40 Oxygen Delivery Method Room Air 05/26/24 23:56 Medical Decision Making MDM Narrative Medical decision making narrative: 73-year-old female to the emergency department with chief complaint of cough and chest pain. Vital stable, the patient is afebrile. Given the worsening symptoms tonight will order the scans ordered by her primary care physician. Cardiac workup. Patient agrees with this plan. CBC and chemistry without major abnormality. Her initial troponin is negative. EKG without evidence of ischemia. CT scan chest abdomen pelvis reviewed. She has a small hiatal hernia. Pulmonary nodules incidental. There is a right glenohumeral effusion noted, does not correlate clinically with any findings. Findings were reviewed with the patient. She is informed of the pulmonary nodules and need for follow-up with her primary care doctor. She had no desaturation events during her ED stay. She had no further chest pain. Her second troponin is negative. She is low risk by heart score. She is appropriate for discharge home. Given recent URI symptoms and now recurrence of shortness of breath and wheezing I believe this likely represents bronchitis/asthma exacerbation. She has albuterol at home which she is already using that is helpful. Will prescribe prednisone. She will follow-up with her primary care doctor. Return precautions were discussed. All questions were answered. Patient was discharged home. Heart Score for Major Cardiac Event History: Example factors for history - pattern of chest pain, onset, duration, relation with exercise, stress or cold, localization, concomitant symptoms. reaction to sublingual nitrates, [] Highly suspicious +2 [] Moderately suspicious +1 [x] Slightly suspicious 0 EKG: [] Significant ST-Depression +2 [] Non specific repolarization disturbance +1 [x] Normal 0 Age: [x] >= 65 +2 [] 45-65 + 1 [] <45 0 Risk Factors: (HLD, HTN, DM, Cigarette Smoking, Pos Family Hx, Obesity) [] >3 risk factors or hx of atherosclerotic disease + 2 [x] 1-2 risk factors + 1 [] No risk factors known 0 Troponin: [] >= 3X normal + 2 [] 1-3X normal + 1 [x] <= Normal 0 [x] 0-3 Points 0.9 - 1.7% risk of major adverse cardiac event in 6 weeks [] 4-6 Points 12-16.6% risk of major adverse cardiac event in 6 weeks [] 7-10 Points 50-65% risk of major adverse cardiac event in 6 weeks [x] 0-3 Points with 2 sets of negative cardiac markers <1% risk of major adverse cardiac event in 30 days. Medical Records Medical records reviewed: Yes I reviewed the patient's medical records Lab Data Lab results reviewed: Yes I reviewed the patient's lab results Labs: Lab Results 05/26/24 05/27/24 Range/Units 23:45 01:47 WBC 11.9 H (4.0-11.0) 10^3/uL RBC 4.79 (4.20-5.40) 10^6/uL Hgb 14.2 (12.0-16.0) g/dL Hct 42.5 (36.0-48.0) % MCV 88.7 (81.0-99.0) fL MCH 29.6 (26.7-34.0) pg MCHC 33.4 (29.9-35.2) g/dL RDW 12.5 (11.0-15.0) % Plt Count 221 (150-450) 10^3/uL MPV 11.3 (9.5-13.5) fL Neut % (Auto) 52.8 (43.0-75.0) % Lymph % (Auto) 33.3 (20.5-60.0) % Charlton % (Auto) 8.7 (1.7-12.0) % Eos % (Auto) 4.1 (0.9-7.0) % Baso % (Auto) 0.8 (0.2-2.0) % Neut # (Auto) 6.3 (1.4-6.5) 10^3/uL Lymph # (Auto) 4.0 H (1.2-3.8) 10^3/uL Charlton # (Auto) 1.0 H (0.3-0.8) 10^3/uL Eos # (Auto) 0.5 (0.0-0.7) 10^3/uL Baso # (Auto) 0.1 (0.0-0.1) 10^3/uL Abs Immat Gran (auto) 0.03 (0.00-0.03) 10^3/uL Imm/Tot Granulo (auto) 0.3 (0.0-0.5) % PT 10.5 (9.0-11.6) sec INR 0.99 APTT 24.2 (22.3-36.2) sec Sodium 141 (136-145) mmol/L Potassium 3.0 L (3.5-5.1) mmol/L Chloride 103 (98-107) mmol/L Carbon Dioxide 29.5 (21.0-32.0) mmol/L Anion Gap 11.5 BUN 18.0 (7.0-18.0) mg/dL Creatinine 1.04 H (0.55-1.02) mg/dL Est GFR ( Amer) >60 (>=60 mL/min/1.73m^2) Est GFR (Non-Af Amer) 52 L (>=60 mL/min/1.73m^2) BUN/Creatinine Ratio 17.3 Glucose 88 (74-106) mg/dL Calcium 9.7 (8.5-10.1) mg/dL Total Bilirubin 0.4 (0.2-1.0) mg/dL AST 14 L (15-37) U/L ALT 18 (14-59) U/L Alkaline Phosphatase 86 (46-116) U/L Troponin I High Sens 6.0 6.7 (4.0-51.3) pg/mL Total Protein 7.6 (6.4-8.2) g/dL Albumin 3.4 (3.4-5.0) g/dL Globulin 4.2 g/dL Albumin/Globulin Ratio 0.[address] scan - abdomen: Attestation: I have reviewed the pertinent imaging results. Radiologist's impression: ITS Impressions Abdomen/Pelvis CT 05/27/24 00:02 IMPRESSION: 1. No specific etiology identified to explain the patient's abdominal pain. 2. Status post cholecystectomy. 3. Colonic diverticulosis without evidence of acute inflammation. 4. Normal appendix. 5. Small calcified uterine fibroids. Electronically authenticated by: Toña DUPONT Date: 05/27/2024 01:[address] 05/27/24 00:02 IMPRESSION: 1. No acute cardiopulmonary abnormality. 2. There are a few pulmonary nodules measuring up to 0.5 cm. Recommend follow-up according to Fleischner Society guidelines: An optional CT of the chest in one year if the patient is high risk. 3. Right glenohumeral joint effusion. Electronically authenticated by: Toña DUPONT Date: 05/27/2024 01:45 ECG Data Attestation: I personally reviewed and interpreted this ECG as follows: (Normal sinus rhythm at a rate of 74. No STEMI. Normal QTc.) Discharge Plan Discharge Chief Complaint: Chest Pain Clinical Impression: Bronchitis, Incidental pulmonary nodule, Hernia, hiatal Patient Disposition: Home, Self-Care Time of Disposition Decision: 03:00 Condition: Good Mode of Transportation: Private Vehicle Prescriptions / Home Meds: New prednisone 20 mg tablet 60 mg PO DAILY 5 Days Qty: 15 0RF No Action amlodipine 10 mg tablet 10 mg PO DAILY carvedilol 6.25 mg tablet 6.25 mg PO BID glipizide 5 mg tablet 5 mg PO DAILY hydrochlorothiazide 25 mg tablet 25 mg PO DAILY levothyroxine [Synthroid] 75 mcg tablet 75 mcg PO DAILY potassium chloride [Klor-Con M20] 20 mEq tablet,ER particles/crystals 20 meq PO DAILY pantoprazole 40 mg tablet,delayed release (DR/EC) 40 mg PO DAILY Print Language: Cymro Instructions: Acute Bronchitis (ED), Pulmonary Nodules (ED) Additional Instructions: Call the office of your primary care doctor to arrange for follow-up within the above-stated timeframe. Your ED visit was focused on your acute issue and does not replace primary care. You should review your labs, imaging, and diagnoses from this ED visit with your primary care physician. There may be non-emergent/ incidental findings that need further evaluation. You should review your vital signs including blood pressure with your PCP. If you were prescribed medications you should discuss possible side-effects and drug interactions with your pharmacist. Call 911 or go to the nearest Emergency Department if you develop any new or worsening symptoms. Seek immediate medical attention if you develop: worsening shortness of breath, difficulty breathing, chest pain, nausea, vomiting, weakness, numbness, tingling, excessive sweating, loss of motion in your arms or legs, or any new or worsening symptoms. Referrals: Damaris Cagle MD [Primary Care Provider] - 1 week
[2024-05-27 02:15] LABS: Troponin I High Sensitivity 6.7 pg/mL (4.0-51.3)
[2024-05-27] MEDS: PREDNISONE 20 MG TABLET 60 MG PO (03:06)
== END 2024-05-27 03:12 | disposition home or self-care (01) ==
PROVIDERS: Emergency Provider Student in an Organized Health Care Education/Training Program; PCP Family Medicine
DX: J40 Bronchitis, not specified as acute or chronic (principal); K44.9 Diaphragmatic hernia without obstruction or gangrene; R91.8 Other nonspecific abnormal finding of lung field
CPT/HCPCS: 36415; 71260; 74177; 80053; 84484; 85025; 85610; 85730; 93005; 99285; J7512; Q9967

== ENCOUNTER 2024-09-04 11:30 | Outpatient (OUT) | payer MEDICARE, SELFPAY ==
--- NOTE | 2024-09-04 11:38 | XR_ITS ---
The [address] [address] Patient Name: GUANACO HAGAN MRN: [id number] date: 1950 Sex: F Assigned Patient Location: [facility] Current Patient Location: [facility] Accession/Order Number: [id number] Exam Date: 09/04/2024 12:06 Report Date: 09/04/2024 12:08 At the request of: DASIA BEDOYA Procedure: XR chest 2V PA AND LATERAL CHEST: CLINICAL HISTORY: Chronic Cough, Dyspnea, Mild Intermittent Asthma COMPARISON: 06/20/2023 and 02/13/2021 There is no focal parenchymal consolidation, effusion or pneumothorax. The cardiac, hilar and mediastinal silhouettes are within normal limits. There is no vascular congestion. The visualized bony thorax is intact. Mild degenerative change is seen at the spine. XR/XR chest 2V IMPRESSION: NO ACUTE CARDIOPULMONARY ABNORMALITY. Impression dictated by: Celina Colorado M.D.09/04/2024 12:08 PM Dictation Location: [place] [address] Electronically authenticated by: [id number] Y Date: 09/04/2024 12:08
== END 2024-09-04 11:31 | disposition home or self-care (01) ==
LOC: RAD 11:33
PROVIDERS: PCP Family Medicine; Visit Provider Nurse Practitioner Family
DX: R05.3 Chronic cough (principal); R06.00 Dyspnea, unspecified; R06.89 Other abnormalities of breathing; J45.20 Mild intermittent asthma, uncomplicated
CPT/HCPCS: 71046

== ENCOUNTER 2024-09-06 09:57 | Outpatient (OUT) | payer MEDICARE, SELFPAY ==
--- NOTE | 2024-09-06 10:06 | US_ITS ---
The [address] [address] Patient Name: GUANACO HAGAN MRN: [id number] date: 1950 Sex: F Assigned Patient Location: US Current Patient Location: US Accession/Order Number: [id number] Exam Date: 09/06/2024 12:28 Report Date: 09/06/2024 12:32 At the request of: DASIA BEDOYA Procedure: US right upper quadrant LIMITED RIGHT UPPER QUADRANT ABDOMINAL ULTRASOUND CLINICAL HISTORY: Abdominal Bloating, Right Upper Quadrant Pain, Dyspepsia. Prior cholecystectomy COMPARISON: CT 05/27/2024 The gallbladder is surgically absent. No intrahepatic biliary dilatation is evident. The common duct remains prominent measuring 9 - 10 mm in diameter. No filling defects are visualized in the segment that is imaged. The liver is heterogeneous. No focal intrahepatic masses are seen. There is appropriate hepatopetal flow within the main portal vein. The pancreas shows no significant sonographic abnormality. Cursory evaluation of the right kidney reveals no hydronephrosis or fluid within Sher's pouch. US/US right upper quadrant IMPRESSION: CONTINUED COMMON DUCT DILATATION. THIS MAY RELATE TO PREVIOUS CHOLECYSTECTOMY. MILDLY HETEROGENEOUS LIVER, WITHOUT FOCAL ABNORMALITY. Impression dictated by: Celina Colorado M.D.09/06/2024 12:32 PM Dictation Location: [place] [address] Electronically authenticated by: [id number] Y Date: 09/06/2024 12:32
== END 2024-09-06 09:58 | disposition home or self-care (01) ==
LOC: US 09:57
PROVIDERS: PCP Family Medicine; Visit Provider Nurse Practitioner Family
DX: R14.0 Abdominal distension (gaseous) (principal); R10.11 Right upper quadrant pain; R10.12 Left upper quadrant pain; R10.13 Epigastric pain
CPT/HCPCS: 76705

== ENCOUNTER 2024-10-09 13:00 | Outpatient (OUT) | payer MEDICARE, SELFPAY ==
--- NOTE | 2024-10-09 13:10 | MR_ITS ---
The [address] [address] Patient Name: GUANACO HAGAN MRN: [id number] date: 1950 Sex: F Assigned Patient Location: LAB Current Patient Location: LAB Accession/Order Number: [id number] Exam Date: 10/09/2024 15:50 Report Date: 10/09/2024 15:53 At the request of: SHASHI PATTERSON Procedure: MR head/brain wo/w con MRI of the brain with and without IV contrast. Reason for exam: MS follow-up. COMPARISON: MRI brain 04/07/2023. TECHNIQUE: Multisequence, multiplanar imaging of the brain was performed before and after the use of IV contrast. FINDINGS: No evidence of restriction diffusion is an diffusion-weighted imaging. No evidence of blood products are seen on T2 Star imaging. The degree of white matter disease appears grossly similar in distribution to the prior study posterior fossa appears unremarkable. Intraorbital contents demonstrate no acute process. Presumed cataract surgery left globe. Mild maxillary sinus disease.Postcontrast images demonstrate no abnormal enhancement to suggest active demyelination. MR/MR head/brain wo/w con Impression: No significant change in brain findings compared to the 2022 study. No abnormal enhancement or restricted diffusion is seen to suggest active demyelination. Impression dictated by: Arjun García Jr., D.O. 10/09/2024 3:53 PM Dictation Location: [place] [address] Electronically authenticated by: [id number] Y Date: 10/09/2024 15:53
--- NOTE | 2024-10-09 13:11 | MR_ITS ---
The [address] [address] Patient Name: GUANACO HAGAN MRN: [id number] date: 1950 Sex: F Assigned Patient Location: LAB Current Patient Location: LAB Accession/Order Number: [id number] Exam Date: 10/09/2024 15:59 Report Date: 10/09/2024 16:05 At the request of: SHASHI PATTERSON Procedure: MR cervical spine wo/w con EXAMINATION: MRI C-SPINE WITH AND WITHOUT IV CONTRAST CLINICAL HISTORY: Multiple Sclerosis COMPARISON: None TECHNIQUE: Multiecho imaging was performed in the sagittal and axial planes with and without contrast administration. FINDINGS: Vertebral body heights appear maintained. No bone marrow edema. Cervicomedullary junction appears normal. No abnormal cord signal or enhancement is seen to suggest active demyelination. No paraspinal mass. No prevertebral soft tissue swelling. At C2-3: No posterior disc pathology. No neural canal or foraminal stenosis. At C3-4: Disc osteophyte complex present causing no significant canal and mild bilateral neural foraminal stenosis. At C4-5: Disc osteophyte complex present causing mild canal and bilateral neural foraminal stenosis. At C5-6: Disc osteophyte complex present causing moderate canal and bilateral neural foraminal stenosis. 2 mm retrolisthesis. At C6-7: 3 mm of anterolisthesis. This osteophyte complex present causing mild canal and bilateral neural foraminal stenosis. At C7-T1: No posterior disc pathology. No neural canal or foraminal stenosis. MR/MR cervical spine wo/w con IMPRESSION: Multilevel degenerative disc disease as described above, worst at C5-6. No active demyelinating process is seen involving the cervical spine. Impression dictated by: Arjun García Jr., D.O. 10/09/2024 4:05 PM Dictation Location: [place] [address] Electronically authenticated by: [id number] Y Date: 10/09/2024 16:05
[2024-10-09 13:16] LABS: Estimated GFR (African America >60 (>=60 mL/min/1.73m^2); Estimated GFR (Non-African Ame 55 (>=60 mL/min/1.73m^2)
== END 2024-10-09 13:01 | disposition home or self-care (01) ==
LOC: LAB 13:00
PROVIDERS: PCP Family Medicine; Visit Provider Physician Assistant
DX: G35 Multiple sclerosis (principal); M50.30 Other cervical disc degeneration, unspecified cervical region
CPT/HCPCS: 36415; 70553; 72156; 82565; A9575

== ENCOUNTER 2024-10-10 13:19 | Outpatient (OUT) | payer MEDICARE, SELFPAY ==
--- NOTE | 2024-10-10 13:22 | MR_ITS ---
The [address] [address] Patient Name: GUANACO HAGAN MRN: [facility]:[id number] date: 1950 Sex: F Assigned Patient Location: MRI Current Patient Location: MRI Accession/Order Number: [id number] Exam Date: 10/10/2024 15:33 Report Date: 10/10/2024 15:35 At the request of: SHASHI PATTERSON Procedure: MR thoracic spine wo/w con MRI of the thoracic spine with and without IV contrast. Reason for exam: Multiple sclerosis. COMPARISON: None. TECHNIQUE: Multisequence, multiplanar imaging of the thoracic spine was obtained before and after the use of IV contrast. FINDINGS: Vertebral body heights appear maintained. No bone marrow edema is present. No significant posterior disc pathology is seen. No significant canal stenosis. Spinal cord appears normal in signal without abnormal enhancement to suggest an active demyelinating process. No paraspinal mass is seen. MR/MR thoracic spine wo/w con IMPRESSION: No MRI evidence of active demyelinating process involving the spinal cord. Impression dictated by: Arjun Garíca Jr., DKayOKay 10/10/2024 3:35 PM Dictation Location: [place] [address] Electronically authenticated by: [id number] Y Date: 10/10/2024 15:35
== END 2024-10-10 13:20 | disposition home or self-care (01) ==
LOC: MRI 13:19
PROVIDERS: PCP Family Medicine; Visit Provider Physician Assistant
DX: G35 Multiple sclerosis (principal)
CPT/HCPCS: 72157; A9575

== ENCOUNTER 2024-12-04 09:34 | Outpatient (OUT) | payer MEDICARE, SELFPAY ==
[2024-12-04 10:09] LABS: Hematocrit 43.8 % (36.0-48.0); Hemoglobin 14.4 g/dL (12.0-16.0); Immature Granulocytes Abs Auto 0.01 10^3/uL (0.00-0.03); Immature Granulocytes Pct Auto 0.1 % (0.0-0.5); Lymphocytes Absolute Auto 2.1 10^3/uL (1.2-3.8); Mean Corpuscular HGB Conc 32.9 g/dL (29.9-35.2); Mean Corpuscular Hemoglobin 29.4 pg (26.7-34.0); Mean Corpuscular Volume 89.6 fL (81.0-99.0); Platelet Count 224 10^3/uL (150-450); Red Blood Count 4.89 10^6/uL (4.20-5.40); White Blood Count 8.3 10^3/uL (4.0-11.0)
[2024-12-04 11:00] LABS: Alanine Aminotransferase 25 U/L (14-59); Albumin Globulin Ratio 0.8; Albumin Level 3.4 g/dL (3.4-5.0); Alkaline Phosphatase 87 U/L (46-116); Anion Gap 9.8; Aspartate Amino Transferase 18 U/L (15-37); Blood Urea Nitrogen 17.0 mg/dL (7.0-18.0); Calcium 9.9 mg/dL (8.5-10.1); Carbon Dioxide 32.4 mmol/L (21.0-32.0); Chloride 102 mmol/L (98-107); Cholesterol 193 mg/dL (<=200); Estimated GFR (African America >60 (>=60 mL/min/1.73m^2); Estimated GFR (Non-African Ame >60 (>=60 mL/min/1.73m^2); Globulin 4.2 g/dL; Glucose 138 mg/dL (74-106); HDL Cholesterol 58 mg/dL (40-60); Magnesium 1.6 mg/dL (1.8-2.4); Potassium 3.2 mmol/L (3.5-5.1); Sodium 141 mmol/L (136-145); Thyroid Stimulating Hormone 1.516 uIU/mL (0.358-3.740); Total Protein 7.6 g/dL (6.4-8.2); Triglycerides 140 mg/dL (<=150); VLDL CHOLESTEROL 28.0 mg/dL
== END 2024-12-04 09:35 | disposition home or self-care (01) ==
LOC: LAB 09:38
PROVIDERS: PCP Family Medicine; Visit Provider Family Medicine
DX: Z00.00 Encounter for general adult medical examination without abnormal findings (principal); K21.9 Gastro-esophageal reflux disease without esophagitis; E78.5 Hyperlipidemia, unspecified; I10 Essential (primary) hypertension; M85.80 Other specified disorders of bone density and structure, unspecified site; E11.65 Type 2 diabetes mellitus with hyperglycemia
CPT/HCPCS: 36415; 80053; 80061; 82043; 82570; 83036; 83735; 84439; 84443; 85025

== ENCOUNTER 2025-04-21 09:20 | Emergency (ER) | payer MEDICARE, SELFPAY ==
--- OUTSIDE RECORDS SUMMARY | 2025-04-10 05:25 | XMS_ITS | Continuity of Care Document ---
Author Organization [facility] Address [address] [place] [address] Phone Care Team Providers Care Boiler Out Name Role Phone Damaris Cagle MD Primary Care Provider Damaris Cagle MD Attending Provider Care Teams Patient Care Team Team Status: Active Member Role/Relationship Status Dates Damaris Cagle MD Primary Care Provider Active Patient Care Team Team Status: Inactive Member Role/Relationship Status Dates Damaris Cagle MD Primary Care Provider Active Start: April 10, 2025 End: April 10, 2025Damaris Cagle MDAttending ProviderActiveStart: April 10, 2025 End: April 10, 2025 Chief Complaint and Reason for Visit Chief Complaint Admit Date Flu Shot April 10, 2025 1 0:13am Allergies, Adverse Reactions, Alerts Allergen Type Severity Reaction Last Updated Verified Status Comments amoxicillin Allergy Unknown Rash December 03 12:03pm Yes Active cefdinirAllergyUnknownHivesJune 2024 12:03pmYesActiveciprofloxacinAllergy UnknownJoint Pain, Comment:tendons ache, tendons/acheJune 2024 12:03pmYes Activetendons/acheclindamycinAllergyUnknownHivesJune 2024 12:03pmYesActive doxycyclineAllergyUnknownHeadache, Comment:heart burnJune 2024 12:03pmYes ActivemorphineAllergyUnknownGastrointestinal Upset, stomach painJune 2024 12:03pmYesActivestomach painniacinAllergyUnknownHivesJune 2024 12:03pmYes ActivesulfamethoxazoleAllergyUnknownRashJune 2024 12:03pmYesActive trimethoprimAllergyUnknownRashJune 2024 12:15dnLkrQjtiua45 Hour DecongestantAllergyUnknownHivesMay 2023 12:27pmNoActive Social History Smoking Status Status Start Date End Date Date of Observa tion Never smoked tobacco (finding) November 26, 2024 9:55am Observation Status Observation Response Date of Response Legal Sex [facility] (finding) [facility] 1950 Family History Relationship Condition Age at Onset Recorded Date/T bill father Hypertension Unknown DeceasedUnknowngrandparentDeceasedUnknownMalignant neoplasmUnknowngrandparent Heart diseaseUnknownDeceasedUnknowngrandparentDeceasedUnknownHeart disease UnknowngrandparentDeceasedUnknownMalignant neoplasmUnknownmotherHeart disease UnknownDeceasedUnknown Problems Active Problems Problem Diagnosis/Recorded Date Onset Date Status C omments LUQ abdominal pain May 21, 2024 2:56pm Unknown A ctive RUQ abdominal painDecember 2023 2:55pmUnknownActiveSpasm of thoracolumbar muscleMay 2023 12:58pmUnknownActiveMedicare annual wellness visit, subsequentJune 2024 12:43pmUnknownActiveEncounter for immunizationOctober 2023 1:32pmUnknownActiveType 2 diabetes mellitus with hyperglycemiaJune 2024 12:43pmUnknownActiveMild intermittent asthma, uncomplicatedMay 2023 2:46pmUnknownActiveDyspnea and respiratory abnormalitiesDecember 2023 2:55pmUnknownActiveChronic coughDecember 2023 2:55pmUnknownActiveDysphagia October 01, 2024 12:38pmUnknownActiveDyspepsiaFebruary 2024 1:39pmUnknown ActiveHyperglycemia, unspecifiedMay 2023 2:46pmJune , 2015Active Hyperlipidemia, unspecifiedMay 2023 2:46pmAugust , 2014Active OsteopeniaJune 2024 12:43pmUnknownActiveAbdominal bloatingDecember 2023 2:55pmUnknownActiveMultiple sclerosisMay 2023 2:46pmUnknownActiveGERD (gastroesophageal reflux disease)October 01, 2024 12:38pmUnknownActiveBronchitis December 07, 2023 12:47pmUnknownActiveHTN (hypertension)August 26, 2021 5:39pm UnknownActiveProblem List clean-up per request of Phys. EHR Cmte Inactive/Resolved Problems Problem Diagnosis/Recorded Date Onset Date Status C omments Elevated blood pressure reading August 26, 2021 8:44pm Unknown Resolved Problem List clean-up per request of Phys. EHR Cmte Back pain August 26, 2021 8:44pm Unknown Resolved P roblem List clean-up per request of Phys. EHR Cmte Cephalgia August 26, 2021 8:44pm Unknown Resolved P roblem List clean-up per request of Phys. EHR Cmte Chest pain August 26, 2021 8:44pm Unknown Resolved P roblem List clean-up per request of Phys. EHR Cmte Medications Medication Status Dose Units Route Directions Qty Days Refills S tart Date Stop Date End Date Reason(s) Instructions Adherence Levothyroxine 75 mcg tablet Discontinued 75 MCG PO daily 30 2May 2023 11:00pmJuly 2023 3:27pmLevothyroxine 75 mcg tablet Kosuxchjvcru40BEBOAbodur960Ykda 2023 3:26pmJuly 2023 9:30am Levothyroxine 75 mcg ephjoqSabtgjezwyvm05EMZMLfvrci501Ffuf 2023 9:30am June 14, 2024 12:40pmPotassium Chloride 20 mEq tablet,ER particles/crystals Xlhpzfaryqsp44LEZVDOhaje907Fwfofs 20th, 2024 9:07amAugust 2024 7:34am Hydrochlorothiazide 25 mg tabletDiscontinued0.ROUTE.SZTVUBC995Yeygoc2023 10:11amAugust 2024 7:34amTAKE 1 TABLET DAILYGlipizide 5 mg tablet Discontinued0.ROUTE.TWQGDWZ745Swnrphtb2023 2:06pmSeptember 2024 12:08pmTAKE 1 TABLET 30 MINUTES BEFORE BREAKFAST ONCE DAILYAmlodipine 10 mg tabletActive0.ROUTE.NLMEMYK344KgijprcnApril 17, 2024 2:06pmTAKE 1 TABLET DAILY UnknownCarvedilol 6.25 mg tabletActive0.ROUTE.STECREQ8219Qlesolxg2023 2:06pmTAKE 1 TABLET TWICE A DAYUnknownLevothyroxine 75 mcg uoailsEmxpzxpnmhwy10 BAYRXphmec870Dpzhxlg 2024 12:40pmJanuary 2024 11:50amLevothyroxine 75 mcg ocjqxbKuhdymnobasd74RBMXScqjjb387Rhsqrrb 2024 11:50amMay 2024 11:32amAlbuterol Sulfate 90 mcg/actuation HFA aerosol kagzjkoSiaeoiwygzdq3VUJU INHALATIONEvery 4 hours as needed for shortness of breath or wheezing6.72March 2024 3:07pmMarch 2024 9:06amAzithromycin 250 mg tabletDiscontinued0 OFctfcp032[place] 2024 3:07pmApril 2024 10:04amBronchitis Bronchitis, not specified as acute or chronicTake 2 on day 1 and then take 1 for the next 4 days (days 2-5)Albuterol Sulfate 90 mcg/actuation HFA aerosol inhaler Wwerde9NTNSMGICSTZWDKPyuwd 4 hours as needed for shortness of breath or wheezing 6.72March 2024 9:06amUnknownMethylprednisolone (Medrol (Lv)) 4 mg tablets,dose wgnzPradtxzkipay7USquc package tplhtsefbi331Qbnuv 2024 11:00pm September 10, 2024 10:01amChronic cough Chronic coughPO PER PKG DIRMethylprednisolone (Medrol (Lv)) 4 mg tablets,dose xrsnBpvtebuheqzl5ISwrq package krajgclnay495Qucwo 2024 10:00amApril 2024 11:59amChronic cough Chronic coughPO PER PKG DIRLevothyroxine 75 mcg ntaglwOetnft14OXCOIslien382Ewb 2024 11:32amUnknownOmeprazole 40 mg capsule,delayed release(DR/EC) Mhbkacrskouo71FVLNIohpt yodhx654559Eqct 2024 11:00pmJune 2024 12:06pm Take 1 capsule orally 30 minutes before morning meal and 30 minutes before evening meal.Potassium Chloride 20 mEq tablet,ER particles/spyrmybdFsxmfp74XCERG Sgwyr096Gbtdhg2024 7:34amUnknownHydrochlorothiazide 25 mg tabletActive0 .ROUTE.QCKIPWQ051Leezem 2024 7:34amTAKE 1 TABLET DAILYUnknownGlipizide 5 mg tabletActive0.ROUTE.WYYBHTU007Qofjewhik 30th, 2025 12:08pmTAKE 1 TABLET 30 MINUTES BEFORE BREAKFAST ONCE DAILYUnknownCyanocobalamin (Vitamin B-12) (Vitamin B-12) 1,000 mcg oocvtcYcucsy1462IADYC.QODOctober 29, 2024 11:00pmUnknown Cholecalciferol (Vitamin D3) (Vitamin D3) 25 mcg (1,000 unit) tadryjsMvivfq47UCS PO.qodOctober 29, 2024 11:00pmUnknownCarvedilol 6.25 mg zbrwwqHsyfjssgragv3KDVUU Twice dailyFebruary 2017 12:00amNovember 2023 2:07pmAmlodipine 10 mg vagzbeJqhgnphqvaln9RJIWNMywgfUkltaloa 2017 12:00amNovember 2023 2:07pmHydrochlorothiazide 25 mg wzdalzOtqcvmvvmeya0CBTEFNwgsrDtkuovdf 2017 12:00amA2023 10:11amAspirin 81 mg Tablet,DbghljeyXvgidnuldnnr5ONFXH DailyFebruary 2017 12:00amMa2023 12:29pmMometasone (Asmanex Hfa) 100 mcg/actuation Hfa Aerosol InhalerDiscontinuedFebruary 2017 12:00am August 26, 2021 8:40gtYoeszqkitns-Eawnreuea-Zmbmtqyl (Trelegy Ellipta) 100-62.5-25 mcg blister with fklpwoDzgfqjvdgdut8LTVOXUSUXXPIPPdgij507Opdhqemh 5th, 2024 12:00amDecember 2023 3:06pm2 samples givenMethylprednisolone (Medrol (Lv)) 4 mg tablets,dose wvckLnrjbzljemkd7NHxjo package sapstqvoiq722 April 10, 2024 11:34amDecember 2023 3:06pmBronchitis Bronchitis, not specified as acute or chronicPO PER PKG DIRLansoprazole (Prevacid) 30 mg capsule,delayed release(DR/EC)Zrsyyq13XOECTbifr52686Ihkfkvny 2024 12:00amUnknownAlbuterol Sulfate 90 mcg/actuation HFA aerosol inhaler Yvwgqudnsyme6WUYYBZYYKBTDBOYustc 4 hours as neededy 2023 11:00pmJuly 2023 2:01pmMometasone (Asmanex Hfa) 200 mcg/actuation HFA aerosol inhaler Hqqeaindnwfg0HMRNZKFIWGQRALFzmef dailyMay 2023 11:00pmMay 2023 12:30pmGlipizide 5 mg jjqnanUhciprpdqmrk4YWDUTccimYix 2023 11:00pmNovember 2023 2:07pmPotassium Chloride 20 mEq tablet,ER particles/crystals Feivdusxjjis58ZGAXVMvbgxEjq 2023 11:00pmAugust 2023 9:07am Pantoprazole 40 mg tablet,delayed release (DR/EC)Fxtlcrhpspxq50OZHIEpsaoHjy 2023 11:00pmMay 2023 12:30pmPrednisone 20 mg teprmwMnlmyvtqcirt55WB POTwice krvwe825Cfhv 2023 11:00pmOctober 2023 9:52amAlbuterol Sulfate 90 mcg/actuation HFA aerosol ztcuxsuKtbtugrjfked5ZYLELCMWXANPPLNlsvd 4 hours as needed for shortness of breath or wheezing6.70July 2023 2:00pmMarch 2024 3:08pmAzithromycin 250 mg qstemfYrklvuszvyfc2WQ.YAYMBSV12Xnmc 2023 11:00pmOctober 2023 9:51amFor 250 mg dose pack: take 500 mg today (day 1), then 250 mg for 4 days (days 2-5) POAzithromycin 250 mg ftifgsOtumqemgzalv9FD odxnr656Betwehw2023 11:00pmNov2023 11:22amBronchitis Bronchitis, not specified as acute or chronicTake 2 on day 1 and then take 1 for the next 4 days (days 2-5)Methylprednisolone (Medrol (Lv)) 4 mg tablets,dose dupjGxwohpfwvqck8HRfba package lkzgkygqav660Llhcvxg 3rd, 2024 11:00pmNov2023 11:35amBronchitis Bronchitis, not specified as acute or chronicPO PER PKG DIRCalcium Carbonate (Calcium 500) 500 mg calcium (1,250 mg) tablet,yvznimlxHjkzyt399UPEKGwgjh daily September 03, 2024 11:00pmUnknown Immunizations Immunization Event Date Not Given Reason Dose Number [employer] Lot Number Reason(s) Given Vaccine Information Statement (VIS) Detail Administration Location Fluzone TIV High-Dose 65YR+ March 19, 2024 [id number] [facility], unspecified formulationSeptember 2018influenza, unspecified formulationOctober 2019influenza, unspecified formulationOctober 2020influenza, unspecified formulationOctober 2021 influenza, unspecified formulationOctober neumococcal Polysacc. Vaccine, 23 valentOctober 2013 Advance Directives Advance Directive Response Recorded Date/ Time Advance Directives No November 26 8:55am Insurance Providers Guarantor Pete Moctezuma Address [address] [place] [phone] Info.Home Phone: Coverage Status Update:2024 Payer Group Member ID Coverage Type Subscriber Relationship to Subscriber Effective Date Expiration Date Medicare [id number] Norman , M Id: [id number] [address] [place] [phone] Home Phone: [employer] [id number] [place] Pete Id: [id number] [address] [place] [phone] [facility] Phone: [facility] [id number] Pete Flor Id: [id number] [address] [place] [phone] Home Phone: Self Encounters Encounter Location(s) Arrival/Admit Date Discharge/Departure Date Discharge/Departure Disposition Provider(s) Departed Physician/ Provider Office Visit -[facility] April 10, 2025 10:13am April 10, 2025 10:24am Discharged to home care or self care (routine discharge) Damaris Cagle MD
[2025-04-21 09:36] VITALS: BP 172/78; PULSE 80; TEMP 36.8; O2SAT 95; BMI 28.3
--- NOTE | 2025-04-21 09:58 | XR_ITS ---
The [address] [address] Patient Name: GUANACO HAGAN MRN: [id number] date: 1950 Sex: F Assigned Patient Location: ER Current Patient Location: ED.MAIN Accession/Order Number: [id number] Exam Date: 04/21/2025 10:10 Report Date: 04/21/2025 10:29 At the request of: STACY MASON Procedure: XR hip LT 2V w/ pelvis 2 views left hip with single view pelvis HISTORY: Fell injuring left hip Adequate bony alignment without acute displaced fracture. XR/XR hip LT 2V w/ pelvis IMPRESSION: No acute displaced fracture. Impression dictated by: Harvey Bustillos M.D. 04/21/2025 10:29 AM Dictation [facility] Electronically authenticated by: [id number] Y Date: 04/21/2025 10:29
--- NOTE | 2025-04-21 09:58 | ED.FALL1 ---
HPI HPI - Fall General Chief Complaint: Fall Stated Complaint: FALL LOWER EXTREMITY PAIN Time Seen by Provider: 04/21/25 09:51 Source: patient Mode of arrival: Wheelchair Limitations: no limitations History of Present Illness HPI Narrative: cc - fall, left hip and pelvis pain Pt spilled water yesterday and then slipped and did the splits . Right leg went forward and the left went back and the left knee bent. She complains of pain throughout the left groin and into the left hip and left pelvis. She is able to fully bear weight on the left LE/left hip and walk but it is very painful/ She did not take anything for pain today - said that she can only take tylenol. Related Data Home Medications ?Medication ?Instructions ?Recorded ?Confirmed amlodipine 10 mg tablet 10 mg PO DAILY 05/26/24 05/26/24 carvedilol 6.25 mg tablet 6.25 mg PO BID 05/26/24 05/26/24 glipizide 5 mg tablet 5 mg PO DAILY 05/26/24 05/26/24 hydrochlorothiazide 25 mg tablet 25 mg PO DAILY 05/26/24 05/26/24 levothyroxine 75 mcg tablet 75 mcg PO DAILY 05/26/24 05/26/24 (Synthroid) pantoprazole 40 mg tablet,delayed 40 mg PO DAILY 05/26/24 05/26/24 release potassium chloride 20 mEq 20 meq PO DAILY 05/26/24 05/26/24 tablet,extended release(part/cryst) (Klor-Con M) Previous Rx's ?Medication ?Instructions ?Recorded prednisone 20 mg tablet 60 mg (3 x 20 mg) PO DAILY 5 days 05/27/24 #15 tabs Allergies Allergy/AdvReac Type Severity Reaction Status Date / Time ciprofloxacin (From Cipro) Allergy Intermediate Joint Pain Verified 04/21/25 09:35 morphine Allergy Intermediate Vomiting Verified 04/21/25 09:35 amoxicillin Allergy Mild Rash Verified 04/21/25 09:35 sulfamethoxazole (From Allergy Mild Rash Verified 04/21/25 09:35 Bactrim) trimethoprim (From Bactrim) Allergy Mild Rash Verified 04/21/25 09:35 Opioid HPI Opioid Management Most Recent Pain and Opioid Data: Last Pain Scale 7 Today, 10:21 Last MAR Pain Assessment Today, 10:21 PFSH PFSH Social History Little interest or pleasure in doing things: not at all Feeling down, depressed, or hopeless: not at all Exam Narrative Exam Narrative: Nurses note and vital signs reviewed and patient is not hypoxic. afebrile General: The patient appears well and in no apparent distress. Patient is resting comfortably on cart. GCS = 15. Skin: Warm, dry, no pallor noted. Head: Normocephalic, atraumatic Eyes: PERRLA, EOMI ENT: No facial or oral injury. Cardiovascular: Regular Rate and Rhythm Respiratory: Patient is in no distress, no accessory muscle use, lungs are clear to auscultation, no wheezing, rales or rhonchi Back: No thoracic vertebral or lumbar vertebral tenderness to palpation. No ecchymosis, abrasions, lacerations noted. Musculoskeletal: Tenderness on active and passive range of motion of the left hip -especially medially. She also has some tenderness at the left greater trochanter and into the left buttock. No additional sign of long bone fracture, no left thigh, knee or ankle tenderness, no lower extremity swelling. Pulses at femoral, DP, PT, and popiteal were 2+ bilaterally. Moves all four extremities in all modalities with 5/5 strength. GI: Normal bowel sounds, no tenderness to palpation, no masses appreciated. No rebound, guarding, or rigidity noted. Neurological: A&O x4, normal equal edi analyst strength, normal finger to nose, normal speech, normal coordination, normal motor, normal sensory. Psychiatric: Cooperative Constitutional Vital Signs, click to edit/add: Last Vital Signs Temp 98.2 F 04/21/25 09:36 Pulse 80 04/21/25 09:36 Resp 18 04/21/25 09:36 BP 172/78 H 04/21/25 09:36 Pulse Ox 95 04/21/25 09:36 O2 Del Method Room Air 04/21/25 09:36 Course Vital Signs Vital signs: Vital Signs Temperature 98.2 F 04/21/25 09:36 Pulse Rate 80 04/21/25 09:36 Respiratory Rate 18 04/21/25 09:36 Blood Pressure 172/78 H 04/21/25 09:36 Pulse Oximetry 95 04/21/25 09:36 Oxygen Delivery Method Room Air 04/21/25 09:36 Temperature 98.2 F 04/21/25 09:36 Pulse Rate 80 11/16/25 09:36 Respiratory Rate 18 04/21/25 09:36 Blood Pressure 172/78 H 04/21/25 09:36 Pulse Oximetry 95 04/21/25 09:36 Oxygen Delivery Method Room Air 04/21/25 09:36 MDM - Fall MDM Narrative Medical decision making narrative: The patient was ordered to receive Tylenol for pain and x-rays of the left hip and pelvis were ordered to be obtained X-rays reviewed and no acute displaced fracture or other worrisome abnormality was noted. Patient was informed of results and given reassurance and discharged home -she can see her primary care physician as needed for follow-up. I encouraged rest, plenty of fluid intake and Tylenol for pain Imaging Data xr hip: Attestation: I have reviewed the pertinent imaging results. Radiologist's impression: ITS Impressions Hip/Pelvis X-Ray 04/21/25 09:58 IMPRESSION: No acute displaced fracture. Impression dictated by: Harvey Bustillos M.D. 04/21/2025 10:29 AM Dictation Location: [employer] Electronically authenticated by: [id number] Y Date: 04/21/2025 10:29 Discharge Plan Discharge Chief Complaint: Fall Clinical Impression: Strain of left hip Patient Disposition: Home, Self-Care Time of Disposition Decision: 11:08 Prescriptions / Home Meds: No Action amlodipine 10 mg tablet 10 mg PO DAILY carvedilol 6.25 mg tablet 6.25 mg PO BID glipizide 5 mg tablet 5 mg PO DAILY hydrochlorothiazide 25 mg tablet 25 mg PO DAILY levothyroxine [Synthroid] 75 mcg tablet 75 mcg PO DAILY potassium chloride [Klor-Con M20] 20 mEq tablet,ER particles/crystals 20 meq PO DAILY pantoprazole 40 mg tablet,delayed release (DR/EC) 40 mg PO DAILY prednisone 20 mg tablet 60 mg PO DAILY 5 Days Qty: 15 0RF Print Language: Belarusian Instructions: Groin Strain (ED), Hip Pain (ED) Referrals: Damaris Cagle MD [Primary Care Provider, Family Practice] - 1 week
--- OUTSIDE RECORDS SUMMARY | 2025-04-21 10:05 | XMS_ITS | CCD ---
Author Organization [facility] Care Team Providers Care Forepart Rounder Name Role Phone OSCAR, ABDULAZIM Admitting Unavailable OSCAR, ABDULAZIM Attending Unavailable STELLA MARINELLI Referring Unavailable STELLA MARINELLI Primary Care Unavailable [place] Procedure Practitioner Unavailab le OSCAR ABDULAZIM Surgeon Unavailable [place] Procedure Practitioner Unavailab MARVEL Buckley Surgeon Unavailable MD Stella Marinelli Primary Care Provider DO Elder Simon Emergency Provider UnaStella Pena Unavailable Unavailable Unavailable Rey Taylor Unavailable Stella Marinelli Unavailable DR STELLA MARINELLI Admitting Unavailable MARINELLI, DR STELLA Encinas Attending Unavailable MARINELLI, DR STELLA Encinas Primary Care Unavailable MARINELLI, DR STELLA Encinas Consulting Unavailable MISC, DR SALTER Admitting Unavailable MISC, DR SALTER Attending Unavailable YVES, DR STELLA Encinas Primary Care Unavailable LIHUE, DR RAMAKRISHNA Sainz Consulting Unavailable MISC, DR SALTER Consulting Unavailable MARINELLI, DR STELLA Encinas Admitting Unavailable MARINELLI, DR STELLA Encinas Attending Unavailable MARINELLI, DR STELLA Encinas Primary Care Unavailable MARINELLI, DR STELLA Encinas Consulting Unavailable Yves, Dr. Stella Macias Primary Care Unav ailable Heller, Dr. Doug Monte Referring Mayela vailable Heller, Dr. Doug Monte Attending Mayela vailable Heller, Dr. Doug Monte Attending Mayela vailable Marinelli, Dr. Stella Macias Primary Care Unav ailable Heller, Dr. Doug Monte Referring Mayela vailable Maikel Taylor Unavailable Stella Marinelli MD Primary Care Provider DOUG HELLER Referring Unavailable STELLA MARINELLI Primary Care Unavailable Stella Marinelli MD Primary Care Provider Unavailable Primary Care Provider UnavailStella Good MD Primary Care Provider AMANDA SIMMONS Attending Unavailable AMANDA SIMMONS Referring Unavailable STELLA MARINELLI Primary Care Unavailable Stella Marinelli MD Primary Care Provider AMANDA SIMMONS Attending Unavailable STELLA MARINELLI Referring Unavailable STELLA MARINELLI Primary Care Unavailable Stella Marinelli MD Primary Care Provider Stella Marinelli MD Primary Care Provider Abby Madrigal Unavailable Stella Marinelli MD Primary Care Provider [phone] ABBY CAT Attending Unavailable ABBY CAT Attending Unavailable LIZZY HIGHTOWER Attending Unavailable Stella Marinelli MD Primary Care Provider Armand Elder MD Attending Provider Armand Elder Attending Unavailable Armand Elder Admitting Unavailable Stella Marinelli Primary Care Unavailable Stella Marinelli MD Primary Care Provider Lissett Hawkins APRN Attending Provider Solis Perez APRN Attending Provider Abby Cat PA-C Attending Provider Armand Elder MD Other Provider Stella Marinelli MD Attending Provider DOUG HELLER Attending Unavailable DOUG HELLER Referring Unavailable STELLA MARINELLI Primary Care Unavailable Stella Marinelli MD Primary Care Provider Stella aMrinelli MD Attending Provider Allergies Allergy ClassificationReported Allergen(s)Allergy TypeDate of OnsetReaction(s) Facility (20 sources)Amoxicillin; Translations: [AMOXICILLIN]Drug Krjijif85-75-6876ewad [facility] Repository (9 sources)Ciprofloxacin; Translations: [CIPRO]Drug Ctjrrnk33-94-6962XrysoxdDuj [facility] Repository (20 sources)Doxycycline; Translations: [DOXYCYCLINE]Drug Exyfcfo53-38-9003Swuwg, Rash, Headache, UnknownThe [facility] (20 sources)Morphine; Translations: [MORPHINE]Drug Iuorums33-29-7359 Nausea/vomiting, GI intolerance, Unknown, VomitingThe [facility] RepositoryComment on above:stomach pain (2 sources)Sulfamethoxazole / Trimethoprim; Translations: [BACTRIM]Drug Allergy 47-50-9766Ojz [facility] Repository (20 sources)Ciprofloxacin; Translations: [ciprofloxacin]Drug Qkffsez34-04-8638 Myalgia, [facility] CenterComment on above:tendons/ache (20 sources)Sulfamethoxazole; Translations: [SULFAMETHOXAZOLE]Drug Allergy 68-01-3302ZwplAjltpofupCherrington Hospital (20 sources)Trimethoprim; Translations: [trimethoprim]Drug Obukvbd88-58-4399KcgcSheltering Arms [facility] (7 sources)Amoxicillin; Translations: [Amoxicillin TABS]Drug AllergyHeather Ville [id number] DO Work Phone: (20 sources)Sulfamethoxazole / Trimethoprim; Translations: [Bactrim TABS]Drug Nahvxnj47-11-0478wpty, UnknownNorth [place] [facility] Other (13 sources)AmoxicillinDrug AllergyRasProvidence Mount Carmel Hospital [facility] Other (1 source)GlatiramerDrug Bkxhqcs76-87-3909PicMercy Health [facility] Repository (19 sources)cefdinirDrug Zkaefuj47-93-0256WcasbygClinton Memorial Hospital (19 sources)ClindamycinDrug Ktgzclv43-17-6340NrwgykrClinton Memorial Hospital (8 sources)House dust miteDrug fvpbmty20-02-3737TynsnqbKfjiw [place] [facility] Other (16 sources)MetoprololDrug Sqistbh22-42-9292GfzmvjyClinton Memorial HospitalComment on above:Onset Date: 01/23/2014 (19 sources)NiacinDrug Xinjelp24-48-2515Ehrczzy, [facility] CenteresAdena [facility] (8 sources)predniSONEDrug Ezohsab04-38-9499AkeyvuqXzhxb [place] [facility] Other (8 sources)PseudoephedrineDrug AllergyJohn E. Fogarty Memorial Hospital [facility] Other (8 sources)Cat danderDrug allergyJohn E. Fogarty Memorial Hospital [facility] Other (8 sources)corticosteroid and/or corticosteroid derivative (FN)Drug allergy UnknownNortTemple University Health System [facility] Other (7 sources)CorticosteroidsAllergy to mbqssvabp50-39-5362DcxmzMinarmozjThe [facility] (11 sources)12 Hour DecongestantAllergy to ldzlgeaey07-44-7400HmuxhRknjlhgdtThe Surgical Hospital [facility] (18 sources)Penicillins; Translations: [PENICILLINS]Propensity to adverse reactions to drug (disorder)79-59-0973Klfdy, Rash, UnknownB[facility]ks[facility] (2 sources)Sulfamethoxazole / Trimethoprim; Translations: [SULFAMETHOXAZOLE-TRIMETHOPRIM]Drug Jltakai08-93-4501PoiGlynik Repository Medications Current Medications MedicationDrug Class(es)DatesSig (Normalized)Sig (Original)amLODIPine 10 mg oral tablet (20 sources)Dihydropyridine Calcium Channel BlockerStart: 12-24-3041Blaii: 08-04-2010 End: 46-92-1974dauy 1 tablet by mouth once dailyAmlodipine 10 mg tablet Discontinued 1 TAB PO Daily July 28, 2017 12:00am April 17, 2024 2:07pmB complex-vitamin C tablet (2 sources)take 1 tablet by mouth every other dayB complex-vitamin C tablet Take 1 tablet by mouth every other day. ActiveB-complex with vitamin C tablet (1 source)take 1 tablet by mouth every other dayB-complex with vitamin C tablet Take 1 tablet by mouth every other day. Activebaclofen 10 mg oral tablet (4 sources)gamma-Aminobutyric Acid-ergic AgonistStart: 37-20-0660lvgz 1 tablet by mouth three times dailybaclofen (LIORESAL) 10 mg tablet Indications: Esophageal spasm Take 1 tablet (10 mg total) by mouth3 (three) times a day. 90 tablet 3 09/08/2022 Activecalcium carbonate 1250 mg chewable tablet (5 sources)Start: 45-81-5674mcvs 1 tablet by mouth twice dailycarvedilol 6.25 mg oral tablet (20 sources)alpha-Adrenergic Ananya, beta-Adrenergic BlockerStart: 04-17-2024 Start: 11-25-2016 End: 50-88-0194xezk 1 tablet by mouth twice dailyCarvedilol 6.25 mg tablet Discontinued 1 TAB PO Twice daily July 28, 2017 12:00am April 17, 2024 2:07pmcholecalciferol 0.025 mg oral capsule (17 sources)Vitamin DStart: 42-31-4242gudd 1 capsule by mouth every other day take 1 tablet by mouth every other daycholecalciferol (Vitamin D-3) 10 MCG (400 UNIT) tablet Take 1 tablet (400 Units) by mouth every other day. Activetake 1 tablet by mouth in the morningcholecalciferol (Vitamin D-3) 10 MCG (400 UNIT) tablet Take 400 Units by mouth in the morning. Activetake 1 tablet by mouth every other daycholecalciferol (Vitamin D-3) 10 MCG (400 UNIT) tablet Take 1 tablet (10 mcg) by mouth every other day. ActiveglipiZIDE 5 mg oral tablet (20 sources)SulfonylureaStart: 04-17-2024 End: 68-49-9581Okjkg: 10-24-2023 End: 47-21-0773jugm 1 tablet by mouth once dailyGlipizide 5 mg tablet Discontinued 5 MG PO Daily October 23, 2023 11:00pm April 17, 2024 2:07pmtake 1 tablet by mouth once dailyglipiZIDE XL (Glucotrol XL) 5 mg 24 hr tablet Take 1 tablet (5 mg) by mouth once daily. Activetake 1 tablet by mouth every twenty- four hours in the morningglipiZIDE XL (Glucotrol XL) 5 MG 24 hr tablet Take 5 mg by mouth in the morning. Activetake 1 tablet by mouth in the morning, then take 1 tablet by mouth before mealtimeglipiZIDE (GLUCOTROL) 10 mg tablet Take 1 tablet (10 mg total) by mouth in the morning and 1 tablet(10 mg total) in the evening. Take before meals. Activetake 1 tablet by mouth once daily 30 minutes before breakfastglipiZIDE 5 MG 1 tablet 30 minutes before breakfast Orally Once a day for 90 days ActiveglipiZIDE ActivehydroCHLOROthiazide 25 mg oral tablet (20 sources)Thiazide DiureticStart: 01-24-2024 End: 00-09-1548Bvbfb: 07-28-2017 End: 24-17-3958lmfw 1 tablet by mouth once dailyHydrochlorothiazide 25 mg tablet Discontinued 1 TAB PO Daily July 28, 2017 12:00am January 24, 2024 10:11amhydroCHLOROthiazide 25 mg / triamterene 37.5 mg oral capsule (4 sources)Potassium-sparing Diuretic, Thiazide DiureticStart: 55-00-7189wbpf 1 capsule by mouth once in the morningtriamterene-hydrochlorothiazide (DYAZIDE) 37.5-25 mg per capsule Take 1 capsule by mouth in the morning. 11/25/2016 Active lansoprazole 30 mg delayed release oral capsule (6 sources)Proton Pump InhibitorStart: 37-43-6733rcaq 1 capsule by mouth once dailynitrofurantoin, macrocrystals 25 mg / nitrofurantoin, monohydrate 75 mg oral capsule (4 sources)Nitrofuran AntibacterialStart: 73-43-4246xbxg 1 capsule by mouth twice dailynitrofurantoin, macrocrystal-monohydrate, (MACROBID) 100 mg capsule Take 100 mg by mouth 2 (two) times a day. 02/16/2021 Activeomeprazole 40 mg delayed release oral capsule (8 sources)Proton Pump InhibitorStart: 99-78-1233ztcq 1 capsule by mouth once dailyomeprazole (PriLOSEC) [address] capsule Take 1 capsule (40 mg) by mouth once daily. 11/13/2024 ActiveStart: 11-13-2024 End: 28-97-9058Euxugttsoz 40 mg capsule,delayed release(DR/EC) Discontinued 40 MG PO Twice daily 180 90 3 November 12, 2024 11:00pm December 03, 2024 12:06pm Take 1 capsule orally 30 minutes before morning meal and 30 minutes before evening meal.take 1 capsule by mouth once dailyOmeprazole 10 MG 1 capsule 30 minutes before morning meal Orally Once a day Activetake 1 capsule by mouth every twenty-four hoursOmeprazole 40 MG 1 capsule Orally Once a day Not-Taking pilocarpine hydrochloride 5 mg oral tablet (4 sources)Cholinergic Receptor AgonistStart: 69-13-1184bknn 1 tablet by mouth twice dailypilocarpine (SALAGEN, PILOCARPINE,) 5 mg tablet Indications: Xerostomia Take 1 tablet (5 mg total) by mouth 2 (two) times a day. 60 tablet 4 06/10/2021 Activevitamin b12 1 mg oral tablet (20 sources)Vitamin N49Usbwu: 40-30-5161ygpy 1 tablet by mouth every other day take 1 tablet by mouth in the morningcyanocobalamin (vitamin B-12) 1000 MCG tablet Take 1 tablet (1,000 mcg total) by mouth in the morning. ActiveVitamin B12 ActiveVitamin D3 (13 sources)Vitamin D3 Active Completed/Discontinued Medications MedicationDrug Class(es)DatesSig (Normalized)Sig (Original)[id number] 200 actuat albuterol 0.09 mg/actuat metered dose inhaler (20 sources)beta2-Adrenergic AgonistStart: 50-28-4714ajsl 1 puff(s) by inhalation every four hoursAlbuterol Sulfate Active 2 PUFF INHALATION Every 4 hours 6.7 December 05, 2023 2:00pmStart: 28-63-1576qelu 1 puff(s) by inhalation every four hoursAlbuterol Sulfate Active 2 PUFF INHALATION Every 4 hours 6.7 December 05, 2023 3:00pmStart: 10-24-2023 End: 59-51-8961gltk 1 puff(s) by inhalation every four hours as needed for wheezingAlbuterol Sulfate 90 mcg/actuation HFA aerosol inhaler Discontinued 2 PUFF INHALATION Every 4 hoursas needed for shortness of breath or wheezing 6.7 0 December 05, 2023 2:00pm August 28, 2024 3:08pmStart: 77-81-5123dqpq 2 puff(s) by inhalation every four hours as neededalbuterol (PROVENTIL HFA;VENTOLIN HFA) 90 mcg/actuation inhaler Inhale 2 puffs every 4 (four) hoursas needed. 08/09/2022 ActiveStart: 76-86-2611ewul 2 puff(s) by inhalation every four hours as needed Albuterol Sulfate HFA 108 (90 Base) MCG/ACT 2 puff Inhalation every 4 hrs prn Aug, ActiveStart: 34-87-4074ndft 2 puff(s) by inhalation every four hours as neededAlbuterol Sulfate HFA 108 (90 Base) MCG/ACT 2 puff Inhalation every 4 hrs prn Aug, ActiveStart: 93-29-1317qyyx 2 puff(s) by inhalation every four hours as neededAlbuterol Sulfate HFA 108 (90 Base) MCG/ACT 2 puff Inhalation every 4 hrs prn Aug, ActiveAlbuterol Sulfate 90 mcg/actuation HFA aerosol inhaler (4 sources)Start: 12-05-2023 End: 97-70-4815byyv 1 puff(s) by inhalation every four hours as needed for wheezingAlbuterol Sulfate 90 mcg/actuation HFA aerosol inhaler Discontinued 2 PUFF INHALATION Every 4 hoursas needed for shortness of breath or wheezing 6.7 December 05, 2023 3:00pm August 28, 2024 4:08pmStart: 18-03-0617oebx 1 puff(s) by inhalation every four hours as needed for wheezingAlbuterol Sulfate 90 mcg/actuation HFA aerosol inhaler Active 2 PUFF INHALATION Every 4 hours as nee ded for shortness of breath or wheezing 6.7 December 05, 2023 2:00pmaspirin 81 mg chewable tablet (20 sources)Platelet Aggregation Inhibitor, Nonsteroidal Anti-inflammatory Drug Start: 07-28-2017 End: 23-41-2034froi 1 tablet by mouth once dailyAspirin 81 mg Tablet,Chewable Discontinued 1 TAB PO Daily July 28, 2017 12:00am October 25, 2023 12:29pm Start: 97-54-9544Rcog Aspirin 81 MG take 1 by Oral route every day Oral *please review for potential _update for e-prescription and drug interaction check* May, Activetake 81 mg by mouth every other dayaspirin 81 mg Take 81 mg by mouth every other day. Activetake 6 tablets by mouth every other dayAspirin EC 81 MG Oral Tablet Delayed Release once every other day Quantity: 0 Refills: 0 Ordered: 09-Sep-2021 DO Activeazithromycin 250 mg oral tablet (20 sources)Macrolide AntimicrobialStart: 08-28-2024 End: 91-66-6661Jbntazulnflq 250 mg tablet Discontinued 0 PO daily 6 5 0 August 28, 2024 3:07pm September 04, 2024 10:04am Bronchitis Bronchitis, not specified as acute or chronic Take 2 on day 1 and then take 1 for the next 4 days (days 2-5)Start: 50-16-0492wnfv 1 tablet by mouth in the morningazithromycin (ZITHROMAX) 250 mg tablet Take 1 tablet (250 mg total) by mouth in the morning. 08/28/2024 ActiveStart: 03-09-2024 End: 35-94-5924Izufnxclbmge 250 mg tablet Discontinued 0 PO daily 6 5 March 08, 2024 11:00pm April 10, 2024 11:22am Bronchitis Bronchitis, not specified as acute or chronic Take 2 on day 1 and then take 1 for the next 4 days (days 2-5)Start: 03-09-2024 End: 86-19-1827Afitwnnfucek Discontinued 0 PO daily 6 March 08, 2024 11:00pm April 10, 2024 11:22am Take 2 on day 1 and then take 1 for the next 4 days (days 2-5)Start: 53-42-3688Zwrzmotxqeec Active 0 PO daily 6 March 09, 2024 12:00am Take 2 on day 1 and then take 1 for the next 4 days (days 2-5) Start: 12-05-2023 End: 43-35-6536Ggwqlvhbunfg 250 mg tablet Discontinued 0 PO .COMPLEX 6 0 December 04, 2023 11:00pm March 0949:51am For 250 mg dose pack: take 500 mg today (day 1), then 250 mg for 4 days (days 2-5) POStart: 12-05-2023 End: 62-38-7609Atjstgobrwbb Discontinued 0 PO .COMPLEX 6 December 04, 2023 11:00pm March 09, 2024 9:51am For 250 mg dose pack: take 500 mg today (day 1), then 250 mg for 4 days (days 2-5) POStart: 12-05-2023 End: 77-61-9206Rzfnzcvbblzn Discontinued 0 PO .COMPLEX December 05, 2023 12:00am March 09, 2024 10:51am For 250 mg dose pack: take 500 mg today (day 1), then 250 mg for 4 days (days 2-5) POStart: 77-98-3361Vvomeavninla Active 0 PO .COMPLEX 6 December 05, 2023 12:00am For 250 mg dose pack: take 500 mg today (day 1), then 250 mg for 4 days (days 2-5) POStart: 28-66-5565Sytsegdecxln 250 MG as directed Orally 2 tabs po today, then 1 tab daily x 4 more days for 5 May, Borkap00 actuat fluticasone furoate 0.1 mg/actuat / umeclidinium 0.0625 mg/actuat / vilanterol 0.025 mg/actuat dry powder inhaler (7 sources)Anticholinergic, Corticosteroid, beta2-Adrenergic AgonistStart: 04-10-2024 End: 17-21-9493Kaiakwgzque-Umeclidin-Vilanter (Trelegy Ellipta) 100-62.5-25 mcg blister with device Discontinued 1INH INHALATION Daily 28 April 10, 2024 12:00am May 21, 2024 3:06pm 2 samples givenhyaluronate (20 sources)Start: 40-46-0895Zodgaljfr Dec, 2 mLStart: 12-26-2018 Orthovisc Dec, 2 mLStart: 69-06-6294Rqupulwgb Dec, 2 mL levothyroxine sodium 0.075 mg oral tablet (20 sources)l-ThyroxineStart: 11-02-2023 End: 77-34-4565nivz 1 tablet by mouth once dailyLevothyroxine 75 mcg tablet Discontinued 75 MCG PO daily 90 June 22, 2024 11:50am October 22, 2024 11:32ammethylPREDNISolone 4 mg oral tablet (20 sources)CorticosteroidStart: 09-10-2024 End: 59-44-4626sskg 1 tablet by mouth onceMethylprednisolone (Medrol (Lv)) 4 mg tablets,dose pack Discontinued 0 PO per package directions 21 September 10, 2024 10:00am October 01, 2024 11:59am Chronic cough Chronic cough PO PER PKG DIR Start: 03-09-2024 End: 08-78-2136uwyu 1 tablet by mouth onceMethylprednisolone (Medrol (Lv)) 4 mg tablets,dose pack Discontinued 0 PO per package directions 21 0 April 10, 2024 11:34am May 21, 2024 3:06pm Bronchitis Bronchitis, not specified as acute or chronic PO PER PKG DIRStart: 27-60-1263earuskZELIXQUfxsae 4 MG as directed Orally for 6 days Aug, Slmsot611 actuat mometasone furoate 0.2 mg/actuat metered dose inhaler (20 sources)CorticosteroidStart: 10-24-2023 End: 91-60-1707kysh 1 puff(s) by inhalation twice dailyMometasone (Asmanex Hfa) 200 mcg/actuation HFA aerosol inhaler Discontinued 2 PUFF INHALATION Twicedaily October 23, 2023 11:00pm October 25, 2023 12:30pmStart: 07-28-2017 End: 88-40-5817Bxewusbwgm (Asmanex Hfa) 100 mcg/actuation Hfa Aerosol Inhaler Discontinued July 28, 2017 12:00am August 26, 2021 8:09pmtake 2 puff(s) by mouth twice dailyAsmanex HFA 200 MCG/ACT INHALE 2 PUFFS BY MOUTH TWICE A DAY Inhalation for 30 ActiveMometasone (Asmanex Hfa) 200 mcg/actuation HFA aerosol inhaler (9 sources)Start: 10-24-2023 End: 01-77-5999sfod 1 puff(s) by inhalation twice dailyMometasone (Asmanex Hfa) 200 mcg/actuation HFA aerosol inhaler Discontinued 2 PUFF INHALATION Twicedaily October 23, 2023 11:00pm October 25, 2023 12:30pmStart: 10-24-2023 End: 93-75-8777jqkl 1 puff(s) by inhalation twice dailyMometasone (Asmanex Hfa) 200 mcg/actuation HFA aerosol inhaler Discontinued 2 PUFF INHALATION Twicedaily October 24, 2023 12:00am October 25, 2023 1:30pmpantoprazole 40 mg delayed release oral tablet (20 sources)Proton Pump InhibitorStart: 09-08-2022 End: 44-49-1736pzjd 1 tablet by mouth once dailyPantoprazole 40 mg tablet,delayed release (DR/EC) Discontinued 40 MG PO Daily October 23, 2023 11:00pm October 25, 2023 12:30pmtake 1 tablet by mouth every twelve hours Pantoprazole Sodium 40 MG 1 tablet Orally twice a day Activemicroencapsulated potassium chloride 20 meq extended release oral tablet (20 sources)Start: 08-12-2020 End: 23-77-5932hwmn 1 tablet by mouth once dailyPotassium Chloride 20 mEq tablet,ER particles/crystals Discontinued 20 MEQ PO Daily October 23, 2023 11:00pm January 24, 2024 9:07amtake 1 tablet by mouth once dailyKlor-Con M20 20 MEQ Oral Tablet Extended Release TAKE ONE TABLETS BY MOUTH EVERY DAY Quantity: 0 Ref ills: 0 Ordered: 09-Sep-2021 DO ActivepredniSONE 20 mg oral tablet (10 sources)Start: 12-05-2023 End: 61-38-0432pvgz 1 tablet by mouth twice dailyPrednisone 20 mg tablet Discontinued 20 MG PO Twice daily 10 December 04, 2023 11:00pm March 9:52amvalsartan 80 mg oral tablet (1 source)Angiotensin 2 Receptor BlockerStart: 36-54-5087uuxe 1 tablet by mouth once dailyValsartan 80 MG Oral Tablet TAKE 1 TABLET DAILY. Quantity: 90 Refills: 3 Ordered: 11-Nov-2021 Doug Heller MD Start : 11-Nov-2021 Active new start Vitamin B Complex CAPS (1 source)Vitamin B Complex CAPS TAKE 1 CAPSULE EVERY OTHER DAY Quantity: 0 Refills: 0 Ordered: 19-May-2022 DO ActiveVitamin B Complex Oral Capsule (1 source)take 1 capsule by mouth every other dayVitamin B Complex Oral Capsule TAKE 1 CAPSULE EVERY OTHER DAY Quantity: 0 Refills: 0 Ordered: 19-May-2022 DO ActiveVitamin D3 CAPS (2 sources)Vitamin D3 CAPS TAKE 1 CAPSULE EVERY OTHER DAY Quantity: 0 Refills: 0 Ordered: 19-May-2022 DO Active Problems Active Problems Problem ClassificationProblemDateDocumented DateEpisodic/ChronicAbdominal hernia (8 sources)Diaphragmatic hernia; Translations: [Diaphragmatic hernia without obstruction or gangrene]EpisodicAbdominal pain (20 sources)Abdominal pain; Translations: [Unspecified abdominal pain]Onset: [id number] and chronic tonsillitis (4 sources)Amygdalolith; Translations: [Other chronic diseases of tonsils and adenoids]Onset: 065316-67-8547JxoizyiOgfasvg disorders (8 sources)Anxiety disorder; Translations: [Other specified anxiety disorders] ChronicAsthma (18 sources)Mild intermittent asthma; Translations: [Mild intermittent asthma, uncomplicated]44-27-4569HpsxzbaXrnpjwg obstructive pulmonary disease and bronchiectasis (13 sources)Bronchitis, not specified as acute or chronic; Translations: [Bronchitis]EpisodicConduction disorders (20 sources)EKG: right bundle branch block; Translations: [Right bundle branch block]Onset: 806382-69-2343LsyjlfgNpqvxhuw mellitus with complications (5 sources)Hyperglycemia due to type 2 diabetes mellitus; Translations: [Type 2 diabetes mellitus with hyperglycemia]Onset: 676610-24-3300YoekxynOwedjpha mellitus without complication (12 sources)Diabetes mellitus; Translations: [Diabetes mellitus without mention of complication, type II or unspecified type, not stated as uncontrolled]Onset: 200247-23-3828QwubalgJptcqpebu of lipid metabolism (20 sources)Hyperlipidemia; Translations: [Other and unspecified hyperlipidemia] Onset: 777621-31-2790WsgjhblGrpbmcxindbvrg and diverticulitis (13 sources)Diverticular disease; Translations: [Diverticulosis of intestine, part unspecified, without perforation or abscess without bleeding]Chronic Esophageal disorders (20 sources)Laryngopharyngeal reflux; Translations: [Gastro-esophageal reflux disease without esophagitis]Onset: 62-71-2843SimvixiVoaocbzrj hypertension (20 sources)Essential hypertension; Translations: [Unspecified essential hypertension]Onset: 61-05-3792VahkrbfFprixcw on above:Problem List clean-up per request of Phys. EHR CmteGenitourinary symptoms and ill-defined conditions (16 sources)Genitourinary symptoms; Translations: [Unspecified symptoms and signs involving the genitourinary system]EpisodicHeadache; including migraine (20 sources)Headache; Translations: [Headache]32-23-1198ExktqntgGgdlzxv on above:Problem List clean-up per request of Phys. EHR CmteHeadache; including migraine (1 source)Headache; including migraine; Translations: [HEADACHE UNSPECIFIED] Onset: 05-52-3400Spmpvyjnakixm and screening for infectious disease (20 sources)Patient encounter status; Translations: [Other specified vaccination]Onset: 06-25-2021 Resolved: 44-95-6344YtupuetsKgxvbsid sclerosis (20 sources)Multiple sclerosis; Translations: [Multiple sclerosis]Onset: 84-80-1381IwwuuicAfihtk and vomiting (13 sources)Vomiting; Translations: [Vomiting, unspecified]EpisodicNephritis; nephrosis; renal sclerosis (8 sources)Nephrotic syndrome; Translations: [Nephrotic syndrome with unspecified morphologic changes]Onset: 05-41-7433GamwncmHhtdcvrzaex chest pain (20 sources)Chest pain; Translations: [Chest pain, unspecified]Onset: 08-25-2021 87-71-5987MbdxrrwaKdgejcn on above:Problem List clean-up per request of Phys. EHR CmteOsteoarthritis (17 sources)Arthritis of first carpometacarpal joint of right hand; Translations: [Unilateral primary osteoarthritis of first carpometacarpal joint, right hand]Onset: 472695-99-1923UobkaydQljhjuxnmksu (13 sources)Senile osteoporosis; Translations: [Age-related osteoporosis without current pathological fracture]ChronicOther acquired deformities (13 sources)Lumbar spondylolisthesis; Translations: [Spondylolisthesis, lumbar region]EpisodicOther bone disease and musculoskeletal deformities (3 sources)Osteopenia; Translations: [Other specified disorders of bone density and structure, unspecified site]33-12-4592CbjlxwbeBxrtk circulatory disease (12 sources)Elevated blood pressure; Translations: [Elevated blood-pressure reading, without diagnosis of hypertension]37-69-3290UjmotcjtAddfrtr on above: Problem List clean-up per request of Phys. 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]ChronicOther congenital anomalies (1 source)Other congenital malformations of larynx; Translations: [Other congenital malformations of larynx]ChronicOther connective tissue disease (1 source)Myalgia, other siteEpisodicOther diseases of kidney and ureters (11 sources)History of nephrotic syndrome; Translations: [Personal history, nephrotic syndrome]Onset: 687083-49-0152EjwjkllsFvwus diseases of kidney and ureters (1 source)Cyst of kidney, acquiredEpisodicOther diseases of kidney and ureters (2 sources)Personal history of nephrotic syndrome; Translations: [Personal history of nephrotic syndrome]Onset: 27-63-8586HjltwticXbvba gastrointestinal disorders (1 source)Irritable bowel syndrome; Translations: [Irritable bowel syndrome] ChronicOther gastrointestinal disorders (20 sources)Diarrhea; Translations: [Diarrhea, unspecified]Onset: 12-25-2015 EpisodicOther gastrointestinal disorders (13 sources)Swollen abdomen; Translations: [Abdominal distension (gaseous)] EpisodicOther gastrointestinal disorders (8 sources)Abdominal bloating; Translations: [Abdominal distension (gaseous)] 55-92-4329RfpojpmrIzved gastrointestinal disorders (7 sources)Abdominal distension (gaseous); Translations: [Flatulence, eructation, and gas pain]68-11-1168LqloesjzAuwcg gastrointestinal disorders (4 sources)Dysphagia; Translations: [Dysphagia, unspecified]58-70-2971Frmcerms Other gastrointestinal disorders (1 source)Dysphagia, unspecified; Translations: [Dysphagia, unspecified] 75-75-4533UmmxvlyjLgnoz injuries and conditions due to external causes (8 sources)History of fall; Translations: [History of falling]EpisodicOther lower respiratory disease (2 sources)Other forms of dyspneaEpisodicOther lower respiratory disease (10 sources)Dyspnea; Translations: [Shortness of breath]Onset: 07-02-2023 64-27-9416HvvkxmioSkjkl lower respiratory disease (11 sources)Chronic cough; Translations: [Chronic cough]01-66-9342VuhjumazUvvcm lower respiratory disease (4 sources)Dyspnea, unspecified; Translations: [Other respiratory abnormalities] 83-61-9841HgwqukyvWbmny nervous system disorders (20 sources)Carpal tunnel syndrome; Translations: [Carpal tunnel syndrome, left upper limb]ChronicOther non-traumatic joint disorders (1 source)Stiffness of right shoulder, not elsewhere classifiedEpisodicOther nutritional; endocrine; and metabolic disorders (11 sources)Overweight in adulthood with body mass index of 25 or more but less than 30; Translations: [Overweight]Onset: 550060-01-9559JzmeixazGcsmc nutritional; endocrine; and metabolic disorders (16 sources)Body mass index 25-29 - overweight; Translations: [Body mass index (BMI) 28.0-28.9, adult]Onset: 150275-35-7332IaibngdjDvyzp nutritional; endocrine; and metabolic disorders (9 sources)Overweight; Translations: [Overweight]Onset: EpisodicOther nutritional; endocrine; and metabolic disorders (1 source)Body mass index (BMI) 29.0-29.9, adult; Translations: [Body mass index (BMI) 29.0-29.9, adult]EpisodicOther nutritional; endocrine; and metabolic disorders (2 sources)Body mass index (BMI) 28.0-28.9, adult; Translations: [Body mass index (BMI) 28.0-28.9, adult]Onset: 05-29-4443ScqgpgofRbzct upper respiratory disease (7 sources)Vasomotor rhinitis; Translations: [Vasomotor rhinitis]Onset: 71-31-2634PnwgwnkWrzof upper respiratory disease (7 sources)Allergic rhinitis due to animal hair and dander; Translations: [Allergic rhinitis due to animal (cat) (dog) hair and dander]Onset: 08-16-2016 ChronicOther upper respiratory disease (1 source)Vasomotor rhinitis; Translations: [Vasomotor rhinitis]Onset: 01-64-0088XmizhtgAhqzt upper respiratory disease (1 source)Allergic rhinitis due to animal (cat) (dog) hair and dander; Translations: [Allergic rhinitis due to animal (cat) (dog) hair and dander] Onset: 13-09-1680AulyascCdgthwxt codes; unclassified (1 source)Swelling - edema - symptom; Translations: [Edema]EpisodicResidual codes; unclassified (1 source)Postmenopausal state; Translations: [Asymptomatic menopausal state] 61-33-7267NbztjupkZnamidfm codes; unclassified (1 source)Asymptomatic menopausal state; Translations: [Asymptomatic menopausal state]Onset: 61-60-9101JukqmmshZjxiopwxc and history of mental health and substance abuse codes (20 sources)Ex-smoker; Translations: [Personal history of tobacco use]Onset: 114922-48-2187RdqamfvpOlgiqnc on above:Quit 06/1971;Spondylosis; intervertebral disc disorders; other back problems (20 sources)Solitary sacroiliitis; Translations: [Sacroiliitis, not elsewhere classified]ChronicSpondylosis; intervertebral disc disorders; other back problems (20 sources)Backache; Translations: [Dorsalgia, unspecified]25-94-8865Gnhhxbfz Comment on above:Problem List clean-up per request of Phys. EHR CmteThyroid disorders (5 sources)Hypothyroidism; Translations: [Hypothyroidism, unspecified]Onset: 272982-25-3433BrxoxsyLvwzssqkzfez (1 source)Multiple sclerosis; Translations: [Multiple sclerosis]12-03-2024 ChronicUnclassified (8 sources)History of disease caused by Severe acute respiratory syndrome coronavirus 2 (situation); Translations: [Personal history of COVID-19]Urinary tract infections (8 sources)Urinary tract infectious disease; Translations: [Urinary tract infection, site not specified]Episodic Past or Other Problems Problem ClassificationProblemDateDocumented DateEpisodic/ChronicAcute bronchitis (8 sources)Acute bronchitis; Translations: [Acute bronchitis, unspecified]Onset: 91-89-7936QxcasnsqKrwonpzy reactions (8 sources)Urticaria, unspecified; Translations: [Urticaria]Onset: 01-23-2014 EpisodicCardiac dysrhythmias (9 sources)Palpitations; Translations: [Palpitations]Onset: EpisodicDiabetes mellitus without complication (20 sources)Other abnormal glucose; Translations: [Hyperglycemia]Onset: 09-15-4702LkavxwedIebqfrqe of mouth; excluding dental (4 sources)Xerostomia; Translations: [Disturbances of salivary secretion]Onset: 088007-24-4343ZohazgsmHlefv and electrolyte disorders (8 sources)Hypokalemia; Translations: [Hypokalemia]Onset: 35-76-2947UmatqohuUmai disorders (1 source)Mood disordersOnset: Other connective tissue disease (7 sources)Spasm; Translations: [Cramp and spasm]Onset: 74-73-2983NiodsfieOkyet connective tissue disease (1 source)Cramp and spasm; Translations: [Cramp and spasm]Onset: 08-04-2015 EpisodicOther gastrointestinal disorders (6 sources)History of irritable bowel syndrome; Translations: [Personal history of other diseases of digestivesystem] Resolved: 71-98-7038YuwcujjxKqitg gastrointestinal disorders (8 sources)Flatulence, eructation and gas pain; Translations: [Abdominal distension (gaseous)]Onset: 96-94-3023DtffaagfXdiii lower respiratory disease (1 source)Shortness of breath; Translations: [Shortness of breath]Onset: 77-19-0990NvdtvuprLborz nutritional; endocrine; and metabolic disorders (6 sources)H/O: raised blood lipids; Translations: [Personal history of other endocrine, metabolic, and immunity disorders] Resolved: 47-32-2771LxweoyerBlfty nutritional; endocrine; and metabolic disorders (1 source)Overweight; Translations: [Overweight]Onset: 75-87-0810KcazkpqiKzvmh screening for suspected conditions (not mental disorders or infectious disease) (11 sources)Electrocardiogram abnormal; Translations: [Nonspecific abnormal electrocardiogram [ECG] [EKG]]Onset: 349617-61-4715PcwhqvhgVjrhl upper respiratory disease (4 sources)Atrophy of vocal cord; 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 vocal cords] Onset: 139042-67-9778ZrtqqciaMbunq upper respiratory infections (10 sources)Postnasal drip; Translations: [Acute sinusitis]Onset: 11-11-2014 Resolved: 11-69-7350NxwwjihoWaysqudj codes; unclassified (6 sources)History of clinical finding in subject; Translations: [Personal history of other specified diseases] Resolved: 23-14-5412MazqdjwbWrjckkfl codes; unclassified (3 sources)History of chest pain; Translations: [Personal history of other specified diseases] Resolved: 77-75-0473KlskqtayGqmhshho codes; unclassified (5 sources)Edema of lower extremity; Translations: [Edema]Onset: 08-19-2023 55-87-1413HpmxgfiiStqphcsdujfl (2 sources)Onset: 01-31-2024 Resolved: Results Test NameValueInterpretationReference RangeFacilityGlucose Glucometer (BldC) [Mass/Vol]Ordered By: Armand Elder on 24-52-8705Wfovnzx [Mass/Vol]Capillary blood glucose measurement by glucometer (mass/volume)[facility] CenterComment on above:Random Glucose Reference Range is dependent on time and content of last meal. Glucose of more than 200 mg/dL in a nonstressed, ambulatory subject supports the diagnosis of Diabetes Mellitus.Glucose Poct GlucometersOrdered By: Armand Elder on 16-59-2119Momojbn [Mass/Vol]172 mg/dL [facility] CenterComment on above:Result Comment: Random Glucose Reference Range is dependent on time and content of last meal. Glucose of more than 200 mg/dL in a nonstressed, ambulatory subject supports the diagnosis of Diabetes Mellitus. PERFORMED BY: [facility] [address] [place] [address] PATHOLOGIST [employer] ENGINEER MAIRA GILLIAM M.D.Performed By: #### GLULS #### Point of Care testing ,Random Glucose Reference Range is dependent on time and content of last meal. Glucose of more than 200 mg/dL in a nonstressed, ambulatory subject supports the diagnosis of Diabetes Mellitus.Estimated glomerular filtration rate (GFR) non- Americanon 18-97-3716WQR/1.73 sq M.predicted among non-blacks MDRD (S/P/Bld) [Vol rate/Area]Estimated glomerular filtration rate (GFR) non- AmericanLow>=60 mL/min/1.73m [address] [place], [place] [address]GFR/1.73 sq M.predicted among non-blacks MDRD (S/P/Bld) [Vol rate/Area]55 mL/min/{1.73_m2} Low>=60 mL/min/1.73m [address] [place], [place] [address]Laboratory - Chemistry and Chemistry - challengeon 81-49-2980Njflqpdhvs [Mass/Vol]0.98 mg/dL0.55-1.02 [facility] CenterGFR/1.73 sq M.predicted MDRD (S/P/Bld) [Vol rate/Area]mL/min/{1.73_m2}>=60 mL/min/1.73m [address] [place] [address] DEXA SCAN CENTRAL SKELETALon 20-73-4062HMCO SCAN CENTRAL SKELETALDEXA SCAN CENTRAL SKELETAL DEXA SCAN CENTRAL SKELETAL: 08/09/2024 2:36 PM CLINICAL: Post menopausal. Exam/Technique: DEXA Scan (Dual Energy X-ray Absorptiometry) Findings: PA Lumbar Spine: BMD: 1.4-3 g/cm2. T-score: 1.8 Left Femoral neck: BMD 0.850 g/cm2. T-score: -1.4 Right Femoral neck: BMD 0.770 g/cm2. T-score: -1.9 Fracture Risk: According to FRAX, 10 year probability of any major osteoporosis-related fracture is 13.4%, 10 yearprobability of hip fracture is 3.4 % IMPRESSION: * Osteopenia, progression compared with 07/23/2010. PLEASE NOTE * T-score compares patient BMD to a reference of young normal controls. World Health Organization Classification: Osteoporosis: T-score=-2.5 or below. Osteopenia (low bone mass): T-score between -1.0 and -2.5. Normal: T-score -1.0 or above. Secondary causes of bone loss should be evaluated if clinically indicated since the etiology of lowBMD cannot be determined by BMD measurement alone. The current national osteoporosis Foundation guide recommends treating patient's with FRAX10 year risk score of greater than or equal to 3% for hip fracture or greater than or equal to 20% for major osteoporotic fracture, to reduce their fracture risk. Finalized by Duane Andre MD on 08/09/2024 7:35 [facility] CenterMAMM SCREENING BILATERAL W CADon 51-85-1840UKPD SCREENING BILATERAL W CADMAMM SCREENING BILATERAL W CAD ALICIA FLOR 1950 [id number] EXAM: MAMM SCREENING BILATERAL W CAD, 08/09/2024 2:36 PM CLINICAL INDICATIONS: Screening, Encounter for screening mammogram for malignant neoplasm of breast COMPARISON: 08/08/2023 and priors TECHNIQUE: Bilateral digital tomosynthesis MLO and CC views of the breasts were obtained, with creation of synthetic 2D views. Computer aided detection was utilized. FINDINGS: There are scattered areas of fibroglandular density. There are no suspicious masses, calcifications, or areas of architectural distortion. IMPRESSION: No mammographic evidence of malignancy. BI-RADS: BI-RADS 1 - Negative RECOMMENDATION: Routine screening mammogram in 1 year. RISK ASSESSMENT: TC Lifetime risk: 2.7%. The patient's reported personal and family medical history was used calculate their Tyrer-Cuzick lifetime risk of malignancy. Scores less than 20% are not considered high risk per ACR guidelines and patient should continue with the above recommendation. Finalized by Roman De Santiago MD on 08/09/2024 3:13 PM 1 b MAMM 1 [facility] Informationon 05-27-2024 Troponin I High Sensitivity6.7 pg/mL4.0-51.3FUniversity Hospitals Health System Comment on above:CUT-OFF POINTS HAVE BEEN ESTABLISHED BASED ON THE FOURTHUNIVERSAL DEFINITION OF MYOCARDIAL INFARCTION. THE UPPERREFERENCE LIMIT (URL) OF TROPONIN, DEFINED THE 99THPERCENTILE OF cTnI DISTRIBUTION IN A REFERENCE POPULATION,HAS BEEN CONFIRMED THE DECISION THRESHOLD FOR MIDIAGNOSIS.99TH PERCENTILE = 51.4 PG/MLNOTE: HIGH-SENSITIVITY TROPONIN ASSAY IS NOT INTENDED TO BEUSED IN ISOLATION BUT SHOULD BE INTERPRETED IN CONJUNCTIONWITH OTHER DIAGNOSTIC AND CLINICAL INFORMATION.Activated partial thromboplastin time (aPTT) in platelet poor plasma by coagulation aon 99-28-9499yXLZ Coag (PPP) [Time]Activated partial thromboplastin time (aPTT) in platelet poor plasma by coagulation a22.3-36.2FUniversity Hospitals Health SystemBasophils Auto (Bld) [#/Vol]on 92-76-4117Pfntgggwz (Bld) [#/Vol]Automated basophil count0.0-0.1 [facility] CenterBasophils/100 WBC Auto (Bld)on 05-26-2024 Basophils/100 WBC (Bld)Automated basophil %0.2-2.0[facility] CenterEosinophils/100 WBC Auto (Bld)on 47-68-7728Twmatssdcur/100 WBC (Bld) Automated eosinophil %0.9-7.0[facility] CenterErythrocyte distribution width Auto (RBC) [Ratio]on 86-71-4843Qhlxndshfpg distribution width (RBC) [Ratio]Erythrocyte distribution width [Ratio] by Automated count11.0-15.0 [facility] CenterEstimated glomerular filtration rate (GFR) non- Americanon 01-44-0662TVL/1.73 sq M.predicted among non-blacks MDRD (S/P/Bld) [Vol rate/Area]Estimated glomerular filtration rate (GFR) non- AmericanLow>=60 mL/min/1.73m 2FUniversity Hospitals Health SystemGlobulin Calc (S) [Mass/Vol]on 23-93-5809Nbjaiiql (S) [Mass/Vol]Serum globulin measurement by calculation (mass/volume)[facility] CenterHematocrit Auto (Bld) [Volume fraction]on 07-50-5195Qogchbfevb (Bld) [Volume fraction]Hematocrit [Volume Fraction] of Blood by Automated count36.0-48.0[facility] CenterHemoglobin [Mass/volume] in Bloodon 50-11-3814Fztwgqycjd (Bld) [Mass/Vol] Hemoglobin [Mass/volume] in Blood12.0-16.0[facility] CenterINR in Platelet poor plasma by Coagulation assayon 49-24-9650VVZ Coag (PPP) [Relative time]INR in Platelet poor plasma by Coagulation assayAdena Regional Medical CenterComment on above:DESIRED INR:2.0-3.0 CONDITIONS NOT LISTED BELOW2.5-3.5 FOR PROSTHETIC HEART VALVE REPLACEMENT2.5-3.5 RECURRENT THROMBOSISLaboratory - Chemistry and Chemistry - challengeon 46-79-3958Sgcofiv [Mass/Vol]3.4 g/dL3.4-5.0[facility] CenterALP [Catalytic activity/Vol]86 U/K71-335OalbjxeylAdena Regional Medical CenterALT [Catalytic activity/Vol]18 U/G85-30WorbfponoAdena Regional Medical CenterAST [Catalytic activity/Vol]14 U/VEon37-47HqituaajjAdena Regional Medical CenterBilirubin [Mass/Vol] 0.4 mg/dL0.2-1.0[facility] CenterCalcium [Mass/Vol]9.7 mg/dL 8.5-10.1FUniversity Hospitals Health SystemChloride [Moles/Vol]103 mmol/L98-107 [facility] CenterCO2 [Moles/Vol]29.5 mmol/L21.0-32.0[facility] CenterCreatinine [Mass/Vol]1.04 mg/dLHigh0.55-1.02[facility] CenterGFR/1.73 sq M.predicted MDRD (S/P/Bld) [Vol rate/Area] mL/min/{1.73_m2}>=60 mL/min/1.73m 2FUniversity Hospitals Health SystemGlucose [Mass/Vol]88 mg/mF10-519XgbshnhmuAdena Regional Medical CenterPotassium [Moles/Vol] 3.0 mmol/LLow3.5-5.1FUniversity Hospitals Health SystemComment on above:RESULTS CALLED TO []@BY Gregory Abraham MLT at 0022Protein [Mass/Vol]7.6 g/dL6.4-8.2 [facility] Hospitalodium [Moles/Vol]141 mmol/P712-045OgyvmoauuAdena Regional Medical CenterUrea nitrogen [Mass/Vol]18.0 mg/dL7.0-18.0[facility] CenterUrea nitrogen/Creatinine [Mass ratio]17.3 mg/mgAdena Regional Medical CenterLaboratory - Hematology and Cell countson 05-26-2024 Immature granulocytes/100 WBC (Bld)0.3 %0.0-0.5FUniversity Hospitals Health System Leukocytes [#/volume] corrected for nucleated erythrocytes in Blood by Automated counon 11-27-9685LVB corrected for nucl RBC Auto (Bld) [#/Vol]Leukocytes [#/volume] corrected for nucleated erythrocytes in Blood by Automated counHigh 4.0-11.0[facility] CenterLymphocytes Auto (Bld) [#/Vol]on 97-86-4123Ffntgzbrtig (Bld) [#/Vol]Lymphocytes [#/volume] in Blood by Automated countHigh1.2-3.8[facility] CenterLymphocytes/100 WBC Auto (Bld) on 66-63-4607Klwdnkadtlu/100 WBC (Bld)Lymphocytes/100 leukocytes in Blood by Automated count20.5-60.0[facility] HospitalH Auto (RBC) [Entitic mass]on 19-71-2050TCW (RBC) [Entitic mass]MCH [Entitic mass] by Automated count 26.7-34.0[facility] CenterMCHC Auto (RBC) [Mass/Vol]on 64-89-5824XTBK (RBC) [Mass/Vol]MCHC [Mass/volume] by Automated count29.9-35.2 [facility] CenterMCV Auto (RBC) [Entitic vol]on 40-84-6623EBW (RBC) [Entitic vol]MCV [Entitic volume] by Automated count81.0-99.0[facility] CenterMonocytes Auto (Bld) [#/Vol]on 89-50-5355Kbbgcbhum (Bld) [#/Vol]Automated blood monocyte countHigh0.3-0.8[facility] CenterMonocytes/100 WBC Auto (Bld)on 70-77-0167Dolvkqdaw/100 WBC (Bld)Automated monocyte %1.7-12.0[facility] CenterNeutrophils Auto (Bld) [#/Vol]on 23-27-1106Odlugcdnuie (Bld) [#/Vol]Neutrophils [#/volume] in Blood by Automated count1.4-6.5FUniversity Hospitals Health SystemNeutrophils/100 WBC Auto (Bld)on 22-00-1432Nitaztxvfbt/100 WBC (Bld)Automated neutrophil %43.0-75.0 [facility] CenterNo Panel Informationon 70-88-8602Zqwrxsmknka # (Auto)0.5 10 3/uL0.0-0.7FUniversity Hospitals Health SystemImmature Granulocyte # (Auto)0.03 10 3/uL0.00-0.03[facility] CenterTroponin I High Sensitivity6.0 pg/mL4.0-51.3FUniversity Hospitals Health SystemComment on above: CUT-OFF POINTS HAVE BEEN ESTABLISHED BASED ON THE FOURTHUNIVERSAL DEFINITION OF MYOCARDIAL INFARCTION. THE UPPERREFERENCE LIMIT (URL) OF TROPONIN, DEFINED THE 99THPERCENTILE OF cTnI DISTRIBUTION IN A REFERENCE POPULATION,HAS BEEN CONFIRMED THE DECISION THRESHOLD FOR MIDIAGNOSIS.99TH PERCENTILE = 51.4 PG/MLNOTE: HIGH-SENSITIVITY TROPONIN ASSAY IS NOT INTENDED TO BEUSED IN ISOLATION BUT SHOULD BE INTERPRETED IN CONJUNCTIONWITH OTHER DIAGNOSTIC AND CLINICAL INFORMATION.Platelet mean volume Auto (Bld) [Entitic vol]on 05-26-2024 Platelet mean volume (Bld) [Entitic vol]Platelet mean volume [Entitic volume] in Blood by Automated count9.5-13.5FUniversity Hospitals Health SystemPlatelets Auto (Bld) [#/Vol]on 25-98-1595Jocjyueeh (Bld) [#/Vol]Platelets [#/volume] in Blood by Automated egndy710-385NlfubnsmuAdena Regional Medical CenterProthrombin time (PT) on 69-26-8262WB Coag (PPP) [Time]Prothrombin time (PT)9.0-11.6FUniversity Hospitals Health SystemRBC Auto (Bld) [#/Vol]on 42-31-7737PNT (Bld) [#/Vol]Erythrocytes [#/volume] in Blood by Automated count4.20-5.40[facility] Serum or plasma albumin/globulin mass ratioon 28-08-6738Wsvrouh/Globulin [Mass ratio]Serum or plasma albumin/globulin mass ratioPremier Health Miami Valley Hospitalerum or plasma anion gap determinationon 14-45-8122Npkas gap [Moles/Vol] Serum or plasma anion gap determinationAdena Regional Medical Center Laboratory - Chemistry and Chemistry - challengeon 62-25-7758PCQ Qn1.042 m[IU]/L 0.358-3.740[facility] CenterBasophils Auto (Bld) [#/Vol]on 31-58-6854Osxdvusoe (Bld) [#/Vol]0.1 10 3/uL0.0-0.1FUniversity Hospitals Health SystemBasophils/100 WBC Auto (Bld)on 83-13-3392Itxklntbp/100 WBC (Bld)1.3 % 0.2-2.0[facility] CenterCholesterol in LDL Calc [Mass/Vol]on 60-52-9559Twrsmdvyueg in LDL [Mass/Vol]101.0 mg/dLAdena Regional Medical CenterComment on above:<100 mg/dl XOUQLUS409-764 mg/dl NEAR OR ABOVE GMIGAMK066- 159 mg/dl BORDERLINE NYYF630-490 mg/dl HIGH>190 mg/dl VERY HIGHCholesterol in VLDL Calc [Mass/Vol]on 11-89-6347Jgtcafuuiqm in VLDL [Mass/Vol]22.6 mg/dL [facility] CenterEosinophils/100 WBC Auto (Bld)on 10-26-2023 Eosinophils/100 WBC (Bld)6.0 %0.9-7.0[facility] Erythrocyte distribution width Auto (RBC) [Ratio]on 15-82-9017Lpnlqlqwifo distribution width (RBC) [Ratio]12.6 %11.0-15.0[facility] Estimated glomerular filtration rate (GFR) non- Americanon 10-26-2023 GFR/1.73 sq M.predicted among non-blacks MDRD (S/P/Bld) [Vol rate/Area] mL/min/{1.73_m2}>=60[facility] CenterGlobulin Calc (S) [Mass/Vol]on 57-35-1875Hgybkthx (S) [Mass/Vol]4.7 g/dLAdena Regional Medical CenterGlucose mean value [Mass/volume] in Blood Estimated from glycated hemoglobinon 40-85-0050Ugcieqs glucose Estimated from glycated hemoglobin (Bld) [Mass/Vol]140 mg/dLAdena Regional Medical CenterHematocrit Auto (Bld) [Volume fraction]on 78-06-2141Npimajvzgj (Bld) [Volume fraction]43.8 %36.0-48.0 [facility] CenterHemoglobin [Mass/volume] in Bloodon 10-26-2023 Hemoglobin (Bld) [Mass/Vol]14.4 g/dL12.0-16.0[facility] Laboratory - Chemistry and Chemistry - challengeon 86-96-7937Yucjvml [Mass/Vol] 3.4 g/dL3.4-5.0[facility] CenterALP [Catalytic activity/Vol]84 U/G37-678YarxtgntjAdena Regional Medical CenterALT [Catalytic activity/Vol]27 U/L 14-59[facility] CenterAST [Catalytic activity/Vol]19 U/L15-37 [facility] CenterBilirubin [Mass/Vol]0.8 mg/dL0.2-1.0[facility] CenterCalcium [Mass/Vol]9.9 mg/dL8.5-10.1FUniversity Hospitals Health SystemChloride [Moles/Vol]102 mmol/H77-544GrrgtebctAdena Regional Medical CenterCholesterol [Mass/Vol]188 mg/dL<=200[facility] Cholesterol in HDL [Mass/Vol]65 mg/wJHkub80-72FdcuzkhlqAdena Regional Medical Center Comment on above:> or =60 mg/dl - LOW CARDIOVASCULAR RISK<40 mg/dl - HIGH CARDIOVASCULAR RISKCO2 [Moles/Vol]31.7 mmol/L21.0-32.0[facility] CenterCreatinine [Mass/Vol]0.86 mg/dL0.55-1.02[facility] GFR/1.73 sq M.predicted MDRD (S/P/Bld) [Vol rate/Area]mL/min/{1.73_m2}>=60 [facility] CenterGlucose [Mass/Vol]121 mg/cWDtxz57-653BkjtvjftpAdena Regional Medical CenterPotassium [Moles/Vol]3.4 mmol/LLow3.5-5.1FUniversity Hospitals Health SystemProtein [Mass/Vol]8.1 g/dL6.4-8.2FOhio Valley Hospitalodium [Moles/Vol]142 mmol/M507-657YjxpddvhzAdena Regional Medical CenterTriglyceride [Mass/Vol]113 mg/dL<=150[facility] CenterTSH Qn4.026 m[IU]/LHigh0.358-3.740[facility] CenterUrea nitrogen [Mass/Vol]18.0 mg/dL7.0-18.0[facility] CenterUrea nitrogen/Creatinine [Mass ratio]20.9 mg/mgAdena Regional Medical Center Laboratory - Hematology and Cell countson 19-00-6169JaI6g (Bld) [Mass fraction] 6.5 %High4.5-6.2FUniversity Hospitals Health SystemComment on above:ADA RECOMMENDED LIMIT 4.0 - 6.0ADA THERAPEUTIC TARGET < 7.0ACTION SUGGESTED> 7.0 Immature granulocytes/100 WBC (Bld)0.1 %0.0-0.5FUniversity Hospitals Health System Leukocytes [#/volume] corrected for nucleated erythrocytes in Blood by Automated counon 42-46-1562XPP corrected for nucl RBC Auto (Bld) [#/Vol]8.6 10 3/uL 4.0-11.0[facility] CenterLymphocytes Auto (Bld) [#/Vol]on 64-89-6680Hlqmbmaslsy (Bld) [#/Vol]3.2 10 3/uL1.2-3.8[facility] CenterLymphocytes/100 WBC Auto (Bld)on 11-22-8318Jazxhotawde/100 WBC (Bld)37.3 % 20.5-60.0[facility] HospitalH Auto (RBC) [Entitic mass]on 05-96-9671ZBI (RBC) [Entitic mass]29.3 pg26.7-34.0[facility] CenterMCHC Auto (RBC) [Mass/Vol]on 86-39-7994HITE (RBC) [Mass/Vol]32.9 g/dL 29.9-35.2FUniversity Hospitals Health SystemMCV Auto (RBC) [Entitic vol]on 67-31-6283CUZ (RBC) [Entitic vol]89.0 fL81.0-99.0[facility] CenterMicroalbumin [Mass/volume] in Urineon 13-36-9249Jwatqfq DL <= 20 mg/L (U) [Mass/Vol]mg/dL<=30.0[facility] CenterMonocytes Auto (Bld) [#/Vol]on 33-35-7078Vzyycqqjt (Bld) [#/Vol]0.8 10 3/uL0.3-0.8[facility] CenterMonocytes/100 WBC Auto (Bld)on 46-69-3550Cecaxcomx/100 WBC (Bld) 8.9 %1.7-12.0[facility] CenterNeutrophils Auto (Bld) [#/Vol]on 25-69-1090Cgiehyezmms (Bld) [#/Vol]4.0 10 3/uL1.4-6.5FUniversity Hospitals Health SystemNeutrophils/100 WBC Auto (Bld)on 21-95-7675Lnrxosdtmmn/100 WBC (Bld)46.4 % 43.0-75.0[facility] CenterNo Panel Informationon 10-26-2023 Eosinophils # (Auto)0.5 10 3/uL0.0-0.7FUniversity Hospitals Health SystemImmature Granulocyte # (Auto)0.01 10 3/uL0.00-0.03[facility] Platelet mean volume Auto (Bld) [Entitic vol]on 22-60-3626Oxgshwde mean volume (Bld) [Entitic vol]11.6 fL9.5-13.5FUniversity Hospitals Health SystemPlatelets Auto (Bld) [#/Vol]on 89-79-9789Qwasqqgen (Bld) [#/Vol]256 10 3/qW542-160 [facility] CenterRBC Auto (Bld) [#/Vol]on 23-05-4079OMR (Bld) [#/Vol]4.92 10 6/uL4.20-5.40[facility] Hospitalerum or plasma albumin/globulin mass ratioon 90-15-4957Ewtubzk/Globulin [Mass ratio]0.7 {ratio} [facility] Hospitalerum or plasma anion gap determinationon 50-11-3215Pcqyo gap [Moles/Vol]11.7 mmol/LFOhio Valley Hospitalerum or plasma total cholesterol/high density lipoprotein (HDL) cholesterol mass rat on 71-62-0380Oxnjxybcsfd.total/Cholesterol in HDL [Mass ratio]2.9 {ratio} [facility] CenterComment on above:3.3 - 4.4 LOW RISK4.4 - 7.1 AVERAGE RISK7.1 - 11.0 MODERATE RISK>11.0 HIGH RISKTRANSTHORACIC ECHO (TTE) COMPLETEon 49-04-6383LAUHWMVCGCYKY ECHO (TTE) [facility] [address] [place] [address], [address], [place] [address] TRANSTHORACIC ECHOCARDIOGRAM REPORT Patient Name: ALICIA FLOR Reading Physician: [id number] Doug Heller MD, [facility] Study Date: 07/02/2023 Ordering Provider: [id number] DOUG HELLER MRN/PID: [id number] Fellow: Nurse: Date of /Age: 1 1950 / 73 years Comb Winder: Rosey Prince RDCS, RD, RVT Gender: F Additional Staff: Height: 165.10 cm Admit Date: Weight: 80.74 kg Admission Status: Outpatient BSA: 1.88 m2 Department Location: [facility] Blood Pressure: 150 /74 mmHg Study Type: TRANSTHORACIC ECHO (TTE) COMPLETE Diagnosis/ICD: Shortness of breath-R06.02 Indication: SOB, HTN, DM CPT Codes: Echo Complete w Full Doppler-59844 Study Detail: The following Echo studies were [...] There is trivial aortic valve regurgitation. The peakinstantaneous gradient of the aortic valve is 10.2 mmHg. The mean gradient of the aortic valve is 6.0 mmHg. Mitral Valve: The mitral valve is normal in structure. There is no evidence of mitral valve regurgitation. Tricuspid Valve: The tricuspid valve is structurally normal. There is trace tricuspid regurgitation. Pulmonic Valve: The pulmonic valve is structurally normal. There is no indication of pulmonic valveregurgitation. Pericardium: There is no pericardial effusion noted. [...] 1.0 m/s (0.6-0.9m/s) PV Max P.0 mmHg [id number] Doug Heller MD, [facility] Electronically signed on 07/05/2023 at 5:58:05 PM Final [facility] HospitalOffice Visit (Cardiology)on 29-28-9323Rupvgz-up visitDiagnoses/Problems Assessed Essential hypertension (401.9) (I10) Right bundle [...] Weight Tips; Status:Complete - Retrospective Authorization; Done: [id number] Some eating tips that can help you lose weight.; Status:Complete - Retrospective Authorization; Done: [id number] SocHx: Former smoker Tobacco Use Screening; Status:Complete; Done: [id number] Patient Instructions Please bring all medicines, vitamins, [...] Follow up in 1 year. Chief Complaint ALICIA FLOR is being seen for a 6 month [...] by her family physician about the results. Assessment/recommendations: 1?history of chest pain that is atypical [...] Neck: neck is supple, (more content not included)...NormalUH TouchworksTobacco Screening.on 08-31-5492Qwekh depression screening assessmentNoProvidence Sacred [facility] Center Glyde DO Work Phone: Fall risk assessmenta) No falls within the last year [facility] Glyde DO Work Phone: Tobacco use status CPHSb) NoMCity Emergency Hospital GenieDB 250 DO Work Phone: CBC W MANUAL DIFFon 82-55-5106FHNVFACB LYMPH #Normal The [facility] Medical CenterComment on above:Performed By: #### CBCMAN #### [facility] [address] [place] [address] Dr. Kristen Lovell LYMPH %NormalThe Springfield HospitalComment on above: Performed By: #### SPENCER #### [facility] [address] [place] [address] Dr. Kristen Murcia #Normal0.0-0.3The Springfield HospitalComment on above: Performed By: #### SPENCER #### [facility] [address] [place] [address] Dr. Kristen Murcia %Normal0-5The Springfield HospitalComment on above:Performed By: #### SPENCER #### [facility] [address] [place] [address] Dr. Kristen Fields #0.00 103/ulNormal0.00-0.10The [facility] Medical CenterComment on above:Performed By: #### SPENCER #### [facility] [address] [place] [address] Dr. Kristen Fields %0.0 %Critically low0.2-2.0The [facility] Medical CenterComment on above:Performed By: #### SPENCER #### [facility] [address] [place] [address] Dr. Kristen Strong #NormalThe [facility] Medical CenterComment on above:Performed By: #### SPENCER #### [facility] [address] [place] [address] Dr. Kristen Strong %NormalThe Springfield HospitalComment on above:Performed By: #### SPENCER #### [facility] [address] [place] [address] Dr. Kristen StewartRRECTED WBCNormal4.0-11.0The [facility] Medical CenterComment on above: Performed By: #### SPENCER #### [facility] [address] [place] [address] Dr. Kristen Turner #0.39 103/ulNormal0.00-0.70The [facility] Medical CenterComment on above:Performed By: #### SPENCER #### [facility] [address] [place] [address] Dr. Kristen Turner%3.0 %Normal0.9-7.0The [facility] Medical CenterComment on above: Performed By: #### SPENCER #### [facility] [address] [place] [address] Dr. Kristen JamesonT45.6 %Zdmumn97.0-48.0The [facility] Medical CenterComment on above: Performed By: #### SPENCER #### [facility] [address] [place] [address] Dr. Kristen JuradoHGB15.0 g/fvDnafop66.0-16.0The [facility] Medical CenterComment on above: Performed By: #### SPENCER #### [facility] [address] [place] [address] Dr. Kristen Marinelli #6.55 103/ulCritically high1.20-3.80The [facility] Comment on above:Performed By: #### SPENCER #### [facility] [address] [place] [address] Dr. Kristen Marinelli%50.0 %Mmxfaj35.5-60.0The [facility] Medical CenterComment on above:Performed By: #### SPENCER #### [facility] [address] [place] [address] Dr. Kristen TranH29.1 vkGrmkyn50.7-34.0The [facility] Medical CenterComment on above: Performed By: #### SPENCER #### [facility] [address] [place] [address] Dr. Kristen TranHC32.9 g/rkWibpsz61.9-35.2The [facility] Medical CenterComment on above:Performed By: #### SPENCER #### [facility] [address] [place] [address] Dr. Kristen TranV88.4 wMGmklrz89.0-99.0The [facility] Medical CenterComment on above: Performed By: #### SPENCER #### [facility] [address] [place] [address] Dr. Kristen SchulteOCYTE #NormalThe [facility] Medical CenterComment on above: Performed By: #### SPENCER #### [facility] [address] [place] [address] [address] Kristen SchulteOCYTE %NormalThe [facility] Medical CenterComment on above: Performed By: #### SPENCER #### [facility] [address] [place] [address] [address] Kristen Cali#0.92 103/ulCritically high0.30-0.80The [facility] on above:Performed By: #### SPENCER #### [facility] [address] [place] [address] [address] Kristen Cali%7.0 %Normal1.7-12.0The [facility] Hospitalment on above: Performed By: #### SPENCER #### [facility] [address] [place] [address] Dr. Kristen MarkV11.1 fLNormal9.5-13.5The [facility] Hospitalment on above: Performed By: #### SPENCER #### [facility] [address] [place] [address] [address] Kristen Jaime #NormalMercy Health on above:Performed By: #### SPENCER #### [facility] [address] [place] [address] [address] Kristen WaltonOCYTE %NormalSelect Medical OhioHealth Rehabilitation Hospitalment on above:Performed By: #### SPENCER #### [facility] [address] [place] [address] Dr. Kristen JuradoNRBCNormalThe [facility] Medical CenterComment on above:Performed By: #### CBCUSMAN #### [facility] [address] [place] [address] [address] Kristen JuradoPLT269 103/siAelexw017-332Cfv [facility] Hospitalment on above: Performed By: #### CBCUSMAN #### [facility] [address] [place] [address] [address] Kristen JuradoRBC5.16 106/ulNormal4.20-5.40The [facility] on above:Performed By: #### CBCMAN #### [facility] [address] [place] [address] [address] Kristen DamonW13.0 %Gqrcji07.0-15.0The [facility] Medical CenterCommymichigan medical center alma on above: Performed By: #### CBCMAN #### [facility] [address] [place] [address] [address] Kristen Esposito #5.24 103/ulNormal1.40-6.50The [facility] Medical CenterCommymichigan medical center alma on above:Performed By: #### CBCMAN #### [facility] [address] [place] [address] Dr. Kristen Esposito %40.0 %Critically low43.0-75.0The [facility] on above:Performed By: #### CBCMAN #### [facility] [address] [place] [address] Dr. Kristen PereiraBC13.1 103/ulCritically high4.0-11.0The [facility] on above:Performed By: #### CBCMAN #### [facility] [address] [place] [address] Dr. Kristen JuradoGLYCOHEMOGLOBIN A1Con 82-37-1749WTR RECOMMENDATIONSEE BELOWNormal The [facility] Medical CenterCommymichigan medical center alma on above:Result Comment: ADA RECOMMENDED LIMIT 4.0 - 6.0 ADA THERAPEUTIC TARGET < 7.0 ACTION SUGGESTED > 7.0Performed By: #### A1C #### [facility] [address] [place] [address] Dr. Kristen JuradoGlucose [Mass/Vol]137 mg/dLNormalThe [facility] Medical CenterCommymichigan medical center alma on above:Performed By: #### A1C #### [facility] [address] [place] [address] Dr. Kristen JuradoHbA1c (Bld) [Mass fraction]6.4 %Critically high4.5-6.2The [facility] on above:Performed By: #### A1C #### [facility] [address] [place] [address] DrKay NazarioID PROFILEon 22-78-0077UYMN-HDL RATIO NORMSMercy Health St. Rita's Medical CenterComment on above:Result Comment: 3.3 - 4.4 LOW RISK 4.4 - 7.1 AVERAGE RISK 7.1 - 11.0 MODERATE RISK >11.0 HIGH RISKPerformed By: #### CMP, LIPID #### [facility] [address] [place] [address] [address] Kristen JuradoCholesterol [Mass/Vol]196 mg/dLNormal<=200[facility] Comment on above:Performed By: #### CMP, LIPID #### [facility] [address] [place] [address] Dr. Kristen JuradoCholesterol in HDL [Mass/Vol]74 mg/dLCritically bdge17-60EkfMercy Health Defiance HospitalComment on above:Performed By: #### CMP, LIPID #### [facility] [address] [place] [address] Dr. Kristen JuradoCholesterol in LDL [Mass/Vol]95.6 mg/dLOhioHealth Riverside Methodist HospitalComment on above:Performed By: #### CMP, LIPID #### [facility] [address] [place] [address] Dr. Kristen Garciaesterwilson.total/Cholesterol in HDL [Mass ratio]2.6 {ratio} NormalMercy Health Defiance HospitalComment on above:Performed By: #### CMP, LIPID #### [facility] [address] [place] [address] Dr. Kristen Callaway NORMAL> or = 60 mg/dl - LOW CARDIOVASCULAR RISK <40 mg/dl - HIGH CARDIOVASCULAR RISKOhioHealth Riverside Methodist HospitalComment on above:Performed By: #### CMP, LIPID #### [facility] [address] [place] [address] Dr. Kristen JuradoLDL CALC NORMALSEE Doctors HospitalCommymichigan medical center alma on above:Result Comment: <100 mg/dl OPTIMAL 100 - 129 mg/dl NEAR OR ABOVE OPTIMAL 130 - 159 mg/dl BORDERLINE HIGH 160 - 189 mg/dl HIGH >190 mg/dl VERY HIGH Performed By: #### CMP, LIPID #### [facility] [address] [address] [address] Kristen JuradoTriglyceride [Mass/Vol]132 mg/dLNormal<=150The [facility] Comment on above:Performed By: #### CMP, LIPID #### [facility] [address] [address] [address] Kristen JuradoVLDL CALC26.4 mg/dLNormalThe [facility] Medical CenterComment on above: Performed By: #### CMP, LIPID #### [facility] [address] [place] [address] Dr. Kristen GrijalvaALBUMIN, RAND URon 46-94-9146zGQD<1.3Normal<=30.0The [facility] Medical CenterComment on above:Performed By: #### MALBR #### [facility] [address] [place] [address] Dr. Kristen JuradoPROF 14(COMP METB)on 75-23-3096Ixoknbb [Mass/Vol]3.7 g/dLNormal 3.4-5.0The [facility] Medical CenterComment on above:Performed By: #### CMP, LIPID #### [facility] [address] [place] [address] Dr. Kristen JuradoAlbumin/Globulin [Mass ratio]0.9 {ratio}NormalThe [facility] Medical CenterComment on above:Performed By: #### CMP, LIPID #### [facility] [address] [place] [address] Dr. Kristen Dan [Catalytic activity/Vol]85 U/PTyuour03-417Nud [facility] CenterComment on above:Performed By: #### CMP, LIPID #### [facility] [address] [address] [address] Kristen Holguin [Catalytic activity/Vol]21 U/ZHkxkxs22-67Ryk [facility] CenterComment on above:Performed By: #### CMP, LIPID #### [facility] [address] [place] [address] Dr. Kristen Blake gap [Moles/Vol]11.3 mmol/LNormalThe [facility] Comment on above:Performed By: #### CMP, LIPID #### [facility] [address] [place] [address] [address] Kristen JuradoAST [Catalytic activity/Vol]23 U/DAksmoq39-47Erj [facility] CenterComment on above:Performed By: #### CMP, LIPID #### [facility] [address] [address] [address] Kristen JuradoBilirubin [Mass/Vol]0.6 mg/dLNormal0.2-1.0The [facility] Comment on above:Performed By: #### CMP, LIPID #### [facility] [address] [address] [address] Kristen JuradoCalcium [Mass/Vol]9.6 mg/dLNormal8.5-10.1[facility] Comment on above:Performed By: #### CMP, LIPID #### [facility] [address] [address] [address] Kristen JuradoChloride [Moles/Vol]101 mmol/CLadnly17-817WceMercy Health Defiance Hospital Comment on above:Performed By: #### CMP, LIPID #### [facility] [address] [address] [address] Kristen JuradoCO2 [Moles/Vol]31.0 mmol/WOaghbd44.0-32.0[facility] Comment on above:Performed By: #### CMP, LIPID #### [facility] [address] [address] [address] Kristen JuradoCreatinine [Mass/Vol]0.84 mg/dLNormal0.55-1.02The [facility] Medical CenterComment on above:Performed By: #### CMP, LIPID #### [facility] [address] [address] [address] Kristen AmezcuaGFR-AF SAMOAN>60Normal>=60The [facility] Medical CenterComment on above:Performed By: #### CMP, LIPID #### [facility] [address] [address] [address] Kristen AmezcuaGFR-NON AF SAMOAN>60Normal>=60The [facility] Medical CenterComment on above:Performed By: #### CMP, LIPID #### [facility] [address] [address] [address] Kristen JuradoGlobulin (S) [Mass/Vol]4.0 g/dLNormWilson HealthComment on above:Performed By: #### CMP, LIPID #### [facility] [address] [address] [address] Kristen JuradoGlucose [Mass/Vol]129 mg/dLCritically nfku74-536Axd [facility] CenterComment on above:Performed By: #### CMP, LIPID #### [facility] [address] [address] [address] Kristen JuradoPotassium [Moles/Vol]3.3 mmol/LCritically low3.5-5.1The [facility] Medical CenterComment on above:Performed By: #### CMP, LIPID #### [facility] [address] [address] [address] Kristen JuradoProtein [Mass/Vol]7.7 g/dLNormal6.4-8.2The [facility] Comment on above:Performed By: #### CMP, LIPID #### [facility] [address] [address] [address] Kristen JuradoSodium [Moles/Vol]140 mmol/RGqssui615-688Wbu [facility] Comment on above:Performed By: #### CMP, LIPID #### [facility] [address] [address] [address] Kristen JuradoUrea nitrogen [Mass/Vol]22.0 mg/dLCritically high7.0-18.0The [facility] Medical CenterComment on above:Performed By: #### CMP, LIPID #### [facility] [address] [place] [address] Dr. Kristen Rehman nitrogen/Creatinine [Mass ratio]26.2 mg/mgNoRegional Medical CenterComment on above:Performed By: #### CMP, LIPID #### [facility] [address] [place] [address] Dr. Kristen Robisonice Visit (Cardiology)on 89-99-6543Ecimpk-up visit Diagnoses/Problems Assessed Essential hypertension (401.9) (I10) [...] Weight Tips; Status:Complete - Retrospective Authorization; Done: [id number] Some eating tips that can help you lose weight.; Status:Complete - Retrospective Authorization; Done: [id number] SocHx: Former smoker Tobacco Use Screening; Status:Complete; Done: [id number] Patient Instructions Please bring all medicines, vitamins, and herbal supplements with you when you come to the office. Prescriptions will not be filled unless you are compliant with your follow up appointments or have a follow up appointment scheduled as per instruction of your physician. Refills should be requested at the time of your visit. Follow up in 6 months Chief Complaint ALICIA FLOR is being seen for a 6 month [...] extremities. Cardiac and pulmonary examinations were normal Assessment/recommendations: 1?history of chest pain that is atypical [...] negative for complaint. Vitals Vital Signs Recorded: [id number] 10:34AM Heart Rate68, R Radial Wqpsbnjf944, LUE, Sitting Dbhnejynr24, LUE, Sitting Height5 ft 5 in Snoxcc324 lb 4 oz BMI Ppmvdrstva02.66 kg/m2 BSA Calculated1.88 Tobacco Useb) No Falls Screening (Age 18+)a) No falls within the last year Physical Exam Constitutional: alert and in no acute distress. Neck: neck is supple, symmetric, trachea midline, no mass (more content not included)...NormalUH TouchworksTobacco Screening.on 94-26-2522Pjdu risk assessmenta) No falls within the last year[facility] Captricity 250 DO Work Phone: Tobacco use status CPHSb) NoMCity [facility] Hospital GenieDB 250 DO Work Phone: MRI BRAIN WO CONon 33-76-4521VBX BRAIN WO CON EXAMINATION: MRI BRAIN WO CON, 04/19/2022 10:30 AM EST HISTORY: [...] Electronically authenticated by: RAMAKRISHNA VILLALOBOS Date: 2022-04-20 08:12[facility] HospitalToconnecticut [facility] Screening.on 09-48-2143Fdpr risk assessmenta) No falls within the last yearMP-[facility] 250 DO Work Phone: Tobacco use status CPHSb) NoMP-[facility]- [place] 250 DO Work Phone: NO CARDIAC STRESS/REST INJECTIONon 32-67-2889LUR CARDIAC STRESS/REST INJECTIONMRN: [id number] Patient Name: ALICIA FLOR STUDY: MYOCARDIAL PERFUSION STRESS TEST WITH LEXISCAN Performing facility: [facility], [address] [place] [address], [address] Provider: Doug Heller MD, [facility] PCP: Dr. Sudhakar Marinelli Supervising provider: Danny Ortiz MD INDICATION: Abnormal EKG; Chest Pain; DM HTN HISTORY: Gender: F; Age: 71 y/o ; Height: 0 cm; Weight: 78.6824588 kg. Abnormal EKG; Diabetes; Palpitations; HTN; Chest Pain; Denies smoking. Cardiac catheterization on 2009. COMPARISON: Previous nuclear testing completed [id number] at [place]. ACCESSION NUMBER(S): [id number]; [id number]; [id number] ORDERING CLINICIAN: DOUG HELLER TECHNIQUE: ONE DAY protocol. Stress injection: Date:09-18-21, 35.8 mCi of Myoview IV 20 seconds after rapid injection of Lexiscan. Rest injection: Date: 09-18-21, 11.3 mCi of Myoview IV at rest. The patient had a rapid injection of 0.4 mg of Lexiscan IV over 10 seconds. Imaging was performed by gated tomographic technique. Reason for Lexiscan: dizziness/unsteady/fall risk STRESS TEST DATA: Resting heart rate [...] to prior study. Electronically signed by: DANNY ORTIZ MDGeisinger-Bloomsburg HospitalNo Panel Informationon 72-61-4638FppqpsXM-[place] [facility]-[employer] 250 DO Work Phone: Tobacco Screening.on 81-37-4147Gejry depression screening assessmentProvidence [facility] Medical Center [facility]-SmartSynch 250 DO Work Phone: Fall risk assessmenta) No falls within the last year [facility] Heart-German 250 DO Work Phone: Tobacco use status CPHSb) NoMCity Emergency Hospital Heart- [place] 250 DO Work Phone: Albumin [Mass/volume] in Serum or PlasmaOrdered By: Elder Simon on 39-59-7916Fydumxx [Mass/Vol]4.0 g/dL3.2-5.5FUniversity Hospitals Health SystemBasophils Auto (Bld) [#/Vol]Ordered By: PROVIDER TEMP on 53-40-8723Ttjtxigkl (Bld) [#/Vol]0.1 10*3/uL0.0-0.2FUniversity Hospitals Health SystemBasophils/100 WBC Auto (Bld)Ordered By: PROVIDER TEMP on 08-26-2021 Basophils/100 WBC (Bld)0.8 %[facility] CenterBlood hemoglobin measurement (mass/volume)Ordered By: PROVIDER TEMP on 98-33-9904Agyrodbcnl (Bld) [Mass/Vol]14.6 g/dL11.8-15.4FUniversity Hospitals Health SystemBlood leukocytes automated count (number/volume)Ordered By: PROVIDER TEMP on 58-51-4180MXB (Bld) [#/Vol]8.5 10*3/uL4.5-11.0[facility] CenterCreatinine and Glomerular filtration rate.predicted panel (S/P/Bld)Ordered By: Elder Simon on 92-93-6977Gusswplwhw [Mass/Vol]1.02 mg/dL0.44-1.03[facility] CenterEosinophils Auto (Bld) [#/Vol]Ordered By: PROVIDER TEMP on 08-26-2021 Eosinophils (Bld) [#/Vol]0.2 10*3/uL0.0-0.45[facility] Eosinophils/100 WBC Auto (Bld)Ordered By: PROVIDER TEMP on 08-26-2021 Eosinophils/100 WBC (Bld)1.9 %[facility] CenterErythrocyte distribution width Auto (RBC) [Ratio]Ordered By: PROVIDER TEMP on 08-26-2021 Erythrocyte distribution width (RBC) [Ratio]13.1 %11.9-15.3FUniversity Hospitals Health SystemEstimated glomerular filtration rate (GFR) non- Ordered By: Elder Simon on 37-56-0297ECO/1.73 sq M.predicted among non- blacks MDRD (S/P/Bld) [Vol rate/Area]53 mL/MinAdena Regional Medical Center Globulin Calc (S) [Mass/Vol]Ordered By: Elder Simon on 98-90-1043Hjevnnkg (S) [Mass/Vol]3.4 g/dLAdena Regional Medical CenterHematocrit Auto (Bld) [Volume fraction]Ordered By: PROVIDER TEMP on 88-14-2624Axckooflbq (Bld) [Volume fraction]43.4 %34.0-46.4FUniversity Hospitals Health SystemLaboratory - Hematology and Cell countsOrdered By: PROVIDER TEMP on 45-64-1507Hgehkvgvw RBC/100 WBC (Bld) [Ratio]0.1 %0-0.5FUniversity Hospitals Health SystemLymphocytes Auto (Bld) [#/Vol]Ordered By: PROVIDER TEMP on 78-58-3163Oytbnfbtbzu (Bld) [#/Vol]1.9 10*3/uL1.00-4.8[facility] CenterLymphocytes/100 WBC Auto (Bld)Ordered By: PROVIDER TEMP on 16-49-2759Zatnyubiqrl/100 WBC (Bld)23.0 % [facility]H Auto (RBC) [Entitic mass]Ordered By: PROVIDER TEMP on 73-83-1234QOI (RBC) [Entitic mass]30.2 pg24.7-34.3FUniversity Hospitals Health SystemMCHC Auto (RBC) [Mass/Vol]Ordered By: PROVIDER TEMP on 67-52-9732CIKD (RBC) [Mass/Vol]33.5 g/dL32.0-35.0[facility] CenterMCV Auto (RBC) [Entitic vol]Ordered By: PROVIDER TEMP on 88-61-3843RSV (RBC) [Entitic vol]90.1 kQ54-211OiplfekufAdena Regional Medical CenterMonocytes Auto (Bld) [#/Vol]Ordered By: PROVIDER TEMP on 04-50-7797Mkeuhuctd (Bld) [#/Vol]0.5 10*3/uL0.0-0.8[facility] CenterMonocytes/100 WBC Auto (Bld) Ordered By: PROVIDER TEMP on 45-51-8117Nrhyxqugi/100 WBC (Bld)6.3 %[facility] CenterNeutrophils Auto (Bld) [#/Vol]Ordered By: PROVIDER TEMP on 62-07-0193Jkvrrotcuos (Bld) [#/Vol]5.8 10*3/uL1.8-7.7FUniversity Hospitals Health SystemNeutrophils/100 WBC Auto (Bld)Ordered By: PROVIDER TEMP on 81-19-9075Nofraytztvg/100 WBC (Bld)68.0 %[facility] CenterNo Panel InformationOrdered By: Elder Simon on 32-62-3929Famgptoye GFR ()> 60 mL/MinAdena Regional Medical CenterComment on above: GFR estimated reference range: According to KDOQI guidelines, <60 ml/min/1.73m2 is sufficient todiagnose a patient with chronic kidney disease.Pharmacy Creatinine Clearance (Chem51.26[facility] CenterPlatelet mean volume Auto (Bld) [Entitic vol]Ordered By: PROVIDER TEMP on 78-45-3906Wydscshw mean volume (Bld) [Entitic vol]10.0 fL6.3-10.7FUniversity Hospitals Health System Platelets Auto (Bld) [#/Vol]Ordered By: PROVIDER TEMP on 31-98-5277Styytjxns (Bld) [#/Vol]247 10*3/iZ448-593QdyrfcixuAdena Regional Medical CenterProtein [Mass/volume] in Serum or PlasmaOrdered By: Elder Simon on 08-26-2021 Protein [Mass/Vol]7.4 g/dL6.1-7.9[facility] CenterRBC Auto (Bld) [#/Vol]Ordered By: PROVIDER TEMP on 59-62-5386BDO (Bld) [#/Vol]4.82 10*6/uL 3.60-5.00[facility] Hospitalerum or plasma alanine aminotransferase measurement without P-5'-P (enzymatic activiOrdered By: Elder Simon on 77-98-7782CRJ No additional P-5'-P [Catalytic activity/Vol]23 U/L 10-60[facility] Hospitalerum or plasma albumin/globulin mass ratioOrdered By: Elder Simon on 19-96-3571Ltpjqlj/Globulin [Mass ratio]1.2 {ratio}[facility] Hospitalerum or plasma alkaline phosphatase measurement (enzymatic activity/volume)Ordered By: Elder Simon on 53-30-7700LAV [Catalytic activity/Vol]68 U/X03-64IttqtykawPremier Health Miami Valley Hospitalerum or plasma aspartate aminotransferase measurement (enzymatic activity/volume)Ordered By: Elder Simon on 32-78-4770DXQ [Catalytic activity/Vol]23 U/N78-23ZpkgujqnjPremier Health Miami Valley Hospitalerum or plasma calcium measurement (mass/volume)Ordered By: Elder Simon on 97-08-9777Eutzvnq [Mass/Vol]9.8 mg/dL8.2-10.2FOhio Valley Hospitalerum or plasma chloride measurement (moles/volume)Ordered By: Elder Simon on 08-26-2021 Chloride [Moles/Vol]101 mmol/J67-346CqddezaozPremier Health Miami Valley Hospitalerum or plasma glucose measurement (mass/volume)Ordered By: Elder Simon on 64-10-7706Jlysmwl [Mass/Vol]141 mg/mO86-074IrcjbcmbbAdena Regional Medical Center Comment on above:ADA recommended reference rangeRandom Glucose Reference Range is dependent on time and content of last meal. Glucose of more than 200 mg/dL in a nonstressed, ambulatory subject supports the diagnosisof Diabetes Mellitus. Serum or plasma potassium measurement (moles/volume)Ordered By: Elder Simon on 56-18-8077Acbsxqjwi [Moles/Vol]3.6 mmol/L3.5-5.1FOhio Valley Hospitalerum or plasma sodium measurement (moles/volume)Ordered By: Elder Simon on 35-73-2973Ogalnh [Moles/Vol]137 mmol/N941-026LpyzcwhqhPremier Health Miami Valley Hospitalerum or plasma total bilirubin measurement (mass/volume)Ordered By: Elder Simon on 23-16-0579Vqwkmupwo [Mass/Vol]0.9 mg/dL0.3-1.2FOhio Valley Hospitalerum or plasma total carbon dioxide measurement (moles/volume)Ordered By: Elder Simon on 40-53-0719QX3 [Moles/Vol]22.7 mmol/L22.0-30.0[facility] Hospitalerum or plasma urea nitrogen measurement (mass/volume)Ordered By: Elder Simon on 59-66-7311Ddna nitrogen [Mass/Vol]12 mg/dL9[facility] CenterTroponin I.cardiac [Mass/volume] in Serum or Plasma by High sensitivity methodOrdered By: Elder Simon on 00-37-6789Olupsyqu I.cardiac High sensitivity method [Mass/Vol]5 pg/mL0-15[facility] CenterCBC AUTO DIFFon 47-65-9006JSIH #0.1 103/ulNormal0.0-0.1The [facility] CenterComment on above:Performed By: #### CBC #### [facility] [address] [place] [address] Dr. Kristen JuradoBasophils/100 WBC (Bld)1.0 %Normal0.2-2.0The [facility] Comment on above:Performed By: #### CBC #### [facility] [address] [address] [address] Kristen Roberts #0.2 103/ulNormal0.0-0.7The [facility] CenterComment on above: Performed By: #### CBC #### [facility] [address] [address] [address] Kristen Amezcuaosinophils/100 WBC (Bld)2.1 %Normal0.9-7.0The [facility] Comment on above:Performed By: #### CBC #### [facility] [address] [place] [address] Dr. Kristen Amezcuarythrocyte distribution width (RBC) [Ratio]12.8 %Xklujz70.0-15.0 The [facility] CenterComment on above:Performed By: #### CBC #### [facility] [address] [place] [address] Dr. Kristen JuradoHematocrit (Bld) [Volume fraction]43.2 %Frxspo54.0-48.0The [facility] CenterComment on above:Performed By: #### CBC #### [facility] [address] [place] [address] Dr. Kristen JuradoHemoglobin (Bld) [Mass/Vol]14.3 g/yJWakbxv78.0-16.0The [facility] CenterComment on above:Performed By: #### CBC #### [facility] [address] [place] [address] Dr. Kristen Deshpande #0.02 10e3/ulNormal0.00-0.03The [facility] CenterComment on above:Performed By: #### CBC #### [facility] [address] [place] [address] Dr. Kristen Deshpande %0.2 %Normal0.0-0.5The [facility] CenterComment on above: Performed By: #### CBC #### [facility] [address] [address] [address] Kristen Preston #1.7 103/ulNormal1.2-3.8The [facility] CenterComment on above:Performed By: #### CBC #### [facility] [address] [address] [address] Kristen Verdinmphocytes/100 WBC (Bld)20.5 %Qunfpg54.5-60.0The [facility] CenterComment on above:Performed By: #### CBC #### [facility] [address] [place] [address] Dr. Kristen Yousif DIFF REQNONormalThe [facility] Medical CenterComment on above: Performed By: #### CBC #### [facility] [address] [place] [address] Dr. Kristen Tran (RBC) [Entitic mass]29.7 wzSjskoj08.7-34.0The [facility] CenterComment on above:Performed By: #### CBC #### [facility] [address] [place] [address] Dr. Kristen Tran (RBC) [Mass/Vol]33.1 g/zTGqudki36.9-35.2The [facility] Hospitalment on above:Performed By: #### CBC #### [facility] [address] [place] [address] Dr. Kristen Tran (RBC) [Entitic vol]89.6 aHGebgbj91.0-99.0The [facility] Hospitalment on above:Performed By: #### CBC #### [facility] [address] [place] [address] Dr. Kristen Yeung #0.5 103/ulNormal0.3-0.8The [facility] CenterComment on above:Performed By: #### CBC #### [facility] [address] [place] [address] Dr. Kristen Machadoocytes/100 WBC (Bld)6.2 %Normal1.7-12.0The [facility] Comment on above:Performed By: #### CBC #### [facility] [address] [address] [address] Kristen PaUT #5.7 103/ulNormal1.4-6.5The [facility] Hospitalment on above:Performed By: #### CBC #### [facility] [address] [address] [address] Kristen Pautrophils/100 WBC (Bld)70.0 %Zucehq42.0-75.0The [facility] CenterComment on above:Performed By: #### CBC #### [facility] [address] [place] [address] Dr. Kristen JuradoPlatelet mean volume (Bld) [Entitic vol]11.0 fLNormal9.5-13.5The [facility] CenterComment on above:Performed By: #### CBC #### [facility] [address] [place] [address] Dr. Kristen JuradoPLT238 103/nfFoyimq457-197Zuf [facility] CenterComment on above: Performed By: #### CBC #### [facility] [address] [place] [address] Dr. Kristen JuradoRBC4.82 106/ulNormal4.20-5.40The [facility] Hospitalment on above:Performed By: #### CBC #### [facility] [address] [place] [address] Dr. Kristen JuradoWBC8.1 103/ulNormal4.0-11.0The [facility] CenterComment on above: Performed By: #### CBC #### [facility] [address] [place] [address] Dr. Kristen JuradoPROF CHEM 8 (BAS METB)on 61-57-4888Nttup gap [Moles/Vol]12.8 mmol/LNormalThe [facility] CenterComment on above:Performed By: #### BMP #### [facility] [address] [place] [address] Dr. Kristen JuradoCalcium [Mass/Vol]9.6 mg/dLNormal8.5-10.1The [facility] Comment on above:Performed By: #### BMP #### [facility] [address] [address] [address] Kristen JuradoChloride [Moles/Vol]103 mmol/DEibuph28-206Wpd [facility] Comment on above:Performed By: #### BMP #### [facility] [address] [address] [address] Kristen JuradoCO2 [Moles/Vol]30.0 mmol/WMndgnk06.0-30.0The [facility] Comment on above:Performed By: #### BMP #### [facility] [address] [address] [address] Kristen JuradoCreatinine [Mass/Vol]0.97 mg/dLNormal0.52-1.04[facility] HospitalComment on above:Performed By: #### BMP #### [facility] [address] [address] [address] Peterson ChangEGFR-AF SAMOAN>60Normal>=60The [facility] CenterComment on above:Performed By: #### BMP #### [facility] [address] [address] [address] Kristen AmezcuaGFR-NON AF JTIXHUDL18 mL/min/1.63w0Bvymrklodw low>=60The [facility] CenterComment on above:Performed By: #### BMP #### [facility] [address] [address] [address] Kristen JuradoGlucose [Mass/Vol]176 mg/dLCritically pmti93-362Isk [facility] CenterComment on above:Performed By: #### BMP #### [facility] [address] [address] [address] Kristen JuradoPotassium [Moles/Vol]3.8 mmol/LNormal3.4-5.0[facility] Comment on above:Performed By: #### BMP #### [facility] [address] [address] [address] Kristen JuradoSodium [Moles/Vol]142 mmol/MDadbef666-433Uvl [facility] Comment on above:Performed By: #### BMP #### [facility] [address] [address] [address] Kristen Rehman nitrogen [Mass/Vol]16.0 mg/dLNormal7.0-18.0The [facility] CenterComment on above:Performed By: #### BMP #### [facility] [address] [address] [address] Kristen Rehman nitrogen/Creatinine [Mass ratio]16.5 mg/mgNormalThe [facility] CenterComment on above:Performed By: #### BMP #### [facility] [address] [address] [address] Kristen Rosales RATE WESTERGRENon 06-36-2924FFZ RATE7 mm/hrNormal<=30The [facility] CenterComment on above:Performed By: #### SEDR #### [facility] [address] [place] [address] Dr. Kristen Wilcox Quick Testingon 28-70-1265DcakwiTuefevunSihgk [employer] Other Operative Reporton 15-94-4597Jtjvoqvdv ReportMR#: [id number] [facility] Pt. Name: Alicia Flor Room #: 0C Discharge Date: Birthdate: 1950 OPERATIVE REPORT DATE OF SURGERY: 08/06/2019 SURGEON: Isma Fitzpatrick M.D. COMPUTER AIDED DESIGN TECHNICIAN: Sarwat Mcqueen MD. PREAMBLE: A 69-year-old female, [...] with vascularized fat pad graft application. Under Worth block regional anesthetic, the patient's right upper [...] A Isma Fitzpatrick M.D. Date Dict: 08/06/2019/02:07 Khalif/Isma Fitzpatrick M.D. Date Trans: 08/07/2019 01:09 Antoni/iram DN_[id number] Hospitals [facility] GLUCOSE LAB on 67-37-4434Xboqnmz [Mass/Vol]158 mg/qRLiqt23-314Xfi [facility] HospitalComment on above:Performed By: #### [id number] #### [place] [address] Vital Signs Date TimeVital SignValuePerforming XqdrulruyUkpkxboi44-88-9515 15:14-0400Body kmxszu314.1 cmDoug Heller MD Work Phone: [phone] [place], [place] 2903809-15-2025 15:14-0400 Body mass index (BMI) [Ratio]28.79 kg/i7QzayuwDoug Heller MD Work Phone: [phone]09-15-2025 15:14-0400 Body xajvky23.47 kgoDug Heller MD Work Phone: [phone]09-15-2025 15:14-0400 Diastolic blood mm[Hg]Doug Heller MD Work Phone: [phone] [place], [place] [address]3809-15-2025 15:14-0400 Heart rate68 /minDoug Heller MD Work Phone: [phone]09-15-2025 15:14-0400 Systolic blood pyenyukp706 mm[Hg]Doug Heller MD Work Phone: [phone]06-30-2025 13:03-0400 Body .1 cmStella Marinelli MD Work Phone: [facility]06-30-2025 13:03-0400 Body mass index (BMI) [Ratio]28.4 kg/h8LuktzgStella Marinelli MD Work Phone: [facility]06-30-2025 13:03-0400 Body ertwvg95.56 kgStella Marinelli MD Work Phone: [facility]06-30-2025 13:03-0400 Diastolic blood nirigwip44 mm[Hg]Stella Marinelli MD Work Phone: [phone]06-30-2025 13:03-0400 Heart rate67 /Polly Marinelli MD Work Phone: [phone] [place], [place] 9029306-30-2025 13:03-0400 Respiratory rate12 /Polly Marinelli MD Work Phone: [phone] [place], [place] 9029306-30-2025 13:03-0400 SaO2% (BldA) [Mass fraction]98 %Stella Marinelli MD Work Phone: [phone] [place], [place] 9029306-30-2025 13:03-0400 Systolic blood fafifjwu211 mm[Hg]Stella Marinelli MD Work Phone: [phone] [place], [place] 9029305-27-2025 13:39-0400 Diastolic blood mm[Hg]Stella Marinelli MD Work Phone: [phone] [place], [place] 90[address]305-27-2025 13:39-0400 Heart rate77 /Polly Marinelli MD Work Phone: [phone] [place], [place] 9029305-27-2025 13:39-0400 Respiratory rate16 /Polly Marinelli MD Work Phone: [phone] [place], [place] 9029305-27-2025 13:39-0400 SaO2% (BldA) [Mass fraction]97 %Stella Marinelli MD Work Phone: [phone] [place], [place] 9029305-27-2025 13:39-0400 Systolic blood tcqdsjyk296 mm[Hg]Stella Marinelli MD Work Phone: [phone] [place], [place] 90[address]305-27-2025 12:45-0400 Body tiynqd890.1 cmStella Marinelli MD Work Phone: [phone] [place], [place] 9029305-27-2025 12:45-0400 Body diqvbf01.74 kgStella Marinelli MD Work Phone: [phone] [place], [place] 90[address]305-15-2025 12:54-0400 Body .1 Vignesh PATTERSON Work Phone: [facility] CareUbfvomhkoh73-30-4076 12:54-0400Body mass index (BMI) [Ratio]28.62 kg/m2Abby Cat PA Work Phone: [facility] CareEmcjzkwjpx98-80-7988 12:54-0400Body uobcqx98.02 kgAbby Cat PA Work Phone: [facility] CareWsirnwcwbs06-21-8910 12:54-0400Diastolic blood usmcjxlo19 mm[Hg]Abby Cat PA Work Phone: [facility] CareBrfvpxzpxf49-37-3997 12:54-0400Heart rate63 /min Abby Cat PA Work Phone: [facility] CareEqatbsrpyz70-88-4889 12:54-0400Respiratory rate16 /minAbby Cat PA Work Phone: [facility] CareRlpjmdpfta47-12-0184 12:54-5717PlT9% (BldA) [Mass fraction]98 %Abby Cat PA Work Phone: [facility] CareJlisuvhxxr34-78-7129 12:54-0400Systolic blood jhxvudbh306 mm[Hg]Abby Cat PA Work Phone: [facility] CareSqahldcjqo91-34-1241 12:59-0400Body .1 cmA[facility]a [facility] Center04-28-2025 12:59-0400Body mass index (BMI) [Ratio]27.9 kg/o6SpjurcqxqAdena Regional Medical Center04-28-2025 12:59-0400Body wezqol70.2 kgAdena Regional Medical Center04-28-2025 12:59-0400Diastolic blood rzdruvgu75 mm[Hg][facility]04-28-2025 12:59-0400 Heart rate65 /minAdena Regional Medical Center04-28-2025 12:59-0400Systolic blood abstlbbg546 mm[Hg][facility]04-21-2025 08:16-0400 Body kquepi335.1 cmAjanene Cat PA Work Phone: [facility] CareOdsvyeddky50-26-8779 08:16-0400Body mass index (BMI) [Ratio]28.46 kg/m2Abby Cat PA Work Phone: [facility] CareMkyvxenlvl54-33-0187 08:16-0400Body yscqps59.56 kgAbby PATTERSON Work Phone: [facility] CareOyhigwhjax66-35-7727 08:16-0400Diastolic blood rxipkldr28 mm[Hg]Abby PATTERSON Work Phone: [facility] CareHgqoeaojjf42-54-0330 08:16-0400Heart rate70 /min Abby PATTERSON Work Phone: [facility] CareNgahilgygs02-75-5210 08:16-0400Respiratory rate16 /minAbby PATTERSON Work Phone: [facility] CareWeldohxtyz05-75-9681 08:16-7094AwW8% (BldA) [Mass fraction]97 %Abby PATTERSON Work Phone: [facility] CareCvdlddpmad23-49-1785 08:16-0400Systolic blood dkqvugbh470 mm[Hg]Abby PATTERSON Work Phone: [facility] CarePbzvtkuqbn81-52-0978 10:47-0400Body rngwud399.1 cmAdena [facility] Medical Center04-01-2025 10:47-0400Body mass index (BMI) [Ratio]28.3 kg/u9NbjextizuAdena Regional Medical Center04-01-2025 10:47-0400Body hnnizgmzdlw30.1 [degF][facility]04-01-2025 10:47-0400Body hoapye04.11 kgAdena Regional Medical Center04-01-2025 10:47-0400Diastolic blood brpslmuf86 mm[Hg][facility]04-01-2025 10:47-0400 Heart rate72 /minAdena Regional Medical Center04-01-2025 10:47-6028JoT7% (BldA) [Mass fraction]96 %[facility]04-01-2025 10:47-0400 Systolic blood rqkzsbgo006 mm[Hg][facility]03-28-2025 12:29-0400Body dnavia164.1 Leif Simmons APRN-[employer]OBBIN TRUCKER Work Phone: [facility]03-28-2025 12:29-0400Body mass index (BMI) [Ratio]28.46 kg/m2Amanda Lyonzer INDUSTRIAL TRAINING SPECIALIST-[employer]OBBIN TRUCKER Work Phone: [facility]03-28-2025 12:29-0400Body woooeq80.56 kgAmanda Lyonzer INDUSTRIAL TRAINING SPECIALIST-BOBBIN TRUCKER Work Phone: [facility]03-28-2025 12:29-0400Diastolic blood udkxdntt76 mm[Hg]Amanda Simmons INDUSTRIAL TRAINING SPECIALIST-BOBBIN TRUCKER Work Phone: [facility]03-28-2025 12:29-0400Systolic blood cdkrimpn178 mm[Hg]Amanda Lyonzer INDUSTRIAL TRAINING SPECIALIST-BOBBIN TRUCKER Work Phone: [facility]02-26-2025 13:03-0500Body pwiwyo130.1 cmAdena Regional Medical Center02-26-2025 13:03-0500Body mass index (BMI) [Ratio]27.8 kg/x3BxocvtcwiAdena Regional Medical Center02-26-2025 13:03-0500Body .74 kgAdena Regional Medical Center02-26-2025 13:03-0500Diastolic blood ziuyinxs08 mm[Hg][facility] 08-01-2024 13:03-0500Heart rate77 /minAdena Regional Medical Center 08-01-2024 13:03-0500Systolic blood nsswewnn073 mm[Hg][facility]01-21-2025 14:13-0500Body gpiwxg022.1 Stanley Hightower MD Work Phone: [facility] CareGkwjxrbzjv52-71-9183 14:13-0500Body mass index (BMI) [Ratio]28.12 kg/m2ScwtzeLizzy Hightower MD Work Phone: [facility] CareEyqflwcabc68-72-8209 14:13-0500Body icgeic47.66 kgLizzy Hightower MD Work Phone: noWright [facility] HospitalNywirczruk04-96-8298 14:13-0500Diastolic blood thgtnqco61 mm[Hg]Lizzy Hightower MD Work Phone: [facility] CareBglwgfzpjz33-50-3760 14:13-0500Systolic blood ehlzundd666 mm[Hg]Lizzy Hightower MD Work Phone: [facility] CareApabshlvfs16-57-3610 14:29-0500Body .1 [facility]12-16-2024 14:29-0500Body mass index (BMI) [Ratio]27.9 kg/i7LsuszkbvpAdena Regional Medical Center12-16-2024 14:29-0500Body mliwtonwugk43.9 [degF][facility]12-16-2024 14:29-0500Body .2 [facility]12-16-2024 14:29-0500Diastolic blood dzpvofhs06 mm[Hg][facility]12-16-2024 14:29-0500 Heart rate78 /[facility]12-16-2024 14:29-2683RjE9% (BldA) [Mass fraction]93 %[facility]12-16-2024 14:29-0500 Systolic blood mm[Hg][facility]11-05-2024 11:07-0500Body ixdwhj901.1 [facility]11-05-2024 11:07-0500Body mass index (BMI) [Ratio]27.3 kg/v2KqdjgxiufAdena Regional Medical Center11-05-2024 11:07-0500Body .38 kgAdena Regional Medical Center 04-10-2024 11:07-0500Diastolic blood wbjwymxb82 mm[Hg][facility]11-05-2024 11:07-0500Heart rate66 /[facility] 04-10-2024 11:07-3058RbQ1% (BldA) [Mass fraction]95 %[facility]11-05-2024 11:07-0500Systolic blood epcqowpn796 mm[Hg][facility]10-04-2024 10:36-0400Body webhlj481.1 [facility]10-04-2024 10:36-0400Body mass index (BMI) [Ratio]27.3 kg/v9ExovddxikAdena Regional Medical Center10-04-2024 10:36-0400Body osnlaywagec87.6 [degF][facility]10-04-2024 10:36-0400Body .44 kgAdena Regional Medical Center10-04-2024 10:36-0400Diastolic blood rimatnek61 mm[Hg] [facility]10-04-2024 10:36-0400Heart rate72 /minAdena Regional Medical Center10-04-2024 10:36-4902GpM7% (BldA) [Mass fraction]96 % [facility] [facility] 10:36-0400Systolic blood mm[Hg][facility]08-27-2024 10:51-0400Body xcupca094.1 cm Doug Heller MD Work Phone: [phone] [place], [place] 2903808-27-2024 10:51-0400 Body mass index (BMI) [Ratio]27.29 kg/a1XmsjxnDoug Heller MD Work Phone: 1(648)274-[address] [place], [place] 2903808-27-2024 10:51-0400 Body .39 kgDoug Heller MD Work Phone: 1(247)068-[address] [place], [place] 2903808-27-2024 10:51-0400 Diastolic blood wzbdmads40 mm[Hg]Doug Heller MD Work Phone: [phone]08-27-2024 10:51-0400 Heart rate68 /Maddie Heller MD Work Phone: 1(006)435-[address] [place], [place] 2903808-27-2024 10:51-0400 Systolic blood fijpxpss558 mm[Hg]Doug Heller MD Work Phone: 0(338)382-[address] [place], [place] 2903807-01-2024 14:42-0400 Body lmtiew819.1 [facility] 14:42-0400Body mass index (BMI) [Ratio]27.9 kg/c0WhtvyhorwAdena [facility]07-01-2024 14:42-0400Body fepbkf92.2 kgA[facility]07-01-2024 14:42-0400Diastolic blood gsuugqdq26 mm[Hg][facility] 12-05-2023 14:42-0400Heart rate78 /[facility] 12-05-2023 14:42-2313WdA9% (BldA) [Mass fraction]95 %[facility]07-01-2024 14:42-0400Systolic blood uovpzjsn815 mm[Hg][facility]05-21-2024 13:20-0400Body wmzfaj183.1 cmA[facility]a [facility]05-21-2024 13:20-0400Body mass index (BMI) [Ratio]28.1 kg/d4AvumqvljtAdena [facility]05-21-2024 13:20-0400Body .65 kgA[facility]a [facility]05-21-2024 13:20-0400Diastolic blood jadyvglx66 mm[Hg] [facility]05-21-2024 13:20-0400Heart rate76 /[facility]05-21-2024 13:20-0400Systolic blood aeeamybv100 mm[Hg] [facility]01-15-2024 10:45-0500Body cdxfup001.1 cmStella Marinelli Other [employer] Other 01-15-2024 10:45-0500Body mass index (BMI) [Ratio] 29.25 kg/b3PywzuvStella Marinelli Other [employer] Other 01-15-2024 10:45-0500Body deatox59.74 kgAnamartineantoni Marinelli Other [employer] Other 01-15-2024 10:45-0500Diastolic blood pkgmtszo62 mm[Hg] Stella Marinelli Other [employer] Other 01-15-2024 10:45-6648IqQ0% (BldA) [Mass fraction]95 % Stella Marinelli Other [facility] [employer] Other 01-15-2024 10:45-0500Systolic blood atdcptps428 mm[Hg] Stella [facility] [employer] Other 08-28-2023 14:54-0400Diastolic blood tuuuvryy38 mm[Hg] Stella Marinelli Work Phone: mp249-6834NU-Ogdsi [place] [employer] 250 DO Work Phone: 1(126) 756-130608-28-2023 14:54-0400Systolic blood taskxcoj538 mm[Hg] Stella Marinelli Work Phone: mp894-8576LJ-Tkuwz [place] [employer] 250 DO Work Phone: 1(668) 620-941208-28-2023 14:38-0400Diastolic blood mxwgdnad74 mm[Hg] Stella Marinelli Work Phone: mp497-4207UG-Vktqp [place] [employer] 250 DO Work Phone: 1(937) 918-865408-28-2023 14:38-0400Diastolic blood mm[Hg] Stella Marinelli Work Phone: mp299-7556DZ-Uvcol [place] [employer] 250 DO Work Phone: 1(732) 623-529808-28-2023 14:38-0400Systolic blood fckwazen414 mm[Hg] Stella Marinelli Work Phone: mp306-3299DH-Uhoud [place] [employer] 250 DO Work Phone: 1(473) 416-777908-28-2023 14:38-0400Systolic blood tijpsgsw150 mm[Hg] Stella Marinelli Work Phone: mp372-9196NQ-MxcucWestbrook Medical CenterEditorially 250 DO Work Phone: 1(562) 478-938908-28-2023 14:32-0400Body ujozrv051.1 cmStella Marinelli Work Phone: mp905-8503QM-Cakel [place] [employer] 250 DO Work Phone: 1(261) 228-400608-28-2023 14:32-0400Body mass index (BMI) [Ratio] 29.62 kg/x2HmqlqbStella Marinelli Work Phone: mp517-8828QW-Qzcqx [place] [employer] 250 DO Work Phone: 1(635) 676-491308-28-2023 14:32-0400Body surface area Derived from formula1.88 r5JcildrStella Marinelli Work Phone: mp323-3267KG-Jrdpq [place] [employer] 250 DO Work Phone: 1(821) 132-625508-28-2023 14:32-0400Body owxrlv29.74 kgStella Marinelli Work Phone: mp540-0302JJ-Bbupo [place] [employer] 250 DO Work Phone: 1(825) 493-687508-28-2023 14:32-0400Diastolic blood tyhskmlg97 mm[Hg] Stella Marinelli Work Phone: 1(969) [phone]-Oogdy [place] [employer] 250 DO Work Phone: 1(672) 621-720008-28-2023 14:32-0400Heart rate72 /minStella Marinelli Work Phone: mp268-3519ZI-Malul [place] [employer] 250 DO Work Phone: 1(855) 203-108408-28-2023 14:32-0400Systolic blood sadwjsue449 mm[Hg] Stella Marinelli Work Phone: 1(938) 561-1658571-5307DA-Grwwn [place] [employer] 250 DO Work Phone: 1(448) 414-282008-17-2023 09:30-0400Body oyrhkr187.1 cmStella Marinelli Other [employer] Other 08-17-2023 09:30-0400Body mass index (BMI) [Ratio] 29.45 kg/l1WymwvwStella Marinelli Other [employer] Other 08-17-2023 09:30-0400Body jdoemf19.29 kgStella Marinelli Other [employer] Other 08-17-2023 09:30-0400Diastolic blood lefjwfxi10 mm[Hg] Stella Marinelli Other [employer] Other 08-17-2023 09:30-0400Systolic blood yacsmhzu357 mm[Hg] Stella Marinelli Other [employer] Other 04-25-2023 12:30-0400Body xzabax467.1 cmStella Marinelli Other [employer] Other 04-25-2023 12:30-0400Body mass index (BMI) [Ratio] 30.28 kg/q7NmmdobStella Marinelli Other [employer] Other 04-25-2023 12:30-0400Body wqdnfi56.56 kgStella Marinelli Other [employer] Other 04-25-2023 12:30-0400Diastolic blood bspsunnp82 mm[Hg] Stella Marinelli Other [employer] Other 04-25-2023 12:30-8269ItG8% (BldA) [Mass fraction]93 % Stella Marinelli Other [employer] Other 04-25-2023 12:30-0400Systolic blood zabmdhwu211 mm[Hg] Stella Marinelli Other [employer] Other 03-06-2023 13:45-0500Body .1 cmStella Marinelli Other [employer] Other 03-06-2023 13:45-0500Body mass index (BMI) [Ratio] 30.12 kg/b1QglwqaStella Marinelli Other [place] [employer] Other 03-06-2023 13:45-0500Body .1 kgStella Marinelli Other [place] [employer] Other 03-06-2023 13:45-0500Diastolic blood cssosgxk15 mm[Hg] Stella Marinelli Other [place] [employer] Other 03-06-2023 13:45-2512IvD3% (BldA) [Mass fraction]97 % Stella Marinelli Other [place] [employer] Other 03-06-2023 13:45-0500Systolic blood ebnlxgdl855 mm[Hg] Stella Marinelli Other [place] [employer] Other 12-14-2022 10:34-0500Body .1 cmStella Marinelli Work Phone: mp714-7867DG-Fvtvv [place] [employer] 250 DO Work Phone: 1(375) [phone] 10:34-0500Body mass index (BMI) [Ratio] 29.66 kg/d9QnpkqnStella Marinelli Work Phone: mp630-8333QR-Dxdok [place] [employer] 250 DO Work Phone: 1(270) 841-275212-14-2022 10:34-0500Body surface area Derived from formula1.88 l5KifnqaStella Marinelli Work Phone: mp847-6695GU-Ibdkm [place] [employer] 250 DO Work Phone: 1(228) 729-944912-14-2022 10:34-0500Body pbcfel72.85 kgStella Marinelli Work Phone: mp199-3230WY-Pymyv [place] [employer] 250 DO Work Phone: 1(346) 449-595612-14-2022 10:34-0500Diastolic blood qyagkbnq81 mm[Hg] Stella Marinelli Work Phone: mp630-0017UU-Cpwmp [place] [facility] 250 DO Work Phone: 1(947) 610-314212-14-2022 10:34-0500Heart rate68 /minStella Marinelli Work Phone: mp325-5460NG-Jbssn [place] [facility] 250 DO Work Phone: 1(294) 228-549712-14-2022 10:34-0500Systolic blood mcpeqjdk570 mm[Hg] Stella Marinelli Work Phone: 1(432) 602-6538797-9116JT-Cqjkk [place] [facility] 250 DO Work Phone: 1(397) 189-168006-08-2022 09:54-0400Diastolic blood fkcioqwk21 mm[Hg] Stella Marinelli Work Phone: mp204-7952HF-Wdixy [place] [facility] 250 DO Work Phone: 1(462) 734-304206-08-2022 09:54-0400Systolic blood cgkipytk990 mm[Hg] Stella Marinelli Work Phone: 1(796) [phone]-Ytuvv [place] [facility] 250 DO Work Phone: 1(949) 443-779506-08-2022 09:28-0400Body xhrbea193.1 cmStella Marinelli Work Phone: mp057-2261YM-Hobiq [place] [facility] 250 DO Work Phone: 1(371) 291-724106-08-2022 09:28-0400Body mass index (BMI) [Ratio] 29.12 kg/p8HqjxjzStella Marinelli Work Phone: mp033-4489JZ-Algpx [place] [facility] 250 DO Work Phone: 1(292) 704-487406-08-2022 09:28-0400Body surface area Derived from formula1.87 c2OdqgyhStella Marinelli Work Phone: mp253-5765RQ-Rzxsy [place] [facility] 250 DO Work Phone: 1(844) 167-860606-08-2022 09:28-0400Body lyhlkv01.38 kgStella Marinelli Work Phone: mp986-7345DY-Hwosc [place] [facility] 250 DO Work Phone: 1(537) 970-901806-08-2022 09:28-0400Diastolic blood kepdkzpd40 mm[Hg] Stella Marinelli Work Phone: mp954-6447TB-Vhhec [place] [facility] 250 DO Work Phone: 1(883) 788-266506-08-2022 09:28-0400Heart rate69 /minStella Marinelli Work Phone: mp666-9228XH-Uhclc [place] [facility] 250 DO Work Phone: 1(306) 872-849206-08-2022 09:28-0400Systolic blood wtktoxri740 mm[Hg] Stella Marinelli Work Phone: mp106-1103RK-Wlfkq [place] [facility] 250 DO Work Phone: 1(601) 587-277304-15-2022 08:00-753538 1Mmariann Marinelli Work Phone: mp059-6582GK-Jxway [place] [facility] Work Phone: Comment on above:[id number] 08:59-0400 Diastolic blood pkfxabkk94 mm[Hg]Stella Marinelli Work Phone: mp744-4501HG-Qpjng [place] [facility] 250 DO Work Phone: 1(623) 820-837704-06-2022 08:59-0400Systolic blood fossddbw351 mm[Hg] Stella Marinelli Work Phone: mp557-4962LP-Rjprx [place] [facility] 250 DO Work Phone: 1(800) 524-694604-06-2022 08:55-0400Body lzytnm860.1 cmStella Marinelli Work Phone: mp360-3836LU-Mzufj [place] [facility] 250 DO Work Phone: 1(298) 138-490204-06-2022 08:55-0400Body mass index (BMI) [Ratio] 28.62 kg/o7TgwnloStella Marinelli Work Phone: mp147-0080BT-Wjucn [place] [facility] 250 DO Work Phone: 1(576) 361-528704-06-2022 08:55-0400Body surface area Derived from formula1.86 r4BjnbodStella Marinelli Work Phone: mp892-8504RC-Btcrs [place] [facility] 250 DO Work Phone: 1(251) 512-754204-06-2022 08:55-0400Body fonrze68.02 kgStella Marinelli Work Phone: mp861-2336PD-MfgsaWestbrook [facility]-[place] 250 DO Work Phone: 1(641) 178-290904-06-2022 08:55-0400Diastolic blood kxooezjc21 mm[Hg] Stella Marinelli Work Phone: mp769-6404RU-ZzxezWestbrook Medical Center-[place] 250 DO Work Phone: 1(360) 701-556804-06-2022 08:55-0400Heart rate72 /minStella Marinelli Work Phone: mp292-3773YG-MdlhjSt. Francis Medical Centerusky 250 DO Work Phone: 1(622) 270-976804-06-2022 08:55-0400Systolic blood mm[Hg] Stella Marinelli Work Phone: mp543-3669AH-LehjnGrand [facility] 250 DO Work Phone: 1(749) 515-916703-23-2022 21:56-0400Diastolic blood wngokmuu38 mm[Hg] MD Stella Marinelli Work Phone: [facility]03-23-2022 21:56-0400 Heart rate74 /minMD Stella Marinelli Work Phone: [facility]03-23-2022 21:56-0400 Respiratory rate20 /minMD Stella Marinelli Work Phone: [facility]03-23-2022 21:56-0400 SaO2% (BldA) [Mass fraction]97 %MD Stella Marinelli Work Phone: [facility]03-23-2022 21:56-0400 Systolic blood flgfppri458 mm[Hg]MD Stella Marinelli Work Phone: [facility]03-23-2022 18:37-0400 Body vkjooc503.1 cmMD Stella Marinelli Work Phone: [facility]03-23-2022 18:37-0400 Body mass index (BMI) [Ratio]29.2 kg/m2MD Stella Marinelli Work Phone: [facility]03-23-2022 18:37-0400 Body kvnzykqbjdi87.1 [degF]MD Stelal Marinelli Work Phone: [facility]03-23-2022 18:37-0400 Body zuexst93.75 kgMD Stella Marinelli Work Phone: [facility]01-20-2022 11:15-0500 Body zwnzbi146.1 cmCpayton Taylor Other [employer] Other [id number] 11:15-0500Body mass index (BMI) [Ratio] 29.12 kg/s7GtsjeqRey Taylor Other [employer] Other 203356-52-8336 11:15-0500Body vofqhzoehwg25.9 [degF]Rey Taylor Other [employer] Other 01-20-2022 11:15-0500Body xrfkvy10.38 kgRey Taylor Other [employer] Other 904246-73-8167 11:15-0500Respiratory rate18 /minRey Taylor Other [employer] Other 01-20-2022 11:15-4111NzF3% (BldA) [Mass fraction]95 % Rey Taylor Other [employer] Other Encounters Encounter DateEncounter TypeCare ProviderFacilityStart: 04-10-2025 End: 98-38-9638monhoohzkjIpvetl E Braun MD Work Phone: -[facility]pg [facility]Start: 04-10[facility]2025 End: 26-41-1607Bfhwufg encounter procedureStella Marinelli MD-[facility] Work Phone: Start: 02-18-2025 End: 94-69-0476Xzgoom outpatient visit 25 minutesDoug Heller MD Work Phone: uh [facility] on above:Essential hypertension (Primary Dx); Other specified diabetes mellitus with other specified complication, without long-term current use of insulin; Arthritis; Other specified hypothyroidism; History of nephrotic syndrome; MS (multiple sclerosis) (Multi); BMI 28.0-28.9,adult; Right bundle branch block (RBBB) on electrocardiography; Former smoker; Overweight; Type 2 diabetes mellitus without complication, without long-term current use of insulinStart: 02-18-2025 End: 29-55-2687yyudcsengwMDFXET M [facility] AmbulatoryStart: 12-03-2024 End: 46-73-1726cltggheilqAklszt E Braun MD Work Phone: [facility] Work Phone: Start: 12-03-2024 End: 19-76-0988Xecjaqx encounter procedureStella Marinelli MD-[facility] Work Phone: Start: 37-00-3010Pea-patient / Non-visitStella Marinelli MD Work Phone: [facility] Work Phone: Start: 10-30-2024 End: 94-35-1549Kgtsyqhdp to same day surgery centerStella Marinelli MD Work Phone: [facility] Work Phone: Start: 10-30-2024 End: 88-16-1816wdxopumjkkKtpejj E Braun MD Work Phone: [facility] Work Phone: Start: 10-18-2024 End: 10-40-3398Ciegpljoe PATTERSON Work Phone: ana VONDAtart: 10-18-2024 End: 90-30-6209Fnrkbd Tran PATTERSON Work Phone: aNA VIVIANFRANCISCOUEStart: 10-18-2024 End: 37-98-4159Kfgkll outpatient visit 15 minutesAbby PATTERSON Work Phone: aNA MILKAUEComment on above:Multiple sclerosis (CMS/HCC) (Primary Dx); Neck painStart: 10-18-2024 End: 25-97-4593fuvrleswgjUDEE HILLNot AvailableStart: 16-69-5051Piu-patient / Non-visitStella Marinelli MD Work Phone: [facility] Work Phone: Start: 10-01-2024 End: 28-57-6819ojfhrxccbqCuudfqfykHarrison Community Hospital Work Phone: Start: 10-01-2024 End: 35-68-3813Ndevizs encounter procedureAt[facility] Work Phone: Start: 09-24-2024 End: 23-48-6052Cskytialmas PATTERSON Work Phone: aNA MILKAUEStart: 09-24-2024 End: 89-94-7071Afouznalmas PATTERSON Work Phone: aNA MILKAUEStart: 09-24-2024 End: 74-72-6377Uzsqqn outpatient visit 25 minutesAbby PATTERSON Work Phone: ANA BELLEVUEComment on above:Multiple sclerosis (CMS/HCC) (Primary Dx); Neck painStart: 09-24-2024 End: 58-54-1980xbmjzumvbuFEMF HILLNot AvailableStart: 09-04-2024 End: 25-08-8073rwwhvzlrmhDewkhffcwHarrison Community Hospital Work Phone: Start: 09-04-2024 End: 63-02-3147Bbsqmac encounter procedureAt[facility] Work Phone: Start: 08-31-2024 End: 65-49-5415Jqiymw pelvic examinationAmanda Freeman [place] INDUSTRIAL TRAINING SPECIALIST-BOBBIN TRUCKER Work Phone: [facility] Work Phone: Start: 08-31-2024 End: 52-19-5504Qwarlii encounter procedureAmanda Freeman [place] INDUSTRIAL TRAINING SPECIALIST-BOBBIN TRUCKER Work Phone: [facility] Obstetrics/GynecologyComment on above:Encounter for breast and pelvic examination (Primary Dx); Standardized adult depression screening tool completedStart: 08-31-2024 End: 25-33-0717rterwpoqqpEYUH M KRALLYSouthern [facility] PPGStart: 08-09-2024 End: 33-37-7274prehuzocfyCJWR M KROTZERMercy Health [facility] Hospital HospitalStart: 08-03-2024 End: 17-89-1902Qpglcf OnlyAmanda Pete [place] INDUSTRIAL TRAINING SPECIALIST-BOBBIN TRUCKER Work Phone: [facility] Obstetrics/GynecologyComment on above:Encounter for screening mammogram for malignant neoplasm of breast (Primary Dx); Postmenopausal; Screening for osteoporosisStart: 08-01-2024 End: 55-32-2012bcpnwermusJnizongqgSelect Medical [facility] Work Phone: Start: 08-01-2024 End: 77-19-8564Vwxrqgh encounter procedureAt[facility] Work Phone: Start: 06-26-2024 End: 61-27-9532Quqydc outpatient visit 25 minutesLizzy Hightower MD Work Phone: aNA BELLEVUEComment on above:Multiple sclerosis (CMS/HCC); Neck painStart: 06-26-2024 End: 02-89-9301emklxwgmraNPNVGV BENEDICTNot AvailableStart: 06-26-2024 End: 65-30-9045Dctehmalmas Hightower MD Work Phone: ana BELLEVUEStart: 06-26-2024 End: 09-04-5358Hozhbkjoe Hightower MD Work Phone: aNA MERCY HEALTHtart: 62-31-9250Ymu-patient / Non-visit [facility] Work Phone: Start: 90-60-2101Czb-patient / Non-visitAt[facility] Work Phone: Start: 53-27-8816Znr-patient / Non-visitAt[facility] Health [facility] Physician GroupEvergreenhealth Professional Co Work Phone: Start: 36-65-2576Tcv-patient / Non-visitAt[facility] Health [facility] Work Phone: Start: 05-21-2024 End: 96-50-7323Mulsuwr encounter procedureAt[facility] Work Phone: Start: 04-10-2024 End: 33-03-1965syshvhwiafShcvbmbndHarrison Community Hospital Work Phone: Start: 04-10-2024 End: 17-11-1419Crqjdoq encounter procedureAt[facility] Work Phone: Start: 03-19-2024 End: 34-99-9007gafqzvwzyfYymbfglfhHarrison Community Hospital Work Phone: Start: 03-19-2024 End: 52-73-4760Rsjetbh encounter procedureAtrium Health [facility] Physician GroupFirelands [facility] Center Work Phone: Start: 03-09-2024 End: 86-14-6573lhanqewebyNasztlpvzHarrison Community Hospital Work Phone: Start: 03-09-2024 End: 42-20-9251Snalwgg encounter procedureAt[facility] Health [facility] Work Phone: Start: 01-31-2024 End: 70-29-0051Ohludn outpatient visit 25 minutesDoug Heller MD Work Phone: [facility] HospitalComment on above:Essential hypertension (Primary Dx); Other specified diabetes mellitus with other specified complication, without long-term current use of insulin (Multi); History of nephrotic syndrome; Lower extremity edema; Former smoker; Right bundle branch block (RBBB) on electrocardiography; BMI 27.0-27.9,adult; Hypothyroidism, unspecified type; OverweightStart: 45-43-2772Bgf-patient / Non-visitAtrium Health Mountain Island Physician GroupVirginia [facility] Hospital Professional [employer] Work Phone: Start: 12-05-2023 End: 39-86-5917akxmhrtsbtYyaszwlomHarrison Community Hospital Work Phone: Start: 12-05-2023 End: 77-86-3139Ghirzve encounter procedureAt[facility] Work Phone: Start: 11-10-2023 End: 52-92-6335BkxbogYquqwFernanda Lackey MD PhD Work Phone: [facility] Nose and ThroatComment on above:Gastroesophageal reflux disease without esophagitisStart: 37-06-2460Gjc- patient / Non-visitAt[facility] Health [facility] Professional [employer] Work Phone: Start: 10-25-2023 End: 97-09-2011qztoblcuzyOapfibvzyHarrison Community Hospital Work Phone: Start: 10-25-2023 End: 67-81-1817Uzxhpux encounter procedureAtrium Health Mountain [facility] Physician GroupFirelands Regional Medical Center Work Phone: Start: 07-06-2023 End: 64-62-1392pkzxxiphqvGtfvem Braun Other [place] [employer] Other Start: 16-13-1645Wmeeqrcvh encounterStella Edwards [facility] – Dallastart: 07-02-2023 End: 82-08-6419Geqkdgnvun hospital visit by physicianJessie Sepulveda Echo/Vasc Room 2[facility] Sumter CountyComment on above:Shortness of breathStart: 07-02-2023 End: 56-88-9448gjcbcgmtqoBGPVQE M [facility] Centertart: 06-20-2023 End: 03-61-4305odiehvjkboGnkzez Marinelli Other [employer] Other Start: 07-34-9039Sgegkt outpatient visit 25 minutes [facility] ClinicStart: 34-87-5303Qrbeeclyk encounterMarciantoni Taylor Medical ClinicStart: 05-31-2023 End: 95-82-4179fjdgykvmqyUoxsbm Marinelli Other [employer] Other Start: 94-02-4692Qfltgt outpatient visit 15 minutes [facility] ClinicStart: 05-03-2023 End: 34-20-7087cwurcrbbrmNsbply Marinelli Other [employer] Other Start: 80-39-0087Nuwtzggyv encounterMarciantoni Taylor Medical ClinicStart: 03-22-2023 End: 87-43-4883tftkttbxwnRhcqdj Marinelli Other [employer] Other Start: 64-30-5347Lxvycpgok encounterMarciantoni Taylor Medical ClinicStart: 03-09-2023 End: 06-72-1291llggixxlngWsfsdrvz Ball Other [employer] Other Start: 28-79-5603Ezurnuh evaluation of patient and reportBekenia Taylor Medical ClinicStart: 84-88-1068Amxjrn outpatient visit 25 minutesStella Marinelli Work Phone: [phone]-Wlpdp [place] [facility] 250 DO Work Phone: Start: 04-69-5353sasijqzepxRh. Hassan Mohammad [facility] Facility:[id number]: 01-20-2023 End: 81-77-9904btpypuuaolUqwiwi Marinelli Other [employer] Other Start: 25-17-6154Bnujcg outpatient visit 15 minutes Stella Taylor [facility] ClinicStart: 10-01-2022 End: 61-33-2219pttjdshzrgJaxbmc Marinelli Other [employer] Other Start: 98-42-3023Mvhblxppr encounterMarciantoni Taylor Medical ClinicStart: 09-28-2022 End: 97-63-9810kqnjgprtdrDnqhys Marinelli Other [employer] Other Start: 79-02-5039Odbxlm outpatient visit 15 minutes Stella Taylor [facility] ClinicStart: 08-17-2022 End: 06-48-2745sergpdeqggXkzapk Marinelli Other noWiseryou [employer] Other Start: 78-01-7892Sboxtoklw encounterMarciantoni Taylor [facility] ClinicStart: 08-16-2022 End: 68-51-9436ucnidzezjwOU STELLA MARINELLIFacility:J7Cmjov: 08-09-2022 End: 44-60-6456vyhglurqliRekxoi Marinelli Other [employer] Other Start: 04-41-6685Fthpsq outpatient visit 15 minutes [facility] ClinicStart: 04-13-0204Rzbqgx outpatient visit 25 minutesMarciantoni Encinas Marinelli Work Phone: [phone]-IbuziChildren'S [place] 250 DO Work Phone: Start: 50-67-4244kcrvvquwrrNa. Stella Marinelli Facility:[id number]: 04-19-2022 End: 09-05-6810ywerskmfhmKV DOCTOR MISCFacility:A0Npzho: 07-24-3551Mhqkbf outpatient visit 25 minutesMarciantoni Marinelli Work Phone: mp511-1301CW-Nutnn [place] [facility] 250 DO Work Phone: Start: 07-21-9715Vhdog UpdateStella Marinelli Work Phone: 1(328) [phone]-Etxjr [facility] 250 DO Work Phone: Start: 85-03-8096Nhnujcx encounter procedureStella Marinelli Work Phone: 1([phone]) [phone]-Ipdju [place] [facility] Work Phone: Start: 27-53-9144ZAWQZ CAROLEE, Provider: EDGAR RODRIGUEZ COMPOSITE ENGINEER 1,[id number], Status: Pen, Time: 9:30 AMStella Marinelli Work Phone: [phone]) [phone]-Pdwfq [facility] 250 DO Work Phone: Start: 34-24-3710Feidvfu encounter procedureStella Marinelli Work Phone: 1([phone]) [phone]-Zdkqg [facility] 250 DO Work Phone: Start: 97-67-5701Sbevfuo encounter procedureStella Marinelli Work Phone: [phone]-Rgycy [facility] 250 DO Work Phone: Start: 08-26-2021 End: 52-61-4182Iynlbqhff department patient visitMD Stella Marinelli Work Phone: [facility] RoomStart: 08-25-2021 End: 00-52-5886mzvopjevriLK STELLA MARINELLIFacility:P8Jrtsg: 06-25-2021 End: 25-78-0664nfghalhdijAevmja Taylor Other [facility] [employer] Other Start: 89-67-1106Uzifjh outpatient visit 15 minutes [facility] ClydeStart: 08-06-2019 End: 13-66-4371Ndkhlso encounter procedureABDULAZIM MUSTAPHAFacility:[facility] Procedures DateProcedureProcedure DetailPerforming ClinicianStart: 10-30-2024 EsophagogastroduodenoscopyStella Marinelli MD Work Phone: Start: 06-37-4910Xubaa depression screening assessment Amanda Simmons [employer]USTRI[employer] TRAINING [employer]IST-[employer] Work Phone: Start: 82-27-5583WRYKORTNNJTWN ECHO (TTE) MAURA LAtart: 56-17-2837SCOQTU LOWER ARM SURGERYBRENT ALTENHOFStart: 21-70-2029Seqhdszuzwg &/transpos median nrv carpal tunneABDULAZIM MUSTAPHAStart: 59-06-8743Jjhsn colonoscopyStella Marinelli Work Phone: ArthroscopyMarayala E Yves Work Phone: Comment on above:Knee;Cataract surgeryStella E Yves Work Phone: CholecystectomyStella Marinelli Work Phone: Depression screeningStella Marinelli Other Operative procedure on footAnaciantoni Encinas Yves Work Phone: Plan of Treatment DateCare ActivityDetailAuthorStart: 03-33-7236Bzanuobh screeningDiabetes: Retinopathy ScreeningDelaware County Hospital: 54-35-8040Jtxolqvfu for osteoporosisBone Density ScanDelaware County Hospital: 02-19-2026 End: 01-04-5812Clvuojm encounter espqmbqwl08/16/2026 2:00 PM EDT Office Visit [facility] [address] [facility] [address] [place] [address] Doug Heller MD [address] [facility] [address] [place] [address] [facility]: 10-21-2025 End: 26-30-2685Fbrnrks encounter gmmnqclpo77/18/2026 1:30 PM EDT Office Visit RACHAEL BRENNAN [address] [place] [address] Devante Rodriguez DO [address] [place] [address] RACHAEL BELLEVUEStart: 96-18-4496Mlkevnwugg ScreeningDepression ScreeningProMedica Health SystemStart: 98-92-4532Mlunful ScreeningTobacco ScreeningProCleveland Clinic Lutheran Hospitalca [facility] SystemStart: 34-28-1918FPPPS-19 Vaccine ( season)COVID-19 Vaccine ()[facility] Start: 05-07-5518Pohrlqssa vaccinationInfluenza Vaccine (#1)[facility] HospitalStart: 02-01-2025 End: 36-35-0332Pstcuba encounter pyaylunky56/29/2025 1:00 PM EDT Office Visit [place] [address] [facility] [address] [place] [address] Doug Heller MD [address] [facility] [place] [address] [facility]: 78-17-4874RcenvpmamAdena Regional Medical Center Start: 10-18-2024 End: 43-67-9404Tcilavy encounter procedureANA THE BELLEVUE HOSPITALUEComment on above:Arrived Start: 09-25-2024 End: 47-05-5688Jarsvllbus [Mass/volume] in Serum or PlasmaCreatinine, Serum Lab Routine Multiple sclerosis (CMS/HCC) Expected: 09/25/2024 (Approximate), Expir es: 09/25/2025NONE HealthcareComment on above:Expected: 09/25/2024 (Approximate), Expires: 09/25/2025Start: 09-25-2024 End: 76-84-4225VO Brain WO and W contrast IVMR brain w and wo contrast routine Imaging Routine Multiple sclerosis (CMS/HCC) Expected: 09/25/2024 (Approximate), Expires: 09/25/2025[facility] Work Phone: comment on above:Expected: 09/25/2024 (Approximate), Expires: 09/25/2025Start: 09-25-2024 End: 13-89-1254PY Cervical spine WO and W contrast IVMR cervical spine w and wo contrast Imaging Routine Multiple sclerosis ([facility]/HCC) Expected: 09/25/2024 (Approximate), Expires: 09/25/2025NONE HealthcareComment on above:Expected: 09/25/2024 (Approximate), Expires: 09/25/2025Start: 09-25-2024 End: 58-72-1636US Thoracic spine WO and W contrast IVMR thoracic spine w and wo contrast Imaging Routine Multiple sclerosis ([facility]) Expected: 09/25/2024 (Approximate), Expires: 09/25/2025NOMS HealthcareComment on above:Expected: 09/25/2024 (Approximate), Expires: 09/25/2025Start: 09-24-2024 End: 06-87-3722Qzywgxt encounter ajlavlisx41/21/2025 8:20 AM EDT Office Visit RACHAEL [place] [address] [place] [address] Abby Cat PA [address] [place] [address] Vishal BRENNANComment on above:ArrivedStart: 09-19-2024 End: 16-06-1779Tnuaght encounter /16/2025 1:20 PM EDT Office Visit RACHAEL [place] [address] [place] [address] Abby Cat PA [address] [place] [address] RACHAEL JARQUINAXELtart: 08-31-2024 End: 74-89-4502Qqxgwgj encounter ohjzbouxb23/28/2025 12:30 PM EDT Office Visit [facility] [address] [place] [id number] Amanda Simmons, INDUSTRIAL TRAINING SPECIALIST-BOBBIN TRUCKER [address] [place], [place] [phone] (Work) [facility]etric[facility]/GynecologyStart: 08-09-2024 End: 85-53-6705Efumksx encounter procedureMansfield Hospital Llano - Mammography/DEXA ImagingStart: 08-08-2024 End: 25-79-8926DUT Breast - bilateral screeningMammography screening bilateral with CAD Imaging Routine Encounter for screening mammogram for malignant neoplasm of breast Expected: 08/08/2024, Expires: 10/01/2025[facility] Work Phone: Comment on above:Expected: 08/08/2024, Expires: 10/01/2025Start: 38-60-7977Jjdzr BMI ScreeningAdult BMI ScreeningProL.V. Stabler [facility] Recommend SystemStart: 08-03-2024 End: 50-02-2564MUZ Skeletal system Views for bone densityDexa scan central skeletal Imaging Routine Postmenopausal Screening for osteoporosis Expected: 08/03/2024, Expires: 08/03/2025ProL.V. Stabler Memorial Hospital Recommend SystemComment on above:Expected: 08/03/2024, Expires: 08/03/2025Start: 06-26-2024 End: 08-35-3578Cdmihqm encounter /21/2025 2:15 PM EST Office Visit RACHAEL BRENNAN [address] [place] [address] Lizzy Hightower MD [address] [place] [address] Vishal BRENNANComment on above:ArrivedStart: 32-03-8561Wijlgqk [facility] Work Phone: Start: 95-81-4698CWIZR-19 Vaccine ( season) COVID-19 Vaccine ( season)ProMedicAkamai Home Tech Health SystemStart: 02-05-2024 Influenza vaccinationCleveland Clinic [facility] HospitalStart: 43-82-9611BCU, Provider: Doug Heller, Status: Pen, Time: 11:40 AMFUV, Provider: Doug Heller, Status: Pen, Time: 11:40 AMRainy [facility] 250 DO Work Phone: Start: 01-31-2024 End: 71-18-4143Sfsvwll encounter wynnepkfn22/27/2024 11:40 AM EDT Office Visit [facility] [address] [facility] [address] [place] [address] Doug Heller MD [address] [place] [address] [facility]Start: 80-43-4243Ddwdhja ScreeningTobacco ScreeningCommunity Regional Medical Center SystemStart: 27-93-6868NJI High Risk: (Elderly (60+) or Population) (1 - 1-dose 75+ series)RSV High Risk: (Elderly (60+) or Population) (1 - 1-dose 75+ series)[facility] Start: 94-67-3779EAPWB-19 Vaccine ( season)COVID-19 Vaccine ( season)[facility] HospitalStart: 98-21-6244FQU, Provider: Doug Heller, Status: Pen, Time: 11:10 AMFUV, Provider: Doug Heller, Status: Pen, Time: 11:10 AMRainy Lake [facility] 250 DO Work Phone: Start: 97-36-1646Iynxphde screeningDiabetes: Retinopathy ScreeningPremier Health Miami Valley Hospital Southart: 01-66-2886ALQ, Provider: Doug Heller, Status: Pen, Time: 10:30 AMFUV, Provider: Doug Heller, Status: Pen, Time: 10:30 AMMPGrand Itasca Clinic And Hospital 250 DO Work Phone: Start: 04-99-0822EXY, Provider: Doug Heller, Status: Pen, Time: 9:20 AMFUV, Provider: Doug Heller, Status: Pen, Time: 9:20 AMRainy Lake Medical Center 250 DO Work Phone: Start: 67-31-5499YEEPWP NUC, Provider: GERMAN KO NUCLEAR ,[id number], Status: Pen, Time: 8:00 AMSTRESS NUC, Provider: GERMAN KO NUCLEAR ,[id number], Status: Pen, Time: 8:00 AMProv[facility] [place] 250 DO Work Phone: Start: 41-38-5339Gvkiy chest X-rayXR chest 1V [facility] Hospitaltart: 87-95-0950Sgnsbppimiiu vaccination Pneumococcal Vaccine (2 of 2 - PCV)[facility]: 21-54-3796Dwenfvbinkhm Vaccine: 65+ Years (2 of 2 - PCV)Pneumococcal Vaccine: 65+ Years (2 of 2 - PCV)[facility]: 04-06-2015 Pneumococcal Vaccine: 65+ Years (3 - PCV)Pneumococcal Vaccine: 65+ Years (3 - PCV)[facility]: 06-47-4962Cjfu Risk ScreeningFall Risk ScreeningProOhiohealth Arthur G.[facility] SystemStart: 43-80-6653NMR patients and/or patients aged 60+ years (1 - 1-dose 60+ series)RSV patients and/or patients aged 60+ years (1 - 1-dose 60+ series)[facility]: 10-21-1641Zidjenidkflzsz of varicella zoster vaccineZoster (Shingles) Vaccine (1 of 2)[facility] Hospitaltart: 62-65-0349Mxsivi Vaccines (1 of 2)Zoster Vaccines (1 of 2)[facility]: 23-04-5891CDkT/Tdap/Td Vaccines (1 - Tdap)DTaP/Tdap/Td Vaccines (1 - Tdap) [facility]: 35-19-7518VLnX,Tdap and Td Vaccines (1 - Tdap)DTaP,Tdap and Td Vaccines (1 - Tdap)[facility] SystemStart: 33-46-0433Sjiys screening for proteinDiabetes: Urine Protein ScreeningDelaware County Hospital: 75-58-3000Tkbjq BMI Follow Up PlanAdult BMI Follow Up PlanProOhiohealth Arthur [facility] SystemStart: 43-23-0603Ltarpntyl C screeningHepatitis C ScreeningUnBlanchard Valley Health System [facility]: 60-09-7686Odfgzzdulj Screening Depression ScreeningCommunity Regional Medical Center SystemStart: 62-11-5015Gjuwqxvolh A1c measurementDiabetes: Hemoglobin W9HObqhcutijyDelaware County Hospital: 64-62-8523Xzknj panelLipid PanelDelaware County Hospital: 01-02-1949Medicare Annual Wellness VisitDelaware County Hospital: 67-49-2274Qblrzrcjj for malignant neoplasm of colonUnBlanchard Valley Health System [facility]: 36-87-3877Mnqilijrm for osteoporosisBone Density ScanUnBlanchard Valley Health System [facility]: 41-25-2585Fyfoigd stimulating hormone measurement TSH LevelDelaware County Hospital: 38-29-2226Fgiup screening for proteinDiabetes: Urine Protein ScreeningC[facility] Clinic [facility] Comprehensive metabolic 1999 panel - Serum or PlasmaAdena Regional Medical CenterComprehensive metabolic 2000 panel - Serum or PlasmaAdena Regional Medical CenterCT Abdomen and Pelvis W contrast [facility] HealthCT Chest W contrast Premier HealthMicroalbumin [Mass/volume] in UrineAdena Regional Medical CenterMR AbdomenAdena Regional Medical CenterPatient EducationMartin Memorial Hospital Ctr Work Phone: Patient referralMartin Memorial Hospital Ctr Work Phone: End: 91-97-5759GL Heart TransthoracicLINCOLN COUNTY MEDICAL CENTER Service Area Work Phone: Comment on above:Once for 1 Occurrences starting 07/02/2023 until 07/02/2023XR Chest 2 ViewsNCH Healthcare System - Downtown Naples Immunizations Immunization DateImmunizationNotesCare ZxrgvekrIprytppu44-84-2092fbboqzzan, high dose seasonal, preservative-freeAdena Regional Medical Center10-14-2024 influenza virus vaccine, unspecified formulationDoug Heller MD Work Phone: [facility] Work Phone: [phone]twaajb, high dose seasonal, preservative-freeBenjamin Ball Other [place] [employer] Other [id number] virus vaccine, unspecified formulationAdena Regional Medical Center10-12-2022Fluad Quadrivalent 0.5 ML Intramuscular Prefilled SyringeMarcia E Marinelli Work Phone: [phone]-EbfwsRicky [place] [address] DO Work Phone: [phone]zwvtvh virus vaccine, split virus (incl. purified surface antigen)Stella Marinelli Other [employer] Other [id number] virus vaccine, unspecified formulationAdena Regional Medical Center10-07-2021influenza virus vaccine, split virus (incl. purified surface antigen)Stella Marinelli Other [employer] Other [id number] virus vaccine, unspecified formulationAdena Regional Medical Center09-01-2021influenza, seasonal, injectableMarcia E Marinelli Work Phone: [phone]-NijdbRicky Ville [address] DO Work Phone: Comment on above:Series:35-23-2523Vmcyiyu COVID-19 Vaccine 0.5 ML Intramuscular SuspensionMarcia E Marinelli Work Phone: [phone]-LfrzxRicky Ville [address] DO Work Phone: [phone]sttmbf virus vaccine, split virus (incl. purified surface antigen)Stella Marinelli Other [employer] Other 10509576-48-5542geaeozuvm virus vaccine, unspecified formulationAdena Regional Medical Center09-25-2019influenza virus vaccine, split virus (incl. purified surface antigen)Stella Marinelli Other [employer] Other [id number] virus vaccine, unspecified formulationAdena Regional Medical Center09-25-2019influenza, injectable, quadrivalent, preservative freeMarcia E Marinelli Work Phone: [phone]-BtumeRicky [place] [address] DO Work Phone: [phone]khbdfivn polysaccharide vaccine, 23 valentMarcia E Marinelli Work Phone: [phone]-EvwgtGrand Itasca Clinic And Hospital 250 DO Work Phone: [phone]dufanhxe polysaccharide vaccine, 23 valentMarcia Marinelli Other [facility] Regional Medical Centerinfluenza virus vaccine, unspecified formulationMarcia E Marinelli Work Phone: [phone]-NnozmRicky [place] [address] DO Work Phone: Comment on above:2010 Payers DatePayer CategoryPayerPolicy [id number] supplemental policy (as second payer)[facility] Member Subscriber Plan / Payer (Effective 2023-Present) Name: Alicia Flor Relation to Subscriber: Self Name: Alicia Flor Payer ID: Not on file Group ID: Not on file Type: Not on file Address: [place] [id number]eqje61-91-8869 Managed Care Other (unspecified)[facility] [id number] 2014Medicare [id number]00-62-1342Fteoroa Health Insurance [id number] [id number] [id number] 2.0.1.465401.3.57[id number] 2.0.1.909152.3.57[id number] 2.0.1.343252.3.57[id number] 2.0.1.419396.3.57[id number] 2.0.1.184315.3.57[id number] 2.840.1.013854.3.57[id number] 2.0.1.805980.3.57[id number] 2.0.1.781952.3.57[id number] 2.0.1.564975.3.57[id number] 2.840.1.339552.3.57[id number] 2.0.1.375767.3.57[id number] 2..840.1.478584.3.57[id number] 2..840.1.416196.3.57[id number] 2.16.840.1.622602.3.579.2.1244Self-paySelf Pay [id number] Social History DateTypeDetailFacilityStart: 08-26-2021 End: 92-61-7338Gtqmbxz smoking status NHISNever smoked tobacco (finding) [facility] Hospitaltart: 93-20-5232Mvi Assigned At [facility] Centertart: 01-31-2024 End: 96-92-7970Aecypq alcohol useSocial alcohol use-[facility] 250 DO Work Phone: Comment on above:Rarely;2 cups tea daily;Quit 06/1971; Start: 01-31-2024 End: 00-33-8967Ecq Assigned At [facility] [employer] Other Tobacco smoking status NHISTobacco smoking consumption unknownNOMS HealthcareStart: 96-76-9840Hbp Assigned At BirthNot on file [facility] Work Phone: Start: 06-22-2023 End: 15-59-5772Obtpxzun to SARS-CoV-2 (event)Not sureUnFisher-Titus Medical CenterStart: 01-31-2024 End: 05-04-0006Uywdcgj smoking status NHISEx-smokerUnFisher-Titus Medical CenterStart: 02-10-9471Vjqktky of tobacco useCurrent smokerUnFisher-Titus Medical Center Work Phone: Start: 69-43-9532Ljahcrf of tobacco useCigarette SmokerUnFisher-Titus Medical Center Work Phone: Start: 01-31-2024 End: 95-83-9810Hcdohuy use and exposureSmokeless tobacco non-userOhio State Health System Recommend SystemStart: 01-31-2024 End: 70-16-0362Vxabazngq beverage intakeCurrent drinker of alcohol (finding) [facility] Recommend SystemStart: 48-97-4321Pnvkprc CommentraSelect Medical [facility] Work Phone: Start: 28-45-6977NyyeebqqvQlkpydcJlvAorbkj Health SystemStart: 37-88-9911Dmsztcu CommentraAshtabula County Medical Center SystemStart: 08-01-2024 End: 12-77-4519WmpIaokpq (finding)[facility] Hospitaltart: 25-45-1557Yhfecfxtk beverage intakeEx-drinker (finding)[facility] Goals DatePatient GoalDesired Activity/State Clinical Notes 11-11-2014 to 02-18-2025 Note Date & ImtiLnjbUjgluygz91-78-1301 History of Present illness Narrative* Doug Heller MD - 02/18/2025 3:10 PM EDT HPI Patient is in the office accompanied by her for follow-up for essential hypertension and previous history of atypical chest pain. She is type II diabetic and has history of hypothyroidism on replacement therapy. She gained 9 pounds since her last visit due to dietary indiscretion. She had aset of blood work in December 2024 which I reviewed with her that covered her thyroid function, CBC, lipids and basic metabolic profile. Her thyroid function was on the borderline on supplemental thyroid. LDL cholesterol 107 mg/dL. A1c was 6.8. Examination today was essentially unremarkable except for overweight. Assessment/recommendations: 1-history of chest pain that is atypical in nature with normal nuclear stress test 2021,. She had normal cardiac catheterization 2009, currently asymptomatic, no cardiac investigation presently are needed. 2-essential hypertension currently under control, she follows low-salt diet, she need to lose more weight with dietary discretion. Present medical therapy is effective and will be left unchanged. 3-type II diabetes currently under control managed by PCP, A1c below 6.8 as of December 2024. She follows low carbohydrate diet, she exercise but need to lose weight with more dietary discretion. No complications related to diabetes. 4-history of nephrotic syndrome in remission, currently does not follow with nephrology 5-overweight, encouraged more weight loss with diet and exercise. 6-history of MS with no recent deficits 7-hypothyroidism on replacement therapy managed by PCP, most recent thyroid panel December 2024 was reviewed and her numbers are on the borderline. ROS Review of system is remarkable for nasal congestion and allergies Vitals: 02/18/25 1514 BP: 130/76 BP Location: Left arm Patient Position: Sitting Pulse: 68 Weight: 78.5 kg (173 lb) Height: 1.651 m (5' 5 ) [...] Morphine, and Sulfamethoxazole Current Medications Current Outpatient Medications Medication Instructions amLODIPine (NORVASC) 10 mg, Daily B complex-vitamin C tablet 1 tablet, Every other day carvedilol (COREG) 6.25 mg, 2 times daily (morning and late afternoon) cholecalciferol (VITAMIN D-3) 400 Units, Every other day glipiZIDE XL (GLUCOTROL XL) 5 mg, Daily hydroCHLOROthiazide (HYDRODIURIL) 25 mg, Daily Klor-Con M20 20 mEq ER tablet 20 mEq, Daily levothyroxine (SYNTHROID, LEVOXYL) 75 mcg, Daily before breakfast omeprazole (PRILOSEC) 40 mg, Daily Assessment/Plan 1. Essential hypertension Follow Up In Cardiology 2. Other specified diabetes mellitus with other specified complication, without long-term current use of insulin 3. Arthritis 4. Other specified hypothyroidism 5. History of nephrotic syndrome 6. MS (multiple sclerosis) (Multi) 7. BMI 28.0-28.9,adult 8. Right bundle branch block (RBBB) on electrocardiography Follow Up In Cardiology 9. Former smoker 10. Overweight 11. Type 2 diabetes mellitus without complication, without long-term current use of insulin Scribe Attestation By signing my name below, I, Lissett Barba LPN, Scribe attest that this documentation has been prepared under the direction and in the presence of Doug Heller MD. Provider Attestation - Scribe documentation All medical record entries made by the Scribe were at my direction and personally dictated by me. Ihave reviewed the chart and agree that the record accurately reflects my personal performance of the history, physical exam, discussion and plan. documented in this encounterCleveland Clinic [facility] Work Phone: 1(883) 601-684909-15-2025 Instructions* Patient Instructions* Lissett Robertson LPN - 02/18/2025 3:10 PM EDT Please bring all medicines, vitamins, and herbal supplements with you when you come to the office. Prescriptions will not be filled unless you are compliant with your follow up appointments or have a follow up appointment scheduled as per instruction of your physician. Refills should be requested at the time of your visit. BMI was above normal measurement. Current weight: 78.5 kg (173 lb) Weight change since last visit (-) denotes wt loss 9 lbs Weight loss needed to achieve BMI 25: 23.1 Lbs Weight loss needed to achieve BMI 30: -6.9 Lbs Provided instructions on dietary changes Provided instructions on exercise. * Attachments The following attachments cannot be sent through Care Everywhere. * Heart Healthy Diet (Northern Irish) documented in this encounterCleveland Clinic [facility] Work Phone: 1(512) 141-784505-27-2025 [place] [address] EGD Procedure Note Signed Patient: Alicia Flor MR#: [id number] : 1950 Acct:[id number] Age/Sex: 74 / F Adm Date: Loc: Room: Type: [facility] Attending Dr: Armand Elder MD Copies to: MD Stella Booker MD~ Esophagogastroduodenoscopy Date/Provider Date: 10/30/2024 Armand Elder MD Narrative Narrative: Procedure: EGD Indication: This is a 74-year-old female who presents for EGD to evaluate GERD, dysphagia. She has been resistant to taking long-term omeprazole, however has The best control of her reflux with this.Failed pantoprazole and esomeprazole in the past. Currently on lansoprazole 30 mg daily and still getting some dyspeptic complaints. Pre-operative diagnosis: GERD, dysphagia Post-operative diagnosis: Esophagitis Sedation: propofol per anesthesia dept O2 oximetry, hemodynamic monitoring was performed pre, during, and post procedure. Patient was identified, H&P completed, patient was given full explanation of the procedure as well as associatedrisks and written consent wasobtained prior to procedure. Patient expressed complete understanding of the procedure as well as alternatives to the procedure and to anesthesia and agreed to proceed with the procedure as indicated. Patient was immediately reassessed prior to IV sedation. Following IV sedation, patient was placed in the left lateral decubitus position. Bite block was inserted. Endoscope was passed through the mouth, into the esophagus. Endoscope was advanced into the stomach through the pyloricchannel and into the 2nd portion of duodenum by direct visualization. Endoscopewas withdrawn into the stomach and retroflexion was performed. The endoscope was straightened,the stomach was decompressed. Endoscope was withdrawn into the esophagus then completely removed with the findings as below. Findings: DUODENUM: bulb and descending portion appeared normal. STOMACH: pyloric channel, antrum, body, fundus and cardia, including retroflexedviews appear normal. ESOPHAGUS: Diaphragmatic hiatus was 40 cm from incisors. GE junction (upper margin of gastric folds) was at 40 cm from incisors. Squamocolumnar junction was at 40 cm from incisors. Mild LA grade a esophagitis. No evidence of Torres's esophagus. Biopsy taken: no Complications: None EBL: minimal Recommendations: -Patient needs to be on an appropriate potency PPI. EGD management of reflux related dysphagia is an appropriate. I would recommend she be on omeprazole 40 mg once daily lifelong. -Resume normal diet -Follow up in the office with GI nurse practitioner next available to discuss PPI therapy, if patient does not want to be on PPI therapy then she can follow- up with the GI office on an as-needed basis and can follow with PCP -Follow up with PCP Following a period of recovery, patient was seen and given full explanation of the procedure. Patient tolerated the procedure well and will be discharged in satisfactory, stable condition. Armand Elder MD Documented By: Armand Elder MD 10/30/24 1259 Signed By: 10/30/24 1307 [facility]05-27-2025 [place] [address] Gastroenterology H&P Signed Patient: Alicia Flor MR#: [id number] : 1950 Acct:[id number] Age/Sex: 74 / F Adm Date: 5 Loc: Room: Type: [facility] Attending Dr: Armand Elder MD Copies to: MD Stella Booker MD~ Date of Service: 10/30/2024 HISTORY & PHYSICAL: Patient's history with special attention to the cardiovascular, pulmonary systems and the current problem was reviewed with the patient immediately prior to the procedure. Present medications and doses reviewed in the EMR. Allergies and pertinent laboratory tests were also re viewedat this time in the EMR. The physical examination, as below, was then performed. Indication, assessment and HPI: This is a 74-year-old female who presents for EGD to evaluate GERD,dysphagia. She has been resistant to taking long-term omeprazole, however has The best control of her reflux with this. Failed pantoprazole and esomeprazole in the past. Currently on lansoprazole 30 mg daily and still getting some dyspeptic complaints. Family history of GI malignancy? no PHYSICAL EXAMINATION Mouth and Pharynx : moist mucus membranes, normal dentition Eyes: EOM intact b/l, normal sclera Pulmonary: normal respiratory effort, able to speak in complete sentences Neurological: alert and oriented x3, moves all extremities Skin: non-jaundiced, warm and dry Abdomen: non-distended, normal to inspection Psych: Mental status and mood grossly normal REVIEW OF SYSTEMS Constitutional: Denies malaise, fevers Cardiovascular: Denies chest pain, palpitations Respiratory: Denies shortness of breath, wheezing Gastrointestinal: Per HPI Genitourinary: Denies dysuria, polyuria Musculoskeletal: Denies joint swelling, joint stiffness Neurological: Denies numbness, tingling Integumentary: Denies rashes, skin lesions Endocrine: Denies fatigue, weight loss Written informed consent obtained from the patient. Risks (including but not limited to perforation, infection, bloating, bleeding, need for emergent surgeryand loss of life), benefits and alternatives explained and questions answered. The patient verbalized understanding. Based on history patient is an appropriate candidate for the procedure. Armand Elder MD Documented By: Armand Elder MD 10/30/24 1257 Signed By: 10/30/24 1258 [facility]05-15-2025 History of Present illness Narrative * YESENIA Subramanian - 10/18/2024 1:00 PM EDT Images from the original note were not included. Subjective Alicia Flor is a 74 y.o. year old female Chief Complaint Patient presents with Multiple Sclerosis Past Medical History: Diagnosis Date Diabetes mellitus (CMS/HCC) Hypertension (CMS/HCC) MS (multiple sclerosis) (CMS/HCC) Past Surgical History: Procedure Laterality Date CARPAL TUNNEL RELEASE No family history on file. Social History Tobacco Use Smoking status: Never Smokeless tobacco: Never Substance Use Topics Alcohol use: Not on file Medication Documentation Review Audit Reviewed by Natalya Garzon MA (Accounting Coordinator) on 10/18/24 at 1302 Medication Order Taking? Sig Documenting Provider Last Dose Status amLODIPine (Norvasc) 10 MG tablet [id number] Take 10 mg by mouth Daily Lizzy Hightower MD Active carvedilol (Coreg) 6.25 MG tablet [id number] Take 6.25 mg by mouth in the morning and 6.25 mg in the evening. Take with meals. Lizzy Hightower MD Active cholecalciferol (Vitamin D-3) 10 MCG (400 UNIT) tablet [id number] Take 400 Units by mouth in the morning. Lizzy Hightower MD Active glipiZIDE XL (Glucotrol XL) 5 MG 24 hr tablet [id number] Take 5 mg by mouth in the morning. Lizzy Hightower MD Active hydroCHLOROthiazide (HYDRODiuril) 25 MG tablet [id number] Take 25 mg by mouth Daily Lizzy Hightower MD Active Synthroid 75 MCG tablet [id number] Take 75 mcg by mouth Daily Lizzy Hightower MD Active HPI MS -MRI's to review -denies any weakness or fatigue -denies paresthesia -reports no visual changes -continues to have some incontinence -occasional shortness of breath -feels like her lungs can not expand all the way -continues to have tightness in her trunk that comes and goes NECK PAIN -continue to follow with Dr. Marinelli -reports neck pain has been ok -states the neck does crack often -symptoms comes and goes -occasional worsening with weather and activity ROS Review of Systems Constitutional: Positive for fatigue. Respiratory: Positive for chest tightness and shortness of breath. Musculoskeletal: Positive for back pain and neck pain. Neurological: Negative. Objective Visit Vitals BP 142/84 Pulse 63 Resp 16 Ht 5' 5 Wt 172 lb SpO2 98% BMI 28.62 kg/m Smoking Status Never BSA 1.89 m Neurological Exam Mental Status Awake, alert and oriented to person, place and time. Speech is normal. Language is fluent with no aphasia. Cranial Nerves CN II: Visual acuity is normal. Visual mariano full to confrontation. CN III, IV, : Extraocular movements intact bilaterally. Normal lids and orbits bilaterally. Pupils equal round and reactive to light bilaterally. CN V: Facial sensation is normal. CN VII: Full and symmetric facial movement. CN VIII: Hearing is normal. CN IX, X: Palate elevates symmetrically. Normal gag reflex. CN XI: Shoulder shrug strength is normal. CN XII: Tongue midline without atrophy or fasciculations. Sensory Light touch is normal in upper and lower extremities. Gait Normal casual, toe, heel and tandem gait. Motor Examination RUE Strength deltoid, biceps, triceps, wrist extensors, wrist extensors, wrist flexor, alteration tailor apprentice strength 5/5. LUE Strength deltoid, biceps, triceps, wrist extensors, wrist extensors, wrist flexor, alteration tailor apprentice strength 5/5. RLE Strength illopsoas, quadriceps, tibialis anterior, and gastrocnemius strength 5/5. LLE Strength illopsoas, quadriceps, tibialis anterior, and gastrocnemius strength 5/5. Tone Normal tone x4 extremities. Reflexes: RUE biceps reflex 2, brachioradialis reflex 2 LUE biceps reflex 2, brachioradialis reflex 2 RLE knee reflex 2 LLE knee reflex 2 Heart: Regular rate and rhythm Review and summary of old records: Brain MRI with and without contrast 10/09/2024: No significant change in brain findings compared to the 2022 impression. No abnormal enhancement or restricted diffusion seen to suggest active demyelination. Cervical spine MRI with and without contrast 10/09/2024: No active demyelinating process seen involving the cervical spine. No abnormal cord signal. Multilevel degenerative disc disease, worst at C5-C6. At C5-C6 there is disc osteophyte complex present causing moderate canal and bilateral neural foraminal stenosis. 2mm retrolisthesis Thoracic spine MRI with and without contrast 10/10/2024: No MRI evidence of active demyelinating process involving the spinal cord. No abnormal cord signal. Assessment and Plan Diagnoses and all orders for this visit: Multiple sclerosis (CMS/HCC) The patient is a 74 year old female who was diagnosed with MS in 2004 and was maintained on Copaxone until 2010 until she was diagnosed with kidney disease. She has not been on DMT since. She has been having breathing difficulty and has been on steroids several times. Symptoms do lessen with steroids however the patient describes it as the MS hug . Brain MRI 04/07/2023 revealed a few small nonspecific T2/FLAIR bright foci in the supratentorial white matter, unchanged since 05/19/2022. (Brain MRI 04/19/2022 was nonacute. Brain MRI 08/2020 with and without contrast revealed new 3.5mm area of increased T2 signal within the posterior left frontal lobe deep white matter. Also revealed was stable a ppearance of small area of increased T2 signal in right and left parietal lobes. No evidence of active demyelination). TCD and carotid ultrasounds were updated due to previous lightheadedness and were unremarkable. Orthostatic BPs were negative previously. MRI brain, cervical spine, and thoracic spine 10/09/2024 were stable and no mention of cord signal changes in the spinal cord. She does have some degenerative changes in the cervical spine. She does report that she has seen pulmonology in the past and was told she has asthma. Neck pain The patient had an Xray of the thoracic and cervical spine 06/24/20 at [facility] that revealed C5-6 degenertive disc disease with grade 1 retrolisthesis of C5; stable to slightly progessed since prior study, multilevel moderate degenerative facet arthropathy and mild levocurvature of the thoracic spine. MRI of the cervical spine with and without contrast 08/2020 revealed severe disc space narrowing with 4mm retrolisthesis at C5-C6 and moderate diffuse disc/osteophyte complex with significant narrowing of the central canal and moderate bilateral foraminal stenosis. She has seen neurosurgery, Dr. Kimball, and is doing home exercises for her neck with improvement in her symptoms. She is no longer on zanaflex. She is following with Dr. Marinelli now. She did have some progression of degenerative changes on recent cervical spine MRI 10/09/2024 as noted above. I discussed PT and patient declined for now. She can continue with conservative treatments, ice and heat therapy, ROM exercises, and massage therapy as tolerated. PLAN I reviewed brain MRI, cervical spine MRI, and thoracic spine MRI Continue with ROM exercises and stretching, ice and heat therapy, massage therapy as tolerated for neck pain. Avoid triggers I offered patient referral to PT and she declined. Patient to follow up with this clinic in 6-12 months or sooner for new or worsening symptoms Abby Cat PA-C documented in this encounterSSM Health [id number] History and physical note Author Armand Elder [facility] CenterNote Date/TimeMay 2024 12:58pm[place] [address] Gastroenterology H&P Signed Patient: Alicia Flor MR#: [id number] : 1950 Acct:[id number] Age/Sex: 74 / F Adm Date: 5 Loc: Room: Type: [facility] Attending Dr: Armand Elder MD Copies to: MD Stella Booker MD~ Date of Service: 10/30/2024 HISTORY & PHYSICAL: Patient's history with special attention to the cardiovascular, pulmonary systems and the current problem was reviewed with the patient immediately prior to the procedure. Present medications and doses reviewed in the EMR. Allergies and pertinent laboratory tests were also re viewedat this time in the EMR. The physical examination, as below, was then performed. Indication, assessment and HPI: This is a 74-year-old female who presents for EGD to evaluate GERD,dysphagia. She has been resistant to taking long-term omeprazole, however has The best control of her reflux with this. Failed pantoprazole and esomeprazole in the past. Currently on lansoprazole 30 mg daily and still getting some dyspeptic complaints. Family history of GI malignancy? no PHYSICAL EXAMINATION Mouth and Pharynx : moist mucus membranes, normal dentition Eyes: EOM intact b/l, normal sclera Pulmonary: normal respiratory effort, able to speak in complete sentences Neurological: alert and oriented x3, moves all extremities Skin: non-jaundiced, warm and dry Abdomen: non-distended, normal to inspection Psych: Mental status and mood grossly normal REVIEW OF SYSTEMS Constitutional: Denies malaise, fevers Cardiovascular: Denies chest pain, palpitations Respiratory: Denies shortness of breath, wheezing Gastrointestinal: Per HPI Genitourinary: Denies dysuria, polyuria Musculoskeletal: Denies joint swelling, joint stiffness Neurological: Denies numbness, tingling Integumentary: Denies rashes, skin lesions Endocrine: Denies fatigue, weight loss Written informed consent obtained from the patient. Risks (including but not limited to perforation, infection, bloating, bleeding, need for emergent surgeryand loss of life), benefits and alternatives explained and questions answered. The patient verbalized understanding. Based on history patient is an appropriate candidate for the procedure. Armand Elder MD Documented By: Armand Elder MD 10/30/24 1257 Signed By: <Electronically signed by Armand Elder MD> 10/30/24 1741 [facility] Work Phone: 1(316) 952-873704-21-2025 History of Present illness Narrative* YESENIA Subramanian - 09/24/2024 8:20 AM EDT Images from the original note were not included. Subjective Alicia Flor is a 74 y.o. year old female Chief Complaint Patient presents with Multiple Sclerosis Past Medical History: Diagnosis Date Diabetes mellitus (CMS/HCC) Hypertension (CMS/HCC) MS (multiple sclerosis) (CMS/HCC) Past Surgical History: Procedure Laterality Date CARPAL TUNNEL RELEASE No family history on file. Social History Tobacco Use Smoking status: Never Smokeless tobacco: Never Substance Use Topics Alcohol use: Not on file Medication Documentation Review Audit Reviewed by Natalya Garzon MA (Accounting Coordinator) on 09/24/24 at 0824 Medication Order Taking? Sig Documenting Provider Last Dose Status amLODIPine (Norvasc) 10 MG tablet [id number] Take 10 mg by mouth Daily Lizzy Hightower MD Active carvedilol (Coreg) 6.25 MG tablet [id number] Take 6.25 mg by mouth in the morning and 6.25 mg in the evening. Take with meals. Lizzy Hightower MD Active cholecalciferol (Vitamin D-3) 10 MCG (400 UNIT) tablet [id number] Take 400 Units by mouth in the morning. Lizzy Hightower MD Active glipiZIDE XL (Glucotrol XL) 5 MG 24 hr tablet [id number] Take 5 mg by mouth in the morning. Lizzy Hightower MD Active hydroCHLOROthiazide (HYDRODiuril) 25 MG tablet [id number] Take 25 mg by mouth Daily Lizzy Hightower MD Active Synthroid 75 MCG tablet [id number] Take 75 mcg by mouth Daily Lizzy Hightower MD Active HPI MS -denies any weakness at this time -fatigue sets in during the evening -denies paresthesia -she denies any vision changes -reports some incontinence -breathing continues to be an issues -describes this has lungs can not expand all the way -trunk tightening and she cannot get a deep breath -would like to have the MRI's done at this time NECK PAIN -continue to follow with Dr. Marinelli -states she does have some bad days with pain -symptoms comes and goes -worse with weather and activity ROS Review of Systems Constitutional: Positive for fatigue. Respiratory: Positive for chest tightness and shortness of breath. Musculoskeletal: Positive for back pain and neck pain. Neurological: Negative. Objective Visit Vitals BP 130/82 Pulse 70 Resp 16 Ht 5' 5 Wt 171 lb SpO2 97% BMI 28.46 kg/m Smoking Status Never BSA 1.89 m Neurological Exam Mental Status Awake, alert and oriented to person, place and time. Speech is normal. Language is fluent with no aphasia. Cranial Nerves CN II: Visual acuity is normal. Visual mariano full to confrontation. CN III, IV, : Extraocular movements intact bilaterally. Normal lids and orbits bilaterally. Pupils equal round and reactive to light bilaterally. CN V: Facial sensation is normal. CN VII: Full and symmetric facial movement. CN VIII: Hearing is normal. CN IX, X: Palate elevates symmetrically. Normal gag reflex. CN XI: Shoulder shrug strength is normal. CN XII: Tongue midline without atrophy or fasciculations. Sensory Sensation is intact to light touch, pinprick, vibration and proprioception in all four extremities. Gait Normal casual, toe, heel and tandem gait. Motor Examination RUE Strength deltoid, biceps, triceps, wrist extensors, wrist extensors, wrist flexor, alteration tailor apprentice strength 5/5. LUE Strength deltoid, biceps, triceps, wrist extensors, wrist extensors, wrist flexor, alteration tailor apprentice strength 5/5. RLE Strength illopsoas, quadriceps, tibialis anterior, and gastrocnemius strength 5/5. LLE Strength illopsoas, quadriceps, tibialis anterior, and gastrocnemius strength 5/5. Tone Normal tone x4 extremities. Reflexes: RUE biceps reflex 2, brachioradialis reflex 2 LUE biceps reflex 2, brachioradialis reflex 2 RLE knee reflex 2, ankle reflex 2 LLE knee reflex 2, ankle reflex 2 Heart: Regular rate and rhythm Assessment and Plan Diagnoses and all orders for this visit: Multiple sclerosis (CMS/HCC) The patient is a 74 year old female who was diagnosed with MS in 2004 and was maintained on Copaxone until 2010 until she was diagnosed with kidney disease. She has not been on DMT since. She has been having breathing difficulty and has been on steroids several times. Symptoms do lessen with steroids however the patient describes it as the MS hug . Brain MRI 04/07/2023 revealed a few small nonspecific T2/FLAIR bright foci in the supratentorial white matter, unchanged since 05/19/2022. (Brain MRI 04/19/2022 was nonacute. Brain MRI 08/2020 with and without contrast revealed new 3.5mm area of increased T2 signal within the posterior left frontal lobe deep white matter. Also revealed was stable a ppearance of small area of increased T2 signal in right and left parietal lobes. No evidence of active demyelination). TCD and carotid ultrasounds were updated due to previous lightheadedness and were unremarkable. Orthostatic BPs were negative previously. She previously declined MRIs but is agreeable today. Will update MRIs to monitor for potential MS disease progression. Neck pain The patient had an Xray of the thoracic and cervical spine 06/24/20 at [facility] that revealed C5-6 degenertive disc disease with grade 1 retrolisthesis of C5; stable to slightly progessed since prior study, multilevel moderate degenerative facet arthropathy and mild levocurvature of the thoracic spine. MRI of the cervical spine with and without contrast 08/2020 revealed severe disc space narrowing with 4mm retrolisthesis at C5-C6 and moderate diffuse disc/osteophyte complex with significant narrowing of the central canal and moderate bilateral foraminal stenosis. She has seen neurosurgery, Dr. Kimball, and is doing home exercises for her neck with improvement in her symptoms. She is no longer on zanaflex. She is following with Dr. Marinelli now. Neck pain persists. PLAN I will order an MRI of the brain to to monitor for MS disease progression. I will obtain an MRI of the cervical spine to monitor for MS disease progression. I will obtain an MRI of the thoracic spine to monitor for MS disease progression Patient to follow up with this clinic in 3-4 weeks to review MRIs documented in this encounterSSM Health [id number] Evaluation note* Diagnosis Onset Date Resolution Status Admit Date Abdominal bloating acuteApril 2024 10:38amChronic coughacuteApril 2024 10:38amDyspepsia acuteApril 2024 10:38amDyspnea and respiratory abnormalitiesacuteApril 2024 10:38amLUQ abdominal painacuteApril 2024 10:38amMild intermittent asthma, uncomplicatedacuteApr2024 10:38amRUQ abdominal painacuteApril 2024 10:38amAbdominal bloatingacuteApril 2024 12:51pmDyspepsiaacute October 01, 2024 12:51pmDysphagiaacuteApril 2024 12:51pmGERD (gastroesophageal reflux disease)acuteApril 2024 12:51pm [facility] Work Phone: 1(817) 257-891004-01-2025 Evaluation note* Diagnosis Onset Date Resolution Status Admit Date Abdominal bloating acuteApril 2024 10:38amChronic coughacuteApril 2024 10:38amDyspepsia acuteApril 2024 10:38amDyspnea and respiratory abnormalitiesacuteApril 2024 10:38amLUQ abdominal painacuteApril 2024 10:38amMild intermittent asthma, uncomplicatedacuteApril 2024 10:38amRUQ abdominal painacuteApril 2024 10:38amAbdominal bloatingacuteApril 2024 12:51pmDyspepsiaacute Goldie 2024 12:51pmDysphagiaacuteApril 2024 12:51pmGERD (gastroesophageal reflux disease)acuteApril 2024 12:51pmGERD (gastroesophageal reflux disease)acuteJune 2024 1:01pmHTN (hypertension) acuteJune 2024 1:01pmHyperlipidemia, unspecifiedAugust , 2014acuteJune 2024 1:01pmMedicare annual wellness visit, subsequentacuteJune 2024 1:01pmOsteopeniaacuteJune 2024 1:01pmType 2 diabetes mellitus with hyperglycemiaacuteJune 2024 1:01pm [facility] Work Phone: 1(744) 981-434503-28-2025 History of Present illness Narrative* Amanda Simmons, SHAHEED-BOBBIN TRUCKER - 08/31/2024 12:30 PM EDT Subjective Alicia Flor is a pleasant 74 y.o. female who presents for medicare pelvic and clinical breast exam screening for cancer. She is postmenopausal. Hysterectomy: no She is sexually active. No painful intercourse or pelvic pain. Hx of prolapse bladder. Employment: Retired Vaginal Bleeding none Menopausal symptoms - None, (+) mild hot flashes, but feels more from MS. Bladder issues - None Bowel issues - yes, IBS with diarrhea History of abnormal Pap smear: no Last pap: 06/21/19 Neg/Neg Family history of uterine or ovarian cancer: yes - Ovarian, PGM Family hx pancreatic or prostate cancer: no Family history of colon cancer: no Family history of breast cancer: no Regular self breast exam: yes, occasionally Last mammogram: 08/09/24 Neg Dexa Scan: 08/09/24 Osteopenia Colonoscopy: 5-6 yrs ago, normal PHQ9 depression screenin Flu shot this flu season: Yes The following portions of the patient's history were reviewed and updated as appropriate: allergies, current medications, past family history, past medical history, past social history, past surgicalhistory, problem list, and medication reconciliation was completed including current medication andpost discharge medication. Review of Systems Constitutional: Negative. Respiratory: Negative. Negative for chest tightness and shortness of breath. Cardiovascular: Negative. Negative for chest pain and palpitations. Gastrointestinal: Positive for diarrhea. Negative for constipation, nausea and vomiting. Endocrine: Negative. Genitourinary: Negative. Negative for dyspareunia, pelvic pain and vaginal bleeding. Musculoskeletal: Negative. Skin: Negative. Allergic/Immunologic: Negative. Neurological: Negative. Hematological: Negative. Psychiatric/Behavioral: Negative. Objective Vitals: 08/31/24 1229 BP: 142/80 Body mass index is 28.46 kg/m . Physical Exam Vitals and nursing note reviewed. Constitutional: Appearance: Normal appearance. HENT: Head: Normocephalic and atraumatic. Cardiovascular: Rate and Rhythm: Normal rate and regular rhythm. Pulses: Normal pulses. Heart sounds: Normal heart sounds. Pulmonary: Effort: Pulmonary effort is normal. Breath sounds: Normal breath sounds. Chest: Breasts: Breasts are symmetrical. Right: Normal. No mass, skin change or tenderness. Left: Normal. No mass, skin change or tenderness. Abdominal: General: Bowel sounds are normal. Palpations: Abdomen is soft. Genitourinary: General: Normal vulva. Labia: Right: No rash or lesion. Left: No rash or lesion. Vagina: Normal. Cervix: Normal. Uterus: Normal. Not enlarged and not tender. Adnexa: Right adnexa normal and left adnexa normal. Right: No mass, tenderness or fullness. Left: No mass, tenderness or fullness. Comments: Age appropriate vulvovaginal atrophy noted. Musculoskeletal: General: Normal range of motion. Cervical back: Normal range of motion and neck supple. Skin: General: Skin is warm and dry. Neurological: Mental Status: She is alert and oriented to person, place, and time. Psychiatric: Mood and Affect: Mood normal. Speech: Speech normal. Behavior: Behavior normal. Thought Content: Thought content normal. Judgment: Judgment normal. Alicia was seen today for gynecologic exam. Diagnoses and all orders for this visit: Encounter for breast and pelvic examination Standardized adult depression screening tool completed 1. Discussed SBE. 2. Discussed taking a multivitamin. 3. Discussed Calcium and Vitamin D for prevention of osteoporosis. 4. Discussed need for yearly mammograms. 5. Patient to discuss colon cancer screening recommendations with PCP. 6. Educational material provided. 7. Questions answered. 8. Return for Medicare pelvic / breast exam and / or PRN. KATE Farrell APRN-CNP 08/31/24 1255 documented in this encounterOhioHealth [facility]02-28-2025 Miscellaneous Notes* Telephone Encounter - Alexa Zapata - 08/03/2024 11:45 AM EST Patient has Medicare Breast & Pelvic appointment 08/31/24. Patient is requesting order for Mammogram and Dexa Scan prior to appointment. Please advise. Thank you * Telephone Encounter - KATE Farrell - 08/03/2024 11:45 AM EST Order placed for both * Telephone Encounter - Alexa Zapata - 08/03/2024 11:45 AM EST Advised Patient orders have been placed and [facility]. documented in this encounterOhioHealth Van Wert [facility]02-28-2025 Telephone encounter Note* Telephone Encounter - Alexa Zapata - 08/03/2024 11:45 AM EST Patient has Medicare Breast & Pelvic appointment 08/31/24. Patient is requesting order for Mammogram and Dexa Scan prior to appointment. Please advise. Thank you [facility]02-28-2025 Telephone encounter Note* Telephone Encounter - KATE Farrell - 08/03/2024 11:45 AM EST [facility] Work Phone: 1(986) 865-377802-28-2025 Telephone encounter Note* Telephone Encounter - Alexa Zapata - 08/03/2024 11:45 AM EST Advised Patient orders have been placed and gave telephone number for [facility] [employer] Central Scheduling. [facility] Recommend [id number] Evaluation note* Diagnosis Onset Date Resolution Status Admit Date Abdominal bloating acuteFebruary 2024 12:59pmDyspepsiaacuteFebruary 2024 12:59pmLUQ abdominal painacuteFebruary 2024 12:59pmRUQ abdominal painacuteFebruary 2024 12:59pmAbdominal bloatingacuteApril 2024 10:38amChronic cough acuteApril 2024 10:38amDyspepsiaacuteApril 2024 10:38amDyspnea and respiratory abnormalitiesacuteApr2024 10:38amLUQ abdominal painacute Goldie 2024 10:38amMild intermittent asthma, uncomplicatedacuteApril 2024 10:38amRUQ abdominal painacuteApril 2024 10:38am [facility] Work Phone: 1(205) 133-137702-26-2025 Evaluation note* Diagnosis Onset Date Resolution Status Admit Date Abdominal bloating acuteFebruary 2024 12:59pmDyspepsiaacuteFebruary 2024 12:59pmLUQ abdominal painacuteFebruary 2024 12:59pmRUQ abdominal painacuteFebruary 2024 12:59pmAbdominal bloatingacuteApril 2024 10:38amChronic cough acuteApr2024 10:38amDyspepsiaacuteApril 2024 10:38amDyspnea and respiratory abnormalitiesacuteApr2024 10:38amLUQ abdominal painacute September 04, 2024 10:38amMild intermittent asthma, uncomplicatedacuteApril 2024 10:38amRUQ abdominal painacuteApr2024 10:38amDyspepsiaacuteApril 2024 12:51pm [facility] Work Phone: 1(181) 531-937401-21-2025 History of Present illness Narrative* Lizzy Hightower MD - 06/26/2024 2:15 PM EST Images from the original note were not included. Subjective Alicia Flor is a 74 y.o. year old female Chief Complaint Patient presents with Multiple Sclerosis Past Medical History: Diagnosis Date Diabetes mellitus (CMS/HCC) Hypertension (CMS/HCC) MS (multiple sclerosis) (CMS/HCC) Past Surgical History: Procedure Laterality Date CARPAL TUNNEL RELEASE No family history on file. Social History Tobacco Use Smoking status: Never Smokeless tobacco: Never Substance Use Topics Alcohol use: Not on file Medication Documentation Review Audit Reviewed by Brittni Hendricks MA (Accounting Coordinator) on 06/26/24 at 1419 Medication Order Taking? Sig Documenting Provider Last Dose Status amLODIPine (Norvasc) 10 MG tablet [id number] Take 10 mg by mouth Daily Lizzy Hightower MD Active carvedilol (Coreg) 6.25 MG tablet [id number] Take 6.25 mg by mouth in the morning and 6.25 mg in the evening. Take with meals. Lizzy Hightower MD Active cholecalciferol (Vitamin D-3) 10 MCG (400 UNIT) tablet [id number] Take 400 Units by mouth in the morning. Lizzy Hightower MD Active glipiZIDE XL (Glucotrol XL) 5 MG 24 hr tablet [id number] Take 5 mg by mouth in the morning. Lizzy Hightower MD Active hydroCHLOROthiazide (HYDRODiuril) 25 MG tablet [id number] Take 25 mg by mouth Daily Lizzy Hightower MD Active Synthroid 75 MCG tablet [id number] Take 75 mcg by mouth Daily Lizzy Hightower MD Active HPI MS -she is no longer on medication due to damage to her kidneys -denies paresthesia -denies worsening weakness -admits fatigue some days -she denies any vision changes -she admits incontinence but sees urology for this -she is wondering about the MS leizabeth -she states some breathing issues this past year -she has seen pulmonology -she just had CT and chest xray and that was normal -trunk tightening and she cannot get a deep breath NECK PAIN -she denies any changes -symptoms comes and goes -worse with weather -she stays active and walks 2 miles a day -she is also seeing Dr. Yves ENRIQUEZ Review of Systems Constitutional: Positive for fatigue. Respiratory: Positive for chest tightness and shortness of breath. Musculoskeletal: Positive for back pain and neck pain. Neurological: Negative. Objective Visit Vitals BP 142/88 Ht 5' 5 Wt 169 lb BMI 28.12 kg/m Smoking Status Never BSA 1.88 m Neurological Exam Mental Status Awake, alert and oriented to person, place and time. Speech is normal. Language is fluent with no aphasia. Cranial Nerves CN II: Visual acuity is normal. Visual mariano full to confrontation. CN III, IV, : Extraocular movements intact bilaterally. Normal lids and orbits bilaterally. Pupils equal round and reactive to light bilaterally. CN V: Facial sensation is normal. CN VII: Full and symmetric facial movement. CN VIII: Hearing is normal. CN IX, X: Palate elevates symmetrically. Normal gag reflex. CN XI: Shoulder shrug strength is normal. CN XII: Tongue midline without atrophy or fasciculations. Sensory Sensation is intact to light touch, pinprick, vibration and proprioception in all four extremities. Coordination Wpelyf-vx-yfxf, rapid alternating movements and uran-un-hgit normal bilaterally without dysmetria. Gait Normal casual, toe, heel and tandem gait. Motor Examination RUE Strength deltoid, biceps, triceps, wrist extensors, wrist extensors, wrist flexor, alteration tailor apprentice strength 5/5. LUE Strength deltoid, biceps, triceps, wrist extensors, wrist extensors, wrist flexor, alteration tailor apprentice strength 5/5. RLE Strength illopsoas, quadriceps, tibialis anterior, and gastrocnemius strength 5/5. LLE Strength illopsoas, quadriceps, tibialis anterior, and gastrocnemius strength 5/5. Tone Normal tone x4 extremities. Reflexes: RUE biceps reflex 2, brachioradialis reflex 2 LUE biceps reflex 2, brachioradialis reflex 2 RLE knee reflex 2, ankle reflex 2 LLE knee reflex 2, ankle reflex 2 Assessment and Plan Diagnoses and all orders for this visit: Multiple sclerosis (CMS/HCC) Neck pain MS (multiple sclerosis) The patient is a 71 year old female who was diagnosed with MS in 2004 and was maintained on Copaxone until 2010 until she was diagnosed with kidney disease. She has not been on DMT since. She has been having breathing difficulty and has been on steroids several times. Symptoms do lessen with steroids however the patient describes it as the MS hug . Brain MRI 04/07/2023 revealed a few small nonspecific T2/FLAIR bright foci in the supratentorial white matter, unchanged since 05/19/2022. (Brain MRI 04/19/2022 was nonacute. Brain MRI 08/2020 with and without contrast revealed new 3.5mm area of increased T2 signal within the posterior left frontal lobe deep white matter. Also revealed was stable a ppearance of small area of increased T2 signal in right and left parietal lobes. No evidence of active demyelination). TCD and carotid ultrasounds were updated due to previous lightheadedness and were unremarkable. Orthostatic BPs were negative previously. Neck pain The patient had an Xray of the thoracic and cervical spine 06/24/20 at [facility] that revealed C5-6 degenertive disc disease with grade 1 retrolisthesis of C5; stable to slightly progessed since prior study, multilevel moderate degenerative facet arthropathy and mild levocurvature of the thoracic spine. MRI of the cervical spine with and without contrast 08/2020 revealed severe disc space narrowing with 4mm retrolisthesis at C5-C6 and moderate diffuse disc/osteophyte complex with significant narrowing of the central canal and moderate bilateral foraminal stenosis. She has seen neurosurgery, Dr. Kimball, and is doing home exercises for her neck with improvement in her symptoms. She is no longer on zanaflex. She is following with Dr. Marinelli now. She is stable. Arm pain, left Lightheadedness PLAN: I have recommended updating MRIs of the brain, cervical and thoracic spine but the patient refuses at this time due to kidney concerns with contrast. Patient is to call the office with any worsening symptoms We will clinically follow symptoms I will try to update imaging at next follow up if patient is agreeable. documented in this encounterSSM Health [id number] Evaluation note* Diagnosis Onset Date Resolution Status Admit Date Abdominal bloating acuteDecember 2023 2:24pmChronic coughacuteDecember 2023 2:24pm Dyspnea and respiratory abnormalitiesacuteDece[facility] 20[facility] 2:24pmLUQ abdominal painacuteDecev[facility] 2023 2:24pmRUQ abdominal painacuteDeceveterans health [facility] 20[facility] 2:24pm [facility] Work Phone: 1([phone]) 709-806208-27-2024 History of Present illness Narrative* Doug Heller MD - 01/31/2024 11:10 AM EDT Subjective Alicia Flor is a 73 y.o. female Chief Complaint Annual Exam HPI Patient is in the office for follow-up for the problems noted below accompanied by her . Shehas made lifestyle changes that led to weight loss, this has actually also led to better blood pressure control and better diabetes control. Lab data from recent testing were reviewed and shared withthe patient and has been noticed recently hide hypothyroidism for which supplemental therapy was pro vided by PCP. Examination was unremarkable for overweight. [...] by mouth 2 times daily (morning and lateafternoon)., Disp: , Rfl: cholecalciferol (Vitamin D-3) 10 MCG (400 UNIT) tablet, Take 1 tablet (10 mcg) by mouth every otherday., Disp: , Rfl: glipiZIDE XL (Glucotrol XL) [...] (75 mcg) once daily in the morning. Takebefore meals., Disp: , Rfl: Assessment/Plan 1. Essential hypertension 2. Right bundle branch block (RBBB) on electrocardiography 3. Other specified diabetes mellitus with other specified complication, without long-term current use of insulin (Multi) 4. History of nephrotic syndrome 5. Lower extremity edema 6. Former smoker 7. BMI 27.0-27.9,adult Scribe Attestation By signing my name below, IPhoebe RN , Scribe attest that this documentation has been prepared under the direction and in the presence of Doug Heller MD. Provider Attestation - Scribe documentation All medical record entries made by the Scribe were at my direction and personally dictated by me. Ihave reviewed the chart and agree that the record accurately reflects my personal performance of the history, physical exam, discussion and plan. [facility] encounterC[facility] Work Phone: 1(298) 681-752508-27-2024 Instructions* Patient Instructions* Phoebe Bolivar RN - 01/31/2024 11:10 AM [...] Provided instructions on exercise. documented in this encounterC[facility] Work Phone: 1(193) 947-366001-15-2024 Evaluation note* Encounter Date Diagnosis Assessment Notes Treatment Notes Treatment Clinical Notes Jun, Exertional dyspnea (ICD-10 - R06 .09) Suggested CXR to start and echo +/- stress test. Will check w [facility] their preference location for these tests. Jun,enal cyst (ICD-10 - N28.1)pt questions if her pain is due to renal cysts. Imaging in past reviewed. will recheck w US. [facility] Other 01-15-2024 Evaluation note* Encounter Date Diagnosis Assessment Notes Treatment Notes Treatment Clinical Notes Jun, Exertional dyspnea (ICD-10 - R06 .09) [facility] Other 12-26-2023 Evaluation note* Encounter Date Diagnosis Assessment Notes Treatment Notes Treatment Clinical Notes May, Acute non-recurrent maxillary si nusitis (ICD-10 - J01.00) Sinus infections can be triggered by a secondary infection from a viral URI or even seasonal allergies. Take medications as directed. Use saline nasal spray prior to presciption nasal spray. Take medications as directed, and complete all doses of medication even if you start to feel better. Patientadvised to follow up with PCP if symptoms persist or worsen. Patient verbalized understanding and agreement with treatment plan. [facility] Other 08-17-2023 Evaluation note* Encounter Date Diagnosis Assessment Notes Treatment Notes Treatment Clinical Notes Jan, Rhomboid muscle pain (ICD-10 - M 79.18) Order given to Pt for PT. Home exercises, tylenol and ice advised. Jan,ecreased right shoulder range of motion (ICD-10 - M25.611)as above. [facility] Other 04-25-2023 Evaluation note* Encounter Date Diagnosis Assessment Notes Treatment Notes Treatment Clinical Notes Sep, Laryngopharyngeal reflux (LPR) ( ICD-10 - K21.9) Sep,OtherPt requests referral to Dr. Martins as her daughter has seen in him in the past. [facility] Other 03-06-2023 Evaluation note* Encounter Date Diagnosis [...] Pt understood and agreed to tx plan. Aug,Elevated glucose (ICD-10 - R73.09)overdue for A1C to monitor. presently on glipizide Aug,Essential (primary) hypertension (ICD-10 - I10)due for labs harshad to recheck kidney function [facility] Other 01-20-2022 Evaluation note* Encounter Date Diagnosis Assessment Notes Treatment Notes Treatment Clinical Notes Jun, Contact with and (riggs spected) exposure to other viral communicable diseases (ICD-10 - Z20.828) covid test neg, see above. Jun,ost-nasal drainage (ICD-10 - R09.82) Cont with daily flonase. Add daily claritin or zyrtec. cont with daily omeprazole otc. F/u with pcpor specialists for recurring or persistent sx. Pt understood and agreed to tx plan. Jun,ther Additional time spent conducting pre-visit phone call, screening for symptoms, instructions on social distancing, application and removal of PPE, and cleaning of examination room, equipment and supplies was preformed. Patient education given for testing methodology and results. Patient care instructions given in writting by CDC [facility] Home document. [facility] Other 06-08-2015 Evaluation note* Diagnosis Onset Date Resolution Status HTN (hypertension) acuteHyperglycemia, unspecifiedJune cuteHyperlipidemia, unspecified January 23cute [facility] Work Phone: 1(829) 588-177206-08-2015 Evaluation note* Diagnosis Onset Date Resolution Status HTN (hypertension) acuteHyperglycemia, unspecifiedJune cuteHyperlipidemia, unspecified January 23cuteSpasm of thoracolumbar muscleacute [facility] Work Phone: Chief complaint Narrative - ReportedALICIA FLOR is being seen for a consultation for an abnormal ECG, chest pain and hypertension. -[facility] [address] DO Work Phone: Evaluation noteNo assessment information available [facility] Work Phone: Evaluation noteNo InformationNort Ge[employer] Other Evaluation note* Diagnosis Shortness of breath documented in this encounter [facility] Work Phone: Evaluation note* Diagnosis Onset Date Resolution Status Bronchitis acute [facility] Work Phone: Evaluation note* Diagnosis Onset Date Resolution Status Bronchitis acuteEncounter for immunizationacute [facility] Work Phone: Evaluation note* Diagnosis Essential hypertension- [...] [facility] Work Phone: Evaluation note* Diagnosis Multiple sclerosis (CMS/HCC) Multiple sclerosis Neck pain Cervicalgia documented in this encounter [facility] HealthcareEvaluation note* Diagnosis Gastroesophageal reflux disease without esophagitis Esophageal reflux [facility] SystemEvaluation [facility]* Diagnosis Encounter for screening mammogram for malignant neoplasm of breast- Primary Postmenopausal Asymptomatic postmenopausal status (age-related) (natural) Screening for osteoporosis Special screening for osteoporosis documented in this encounter [facility] SystemEvaluation note* Diagnosis Encounter for breast and pelvic examination- Primary Standardized adult depression screening tool completed documented in this encounter [facility] SystemEvaluation note* Diagnosis Multiple sclerosis (CMS/HCC)- Primary Multiple sclerosis Neck pain Cervicalgia documented in this encounter [facility] HealthcareEvaluation note* Diagnosis Multiple sclerosis (CMS/HCC)- Primary Multiple sclerosis Neck pain Cervicalgia documented in this encounter [facility]* Diagnosis Essential hypertension- Primary Unspecified essential hypertension Other specified diabetes mellitus with other specified complication, without long-term current use of insulin Arthritis Unspecified arthropathy, site unspecified Other specified hypothyroidism History of nephrotic syndrome Personal history of nephrotic syndrome MS (multiple sclerosis) (Multi) Multiple sclerosis BMI 28.0-28.9,adult Right bundle branch block (RBBB) on electrocardiography Former smoker Personal history of tobacco use, presenting hazards to health Overweight Type 2 diabetes mellitus without complication, without long-term current use of insulin documented in this encounter [facility] Work Phone: History general Narrative - Reported* Type Description Date Medical History Multiple Sclerosis Medical HistoryHypertensionSurgical Oekqwvykwpsbemoyag4519Wzhrhhge History Procedure:heart cath;Disease:Surgical [id number] History Procedure:Cholecystectomy;Disease:Surgical HistoryLT FOOTSurgical History Procedure:Arthroscopy Knee;Disease:LTSurgical Historyplantar faciectomyLt Surgical HistorySINUSSurgical HistoryBilat. MMA, r/o CB, ant. ethmoid, BITSMR, Septoplasty09/2014Surgical HistoryCATARACTSurgical HistoryLT cataractSurgical HistorygallbladderSurgical HistoryRT CTR Dr Pino03/14/19Hospitalization HistoryMSHospitalization HistorySee Sx Hx [facility] Other Hospital Discharge instructions Additional Instructions Take your medications as prescribed. Return to the emergency department if you feel worse. Follow-up with senior consulting manager listed below for outpatient stress test versus heart catheterization.[facility] Work Phone: InstructionsNot on filedocumented in this encounter [facility] Recommend SystemInstructionsNot on filedocumented in this encounter [facility] SystemInstructions* Attachments The following attachments cannot be sent through Care Everywhere. * Pelvic Floor Exercises (Northern Irish) documented in this encounterProOhiohealth [facility] SystemReason for referral (narrative)* Consultation (Routine) - AuthorizedSpecialtyDiagnoses / Procedures Referred By ContactReferred To ContactCardiology Diagnoses Right bundle branch block (RBBB) on electrocardiography Procedures Follow Up In Cardiology Doug Heller MD [address] [facility] [address] [place] [address] Doug Heller MD [address] [facility] [address] [place] [address] Referral IDStatusReasonStart DateExpiration DateVisits RequestedVisits [id number] [facility] Work Phone: Reugds for referral (narrative)No reason for referral information availableK[facility] Health [facility] Work Phone: Summary Purpose Family History Unknown [...] bill father Hypertension Unknown DeceasedUnknowngrandparentDeceasedUnknownMalignant neoplasmUnknowngrandparent Heart diseaseUnknownHeart diseaseUnknownNot SpecifiedHeart diseaseUnknown Relationship Condition Age at Onset Recorded Date/T bill father Hypertension Unknown DeceasedUnknowngrandparentDeceasedUnknownMalignant neoplasmUnknowngrandparent Heart diseaseUnknownHeart diseaseUnknownmotherHeart diseaseUnknown Advance Directives Advance Directive Response Recorded Date/ Time Advance Directives No July 5:33pm Advance Directive Response Recorded Date/ Time Advance Directives No July 4:33pm Advance Directive Response Recorded Date/ Time Advance Directives No November 26 9:55am Advance Directive Response Recorded Date/ Time Advance Directives No November 26 8:55am Chief Complaint and Reason for Visit Chief Complaint Abnormal EKG Chief Complaint shoulder/back pain Reason for Visit HTN (hypertension) Hyperglycemia, unspecified Hyperlipidemia, unspecified Chief Complaint shoulder/back pain CoughReason for VisitHTN (hypertension) Hyperglycemia, unspecified Hyperlipidemia, unspecified Spasm of thoracolumbar muscle Chief Complaint Coughing/Can't Breat he Reason for Visit Bronchitis Chief Complaint Coughing/Can't Breat he flu shotReason for VisitBronchitis Chief Complaint Coughing/Can't Breat he flu shot still has cough, and wheezingReason for VisitBronchitis Encounter for immunization Chief Complaint Admit Date sore throat, cough May 21, 2024 2:24pm Amb Documentation May 29, 2024 9:46am Ref- abdominal distension/ RUQ&LUQ pain August 01, 2024 12:59pm Reason for Visit Admit Date Abdominal bloating May 21, 2024 2:24pm Chronic cough May 21, 2024 2:24pm Dyspnea and respiratory abnormalities De cember 2023 2:24pm LUQ abdominal pain May 21, 2024 2:24pm RUQ abdominal pain May 21, 2024 2:24pm Chief Complaint Admit Date Ref- abdominal distension/ RUQ&LUQ pain August 01, 2024 12:59pm Cough/Congestion September 04, 2024 10:3 8am Reason for Visit Admit Date Abdominal bloating August 01, 2024 12:59pm Dyspepsia August 01, 2024 12:59pm LUQ abdominal pain August 01, 2024 12:59pm RUQ abdominal pain August 01, 2024 12:59pm Abdominal bloating September 04, 2024 10:3 8am Chronic cough September 04, 2024 10:3 8am Dyspepsia September 04, 2024 10:3 8am Dyspnea and respiratory abnormalities Ap ril 2024 10:38am LUQ abdominal pain September 04, 2024 10:3 8am Mild intermittent asthma, uncomplicated September 04, 2024 10:38am RUQ abdominal pain September 04, 2024 10:3 8am Chief Complaint Admit Date Ref- abdominal distension/ RUQ&LUQ pain August 01, 2024 12:59pm Cough/Congestion September 04, 2024 10:3 8am 2 month follow up October 01, 2024 12: 51pm Reason for Visit Admit Date Abdominal bloating August 01, 2024 12:59pm Dyspepsia August 01, 2024 12:59pm LUQ abdominal pain August 01, 2024 12:59pm RUQ abdominal pain August 01, 2024 12:59pm Abdominal bloating September 04, 2024 10:3 8am Chronic cough September 04, 2024 10:3 8am Dyspepsia September 04, 2024 10:3 8am Dyspnea and respiratory abnormalities Ap ril 2024 10:38am LUQ abdominal pain September 04, 2024 10:3 8am Mild intermittent asthma, uncomplicated September 04, 2024 10:38am RUQ abdominal pain September 04, 2024 10:3 8am Dyspepsia October 01, 2024 12: 51pm Chief Complaint Admit Date Cough/Congestion September 04, 2024 10:3 8am 2 month follow up October 01, 2024 12: 51pm gerd,dysphagia, dyspepsi October 30, 2024 12:06pm gerd,dysphagia, dyspepsi October 30, 2024 12:57pm Reason for Visit Admit Date Abdominal bloating September 04, 2024 10:3 8am Chronic cough September 04, 2024 10:3 8am Dyspepsia September 04, 2024 10:3 8am Dyspnea and respiratory abnormalities Ap ril 2024 10:38am LUQ abdominal pain September 04, 2024 10:3 8am Mild intermittent asthma, uncomplicated September 04, 2024 10:38am RUQ abdominal pain September 04, 2024 10:3 8am Abdominal bloating October 01, 2024 12: 51pm Dyspepsia October 01, 2024 12: 51pm Dysphagia October 01, 2024 12: 51pm GERD (gastroesophageal reflux disease) A pril 2024 12:51pm Chief Complaint Admit Date Cough/Congestion September 04, 2024 10:3 8am 2 month follow up October 01, 2024 12: 51pm gerd,dysphagia, dyspepsi October 30, 2024 12:06pm gerd,dysphagia, dyspepsi October 30, 2024 12:57pm wellness December 03, 2024 1:01 pm Reason for Visit Admit Date Abdominal bloating September 04, 2024 10:3 8am Chronic cough September 04, 2024 10:3 8am Dyspepsia September 04, 2024 10:3 8am Dyspnea and respiratory abnormalities Ap 2024 10:38am LUQ abdominal pain September 04, 2024 10:3 8am Mild intermittent asthma, uncomplicated September 04, 2024 10:38am RUQ abdominal pain September 04, 2024 10:3 8am Abdominal bloating October 01, 2024 12: 51pm Dyspepsia October 01, 2024 12: 51pm Dysphagia October 01, 2024 12: 51pm GERD (gastroesophageal reflux disease) A pril 2024 12:51pm GERD (gastroesophageal reflux disease) [facility] 2024 1:01pm HTN (hypertension) December 03, 2024 1:01 pm Hyperlipidemia, unspecified December 03, 2 025 1:01pm Medicare annual wellness visit, josianee nt December 03, 2024 1:01pm Osteopenia December 03, 2024 1:01 pm Type 2 diabetes mellitus with hyperglyce connor December 03, 2024 1:01pm Chief Complaint Admit Date Flu Shot April 10, 2025 1 0:13am Chief Complaint * LOUISA / MPL results. * ALICIA FLOR is being seen for a 2 month [...] bundle branch block. No clinical significance. * ALICIA FLOR is being seen for a 6 month [...] is provided, leg elevation was recommended * ALICIA FLOR is being seen for a 6 month [...] block. No clinical significance. 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) Referral Organization [facility] tressa Referring Provider First Name Stella Referring Provider Last Name Yves Referring Provider Specialty Family [facility] Referred Organization [facility] Referred Provider Jefry Martins Referred Address ,[place], [place],[address] Referred Provider Specialty Otolaryngolo gy Referral Priority Routine General Notes Trish Brower 11:10:34 AM >received today, attachments made, notes locked, referral faxed P2P Additional Source Comments INFORMATION SOURCE (unrecogn ized section and content) DATE CREATED AUTHOR 08/09/2019 [facility] DATE CREATED AUTHOR AUTHOR'S ORGANIZ ATION 09/28/2021 [facility] DATE CREATED AUTHOR AUTHOR'S ORGANIZ ATION 08/23/2022 [facility] DATE CREATED AUTHOR AUTHOR'S ORGANIZ ATION 02/01/2023 [facility] DATE CREATED AUTHOR AUTHOR'S ORGANIZ ATION 02/01/2023 [facility] DATE CREATED AUTHOR AUTHOR'S ORGANIZ ATION 03/30/2024 [facility] DATE CREATED AUTHOR AUTHOR'S ORGANIZ ATION 08/11/2024 [facility] DATE CREATED AUTHOR AUTHOR'S ORGANIZ ATION 09/01/2024 [facility] DATE CREATED AUTHOR AUTHOR'S ORGANIZ ATION 10/19/2024 [facility] DATE CREATED AUTHOR AUTHOR'S ORGANIZ ATION 11/02/2024 [facility] DATE CREATED AUTHOR AUTHOR'S ORGANIZ ATION 02/19/2025 [facility] Mold Inspector Teams (unrecognized sec tion and content) Team Status: Active Member Role Status Dates Stella Marinelli MD Primary Care Provider Active Team Status: Inactive Member Role Status Dates Stella Marinelli MD Primary Care Provider Active Start: March 09, 2024 End: March 09, 2024Lissett Hawkins APRN DATA LIBRARIAN-CAttending ProviderActive Start: March 09, 2024 End: March 09, 2024 Team Status: Inactive Member Role Status Dates Stella Marinelli MD Primary Care Provide r, Attending Provider Active Start: March 19, 2024 End: March 19, 2024 Team Status: Active Member Role Status Dates Stella Marinelli MD Primary Care Provide r, Attending Provider Active Start: December 14, 2023 Team Status: Inactive Member Role Status Dates Stella Marinelli MD Primary Care Provide r, Attending Provider Active Start: October 25, 2023 End: October 25, 2023 Team Status: Inactive Member Role Status Dates Stella Marinelli MD Primary Care Provider Active Altaf Garcia ProviderActiveTeam MemberRelationshipSpecialty Start DateEnd Date Stella Marinelli MD [address] [place] [address] [address] [place] [address] [facility] Team Status: Active Member Role Status Dates Stella Marinelli MD Primary Care Provide r, Attending Provider Active Start: October 26, 2023 Team Status: Inactive Member Role Status Dates Stella Marinelli MD Primary Care Provide r, Attending Provider Active Start: December 05, 2023 End: December 05, 2023 Team Status: Inactive Member Role Status Dates Stella Marinelli MD Primary Care Provide r, Attending Provider Active Start: April 10, 2024 End: April 10, 2024Team MemberRelationshipSpecialtyStart [place] [address] [place] [address] [facility]01/31/24Team MemberRelationshipSpecialtyStart DateEnd Date Stella Marinelli MD [address] [place], [place] [phone] [facility]12/08/16 Team Status: Inactive Member Role Status Dates Stella Marinelli MD Primary Care Provide r, Attending Provider Active Start: May 21, 2024 End: May 21, 2024 Team Status: Active Member Role Status Dates Stella Marinelli MD Primary Care Provide r, Attending Provider Active Start: May 26, 2024 Team Status: Active Member Role Status Dates Stella Marinelli MD Primary Care Provide r, Attending Provider Active Start: May 27, 2024 Team Status: Active Member Role Status Dates Stella Marinelli MD Primary Care Provider Active Start: May 27, 2024 Maikel Taylor DOAttluke ProviderActiveStart: May 27, 2024 Team Status: Active Member Role Status Dates Stella Marinelli MD Primary Care Provider Active Start: May 29, 2024 Ann Polanco CMAAttending ProviderActiveStart: May 29, 2024 Team Status: Inactive Member Role Status Dates Stella Marinelli MD Primary Care Provider Active Start: August 01, 2024 End: August 01paige Elder MDAttluke ProviderActiveStart: August 01, 2024 End: August 01, 2024Team MemberRelationshipSpecialtyStart DateEnd Date Stella Marinelli MD [address] [place] [id number] [facility]12/08/16Team MemberRelationshipSpecialtyStart [place] [address] [place] [address] PCP - General12/08/16 Team Status: Inactive Member Role Status Dates Stella Marinelli MD Primary Care Provider Active Start: September 04, 2024 End: September 04, 2024Lissett Hawkins APRN DATA LIBRARIAN-CAttending ProviderActive Start: September 04, 2024 End: September 04, 2024Team MemberRelationshipSpecialtyStart [place] [address] [place] [address], [place] [phone] PCP - [facility] Medicine09/24/24Team MemberRelationshipSpecialtyStart DateEnd Date Stella Marinelli MD [address] [place] [address], [place] [phone] [facility]/24 Abby Cat PA [facility] [address] Physician AssistantNeurology09/24/24 Team Status: Inactive Member Role Status Dates Stella Marinelli MD Primary Care Provider Active Start: October 01, 2024 End: October 01, 2024Clarence Garcia ProviderActiveStart: October 01, 2024 End: October 01, 2024Team MemberRelationshipSpecialtyStart DateEnd Date Stella Marinelli MD [address] [place] [phone] PCP - GeneralFamily Medicine09/24/24 Abby Cat PA [address] [address] Physician AssistantNeurology09/24/24Team MemberRelationshipSpecialtyStart DateEnd Date Stella Marinelli MD [address] [facility] [place] [address] PCP - GeneralFamily Medicine09/24/24 Abby Cat PA [facility] [place] [address] Physician AssistantNeurology09/24/24 Team Status: Active Member Role Status Dates Stella Marinelli MD Primary Care Provider Active Start: October 09, 2024 YESENIA [facility] ProviderActiveStart: October 09, 2024 Team Status: Inactive Member Role Status Dates Stella Marinelli MD Primary Care Provider Active Start: October 30, 2024 End: October 30Abner Chairez ProviderActiveStart: October 30, 2024 End: October 30, 2024 Team Status: Active Member Role Status Dates Stella Marinelli MD Primary Care Provider Active Start: October 30, 2024 Abner Booker Provider, Other ProviderActiveStart: October 30, 2024 Team Status: Active Member Role Status Dates Stella Marinelli MD Primary Care Provider Active Start: October 30, 2024 Abner Booker ProviderActiveStart: October 30, 2024 Armand Elder MDOther ProviderActiveStart: October 30, 2024 Team Status: Inactive Member Role Status Dates Stella Marinelli MD Primary Care Provider Active Start: December 03, 2024 End: December 03, 2024Abner Colunga ProviderActiveStart: December 03, 2024 End: December 03, 2024Team MemberRelationshipSpecialtyStart DateEnd Date Stella Marinelli MD [address] [place] [address] PCP - GeneralFamily Medicine01/31/24 Team Status: Active Member Role/Relationship Status Dates Stella Marinelli MD Primary Care Provider Active Team Status: Inactive Member Role/Relationship Status Dates Stella Marinelli MD Primary Care Provider Active Start: April 10, 2025 End: April 10, 2025Stella Marinelli MDAttending ProviderActiveStart: April 10, 2025 End: April 10, 2025 Goals (unrecognized section and content) Goals may be documented in a n alternate sectionNo InformationNo InformationNo InformationNo InformationNo InformationNo InformationNo InformationNo InformationNo InformationNo InformationNo InformationNo InformationNo InformationGoals may be documented in an alternate sectionGoals may be documented in an alternate sectionGoals may be documented in an alternate sectionGoals may be documented in an alternate sectionGoals may be documented in an alternate sectionNot on filedocumented as of this encounterGoals may be documented in an alternate sectionNot on filedocumented as of this encounterNot on filedocumented as of this encounterNot on filedocumented as of this encounterGoals may be documented in an alternate sectionGoals may be documented in an alternate sectionGoals may be documented in an alternate section Reason for Visit (unrecogniz ed section and content) SpecialtyDiagnoses / ProceduresReferred By ContactReferred To ContactCardiology Diagnoses Shortness of breath Procedures Transthoracic Echo (TTE) Complete [place] ECHO TTHRC R-T 2D W/WOM-MODE COMPL SPEC&COLR D Doug Heller MD [address] [place] [address], [address] [address] Referral IDStatusReasonStart DateExpiration DateVisits RequestedVisits [id number] Perform Procedure /[id number] ExamReasonCommentsMultiple Sclerosis ReasonCommentsMed RefillReasonCommentsGynecologic ExamMedicare Breast & Pelvic ExamReasonCommentsMultiple SclerosisReasonCommentsAnnual Exam1 year Follow up for HypertensionSpecialtyDiagnoses / ProceduresReferred By ContactReferred To ContactCardiology Diagnoses Right bundle branch block (RBBB) on electrocardiography Procedures Follow Up In Cardiology Doug Heller MD 703 [facility], [address] [address] Phone: tel: fax: Doug Heller MD 703 [facility], [address] [address] Phone: tel: fax: Referral IDStatusReasonStart DateExpiration DateVisits RequestedVisits [id number]/27/20248/27/202511 FOR RECORDS PERTAINING TO PATIENTS WHO ARE [...] BE BASED ON THE PRIMARY CLINICAL RECORDS. [email or web address] [facility]. provides no warranty or guarantee of the accuracy or completeness of information in this document.
--- OUTSIDE RECORDS SUMMARY | 2025-04-21 10:06 | XMS_ITS | Clinical Summary ---
Author Organization [facility] Address [address] [place], [place] [id number] Care Team Providers Care Official Court Reporter Name Role Phone Unavailable Primary Care Provider Unavailabl e Social History Tobacco UseTypesPacks/DayYears UsedDateSmoking Tobacco: Never Assessed CommentsUnknownSex and Gender InformationValueDate RecordedSex Assigned at Not on fileLegal MtoEppjpg62/02/2012 7:31 AM ESTGender IdentityNot on fileSexual OrientationNot on file Plan of Treatment Health MaintenanceDue DateLast DoneCommentsAnxiety Blvhgtjny94/02/1967Depression Frjpmkgii30/02/1967Hepatitis C Jwvddnpzl99/02/1967DTaP,Tdap,Td Vaccine (1 - Tdap)1967Diabetes Jkxsmwowr57/02/1994Pneumococcal Vaccine: 50+ (1 of 1 - PCV)1998Shingrix Vaccine (1 of 2)1998Bone Density Screening 2013RSV Vaccine (1 - 1-dose 75+ series)2023dvance Directive Ubvntszfid50/01/2025ovid-19 Vaccine ( - 2024-26 season)2025Influenza Vaccine (#1)2025 Insurance [address] [place] [address]
--- OUTSIDE RECORDS SUMMARY | 2025-04-21 10:06 | XMS_ITS | Clinical Summary ---
Author Organization [facility] Address [address] [place] [address] Phone Care Team Providers Care Slabbing Machine Operator Name Role Phone Damaris Cagle MD Primary Care Provider [phone] Allergies Active AllergyReactionsCriticalityNoted DateCommentsCiprofloxacinMyalgiaLow 11/30/2016 Joint pain DoxycyclineHives,Rash,GozguyhjWri35/27/2017MorphineNausea/tavadrtqOqf05/27/2017 PenicillinsHives,GktiAacruc58/27/5065JvmwycyhrqvchofbCcgjDxl18/23/2022 Medications MedicationSigDispense QuantityRefillsLast FilledStart DateEnd DateStatus amLODIPine (Norvasc) 10 mg tablet Take 1 tablet (10 mg) by mouth once daily.11/25/2016Active carvedilol (Coreg) 6.25 mg tablet Take 1 tablet (6.25 mg) by mouth 2 times daily (morning and late afternoon). 11/25/2016Active Klor-Con M20 20 mEq ER tablet Take 1 tablet (20 mEq) by mouth once daily.08/12/2020ctive glipiZIDE XL (Glucotrol XL) 5 mg 24 hr tablet Take 1 tablet (5 mg) by mouth once daily.Active cholecalciferol (Vitamin D-3) 10 MCG (400 UNIT) tablet Take 1 tablet (400 Units) by mouth every other day.Active hydroCHLOROthiazide (HYDRODiuril) 25 mg tablet Take 1 tablet (25 mg) by mouth once daily. At noon.Active B complex-vitamin C tablet Take 1 tablet by mouth every other day.Active levothyroxine (Synthroid, Levoxyl) 75 mcg tablet 1 tablet (75 mcg) once daily in the morning. Take before meals.11/02/2023ctive omeprazole (PriLOSEC) [address] capsule Take 1 capsule (40 mg) by mouth once daily.5Active Active Problems ProblemNoted DateDiagnosed YypdZyflpowfp83/15/2025Other specified hypothyroidism 02/18/2025MS (multiple sclerosis)02/18/2025Former strkse9601/31/2024MI 28.0-28.9,adult01/31/2024bnormal EKG008/19/2023iabetes rdmoeqgs84/15/2024 Essential dazhlrfciemm50/15/6915Biydjehqbuv62/15/2024ight bundle branch block (RBBB) on ermcdsdedtnytwrpnqm44/15/2024History of nephrotic qptwoyrl15/15/2024 Lower extremity edema08/19/2023 Encounters DateTypeDepartmentCare CcrkUvzoklgeurn57/15/2025 3:10 PM EDTOffice Visit [facility] [address] [address] Doug Valerio MD Essential hypertension (Primary Dx); Other specified diabetes mellitus with other specified complication, without long-term current use of insulin (Multi); Arthritis; Other specified hypothyroidism; History of nephrotic syndrome; MS (multiple sclerosis) (Multi); BMI 28.0-28.9,adult; Right bundle branch block (RBBB) on electrocardiography; Former smoker; Overweight; Type 2 diabetes mellitus without complication, without long-term current use of insulin (Multi) Discharge Disposition: Home02/18/2025Travelfrom Last 3 Months Immunizations ImmunizationAdministration DatesNext DueFlu vaccine, trivalent, preservative free, HIGH-DOSE, age 65y+ (Fluzone)03/19/2024Influenza, Seasonal, Quadrivalent, Dsuwfocyny45/12/2022Influenza, seasonal, unwyfajage99/01/2021neumococcal polysaccharide vaccine, 23-valent, age 2 years and older (PNEUMOVAX 23) 04/06/2014 Family History Medical HistoryRelationNameCommentsHeart diseaseFatherHeart diseaseMother RelationNameStatusCommentsFatherMother Social History Tobacco UseTypesPacks/DayYears UsedDateSmoking Tobacco: FormerCigarettes0.34 Started: 1968Smokeless Tobacco: Never Tobacco Cessation:Counseling Given: Not Answered Alcohol UseStandard Drinks/WeekCommentsYes0 (1 standard drink = 0.6 oz pure alcohol)rarelyCommentsUnknownSex and Gender InformationValueDate RecordedSex Assigned at BirthNot on fileLegal DmxNdquao52/25/2022 9:25 PM EST Gender IdentityNot on fileSexual OrientationNot on file Last Filed Vital Signs Vital SignReadingTime TakenCommentsBlood Axqgpfke480/7609/ 3:14 PM EDT Mqnsj204302/18/2025 3:14 PM EDTTemperature--Respiratory Rate--Oxygen Saturation-- Inhaled Oxygen Concentration--Ufihme04.5 kg (173 lb)02/18/2025 3:14 PM EDTHeight 165.1 cm (5' 5 )02/18/2025 3:14 PM EDTBody Mass Index28.7902/18/2025 3:14 PM EDT Plan of Treatment DateTypeDepartmentCare Team (Latest Contact Info)Glmayaemfkx82/16/2026 2:00 PM EDTOffice Visit [facility] [address] [address] Doug Valerio MD 703 [facility] 2, [address] [address] Health MaintenanceDue DateLast DoneCommentsDiabetes: Hemoglobin A1C1948 Diabetes: Urine Protein Llfgmfgtr39/02/1949Lipid Panel1948TSH Level 1948Hepatitis C Kxkulcpty72/02/1967DTaP/Tdap/Td Vaccines (1 - Tdap) 1970Zoster Vaccines (1 of 2)1998Pneumococcal Vaccine (2 of 2 - PCV) RSV High Risk: (Elderly (60+) or Population) (1 - 1-dose 75+ series)2023Influenza Vaccine (#1), 03/17/2022, 09/01/2021COVID-19 Vaccine (2 - 5-26 season)/01/2021 Medicare Annual Wellness Visit (AWV)/5Bone Density Scan , 08/09/2024Diabetes: Retinopathy Iixnsouxe16/14/2027 10/17/2024, 10/17/2023, 10/04/2022, Additional history existsMammogram Vqezjjeswmeb65/06/2025, 08/08/2023, 08/08/2023, Additional history existsHIB VaccinesAged OutNo longer eligible based on patient's age to complete this topic HPV VaccinesAged OutNo longer eligible based on patient's age to complete this topicHepatitis A VaccinesAged OutNo longer eligible based on patient's age to complete this topicHepatitis B VaccinesAged OutNo longer eligible based on patient's age to complete this topicIPV VaccinesAged OutNo longer eligible based on patient's age to complete this topicMeningococcal VaccineAged OutNo longer eligible based on patient's age to complete this topicRotavirus VaccinesAged Out No longer eligible based on patient's age to complete this topic Insurance * Guarantor: Chelo Flor TypeRelation to PatientDate of BirthPhone Billing AddressPersonal/ShqhizRpkn55/[birth year][address] [address] Care Teams Team MemberRelationshipSpecialtyStart DateEnd Damaris Cagle MD [facility] [place] [address] [place] [address] PCP - GeneralFamily Medicine01/31/24
--- OUTSIDE RECORDS SUMMARY | 2025-04-21 10:06 | XMS_ITS | Clinical Summary ---
Author Organization [facility] Address [address] [place] [address] Care Team Providers Care Director Instrumentation Name Role Phone Damaris Cagle MD Primary Care Provider [phone] Abby Cat Unavailable Allergies Active AllergyReactionsCriticalityNoted DateCommentsCiprofloxacinUnknownLow 11/30/2016 Joint pain DoxycyclineHeadache,Hives,Unknown,TuhtKzu4811/30/2016MorphineGI intolerance, RdvwasqZpz26/27/2017PenicillinsHives,Unknown,FyijKrpkgx12/27/2017 FylsmstnzlkoxlyxGaswRgi39/23/2022ulfamethoxazole-TrimethoprimUnknown,RashLow 11/30/20161648BbfitpmwzkoiRtntQjh20/21/2025 Medications MedicationSigDispense QuantityRefillsLast FilledStart DateEnd DateStatus amLODIPine (Norvasc) 10 MG tablet Take 10 mg by mouth DailyActive carvedilol (Coreg) 6.25 MG tablet Take 6.25 mg by mouth in the morning and 6.25 mg in the evening. Take with meals.Active cholecalciferol (Vitamin D-3) 10 MCG (400 UNIT) tablet Take 400 Units by mouth in the morning.Active glipiZIDE XL (Glucotrol XL) 5 MG 24 hr tablet Take 5 mg by mouth in the morning.Active hydroCHLOROthiazide (HYDRODiuril) 25 MG tablet Take 25 mg by mouth DailyActive Synthroid 75 MCG tablet Take 75 mcg by mouth DailyActive Family History RelationNameStatusCommentsMotherDeceased Social History Tobacco UseTypesPacks/DayYears UsedDateSmoking Tobacco: NeverSmokeless Tobacco: NeverCommentsUnknownSex and Gender InformationValueDate RecordedSex Assigned at BirthNot on fileLegal KvrTippng73/15/2023 7:05 PM EDTGender Identity Not on fileSexual OrientationNot on file Last Filed Vital Signs Vital SignReadingTime TakenCommentsBlood Ckeygfmh158/8410/18/2024 12:54 PM EDT Jnzam361110/18/2024 12:54 PM EDTTemperature--Respiratory Mhdd126110/18/2024 12:54 PM EDTOxygen Vkhkpystey92%10/18/2024 12:54 PM EDTInhaled Oxygen Concentration-- Srvghp56 kg (172 lb)10/18/2024 12:54 PM OIHCsdooz678.1 cm (5' 5 )10/18/2024 12:54 PM EDTBody Mass Index28.62010/18/2024 12:54 PM EDT Plan of Treatment Health MaintenanceDue DateLast DoneCommentsPneumococcal Vaccine: 65+ Years (2 of 2 - PCV)COVID-19 Vaccine (2 - season)2025 08/11/2020Influenza Vaccine (#1)/, 03/17/2022, 02/04/2021, Additional history lrnmnrDdaoftqyrVflebeorlcoh03/06/2025, 08/08/2023, 08/04/2022, [place] [address] Care Teams Team MemberRelationshipSpecialtyStart DateEnd Date Damaris Cagle MD [address] [place] [phone] PCP - GeneralFamily Medicine09/24/24 Abby Cat PA [address] [place] [phone] Physician AssistantNeurology09/24/24
--- OUTSIDE RECORDS SUMMARY | 2025-04-21 10:06 | XMS_ITS | Clinical Summary ---
Author Organization [facility] [facility] tem Address [id number] [address] [place] [address] Care Team Providers Care Manager City Name Role Phone Damaris Cagle MD Primary Care Provider [phone] Allergies Active AllergyReactionsCriticalityNoted DateComments Sulfamethoxazole-SxcwzlhbezwwGszpMxv26/27/3183Gybvsgpxnbhfc66/27/2017 Joint pain HiaizbxnydqMesuMxs62/27/8838QivjpkzcWkiphxze93/27/2017PenicillinsRashLow 11/30/20165565MjnijxjqtrvmDgxtPnb84/21/2025 Medications MedicationSigDispense QuantityRefillsLast FilledStart DateEnd DateStatus amLODIPine (NORVASC) 10 mg tablet Take 1 tablet (10 mg total) by mouth in the morning.11/25/2016Active carvedilol (COREG) 6.25 mg tablet Take 1 tablet (6.25 mg total) by mouth in the morning and 1 tablet (6.25 mg total) before bedtime.11/25/2016Active triamterene-hydrochlorothiazide (DYAZIDE) 37.5-25 mg per capsule Take 1 capsule by mouth in the morning.11/25/2016Active aspirin 81 mg Take 81 mg by mouth every other day.Active potassium chloride (K-DUR,KLOR-CON) 20 MEQ CR tablet Take 1 tablet (20 mEq total) by mouth in the morning and 1 tablet (20 mEq total) before bedtime.Active glipiZIDE (GLUCOTROL) 10 mg tablet Take 1 tablet (10 mg total) by mouth in the morning and 1 tablet (10 mg total) in the evening. Takebefore meals.Active cholecalciferol, vitamin D3, 400 units tablet Take 1 tablet (400 Units total) by mouth in the morning.Active cyanocobalamin (vitamin B-12) 1000 MCG tablet Take 1 tablet (1,000 mcg total) by mouth in the morning.Active nitrofurantoin, macrocrystal-monohydrate, (MACROBID) 100 mg capsule Take 100 mg by mouth 2 (two) times a day.02/16/2021ctive pilocarpine (SALAGEN, PILOCARPINE,) 5 mg tablet Indications:XerostomiaTake 1 tablet (5 mg total) by mouth 2 (two) times a day. 60 tablet ctive Additional Information Patient not taking.Reported on 08/31/2024 albuterol (PROVENTIL HFA;VENTOLIN HFA) 90 mcg/actuation inhaler Inhale 2 puffs every 4 (four) hours as needed.3Active hydroCHLOROthiazide (HYDRODIURIL) 25 mg tablet Take 1 tablet (25 mg total) by mouth daily.Active baclofen (LIORESAL) 10 mg tablet Indications:Esophageal spasmTake 1 tablet (10 mg total) by mouth 3 (three) times a day. 90 tablet ctive Additional Information Patient not taking.Reported on 08/31/2024 pantoprazole (PROTONIX) 40 mg EC tablet Indications:Gastroesophageal reflux disease without esophagitisTAKE 1 TABLET (40 MG TOTAL) BY MOUTH IN THE MORNING AND BEFORE BEDTIME 180 tablet ctive Additional Information Patient not taking.Reported on 08/31/2024 azithromycin (ZITHROMAX) 250 mg tablet Take 1 tablet (250 mg total) by mouth in the morning.5Active B-complex with vitamin C tablet Take 1 tablet by mouth every other day.Active SYNTHROID 75 mcg tablet Take 1 tablet (75 mcg total) by mouth in the morning.4Active Active Problems ProblemNoted DateDiagnosed DateOverweight (BMI 25.0-29.9)08/31/2024Xerostomia 06/10/2021Tonsil stone12/19/2018Vocal cord wjhaclk0709/25/2018Gastroesophageal reflux disease without fmgujvvfjcm93/22/2019 Family History Medical HistoryRelationNameCommentsHeart attackMotherOvarian cancerPaternal GrandmotherBreast cancerNeg HxColon cancerNeg HxStrokeNeg HxUterine cancerNeg Hx RelationNameStatusCommentsFatherDeceasedMaternal GrandfatherDeceasedMaternal GrandmotherDeceasedMotherDeceasedPaternal GrandfatherDeceasedPaternal GrandmotherDeceased Social History Tobacco UseTypesPacks/DayYears UsedDateSmoking Tobacco: NeverSmokeless Tobacco: NeverAlcohol UseStandard Drinks/WeekCommentsNot Currently0 (1 standard drink = 0.6 oz pure alcohol)rarePHQ-2AnswerDate RecordedTotal [id number] AnswerDate RlwvzzpePlgyowexeFbsgkxe92/12/2019EmploymentAnswerDate Recorded OdaygnfazmZsxbsbk80/12/2019Hunger ScreeningAnswerDate RecordedWithin the past 12 months we worried whether our food would run out before we got money to buy more.Never True08/31/2024Within the past 12 months the food we bought just didn't last and we didn't have money to get more.Never True08/31/2024Purpose - LifeAnswerDate RecordedPurpose and direction in umsiSebywpr47/15/2021 CommentsNoSex and Gender InformationValueDate RecordedSex Assigned at BirthNot on fileLegal AvaGmzved59/06/2015 11:43 AM EDTGender IdentityNot on fileSexual OrientationNot on file Last Filed Vital Signs Vital SignReadingTime TakenCommentsBlood Fgccqkhm860/8003 12:29 PM EDT Kunrt0860 1:54 PM VXWDshhzgwwveg03 ??C (98.6 ??F)10/20/2022 1:54 PM EDT Respiratory Ydws9352 2:43 PM ESTOxygen Ptvajmoblj32%03/14/2019 12:29 PM EDTInhaled Oxygen Concentration--Bpolcl57.6 kg (171 lb)08/31/2024 12:29 PM EDT Mwrlri136.1 cm (5' 5 )08/31/2024 12:29 PM EDTBody Mass Index28.46008/31/2024 12:29 PM EDT Plan of Treatment Health MaintenanceDue DateLast DoneCommentsDTaP,Tdap and Td Vaccines (1 - Tdap) 1967Zoster (Shingles) Vaccine (1 of 2)1998Fall Risk Screening 2013RSV ( or age 60+ yrs) (1 - 1-dose 75+ series)4COVID- 19 Vaccine (2 - season)503/01/2021Influenza Dcntsqv3902/04/2025 03/19/2024, 03/17/2022, 02/04/2021, Additional history existsDepression Jdctkgspi78/Tobacco Ybnyknusf37 Medical Devices [place] [address] Care Teams Team MemberRelationshipSpecialtyStart DateEnd Date Damaris Cagle MD [address] [place] [id number] [facility]12/08/16
--- OUTSIDE RECORDS SUMMARY | 2025-04-21 10:07 | XMS_ITS | Clinical Summary ---
Author Organization [facility] Address [address], [address] [place] [address] Care Team Providers Care Drawing In Hand Name Role Phone Damaris Cagle MD Primary Care Provider [phone] Allergies Active AllergyReactionsCriticalityNoted ZyryOackslhuIydqgocscmq59/21/2021 Sulfamethoxazole-Pcyhgsswhvum21/21/8349Qgjbotamagdzx15/18/2021oxycycline 10/24/20202056Dhyzeszn39/21/2021 Medications MedicationSigDispense QuantityRefillsLast FilledStart DateEnd DateStatus amLODIPine (NORVASC) 10 MG tablet 08/04/2020ctive carvedilol (COREG) 6.25 MG tablet 08/04/2020ctive hydroCHLOROthiazide (HYDRODIURIL) 25 MG tablet 08/04/2020ctive KLOR-CON M20 20 MEQ extended release tablet 08/12/2020ctive aspirin 81 MG EC tablet Take 81 mg by mouth every other dayActive Family History Medical HistoryRelationNameCommentsArthritisFatherHigh Blood PressureFatherHigh Blood PressureMotherRelationNameStatusCommentsFatherMother Social History Tobacco UseTypesPacks/DayYears UsedDateSmoking Tobacco: Never AssessedSmokeless Tobacco: NeverCommentsUnknownSex and Gender InformationValueDate RecordedSex Assigned at BirthNot on fileLegal OqqBzuniz47/05/2021 10:47 AM EDT Gender IdentityNot on fileSexual OrientationNot on file Last Filed Vital Signs Vital SignReadingTime TakenCommentsBlood Pressure--Pulse--Siwiarocziu12.3 ??C (97.3 ??F)11/21/2020 2:46 PM EDTRespiratory Rate--Oxygen Saturation--Inhaled Oxygen Concentration--Eakvbs79.4 kg (175 lb)11/21/2020 2:46 PM WZNLzamqa207.1 cm (5' 5 )11/21/2020 2:46 PM EDTBody Mass Index29.12011/21/2020 2:46 PM EDT Plan of Treatment Not on file Insurance Care Teams Team MemberRelationshipSpecialtyStart DateEnd Date Damaris Cagle MD [address] [place] [id number] PCP - GeneralFamily Medicine10/24/20
[2025-04-21] MEDS: ACETAMINOPHEN 500 MG TABLET 1000 MG PO (10:21)
== END 2025-04-21 11:21 | disposition home or self-care (01) ==
PROVIDERS: Emergency Provider Emergency Medicine; PCP Family Medicine
DX: S76.012A Strain of muscle, fascia and tendon of left hip, initial encounter (principal); X50.1XXA Overexertion from prolonged static or awkward postures, initial encounter
CPT/HCPCS: 73502; 99283